=== PATIENT | female | born 1960 | race Caucasian/White ===

== ENCOUNTER → 2016-04-08 | Outpatient (CLI) | payer BC ==
--- NOTE | 2016-04-09 11:51 | MM ---
Reason for exam: screening (asymptomatic). Last mammogram was performed 2 years and 4 months ago. History: Taking hormonal contraceptives beginning at age 23. Physical Findings: A clinical breast exam by your physician is recommended on an annual basis and results should be correlated with mammographic findings. MG Screening Mammo w CAD Bilateral CC and MLO view(s) were taken. Prior study comparison: November 30, 2013, bilateral MG screening mammo w CAD. February 24, 2011, bilateral digital screening mammo w/CAD. There are scattered fibroglandular densities. No significant changes when compared with prior studies. ASSESSMENT: Benign, BI-RAD 2 RECOMMENDATION: Routine screening mammogram of both breasts in 1 year.
== END | disposition home or self-care (01) ==
LOC: RADMAMWWP 10:34
PROVIDERS: ATTEND Family Medicine
DX: Z12.31 Encounter for screening mammogram for malignant neoplasm of breast (principal)

== ENCOUNTER 2016-05-13 12:27 | Emergency (ER) | payer BC ==
[2016-05-13] MEDS ORDERED: SODIUM CHLORIDE 0.9% 500 ML IV STA (13:29)
[2016-05-13] MEDS ORDERED: SODIUM CHLORIDE 0.9% 1,000 ML IV STA (13:29)
[2016-05-13] MEDS ORDERED: PANTOPRAZOLE 40 MG/10 ML VIAL IVP STA (13:29)
[2016-05-13] MEDS ORDERED: ONDANSETRON 4 MG/2 ML VIAL IVP STA ×2 (13:29→17:16)
[2016-05-13] MEDS ORDERED: RX INFO: IV CONTRAST WAS GIVEN 1 EACH MISC MISCELLANE PRN (13:29)
--- NOTE | 2016-05-13 13:35 | ED ---
General Adult HPI - General Chief complaint: Abdominal Pain Stated complaint: Weakness, nausea Time Seen by Provider: 05/13/16 13:20 Source: patient, RN notes reviewed, old records reviewed Mode of arrival: wheelchair Limitations: no limitations - History of Present Illness Initial comments: This is a 55-year-old female ER for evaluation. Patient presented here for evaluation of weakness nausea and anorexia and abdominal pain ever since hysterectomy. Doctor or the patient's hysterectomy, patient has had follow-up which is been normal but her decreased appetite has persisted. Patient denies any other complaints of ear cough or congestion, she is nausea with vomiting whenever trainee. No diarrhea, no recent bowel movements. - Related Data Home Medications Medication Instructions Recorded Confirmed ALPRAZolam [Xanax] 0.5 mg PO TID PRN 12/07/13 05/13/16 Nitroglycerin Sl Tabs [Nitrostat] 0.4 mg SUBLINGUAL Q5M PRN 12/18/15 05/13/16 PARoxetine [Paxil] 20 mg PO HS 12/18/15 05/13/16 Metoprolol Tartrate [Lopressor] 25 mg PO BID 01/01/16 05/13/16 Atorvastatin Calcium [Lipitor] 20 mg PO HS 05/13/16 05/13/16 HYDROcodone/APAP 5-325MG [[place] 1 tab PO BID PRN 05/13/16 05/13/16 5-325] Ibuprofen [Motrin] 600 mg PO Q8HR PRN 05/13/16 05/13/16 Lactose-Reduced Food [Ensure Plus] 1 can PO TID PRN 05/13/16 05/13/16 Omeprazole 40 mg PO HS 05/13/16 05/13/16 Sennosides [Senna] 8.6 mg PO DAILY PRN 05/13/16 05/13/16 Sucralfate [Carafate] 1 gm PO QID PRN 05/13/16 05/13/16 Previous Rx's Medication Instructions Recorded traZODone HCL [Desyrel] 50 mg PO HS #0 12/22/15 Allergies Allergy/AdvReac Type Severity Reaction Status Date / Time Penicillins Allergy Unknown Verified 05/13/16 13:31 Review of Systems ROS Statement: Those systems with pertinent positive or pertinent negative responses have been documented in the HPI. ROS Other: All systems not noted in ROS Statement are negative. 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: Chest Pain / Angina, GERD/Reflux, Hypertension Additional 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 / Comment(s): MIGRAINES, IBS, BOIL UNDER RT BREAST History of Any Multi-Drug Resistant Organisms: None Reported Past Surgical History: Cholecystectomy, Hysterectomy Additional Past Surgical History / Comment(s): D&C , NOVOSURE ENDOMETRIAL ABLATION Past Anesthesia/Blood Transfusion Reactions: Postoperative Nausea & Vomiting ( PONV) Additional Past Anesthesia/Blood Transfusion Reaction / Comment(s): CLAUSTERPHOBIA Past Psychological History: Anxiety, Depression Additional Psychological History / Comment(s): TAKES XANAX AND PAXIL-STATED FEELS WSELL MAINTAINED ON HER MEDS,NO THOUGHTS OF HARMING SELF, NO HOPELESSNESS. Smoking Status: Never smoker Past Alcohol Use History: None Reported Past Drug Use History: None Reported - Past Family History Father Family Medical History: Myocardial Infarction ([place]) Mother Family Medical History: CVA/TIA Additional Family Medical History / Comment(s): MOM IS 72 General Exam Limitations: no limitations General appearance: alert, in no apparent distress Head exam: Present: atraumatic, normocephalic, normal inspection Eye exam: Present: normal appearance, PERRL, EOMI. Absent: scleral icterus, conjunctival injection, periorbital swelling ENT exam: Present: normal exam, mucous membranes moist Neck exam: Present: normal inspection. Absent: tenderness, meningismus, lymphadenopathy Respiratory exam: Present: normal lung sounds bilaterally. Absent: respiratory distress, wheezes, rales, rhonchi, stridor Cardiovascular Exam: Present: regular rate, normal rhythm, normal heart sounds. Absent: systolic murmur, diastolic murmur, rubs, gallop, clicks GI/Abdominal exam: Present: soft, normal bowel sounds. Absent: distended, tenderness, guarding, rebound, rigid Extremities exam: Present: normal inspection, full ROM, normal capillary refill. Absent: tenderness, pedal edema, joint swelling, calf tenderness Back exam: Present: normal inspection Neurological exam: Present: alert, oriented X3, CN II-XII intact Psychiatric exam: Present: normal affect, normal mood Skin exam: Present: warm, dry, intact, normal color. 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 - Lab Data Result diagrams: 05/13/16 14:40 05/13/16 15:31 Lab Results 05/13/16 05/13/16 05/13/16 Range/Units 14:15 14:40 14:40 WBC 7.4 (3.8-10.6) k/uL RBC 4.92 (3.80-5.40) m/uL Hgb 14.2 (11.4-16.0) gm/dL Hct 44.0 (34.0-46.0) % MCV 89.4 (80.0-100.0) fL MCH 28.8 (25.0-35.0) pg MCHC 32.3 (31.0-37.0) g/dL RDW 13.6 (11.5-15.5) % Plt Count 346 (150-450) k/uL Neutrophils % 66 % Lymphocytes % 23 % Monocytes % 6 % Eosinophils % 2 % Basophils % 1 % Neutrophils # 4.9 (1.3-7.7) k/uL Lymphocytes # 1.7 (1.0-4.8) k/uL Monocytes # 0.4 (0-1.0) k/uL Eosinophils # 0.2 (0-0.7) k/uL Basophils # 0.1 (0-0.2) k/uL Sodium (137-145) mmol/L Potassium (3.5-5.1) mmol/L Chloride (98-107) mmol/L Carbon Dioxide (22-30) mmol/L Anion Gap mmol/L BUN (7-17) mg/dL Creatinine (0.52-1.04) mg/dL Est GFR (MDRD) Af Amer (>60 ml/min/1.73 sqM) Est GFR (MDRD) Non-Af (>60 ml/min/1.73 sqM) Glucose (74-99) mg/dL Plasma Lactic Acid Daniel 1.4 (0.7-2.0) mmol/L Calcium (8.4-10.2) mg/dL Total Bilirubin (0.2-1.3) mg/dL AST (14-36) U/L ALT (9-52) U/L Alkaline Phosphatase (38-126) U/L Total Creatine Kinase (30-135) U/L CK-MB (CK-2) (0.0-2.4) ng/mL CK-MB (CK-2) Rel Index Troponin I (0.000-0.034) ng/mL Total Protein (6.3-8.2) g/dL Albumin (3.5-5.0) g/dL Amylase (30-110) U/L Lipase (23-300) U/L Urine Color Yellow Urine Appearance Clear (Clear) Urine pH 5.0 (5.0-8.0) Ur Specific [place] 1.021 (1.001-1.035) Urine Protein Trace H (Negative) Urine Glucose (UA) Negative (Negative) Urine Ketones Negative (Negative) Urine Blood Negative (Negative) Urine Nitrate Positive H (Negative) Urine Bilirubin Negative (Negative) Urine Urobilinogen <2.0 (<2.0) mg/dL Ur Leukocyte Esterase Large H (Negative) Urine RBC 3 (0-5) /hpf Urine WBC 27 H (0-5) /hpf Ur Squamous Epith Cells 1 (0-4) /hpf Urine Bacteria Moderate H (None) /hpf Urine Mucus Rare H (None) /hpf 05/13/16 05/13/16 Range/Units 14:40 15:31 WBC (3.8-10.6) k/uL RBC (3.80-5.40) m/uL Hgb (11.4-16.0) gm/dL Hct (34.0-46.0) % MCV (80.0-100.0) fL MCH (25.0-35.0) pg MCHC (31.0-37.0) g/dL RDW (11.5-15.5) % Plt Count (150-450) k/uL Neutrophils % % Lymphocytes % % Monocytes % % Eosinophils % % Basophils % % Neutrophils # (1.3-7.7) k/uL Lymphocytes # (1.0-4.8) k/uL Monocytes # (0-1.0) k/uL Eosinophils # (0-0.7) k/uL Basophils # (0-0.2) k/uL Sodium 144 (137-145) mmol/L Potassium 4.5 (3.5-5.1) mmol/L Chloride 105 (98-107) mmol/L Carbon Dioxide 24 (22-30) mmol/L Anion Gap 15 mmol/L BUN 16 (7-17) mg/dL Creatinine 0.73 (0.52-1.04) mg/dL Est GFR (MDRD) Af Amer >60 (>60 ml/min/1.73 sqM) Est GFR (MDRD) Non-Af >60 (>60 ml/min/1.73 sqM) Glucose 91 (74-99) mg/dL Plasma Lactic Acid Daniel (0.7-2.0) mmol/L Calcium 9.6 (8.4-10.2) mg/dL Total Bilirubin 0.6 (0.2-1.3) mg/dL AST 41 H (14-36) U/L ALT 51 (9-52) U/L Alkaline Phosphatase 114 (38-126) U/L Total Creatine Kinase 44 (30-135) U/L CK-MB (CK-2) 0.5 (0.0-2.4) ng/mL CK-MB (CK-2) Rel Index 1.1 Troponin I <0.012 (0.000-0.034) ng/mL Total Protein 8.0 (6.3-8.2) g/dL Albumin 4.4 (3.5-5.0) g/dL Amylase 44 (30-110) U/L Lipase 133 (23-300) U/L Urine Color Urine Appearance (Clear) Urine pH (5.0-8.0) Ur Specific [place] (1.001-1.035) Urine Protein (Negative) Urine Glucose (UA) (Negative) Urine Ketones (Negative) Urine Blood (Negative) Urine Nitrate (Negative) Urine Bilirubin (Negative) Urine Urobilinogen (<2.0) mg/dL Ur Leukocyte Esterase (Negative) Urine RBC (0-5) /hpf Urine WBC (0-5) /hpf Ur Squamous Epith Cells (0-4) /hpf Urine Bacteria (None) /hpf Urine Mucus (None) /hpf - Radiology Data Radiology results: report reviewed (CT abd pelvis shows cystitis, post op inflammation), image reviewed Disposition Clinical Impression: Abdominal pain, Post-op pain, Nausea & vomiting, UTI (urinary tract infection) Disposition: HOME SELF-CARE Condition: Good Instructions: Abdominal Pain (ED), Urinary Tract Infection in Women (ED) Referrals: Palmer Jamison DO [Primary Care Provider] - 1-2 days
[2016-05-13 14:39] LABS: Appearance,Urine Clear (Clear); Bacteria,Urine Moderate /hpf; Bilirubin,Urine Negative (Negative); Glucose,Urine (UA) Negative (Negative); Ketones,Urine Negative (Negative); Leukocyte Esterase,Urine Large (Negative); Mucus,Urine Rare /hpf; Nitrite,Urine Positive (Negative); Particle Count 4621; Protein,Urine Trace (Negative); RBC,Urine 3 /hpf (0-5); Specific Gravity,Urine 1.021 (1.001-1.035); Squamous Epithelial Cell,Urine 1 /hpf (0-4); UA Billing (MACRO vs. MICRO) MICRO; Urobilinogen,Urine <2.0 mg/dL (<2.0); WBC,Urine 27 /hpf (0-5)
[2016-05-13 15:09] LABS: Basophils # (A) 0.1 k/uL (0-0.2); Basophils % (A) 1 %; CH 28.9; CHCM 32.4; Eosinophils # (A) 0.2 k/uL (0-0.7); Eosinophils % (A) 2 %; HDW 2.44; HGB 14.2 gm/dL (11.4-16.0); Luc # (Auto) 0.12; Luc % (Auto) 2; Lymphocytes # (A) 1.7 k/uL (1.0-4.8); Lymphocytes % (A) 23 %; MCH 28.8 pg (25.0-35.0); MCHC 32.3 g/dL (31.0-37.0); MCV 89.4 fL (80.0-100.0); Monocytes # (A) 0.4 k/uL (0-1.0); Monocytes % (A) 6 %; Neutrophils # (A) 4.9 k/uL (1.3-7.7); Neutrophils % (A) 66 %; RBC 4.92 m/uL (3.80-5.40); RDW 13.6 % (11.5-15.5); WBC 7.4 k/uL (3.8-10.6); WBC (Perox) 7.56
[2016-05-13] MEDS ORDERED: IOHEXOL 350 MG/ML 25 ML BOTTLE (ORAL USE) PO PRN (15:12)
[2016-05-13 15:22] LABS: Creatine Kinase 44 U/L (30-135)
[2016-05-13 15:34] LABS: Creatine Kinase MB 0.5 ng/mL (0.0-2.4); Troponin I <0.012 ng/mL (0.000-0.034)
[2016-05-13 16:00] LABS: ALT 51 U/L (9-52); AST 41 U/L (14-36); Alkaline Phosphatase 114 U/L (38-126); Amylase 44 U/L (30-110); Anion Gap 15 mmol/L; Blood Urea Nitrogen 16 mg/dL (7-17); Calcium 9.6 mg/dL (8.4-10.2); Carbon Dioxide 24 mmol/L (22-30); Chloride 105 mmol/L (98-107); Glucose 91 mg/dL (74-99); Non-African American GFR(MDRD) >60 (>60 ml/min/1.73 sqM); Potassium 4.5 mmol/L (3.5-5.1); Sodium 144 mmol/L (137-145); Total Bilirubin 0.6 mg/dL (0.2-1.3)
[2016-05-13 16:55] VITALS: RESP 18
--- NOTE | 2016-05-13 17:50 | CT ---
EXAMINATION TYPE: CT abdomen pelvis w con DATE OF EXAM: 05/13/2016 5:36 PM COMPARISON: 12/27/2013 HISTORY: Weakness and nausea [address] DLP: 2030.00 mGycm Automated exposure control for dose reduction was used. TECHNIQUE: Helical acquisition of images was performed from the lung bases through the pelvis. CONTRAST: Performed with Oral Contrast and with IV Contrast, patient injected with 100 mL of Omnipaque 300. FINDINGS: There is mild linear density at the lung bases consistent with subsegmental atelectasis. There is no pleural effusion. There is no pericardial effusion. Liver shows no focal defect. There are clips from cholecystectomy. Spleen and pancreas appear normal. There is no adrenal mass. Kidneys show some satisfactory contrast opacification. There is no hydronep hrosis. Ureters are not dilated. There is no retroperitoneal adenopathy. There is no ascites. I see n o intestinal wall thickening. There are no dilated loops. Bladder distends smoothly. There is no sign of a pelvic mass. There is minimal fat stranding involving the subcutaneous fat over the anterior lo wer abdomen. There is minimal stranding around the anticipated location of the appendix. There is no free fluid in the pelvis. I see no bony destructive process. Hysterectomy is noted. IMPRESSION: THERE IS MINIMAL STRANDING IN THE PELVIS ON THE RIGHT SIDE AT THE ANTICIPATED LOCATION OF THE APPENDI X. THIS IS ALSO NEAR THE SURGERY SITE OF THE HYSTERECTOMY. IS NOT CLEAR IF THERE IS AN APPENDICITIS. THERE IS SOME MILD FAT STRANDING OVER THE ANTERIOR LOWER ABDOMEN THAT COULD RELATE TO AN INCISION SIT E. A DEFINITE ABSCESS IS NOT SEEN. THERE COULD BE A SMALL SUBCUTANEOUS SEROMA OR HEMATOMA. The surger y is new compared to old exam.
[2016-05-13 18:07] VITALS: BP 124/71; PULSE 91; TEMP 98.5
[2016-05-13] MEDS ORDERED: MORPHINE SULFATE 4 MG/ML SYRINGE IVP STA (18:08)
[2016-05-13] MEDS ORDERED: KETOROLAC 30 MG/ML 1 ML VIAL IVP STA (18:08)
== END 2016-05-13 18:51 | disposition home or self-care (01) ==
LOC: EC 12:27
DX: N39.0 Urinary tract infection, site not specified (principal); R11.2 Nausea with vomiting, unspecified; G89.18 Other acute postprocedural pain; I10 Essential (primary) hypertension; G43.909 Migraine, unspecified, not intractable, without status migrainosus; K21.9 Gastro-esophageal reflux disease without esophagitis; F41.9 Anxiety disorder, unspecified; F32.9 Major depressive disorder, single episode, unspecified; Z88.0 Allergy status to penicillin; Z79.899 Other long term (current) drug therapy; Z90.710 Acquired absence of both cervix and uterus
CPT/HCPCS: 99284; 96365; 96375 ×4; 96376; 96361; 36415; 80053; 82150; 82550; 82553; 83605; 83690; 84484; 85025; 81001; 87491; 87591; 87086; 87077; 87186; 74177; J2270; J2405; J0696; J1885; Q9967; C9113

== ENCOUNTER 2016-05-14 10:54 | Inpatient (IN) | payer BC ==
[2016-05-14] MEDS ORDERED: SENNOSIDES 8.6 MG TAB PO PRN (11:14)
[2016-05-14] MEDS ORDERED: HYDROcodone/APAP 10-325MG 1 EACH TAB PO PRN (11:16)
[2016-05-14] MEDS ORDERED: IBUPROFEN 600 MG TAB PO PRN (11:16)
--- NOTE | 2016-05-14 12:59 | P.HPOB ---
History of Present Illness H&P Date: 05/14/16 Chief Complaint: Nausea, vomiting, weakness This is a 55 y.o. female, 4, para 3, who had a total abdominal hysterectomy with bilateral salpingooophorectomy for persistent pelvic pain on at [facility]. Pathology was benign. She developed postoperative urinary retention and was unable to go on her own after multiple straight cath attempts. She was discharged home after a week with a Nieves catheter in place and was seen in Dr. Resendiz's office for catheter removal a week later. She has been able to urinate on her own since then and is going good amounts. She does state the pressure that she was feeling over her bladder before surgery is now gone. She did also take a long time to pass flatus. She was eating and did have a small bowel movement prior to discharge. She now tells me that she was only eating liquids and everytime she tried solid foods, she would vomit, even while she was still admitted. I was not aware of this and thought she was tolerating a regular diet. Since going home, she has been drinking Ensure at least 3 times a day, but every time she tries solid food, she vomits. For the last 3 days, she has been unable to even hold liquids down, including water. She denies even feeling hungry. She has not had a bowel movement in about a week despite attemting a suppository. She states she hasn't passed flatus in about 3 days. She is getting more abdominal pain due to all of the vomiting. She was seen in the ER at [facility] yesterday afternoon at my request. She called my office stating she wasn't holding anything down and was getting very weak. The ER physician called me and told me her CT scan looked good and that she didn't have any bowel blockage. There was some fat stranding in the subcutaneous fat over anterior lower abdomen in right side near appendix site and hysterectomy site, but no clear appendicitis. She states she was actively vomiting up the contrast as they wheeled her out of the ER and discharged her. She was also having more abdominal pain and asked for pain medication. She told the nurse she didn't want anything very strong, but they gave her Morphine and she vomited all night and had bad muscle spasms all over along with chest pain. She doesn't ever want the Morphine again. She states she has lost 30 lbs in the last 3 weeks. She does give a history of stomach/bowel issues in the past and has been seen by Dr. August in the past. OB Hx: . History of 3 vaginal deliveries and 1 miscarrage. 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 Complete hysterectomy 3 weeks ago. Social Hx: She is . Has current partner. 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: Coronary Artery Disease (CAD), Chest Pain / Angina, GERD/ Reflux, Hypertension Additional 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 / Comment(s): MIGRAINES, IBS, BOIL UNDER RT BREAST History of Any Multi-Drug Resistant Organisms: None Reported Past Surgical History: Cholecystectomy, Hysterectomy (04/22/2016), Uterine Ablation Additional Past Surgical History / Comment(s): D&C , NOVOSURE ENDOMETRIAL ABLATION Past Anesthesia/Blood Transfusion Reactions: Postoperative Nausea & Vomiting ( PONV) Additional Past Anesthesia/Blood Transfusion Reaction / Comment(s): CLAUSTERPHOBIA Past Psychological History: Anxiety, Depression Additional Psychological History / Comment(s): TAKES XANAX AND PAXIL-STATED FEELS WSELL MAINTAINED ON HER MEDS,NO THOUGHTS OF HARMING SELF, NO HOPELESSNESS. Smoking Status: Never smoker Past Alcohol Use History: None Reported Past Drug Use History: None Reported - Past Family History Father Family Medical History: Myocardial Infarction ([place]) Mother Family Medical History: CVA/TIA Additional Family Medical History / Comment(s): MOM IS 72 Medications and Allergies Home Medications Medication Instructions Recorded Confirmed Type ALPRAZolam [Xanax] 0.5 mg PO TID PRN 12/07/13 05/13/16 History Nitroglycerin Sl Tabs [Nitrostat] 0.4 mg SUBLINGUAL Q5M PRN 12/18/15 05/13/16 History PARoxetine [Paxil] 20 mg PO HS 12/18/15 05/13/16 History Metoprolol Tartrate [Lopressor] 25 mg PO BID 01/01/16 05/13/16 History Atorvastatin Calcium [Lipitor] 20 mg PO HS 05/13/16 05/13/16 History HYDROcodone/APAP 5-325MG [[place] 1 tab PO BID PRN 05/13/16 05/13/16 History 5-325] Ibuprofen [Motrin] 600 mg PO Q8HR PRN 05/13/16 05/13/16 History Lactose-Reduced Food [Ensure Plus] 1 can PO TID PRN 05/13/16 05/13/16 History Omeprazole 40 mg PO HS 05/13/16 05/13/16 History Sennosides [Senna] 8.6 mg PO DAILY PRN 05/13/16 05/13/16 History Sucralfate [Carafate] 1 gm PO QID PRN 05/13/16 05/13/16 History Allergies Allergy/AdvReac Type Severity Reaction Status Date / Time Penicillins Allergy Unknown Verified 05/13/16 13:31 morphine AdvReac Chest Pain Verified 05/14/16 12:59 Exam Osteopathic Statement: *. No significant issues noted on an osteopathic structural exam other than those noted in the History and Physical/Consult. GEN: Well-developed female in mild distress and appears dehydrated HEENT: within normal limits Heart: regular rate and rhythm Lungs: clear to auscultation bilaterally Abdomen: soft, +bowel sounds x 4, mild diffuse tenderness, worst near epigastric area. Incision healing well with mild tenderness, no redness. Extremities: Neg. Autumn's. Assessment and Plan (1) Abdominal pain Status: Acute (2) Nausea & vomiting Status: Acute (3) Urinary tract infection Status: Acute Plan: Plan is to admit for observation. Will obtain GI consultation and give IV antibiotics for UTI. Will give antiemetics and fluids. Will monitor closely.
[2016-05-14] MEDS ORDERED: LEVOFLOXACIN 750MG-D5W PMX 750 MG in DEXTROSE/WATER 1 150ML.BAG IVPB SCH (13:00)
[2016-05-14] MEDS: METOCLOPRAMIDE 5 MG/ML 2 ML VIAL IVP PRN (14:12)
[2016-05-14 15:06] LABS: ALT 47 U/L (9-52); AST 41 U/L (14-36); Alkaline Phosphatase 108 U/L (38-126); Anion Gap 13 mmol/L; Blood Urea Nitrogen 12 mg/dL (7-17); Calcium 9.6 mg/dL (8.4-10.2); Carbon Dioxide 23 mmol/L (22-30); Chloride 106 mmol/L (98-107); Glucose 92 mg/dL (74-99); Non-African American GFR(MDRD) >60 (>60 ml/min/1.73 sqM); Potassium 4.5 mmol/L (3.5-5.1); Sodium 142 mmol/L (137-145); Total Bilirubin 0.6 mg/dL (0.2-1.3); Total Protein 7.3 g/dL (6.3-8.2)
[2016-05-14] MEDS: SODIUM CHLORIDE 0.9% 1,000 ML IV SCH (15:49)
[2016-05-14] MEDS: ONDANSETRON 4 MG/2 ML VIAL IVP PRN (18:55)
[2016-05-14] MEDS: KETOROLAC 30 MG/ML 1 ML VIAL IVP PRN (19:00)
[2016-05-14] MEDS: ATORVASTATIN 20 MG TAB PO SCH (21:04)
[2016-05-14] MEDS: PANTOPRAZOLE 40 MG TABLET PO SCH (21:04)
[2016-05-14] MEDS: ALPRAZolam 0.5 MG TAB PO PRN (21:04)
[2016-05-14] MEDS: traZODone HCL 50 MG TAB PO SCH (21:04)
[2016-05-15] MEDS: SODIUM CHLORIDE 0.9% 1,000 ML IV SCH ×3 (01:08→21:30)
[2016-05-15] MEDS: ONDANSETRON 4 MG/2 ML VIAL IVP PRN (06:02)
[2016-05-15] MEDS: KETOROLAC 30 MG/ML 1 ML VIAL IVP PRN ×2 (06:02→20:21)
[2016-05-15] MEDS: SUCRALFATE 1 GM TAB PO PRN (07:54)
--- NOTE | 2016-05-15 08:57 | P.PN ---
Subjective Principal diagnosis: Nausea and vomiting Patient was still nauseated yesterday and did receive Reglan. She took some [place] shortly after that and felt even more nauseated. They did switch her to Zofran after that. She has done a little bit better through the night but she has not taken any more [place]. She was placed on IV Toradol and this has helped with her pain. Just this morning she did start to pass some flatus. Her intake has been minimal. She stated she ate approximately a half above popsicle and then started to feel nauseated so she stopped eating. She still feels weak but it is better than yesterday. GI consult is pending at this time. Objective - Vital Signs Vital signs: Vital Signs Temp 98.1 F 05/15/16 06:00 Pulse 76 05/15/16 06:00 Resp 18 05/15/16 06:00 BP 103/73 05/15/16 06:00 Pulse Ox 97 05/15/16 06:00 Intake & Output 05/14/16 05/15/16 05/15/16 18:59 06:59 18:59 Intake Total 100 400 Output Total 200 300 Balance -100 100 Weight 100.7 kg Intake: Oral 100 400 Output: Urine 200 300 Other: Voiding Method Toilet Toilet # Voids 1 - Constitutional General appearance: Present: no acute distress - Gastrointestinal General gastrointestinal: Present: normal bowel sounds (Positive bowel sounds 4 , very active), soft, tenderness (Mild diffuse tenderness) - Labs CBC & Chem 7: 05/14/16 14:45 Labs: Abnormal Lab Results - Last 24 Hours (Table) 05/14/16 Range/Units 14:45 AST 41 H (14-36) U/L Assessment and Plan (1) Abdominal pain Status: Acute (2) Nausea & vomiting Status: Acute (3) Urinary tract infection Status: Acute Plan: Will await GI input. She is advised to continue to attempt to eat liquids as much as possible. She is encouraged to ambulate. Will continue with IV Levaquin while urine culture is pending. We may need to pretreat with Benadryl due to some itching she had shortly after infusion yesterday.
[2016-05-15 11:14] VITALS: BMI 34.7
--- NOTE | 2016-05-15 13:25 | P.CONS ---
History of Present Illness - Reason for Consult Consult date: 05/15/16 Nausea vomiting epigastric pain Requesting physician: Phuong Maddox - History of Present Illness 55-year-old female patient of Dr. Maddox with a history of IBS status post total abdominal hysterectomy/BSO about 3 weeks ago for pelvic pain. Surgical pathology benign. She presents with intractable nausea vomiting epigastric pain since surgery. She describes her postoperative course having difficulty urinating and had to go home with an indwelling catheter for about 3 weeks. Since removal of Nieves catheter she is voiding without difficulty. Appetite has diminished greatly reports weight loss but difficult to quantify. Denies hematemesis, hematochezia, or melena. No fever or chills. Abdominal pain is mostly in the mid to upper abdomen. EGD in the past but it's been a few years. Colonoscopy 3-4 years ago under her memory was normal. She is currently receiving antibiotics for gram-negative urinary tract infection. White count on 05/13/2016 was 7.4. Hemoglobin 14.2. She is trying to supplement her diet with protein shakes without much improvement. The smell of food makes her more nauseated. CT abdomen and pelvis with contrast reported minimal stranding in the pelvis on the right near the location appendix but also near the surgical site of hysterectomy unclear if there is evidence of appendicitis. Some mild fat stranding over the lower anterior abdomen could be related to incision site. No abscess seen. Possible small subcutaneous seroma possible small hematoma. Review of Systems Constitutional: Denies fever, chills, sweats, weight gain, or loss. HEENT: History of migraines, denies blurred vision or loss, earaches, drainage, tinnitus, oral mucosal lesions, dysphagia, or odynophagia. CARDIAC: CAD. Chest pain. Hypertension. Negative for chest pain, arrhythmias , or palpitation. RESPIRATORY: Negative for shortness of breath, hemoptysis, cough, or sputum production. GI: See HPI for pertinent findings. : Negative for hematuria, urgency, frequency, polyuria, or dysuria. GYNc: See HPI for pertinent findings.. MUSCULOSKELETAL: Negative for muscle aches, swelling, arthritis, and arthralgias. NEUROLOGIC: Negative for stroke or TIA. ENDOCRINE: Negative for thyroid problems. SKIN: Negative for rash or itching. PSYCHIATRIC: depression and anxiety All systems: negative (See HPI) 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: Coronary Artery Disease (CAD), Chest Pain / Angina, GERD/ Reflux, Hypertension Additional 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 / Comment(s): MIGRAINES, IBS, BOIL UNDER RT BREAST History of Any Multi-Drug Resistant Organisms: None Reported Past Surgical History: Cholecystectomy, Hysterectomy, Uterine Ablation Additional Past Surgical History / Comment(s): D&C , NOVOSURE ENDOMETRIAL ABLATION Past Anesthesia/Blood Transfusion Reactions: Postoperative Nausea & Vomiting ( PONV) Additional Past Anesthesia/Blood Transfusion Reaction / Comm: CLAUSTERPHOBIA Past Psychological History: Anxiety, Depression Additional Psychological History / Comment(s): TAKES XANAX AND PAXIL-STATED FEELS WSELL MAINTAINED ON HER MEDS,NO THOUGHTS OF HARMING SELF, NO HOPELESSNESS. Smoking Status: Never smoker Past Alcohol Use History: None Reported Past Drug Use History: None Reported - Past Family History Father Family Medical History: Myocardial Infarction ([place]) Mother Family Medical History: CVA/TIA Additional Family Medical History / Comment(s): MOM IS 72 Medications and Allergies Home Medications Medication Instructions Recorded Confirmed Type ALPRAZolam [Xanax] 0.5 mg PO TID PRN 12/07/13 05/14/16 History Nitroglycerin Sl Tabs [Nitrostat] 0.4 mg SUBLINGUAL Q5M PRN 12/18/15 05/14/16 History PARoxetine [Paxil] 20 mg PO HS 12/18/15 05/14/16 History Metoprolol Tartrate [Lopressor] 25 mg PO BID 01/01/16 05/14/16 History Atorvastatin Calcium [Lipitor] 20 mg PO HS 05/13/16 05/14/16 History HYDROcodone/APAP 5-325MG [[place] 1 tab PO BID PRN 05/13/16 05/14/16 History 5-325] Ibuprofen [Motrin] 600 mg PO Q8HR PRN 05/13/16 05/14/16 History Lactose-Reduced Food [Ensure Plus] 237 ml PO TID 05/13/16 05/14/16 History Omeprazole 40 mg PO HS 05/13/16 05/14/16 History Sennosides [Senna] 8.6 mg PO DAILY PRN 05/13/16 05/14/16 History Sucralfate [Carafate] 1 gm PO QID PRN 05/13/16 05/14/16 History Allergies Allergy/AdvReac Type Severity Reaction Status Date / Time levofloxacin [From Levaquin] Allergy Rash/Hives Verified 05/14/16 16:53 Penicillins Allergy Unknown Verified 05/14/16 14:35 morphine AdvReac Chest Pain Verified 05/14/16 14:35 Physical Exam Vitals: Vital Signs Temp Pulse Pulse Resp BP Pulse Ox 05/15/16 11:21 98.6 F 76 20 134/79 98 05/15/16 08:30 98.4 F 71 12 128/79 99 05/15/16 07:00 98.4 F 71 14 128/79 98 05/15/16 06:00 98.1 F 76 18 103/73 97 05/15/16 01:00 97.6 F 78 18 106/67 98 05/14/16 19:56 97.9 F 84 19 105/62 99 05/14/16 15:00 97.3 F L 83 18 101/66 99 Intake and Output 05/14/16 05/15/16 05/15/16 22:59 06:59 14:59 Intake Total 200 200 Output Total 200 300 250 Balance 0 -100 -250 Intake: Oral 200 200 Output: Urine 200 300 250 Other: Voiding Method Toilet # Voids 1 Weight 100.7 kg Patient Weight 05/16/16 06:59 Weight 100.7 kg General appearance: The patient is alert, oriented, in no acute distress. HET: Head is normocephalic and atraumatic. Pupils are equal and reactive. Oropharynx is clear without lesions. Neck: Supple without lymphadenopathy. Trachea midline. Heart: S1 S2. Regular rate and rhythm. Lungs: No crackles or wheezes are heard. Abdomen: Soft, lower transverse incision well approximate without erythema or drainage healing, midepigastric tenderness, nondistended with bowel sounds. No peritoneal signs. No palpable organomegaly or masses. Extremities: Normal skin color and turgor. No cyanosis, rash, ulceration, clubbing, or edema. Radial and pedal pulses are 2/4 bilaterally. Neurological: No focal deficits. Strength and sensation are grossly intact. Results CBC & Chem 7: 05/14/16 14:45 Labs: Abnormal Lab Results - Last 24 Hours (Table) 05/14/16 Range/Units 14:45 AST 41 H (14-36) U/L CT scan - abdomen: report reviewed (Reviewed by Dr. August) Assessment and Plan (1) Nausea & vomiting Narrative/Plan: 55-year-old female status post ISELA/BSO 3 weeks ago admitted with gram-negative UTI with persistent nausea vomiting and upper midepigastric abdominal pain. Status: Acute (2) Urinary tract infection Status: Acute (3) Abdominal pain Status: Acute Plan: 1. Continue Zofran, Reglan and Protonix. Hold Toradol after midnight for EGD evaluation tomorrow possible biopsies. 2. Light diet as tolerated nothing by mouth after midnight. The refinery operator visbreaking has discussed the risks, benefits and alternative therapies for the above-mentioned procedure and for both sedation/analgesia as well as necessary blood product administration, if indicated, as they pertain to this patient. The patient has indicated understanding and acceptance of the risks and procedures discussed. Thank you for this kind referral and the opportunity to participate in the care of your patient. This consultation was discussed with Dr. August. The impression and plan of care have been directed as dictated.
[2016-05-15] MEDS: diphenhydrAMINE 50 MG/ML 1 ML VIAL IVP PRN (14:30)
[2016-05-15] MEDS: LEVOFLOXACIN 750MG-D5W PMX 750 MG in DEXTROSE/WATER 1 150ML.BAG IVPB SCH (15:10)
[2016-05-15] MEDS ORDERED: LACTATED RINGERS 1,000 ML IV SCH (16:45)
[2016-05-15] MEDS: METOCLOPRAMIDE 5 MG/ML 2 ML VIAL IVP PRN (17:24)
[2016-05-15] MEDS: ATORVASTATIN 20 MG TAB PO SCH (20:26)
[2016-05-15] MEDS: traZODone HCL 50 MG TAB PO SCH (20:26)
[2016-05-15] MEDS: PANTOPRAZOLE 40 MG TABLET PO SCH (20:26)
[2016-05-15] MEDS: ALPRAZolam 0.5 MG TAB PO PRN (21:27)
[2016-05-16] MEDS: SODIUM CHLORIDE 0.9% 1,000 ML IV SCH ×2 (06:43→15:02)
--- NOTE | 2016-05-16 09:18 | P.PN ---
Subjective Principal diagnosis: Nausea and vomiting Status post total abdominal hysterectomy with bilateral salpingo-oophorectomy postoperative 3 weeks Patient states she has been drinking more fluids yesterday. She does stop herself when she feels like she starts to get nauseated. She has not vomited. Her abdominal pain is much better since she is not vomiting. She is urinating larger amounts now. She states this morning she no longer feels burning when she urinates. She is still passing flatus but no bowel movement yet. She states just this morning she started to feel hunger pain. She has not felt this in several weeks now. She has been seen by GI who is set to do an EGD on her this morning. Objective - Vital Signs Vital signs: Vital Signs Temp 97.3 F L 05/16/16 08:40 Pulse 74 05/16/16 08:40 Resp 16 05/16/16 08:40 BP 143/92 05/16/16 08:40 Pulse Ox 98 05/16/16 08:40 Intake & Output 05/15/16 05/16/16 05/16/16 18:59 06:59 18:59 Intake Total 820 300 Output Total 550 1550 Balance 270 -1250 Weight 100.7 kg Intake: Oral 820 300 Output: Urine 550 1550 Other: Voiding Method Toilet Toilet - Constitutional General appearance: Present: no acute distress - Gastrointestinal General gastrointestinal: Present: normal bowel sounds, tenderness (Minimal along incision) - Labs CBC & Chem 7: 05/14/16 14:45 Assessment and Plan (1) Abdominal pain Status: Acute (2) Nausea & vomiting Status: Acute (3) Urinary tract infection Status: Acute Plan: Will await EGD results. We'll continue to encourage liquids after procedure. Will await further recommendations from GI regarding advancing diet.
[2016-05-16] MEDS ORDERED: IV FLUID CONTINUATION 500 ML IV ONE ×2 (12:32→12:51)
[2016-05-16] MEDS ORDERED: PROPOFOL 10 MG/ML 20 ML VIAL IV ONE (12:40)
[2016-05-16] MEDS ORDERED: fentaNYL (PF) 50 MCG/ML 2 ML AMP ONE (12:40)
[2016-05-16] MEDS ORDERED: MIDAZOLAM 2 MG/2 ML VIAL ONE (12:40)
--- NOTE | 2016-05-16 12:48 | P.PCN ---
Date of Procedure: 05/16/16 Procedure(s) Performed: BRIEF HISTORY: Patient is a 55-year-old, pleasant, white female, admitted to the hospital with epigastric pain associated with nausea vomiting and inability the last few weeks duration. She is hence scheduled for an upper endoscopy to evaluate further. PROCEDURE PERFORMED: Esophagogastroduodenoscopy with biopsy. PREOPERATIVE DIAGNOSIS: Epigastric pain, nausea/vomiting of few weeks duration. IV sedation per anesthesia. PROCEDURE: After informed consent was obtained, the patient was brought into the endoscopy unit. IV conscious sedation was administered by Anesthesia under continuous monitoring. Initially the Olympus GIF-140 video endoscope was inserted into the mouth. Esophagus intubated without any difficulty. It was gradually advanced into the stomach and duodenum and carefully examined. The bulb and the second part of the duodenum appeared normal. The scope at this time was withdrawn to the stomach, adequately insufflated with air, and upon careful examination, mucosa of the antrum, body, cardia and the fundus appeared normal. The scope was then withdrawn into the esophagus. The GE junction was located at 39 cm from the incisors. 2 superficial erosions noted at the GE junction consistent with LA grade A reflux esophagitis. The rest of the esophagus appeared normal and the patient tolerated the procedure well. IMPRESSION: 1. Mild antral gastritis. 2. 2 superficial erosions at the GE junction consistent with LA grade A reflux esophagitis. RECOMMENDATIONS: The findings of this examination were discussed with the patient as well as a family. She'll be continued on Protonix 40 minute grams daily as well as antiemetics and Carafate. Her diet will be advanced as tolerated.
[2016-05-16] MEDS: KETOROLAC 30 MG/ML 1 ML VIAL IVP PRN ×2 (13:55→20:10)
[2016-05-16] MEDS: diphenhydrAMINE 50 MG/ML 1 ML VIAL IVP PRN (14:47)
[2016-05-16] MEDS: LEVOFLOXACIN 750MG-D5W PMX 750 MG in DEXTROSE/WATER 1 150ML.BAG IVPB SCH (15:02)
[2016-05-16] MEDS: ATORVASTATIN 20 MG TAB PO SCH (21:15)
[2016-05-16] MEDS: traZODone HCL 50 MG TAB PO SCH (21:15)
[2016-05-16] MEDS: PANTOPRAZOLE 40 MG TABLET PO SCH (21:15)
[2016-05-16] MEDS: ALPRAZolam 0.5 MG TAB PO PRN (21:15)
[2016-05-17] MEDS: SODIUM CHLORIDE 0.9% 1,000 ML IV SCH (02:13)
[2016-05-17] MEDS: KETOROLAC 30 MG/ML 1 ML VIAL IVP PRN (06:32)
[2016-05-17] MEDS: METOCLOPRAMIDE 5 MG/ML 2 ML VIAL IVP PRN (08:32)
--- NOTE | 2016-05-17 08:40 | P.PN ---
Subjective Principal diagnosis: Nausea and vomiting Status post total abdominal hysterectomy with bilateral salpingo-oophorectomy postoperative 3 weeks The patient underwent an EGD yesterday. Apparently she has some esophagitis and some small erosions. Dr. August did speak to her about adjusting her GI medication and advancing her diet. Yesterday she did tolerate some soft foods such as applesauce. She did back off however when she became nauseated. She would like to attempt to eat more today but wishes to take some antiemetic prior to trying to eat. She is still passing flatus but no bowel movement. She did notice a little bit of burning with urination this morning, but she is urinating good amounts. Urine culture did show E. coli. Objective - Vital Signs Vital signs: Vital Signs Temp 98.4 F 05/17/16 07:00 Pulse 79 05/17/16 07:00 Resp 19 05/17/16 07:00 BP 129/74 05/17/16 07:00 Pulse Ox 99 05/17/16 07:00 Intake & Output 05/16/16 05/17/16 05/17/16 18:59 06:59 18:59 Intake Total 500 200 Output Total 450 400 Balance 50 -200 Intake: IV 200 Oral 300 200 Output: Urine 450 400 Other: # Voids 2 1 - Constitutional General appearance: Present: cooperative, no acute distress - Gastrointestinal General gastrointestinal: Present: soft (Positive bowel sounds 4). Absent: distended, tenderness - Labs CBC & Chem 7: 05/14/16 14:45 Assessment and Plan (1) Abdominal pain Status: Acute (2) Nausea & vomiting Status: Acute (3) Urinary tract infection Status: Acute Plan: Will continue with current GI recommendations. Will slowly try to advance diet as tolerated today. Patient will receive antiemetics before trying to eat. She is encouraged to continue ambulating. Will continue with IV antibiotics for UTI.
--- NOTE | 2016-05-17 10:33 | PN ---
DATE OF SERVICE: 05/17/2013 Patient is a 55-year-old pleasant lady admitted to the hospital with epigastric pain associated with nausea, vomiting, and occasional dysphagia for the last 6 weeks' duration since her hysterectomy. Her symptoms have been progressively getting worse despite being on outpatient aggressive acid suppressive therapy with Prilosec 20 mg twice daily. She underwent an upper endoscopy to evaluate her symptoms yesterday and it showed mild gastritis and mild reflux esophagitis. Presently she is on Protonix 40 mg twice daily, Reglan as needed as well as Carafate 1 gram 4 times daily. She is feeling a little bit better today. She is able to handle soft diet so far reasonably well. On physical examination, she appears comfortable in no apparent distress. Vitals as are stable. Blood pressure is 138/72, pulse is 75, temperature 97.7 and afebrile. HEENT examination unremarkable. Conjunctivae pink. Sclerae anicteric. Oral cavity, no lesions. NECK: No JVD or lymph node enlargement. Chest was clear to auscultation. HEART: Regular rate and rhythm. ABDOMEN: Soft. It was nontender, nondistended. Liver and spleen are not palpable. Mild tenderness in the epigastric area. EXTREMITIES: No pedal edema. SKIN: No rashes. NEURO: Alert and oriented x3. No focal deficits. Labs none available today. IMPRESSION: Epigastric pain, nausea, vomiting for the last 3 weeks duration. She is status post abdominal hysterectomy with bilateral salpingo-oophorectomy 3 weeks ago. Upper endoscopy done yesterday did show some esophagitis and gastritis, but no peptic ulcer disease. RECOMMENDATIONS: 1. Continue with Protonix 40 mg q.12 as well as Reglan as needed. 2. Continue Carafate 1 gram 4 times daily. 3. If she is able to tolerate diet she can be discharged home today or tomorrow with outpatient follow up in 1 to 2 weeks. Thank you for this consultation.
[2016-05-17] MEDS: CIPROFLOXACIN HCL 500 MG TAB PO SCH ×2 (11:09→21:02)
[2016-05-17] MEDS: SUCRALFATE 1 GM TAB PO PRN ×2 (11:47→17:31)
[2016-05-17] MEDS: ALPRAZolam 0.5 MG TAB PO PRN ×2 (12:46→21:03)
[2016-05-17] MEDS ORDERED: LEVOFLOXACIN 750 MG TAB PO SCH (15:00)
[2016-05-17] MEDS ORDERED: Acetaminophen-Codeine 300-30mg TAB PO PRN ×2 (20:41)
[2016-05-17] MEDS: IBUPROFEN 600 MG TAB PO PRN (20:49)
[2016-05-17] MEDS ORDERED: PARoxetine 20 MG TAB PO SCH (21:00)
[2016-05-17] MEDS: PANTOPRAZOLE 40 MG TABLET PO SCH (21:02)
[2016-05-17] MEDS: ATORVASTATIN 20 MG TAB PO SCH (21:02)
[2016-05-17] MEDS: traZODone HCL 50 MG TAB PO SCH (21:03)
[2016-05-18] MEDS: IBUPROFEN 600 MG TAB PO PRN (06:43)
[2016-05-18 06:52] VITALS: BP 120/69; PULSE 75; RESP 20; TEMP 97.1
[2016-05-18] MEDS: SUCRALFATE 1 GM TAB PO PRN ×2 (07:32→11:42)
[2016-05-18] MEDS: CIPROFLOXACIN HCL 500 MG TAB PO SCH (07:46)
--- NOTE | 2016-05-18 08:23 | P.DS ---
Providers Date of admission: 05/14/16 12:40 Expected date of discharge: 05/18/16 Attending physician: Phuong Maddox Consults: 05/14/16 11:07 Consult Physician Routine Consulting Provider: Lulu Consult Reason/Comments: Nausea/vomiting post-op 3 weeks from hysterectomy Do you want consulting provider notified?: Yes Primary care physician: Stated None - Discharge Diagnosis(es) (1) Abdominal pain Current Visit: No Status: Acute (2) Nausea & vomiting Current Visit: No Status: Acute (3) Urinary tract infection Current Visit: Yes Status: Acute Hospital Course: This is a 55-year-old female status post total abdominal hysterectomy with bilateral salpingo-oophorectomy postoperative 3 weeks who presented with nausea and vomiting with anorexia for approximate 3-4 days prior to admission. She was found to have a urinary tract infection and was treated with IV Levaquin. Consultation with GI was obtained and she had a EGD performed on 05/16/[address] August. This did show some esophagitis and small erosions. She was given Carafate and Protonix. Since then she has been able to tolerate a regular diet. She is not vomiting since she has started eating. She is urinating good amounts and denies any hematuria urination. Her abdominal pain has subsided considerably since she has not been vomiting. She currently feels ready to go home. She is advised to continue taking and sure along with her solid foods. She is encouraged to eat small, frequent meals. She is advised to follow up with me in the office in approximately 1 week. She is also advised to follow- up with Dr. August in 1-2 weeks. She is advised to call the office if she has any further questions or concerns prior to her appointment time. She will be given a prescription for Cipro 500 mg twice a day for another 2 days. Procedures: EGD on 05/16/[address] August Patient Condition at Discharge: Stable Plan - Discharge Summary New Discharge Prescriptions: Ciprofloxacin HCl [Cipro] 500 mg PO BID #4 tab Discharge Medication List ALPRAZolam [Xanax] 0.5 mg PO TID PRN 12/07/13 [History] Nitroglycerin Sl Tabs [Nitrostat] 0.4 mg SUBLINGUAL Q5M PRN 12/18/15 [History] PARoxetine [Paxil] 20 mg PO HS 12/18/15 [History] traZODone HCL [Desyrel] 50 mg PO HS #0 12/22/15 [Rx] Metoprolol Tartrate [Lopressor] 25 mg PO BID 01/01/16 [History] Atorvastatin Calcium [Lipitor] 20 mg PO HS 05/13/16 [History] Ibuprofen [Motrin] 600 mg PO Q8HR PRN 05/13/16 [History] Lactose-Reduced Food [Ensure Plus] 237 ml PO TID 05/13/16 [History] Omeprazole 40 mg PO HS 05/13/16 [History] Sennosides [Senna] 8.6 mg PO DAILY PRN 05/13/16 [History] Sucralfate [Carafate] 1 gm PO QID PRN 05/13/16 [History] Acetaminophen-Codeine 300-30mg [Tylenol w/codeine #3] 1 each PO Q4HR PRN #0 tab 05/18/16 [Rx] Ciprofloxacin HCl [Cipro] 500 mg PO BID #4 tab 05/18/16 [Rx] Follow up Appointment(s)/Referral(s): Phuong Maddox DO [Doctor of Osteopathic Medicine] - 1 Week Activity/Diet/Wound Care/Special Instructions: Diet as tolerated. Activity as tolerated. No heavy lifting. Discharge Disposition: HOME SELF-CARE
--- NOTE | 2016-05-18 09:35 | PN ---
DATE OF SERVICE: 05/18/2016 Patient is a 55-year-old pleasant lady admitted to the hospital with abdominal pain, epigastric pain, nausea, vomiting, inability to eat for the last 3 weeks since her hysterectomy. She had an upper endoscopy done that showed esophagitis and gastritis. She was started on Protonix 40 mg twice daily and Carafate as well as Reglan and symptoms are gradually improving. She is able to tolerate solid foods reasonably well. She wants to go home today. On physical examination, appears comfortable in no apparent distress. Vitals signs are stable. Blood pressure is 129/74, pulse rate 79, temperature 98. HEENT: Unremarkable. Conjunctivae pink. Sclerae anicteric. Oral cavity, no lesions NECK: No JVD. CHEST: Clear to auscultation. HEART: Regular rate and rhythm. ABDOMEN: Soft. Bowel sounds are positive. No organomegaly. EXTREMITIES: No edema. SKIN: No rashes. NEURO: Alert and oriented x3. No focal deficits. IMPRESSION: Epigastric pain with nausea and vomiting of 3 weeks duration. Esophagogastroduodenoscopy showed gastritis and esophagitis. The patient is gradually improving. RECOMMENDATIONS: 1. Continue with Prilosec 40 mg twice daily, Carafate 1 gram 4 times daily and Reglan as needed. 2. Small frequent meals. 3. She will be discharged home with outpatient follow up in 2 weeks.
[2016-05-18] MEDS ORDERED: CALCIUM CARBONATE 500 MG CHEWABLE PO PRN (10:40)
== END 2016-05-18 12:06 | disposition home or self-care (01) | DRG 690 ==
LOC: OBSVTOIN 12:40 → 6PED 12:40
PROVIDERS: ADMIT Obstetrics & Gynecology; ATTEND Obstetrics & Gynecology
PROC: 0DB68ZX Excision of Stomach, Via Natural or Artificial Opening Endoscopic, Diagnostic (ICD-10-PCS; principal; 2016-05-16 12:40)
PROC: 0DB98ZX Excision of Duodenum, Via Natural or Artificial Opening Endoscopic, Diagnostic (ICD-10-PCS; principal; 2016-05-16 12:40)
PROC: 0DB58ZX Excision of Esophagus, Via Natural or Artificial Opening Endoscopic, Diagnostic (ICD-10-PCS; principal; 2016-05-16 12:40)
DX: N39.0 Urinary tract infection, site not specified (principal); I10 Essential (primary) hypertension; F32.9 Major depressive disorder, single episode, unspecified; B96.89 Other specified bacterial agents as the cause of diseases classified elsewhere; K21.0 Gastro-esophageal reflux disease with esophagitis; K29.60 Other gastritis without bleeding; F41.9 Anxiety disorder, unspecified; I25.10 Atherosclerotic heart disease of native coronary artery without angina pectoris; Z82.49 Family history of ischemic heart disease and other diseases of the circulatory system; Z90.710 Acquired absence of both cervix and uterus; Z90.722 Acquired absence of ovaries, bilateral; Z79.899 Other long term (current) drug therapy; Z88.1 Allergy status to other antibiotic agents; Z88.5 Allergy status to narcotic agent; Z88.0 Allergy status to penicillin
CPT/HCPCS: 43239; 80053; 88305; 88312; 88342

== ENCOUNTER → 2016-11-27 | Outpatient (CLI) | payer BC ==
[2016-11-27 12:34] VITALS: BP 143/81; PULSE 79; RESP 16; TEMP 98.4; BMI 40.8
[2016-11-27 13:06] LABS: EKG EKG PERFORMED
[2016-11-27 13:55] LABS: CH 28.9; CHCM 32.3; HDW 2.38; HGB 12.2 gm/dL (11.4-16.0); MCH 28.1 pg (25.0-35.0); MCHC 31.3 g/dL (31.0-37.0); MCV 89.8 fL (80.0-100.0); Mean Platelet Volume 7.7; RBC 4.34 m/uL (3.80-5.40); RDW 15.2 % (11.5-15.5); WBC 7.2 k/uL (3.8-10.6)
[2016-11-27 14:37] LABS: ALT 70 U/L (9-52); AST 43 U/L (14-36); Alkaline Phosphatase 137 U/L (38-126); Anion Gap 8 mmol/L; Blood Urea Nitrogen 14 mg/dL (7-17); Calcium 9.4 mg/dL (8.4-10.2); Carbon Dioxide 28 mmol/L (22-30); Chloride 103 mmol/L (98-107); Cholesterol 196 mg/dL (<200); Glucose 106 mg/dL (74-99); HDL Cholesterol 59 mg/dL (40-60); Non-African American GFR(MDRD) >60 (>60 ml/min/1.73 sqM); Potassium 4.7 mmol/L (3.5-5.1); Sodium 139 mmol/L (137-145); Total Bilirubin 0.2 mg/dL (0.2-1.3)
[2016-11-27 19:07] LABS: Iron Saturation 14.97 (12.00-45.00)
[2016-11-27 21:14] LABS: Vitamin B12 311 pg/mL (239-931)
[2016-11-28 11:57] LABS: Hemoglobin A1C 6.1 % (4.2-6.1)
--- NOTE | 2016-12-14 16:19 | P.PN ---
Progress Note - Text DATE OF SERVICE: 11/27/2016 REASON FOR CONSULTATION: Initial bariatric evaluation. HISTORY OF PRESENT ILLNESS: Wanda Ervin is a 56-year-old female who presents with morbid obesity. Her highest weight is at present 256 pounds. At her height of 5 foot 6.5 inches, her ideal body weight is 154 pounds. She is 102 pounds overweight. Her highest body mass index is 40.8. She has lifelong morbid obesity. She has undergone medical supervised weight loss for over 4+ years including being placed on Adipex. She had exercised religiously and got down to 150 pounds. Now she comes in with over 100+ pound weight re-gain. She presents with reflux disease. She recently had a hysterectomy 6 months ago with complications including sepsis. No reports of stomach or esophageal cancer. She denies any food ALLERGIES. No reports of ulcerative colitis or lupus. In the past, she had troubles with constipation which is now improved. She has also completed a upper endoscopy this year. PAST MEDICAL HISTORY: 1. Morbid obesity. 2. Body mass index of 40.8 3. Coronary artery disease. 4. Angina. 5. Gastroesophageal reflux disease. 6. Hypertension. 7. Migraines. 8. Irritable bowel syndrome. 9. Claustrophobia. 10. Anxiety. 11. Depression. PAST SURGICAL HISTORY: 1. Cholecystectomy. 2. Hysterectomy. 3. Colonoscopy. 4. Esophagogastroduodenoscopy. 5. Uterine ablation. 6. Postop nausea or vomiting. HOME MEDICATIONS: 1. Trazodone. 2. Senna. 3. Paxil. 4. Omeprazole. 5. Motrin. 6. Lipitor. 7. Xanax. ALLERGIES: 1. Penicillin. 2. Morphine. SOCIAL HISTORY: No active tobacco use. Alcohol use. FAMILY HISTORY: No family history of ulcerative colitis disease or Crohn's disease. She does have a family history of morbid obesity. She denies any lupus in her family. No reports of stomach or esophageal cancer. REVIEW OF ORGAN SYSTEMS: CONSTITUTIONAL: Her highest weight is at present 256 pounds. At her height of 5 foot 6.5 inches, her ideal body weight is 154 pounds. She is 102 pounds overweight. Her highest body mass index is 40.8. HEENT: Denies any active troubles with vision or hearing. Has troubles with swallowing. ENDOCRINE: No diabetes. No hypothyroidism. CARDIOVASCULAR: No reports of palpitations or heart attacks or chest pain. RESPIRATORY: Has daytime somnolence including snoring and sleep apnea. No asthma. GI: Past bright red blood per rectum or constipation. Does have gastroesophageal reflux disease as described above. MUSCULOSKELETAL: Has lower back pain and joint pain. Has osteoarthritis of the hips and knees. NEURO: Has headaches. No seizure disorders. His migraines. PSYCH: Has depression without suicidal ideation. Has anxiety. RHEUMATOLOGIC: No lupus. No rheumatoid arthritis. HEMATOLOGIC: Denies any abnormal bleeding or bruising. No personal history of DVTs. SKIN: No rash. No skin cancer. PHYSICAL EXAM: VITAL SIGNS: Height 5 foot 6.5 inches, weight 256 pounds. BMI 40.8. Vital Signs Temp 98.4 F 11/27/16 12:16 Pulse 79 11/27/16 12:16 Resp 16 11/27/16 12:16 BP 143/81 11/27/16 12:16 Pulse Ox GENERAL: Well-developed female in no acute distress. HEENT: No scleral icterus. Extraocular movements grossly intact. Hears conversational speech. No nasal drainage. NECK: Supple without lymphadenopathy. CHEST: Nonlabored respirations with equal bilateral excursions. CARDIOVASCULAR: Regular rate. Distal 2+ pulses. ABDOMEN: Obese, soft, nontender, nondistended. MUSCULOSKELETAL: No clubbing, cyanosis, or edema. Gross strength 5/5 distal lower extremities. NEURO: No focal or lateralizing signs. Cranial nerves 2 through 12 grossly within normal limits. PSYCH: Appropriate affect. Alert and oriented to person, place and time. SKIN: Good skin turgor. Well perfused. EGD STUDIES 05/2016: 1. Mild antral gastritis. 2. 2 superficial erosions at the GE junction consistent with LA grade A reflux esophagitis. ASSESSMENT: 1. Morbid obesity. 2. Body mass index of 40.8 3. Coronary artery disease. 4. Angina. 5. Gastroesophageal reflux disease. 6. Hypertension. 7. Migraines. 8. Irritable bowel syndrome. 9. Claustrophobia. 10. Anxiety. 11. Depression. PLAN: 1. Surgical options including a band, gastric bypass, sleeve gastrectomy were described in detail. Alternatives such as gastric balloon including duodenal switch were described. 2. The [place] [facility] data and outcomes calculator were described with surgical options. 3. Recommend a bariatric metabolic panel to evaluate for micro- including macronutrient deficiencies. 4. For history of sleep apnea, recommend evaluation and treatment. 5. Dietary surveillance and counseling was reviewed, I have asked her to increase her protein intake to at least 70 grams daily. 6. Will need cardiac risk assessment. 7. Recommend medical risk assessment. 8. Psych assessment per insurance guidelines. 9. Recommend food journal. Thank you for this consultation. ADDENDUM: Hemoglobin A1c elevated. AST, ALT and alkaline phosphatase is elevated. Triglycerides is elevated. Vitamin D is low. Laboratory Last Values WBC 7.2 k/uL (3.8-10.6) 11/27/16 13:00 RBC 4.34 m/uL (3.80-5.40) 11/27/16 13:00 Hgb 12.2 gm/dL (11.4-16.0) 11/27/16 13:00 Hct 39.0 % (34.0-46.0) 11/27/16 13:00 MCV 89.8 fL (80.0-100.0) 11/27/16 13:00 MCH 28.1 pg (25.0-35.0) 11/27/16 13:00 MCHC 31.3 g/dL (31.0-37.0) 11/27/16 13:00 RDW 15.2 % (11.5-15.5) 11/27/16 13:00 Plt Count 266 k/uL (150-450) 11/27/16 13:00 Sodium 139 mmol/L (137-145) 11/27/16 13:00 Potassium 4.7 mmol/L (3.5-5.1) 11/27/16 13:00 Chloride 103 mmol/L (98-107) 11/27/16 13:00 Carbon Dioxide 28 mmol/L (22-30) 11/27/16 13:00 Anion Gap 8 mmol/L 11/27/16 13:00 BUN 14 mg/dL (7-17) 11/27/16 13:00 Creatinine 0.70 mg/dL (0.52-1.04) 11/27/16 13:00 Est GFR (MDRD) Af Amer >60 (>60 ml/min/1.73 sqM) 11/27/16 13:00 Est GFR (MDRD) Non-Af >60 (>60 ml/min/1.73 sqM) 11/27/16 13:00 Glucose 106 mg/dL (74-99) H 11/27/16 13:[address] Glu mg/dL 128 mg/dL 11/27/16 13:00 Hemoglobin A1c 6.1 % (4.2-6.1) 11/27/16 13:00 Calcium 9.4 mg/dL (8.4-10.2) 11/27/16 13:00 Iron 53 ug/dL (50-170) 11/27/16 13:00 TIBC 354 ug/dL (228-460) 11/27/16 13:00 % Saturation Cancelled 11/27/16 13:00 Iron Saturation 14.97 (12.00-45.00) 11/27/16 13:00 Ferritin 19.6 ng/mL (10.0-291.0) 11/27/16 13:00 Total Bilirubin 0.2 mg/dL (0.2-1.3) 11/27/16 13:00 AST 43 U/L (14-36) H 11/27/16 13:00 ALT 70 U/L (9-52) H 11/27/16 13:00 Alkaline Phosphatase 137 U/L (38-126) H 11/27/16 13:00 Total Protein 7.0 g/dL (6.3-8.2) 11/27/16 13:00 Albumin 4.0 g/dL (3.5-5.0) 11/27/16 13:00 Triglycerides 180 mg/dL (<150) H 11/27/16 13:00 Cholesterol 196 mg/dL (<200) 11/27/16 13:00 LDL Cholesterol, Calc 101 mg/dL (0-99) H 11/27/16 13:00 HDL Cholesterol 59 mg/dL (40-60) 11/27/16 13:00 Vitamin B1 55 ug/L (38-122) 11/27/16 13:00 Vitamin B12 311 pg/mL (239-931) 11/27/16 13:00 Vitamin D 25-Hydroxy 29.1 ng/mL (30.0-100.0) L 11/27/16 13:00 Folate 10.6 ng/mL 09/14/17 13:00 TSH 1.120 mIU/L (0.465-4.680) 11/27/16 13:00 EKG EKG PERFORMED 11/27/16 13:00
== END | disposition home or self-care (01) ==
LOC: BARWHC3 10:40
PROVIDERS: ATTEND Surgery Plastic and Reconstructive Surgery
DX: Z01.818 Encounter for other preprocedural examination (principal); E66.01 Morbid (severe) obesity due to excess calories; I25.10 Atherosclerotic heart disease of native coronary artery without angina pectoris; K21.9 Gastro-esophageal reflux disease without esophagitis; I10 Essential (primary) hypertension; G43.909 Migraine, unspecified, not intractable, without status migrainosus; K58.9 Irritable bowel syndrome, unspecified; F40.240 Claustrophobia; F32.9 Major depressive disorder, single episode, unspecified; F41.9 Anxiety disorder, unspecified; E89.1 Postprocedural hypoinsulinemia; D50.8 Other iron deficiency anemias; E44.0 Moderate protein-calorie malnutrition; E55.9 Vitamin D deficiency, unspecified; I11.9 Hypertensive heart disease without heart failure; G47.30 Sleep apnea, unspecified; Z68.41 Body mass index [BMI] 40.0-44.9, adult
CPT/HCPCS: 36415; 80053; 80061; 82306; 82607; 82728; 82746; 83036; 83540; 83550; 84425; 84443; 85027; 93005; 99211

== ENCOUNTER → 2016-12-11 | Outpatient (CLI) | payer BC ==
--- NOTE | 2016-12-11 14:47 | CT ---
EXAMINATION TYPE: CT abdomen pelvis w con DATE OF EXAM: 12/11/2016 COMPARISON: 05/13/2016 HISTORY: anterior lower abdominal pain 6 months post op hysterectomy CT DLP: 2026 mGycm Automated exposure control for dose reduction was used. CONTRAST: CT scan of the abdomen pelvis is performed with IV Contrast, patient injected with 100 mL of Omnipaqu e 300. FINDINGS- LUNG BASES-subsegmental changes at both lung bases most typical of atelectasis or scar. The heart is enlarged. LIVER/SC-fcm-rlkbkbarkab of the liver suggests fatty rotation. Previous gallbladder surgery noted. PANCREAS- No gross abnormality is seen. SPLEEN- No gross abnormality is seen. ADRENALS- No gross abnormality is seen. KIDNEYS/BLADDER- no hydronephrosis nephrolithiasis or renal mass. BOWEL-there is a small hiatal hernia. Bowel gas pattern is nonspecific with no obstruction. There is a thickened small bowel loop within the mid ileum within the pelvis. This may represent a localized e nteritis. LYMPH NODES- No greater than 1cm abdominal or pelvic lymph nodes are appreciated. OSSEOUS STRUCTURES-degenerative disc disease L5-S1 noted. Multilevel facet arthropathy noted. Disc bu lging noted at L5-S1. OTHER- aorta is of normal caliber. There is atherosclerotic changes. No free fluid. No free air. Fin dings suggest previous hysterectomy. IMPRESSION- 1. There is thickening of a mid to distal segment of small bowel within the ileum noted in the pelvis . Correlate for an area of enteritis. Follow-up to resolution to exclude underlying mucosal lesion.
== END | disposition home or self-care (01) ==
LOC: RADCTMAIN 12:56
PROVIDERS: ATTEND Obstetrics & Gynecology
DX: K63.89 Other specified diseases of intestine (principal); R20.8 Other disturbances of skin sensation
CPT/HCPCS: 74177; Q9967

== ENCOUNTER → 2017-02-04 | Outpatient (CLI) | payer BC ==
[2017-02-04 14:52] VITALS: BP 181/91; PULSE 78; RESP 20; TEMP 99.5; BMI 41.5
--- NOTE | 2017-03-30 17:08 | P.PN ---
Subjective Progress Note Date: 02/04/17 DATE OF SERVICE: 02/04/2017 CHIEF COMPLAINT: Bariatric evaluation. HISTORY OF PRESENT ILLNESS: Wanda Ervin is a 56-year-old female who presents with morbid obesity. Her highest weight is now 260 pounds. She has gained 4 pounds in 2 months. At her height of 5 foot 6.5 inches, her ideal body weight is 154 pounds. She is 106 pounds overweight. Her highest body mass index is 41.5. She has undergone medical supervised weight loss for over 4+ years including being placed on Adipex for medical weight loss. As a result of her obesity, she has developed hypertension, obstructive sleep apnea, and she is prediabetic. She is pending sleep apnea treatment as well as cardiology risk assessment. She comes in today looking into the gastric bypass. PAST MEDICAL HISTORY: 1. Morbid obesity. 2. Body mass index of 41.5. 3. Coronary artery disease. 4. Angina. 5. Gastroesophageal reflux disease. 6. Hypertension. 7. Migraines. 8. Irritable bowel syndrome. 9. Claustrophobia. 10. Anxiety. 11. Depression. PAST SURGICAL HISTORY: 1. Cholecystectomy. 2. Hysterectomy. 3. Colonoscopy. 4. Esophagogastroduodenoscopy. 5. Uterine ablation. 6. Postop nausea or vomiting. HOME MEDICATIONS: 1. Trazodone. 2. Senna. 3. Paxil. 4. Omeprazole. 5. Motrin. 6. Lipitor. 7. Xanax. ALLERGIES: 1. Penicillin. 2. Morphine. SOCIAL HISTORY: No active tobacco use. Alcohol use. FAMILY HISTORY: No family history of ulcerative colitis disease or Crohn's disease. She does have a family history of morbid obesity. She denies any lupus in her family. No reports of stomach or esophageal cancer. REVIEW OF ORGAN SYSTEMS: CONSTITUTIONAL: Her highest weight is at present 260 pounds. At her height of 5 foot 6.5 inches, her ideal body weight is 154 pounds. She is 106 pounds overweight. Her highest body mass index is 41.5. HEENT: Denies any active troubles with vision or hearing. Has troubles with swallowing. ENDOCRINE: No diabetes. No hypothyroidism. CARDIOVASCULAR: No reports of palpitations or heart attacks or chest pain. RESPIRATORY: Has daytime somnolence including snoring and sleep apnea. No asthma. GI: Past bright red blood per rectum or constipation. Does have gastroesophageal reflux disease as described above. MUSCULOSKELETAL: Has lower back pain and joint pain. Has osteoarthritis of the hips and knees. NEURO: Has headaches. No seizure disorders. His migraines. PSYCH: Has depression without suicidal ideation. Has anxiety. RHEUMATOLOGIC: No lupus. No rheumatoid arthritis. HEMATOLOGIC: Denies any abnormal bleeding or bruising. No personal history of DVTs. SKIN: No rash. No skin cancer. PHYSICAL EXAM: VITAL SIGNS: Height 5 foot 6.5 inches, weight 260 pounds. BMI 41.5. Vital Signs Temp 99.5 F 02/04/17 14:48 Pulse 78 02/04/17 14:48 Resp 20 02/04/17 14:48 BP 181/91 02/04/17 14:48 Pulse Ox GENERAL: Well-developed female in no acute distress. HEENT: No scleral icterus. Extraocular movements grossly intact. Hears conversational speech. No nasal drainage. NECK: Supple without lymphadenopathy. CHEST: Nonlabored respirations with equal bilateral excursions. CARDIOVASCULAR: Regular rate. Distal 2+ pulses. ABDOMEN: Obese, soft, nontender, nondistended. MUSCULOSKELETAL: No clubbing, cyanosis, or edema. Gross strength 5/5 distal lower extremities. NEURO: No focal or lateralizing signs. Cranial nerves 2 through 12 grossly within normal limits. PSYCH: Appropriate affect. Alert and oriented to person, place and time. SKIN: Good skin turgor. Well perfused. LABS: Hemoglobin A1c elevated. AST, ALT and alkaline phosphatase is elevated. Triglycerides is elevated. Vitamin D is low. STUDIES: CT of the abdomen and pelvis reviewed demonstrating no evidence of abdominal wall hernia. ASSESSMENT: 1. Morbid obesity due to excess calories. 2. Body mass index of 41.5. 3. Coronary artery disease. 4. Angina. 5. Gastroesophageal reflux disease. 6. Hypertension. 7. Migraines. 8. Irritable bowel syndrome. 9. Claustrophobia. 10. Anxiety. 11. Depression. 12. Obstructive sleep apnea. 13. Metabolic syndrome. 14. Vitamin D deficiency. 15. Hypertriglyceridemia. 16. Elevated liver enzymes. PLAN: 1. In the interim, she is undergoing medical supervised weight loss. 2. Recommend follow-up with the dietitian for gastrectomy-type diets. 3. She is pending sleep apnea evaluation and treatment. 4. She's pending completion medical risk assessment. 5. Follow-up completion of bariatric profile. Objective - Vital Signs Vital signs: Vital Signs Temp 99.5 F 02/04/17 14:48 Pulse 78 02/04/17 14:48 Resp 20 02/04/17 14:48 BP 181/91 02/04/17 14:48 Pulse Ox Intake & Output 02/03/17 02/04/17 02/04/17 18:59 06:59 18:59 Weight 118.388 kg
== END | disposition home or self-care (01) ==
LOC: BARWHC3 13:51
PROVIDERS: ATTEND Surgery Plastic and Reconstructive Surgery
DX: Z48.815 Encounter for surgical aftercare following surgery on the digestive system (principal); E66.01 Morbid (severe) obesity due to excess calories; I25.10 Atherosclerotic heart disease of native coronary artery without angina pectoris; K21.9 Gastro-esophageal reflux disease without esophagitis; I10 Essential (primary) hypertension; G43.909 Migraine, unspecified, not intractable, without status migrainosus; K58.9 Irritable bowel syndrome, unspecified; F40.240 Claustrophobia; F41.9 Anxiety disorder, unspecified; F32.9 Major depressive disorder, single episode, unspecified; G47.33 Obstructive sleep apnea (adult) (pediatric); E88.81 Metabolic syndrome and other insulin resistance; E55.9 Vitamin D deficiency, unspecified; R94.5 Abnormal results of liver function studies; E78.1 Pure hyperglyceridemia; Z68.41 Body mass index [BMI] 40.0-44.9, adult; Z90.49 Acquired absence of other specified parts of digestive tract; Z90.710 Acquired absence of both cervix and uterus; Z79.899 Other long term (current) drug therapy; Z79.1 Long term (current) use of non-steroidal anti-inflammatories (NSAID); Z88.0 Allergy status to penicillin; Z88.5 Allergy status to narcotic agent; Z98.890 Other specified postprocedural states
CPT/HCPCS: 99201

== ENCOUNTER → 2017-02-26 | Outpatient (CLI) | payer BC ==
[2017-02-26 11:58] VITALS: BP 138/78; PULSE 76; TEMP 98; BMI 40.6
--- NOTE | 2017-04-14 06:09 | P.PN ---
Subjective Progress Note Date: 02/26/17 DATE OF SERVICE: 02/26/2017 CHIEF COMPLAINT: Bariatric evaluation. HISTORY OF PRESENT ILLNESS: Wanda Ervin is a 56-year-old female who presents with morbid obesity. Her highest weight was 260 pounds. Today she comes in weighing 255 pounds. She has lost 5 pounds. At her height of 5 foot 6.5 inches , her ideal body weight is 154 pounds. She is 101 pounds overweight. Her highest body mass index is 41.5. She reports still pending cardiac risk assessment. She is also pending dietary classes. She has been undergoing medical supervised weight loss for over 6 months. She has also completed multiple dietary including weight loss programs in over 5 years. As a result of her obesity, she has developed hypertension including obstructive sleep apnea and osteoarthritis. She is looking into the gastric bypass. She has completed her psych assessment. PAST MEDICAL HISTORY: 1. Morbid obesity. 2. Body mass index of 41.5. 3. Coronary artery disease. 4. Angina. 5. Gastroesophageal reflux disease. 6. Hypertension. 7. Migraines. 8. Irritable bowel syndrome. 9. Claustrophobia. 10. Anxiety. 11. Depression. PAST SURGICAL HISTORY: 1. Cholecystectomy. 2. Hysterectomy. 3. Colonoscopy. 4. Esophagogastroduodenoscopy. 5. Uterine ablation. 6. Postop nausea or vomiting. HOME MEDICATIONS: 1. Trazodone. 2. Senna. 3. Paxil. 4. Omeprazole. 5. Motrin. 6. Lipitor. 7. Xanax. ALLERGIES: 1. Penicillin. 2. Morphine. SOCIAL HISTORY: No active tobacco use. Alcohol use. FAMILY HISTORY: No family history of ulcerative colitis disease or Crohn's disease. She does have a family history of morbid obesity. She denies any lupus in her family. No reports of stomach or esophageal cancer. REVIEW OF ORGAN SYSTEMS: CONSTITUTIONAL: Her highest weight 260 pounds. At her height of 5 foot 6.5 inches, her ideal body weight is 154 pounds. She is 100 pounds overweight. Her highest body mass index is 41.5 down to 40.6 HEENT: Denies any active troubles with vision or hearing. Has troubles with swallowing. ENDOCRINE: No diabetes. No hypothyroidism. CARDIOVASCULAR: No reports of palpitations or heart attacks or chest pain. RESPIRATORY: Has daytime somnolence including snoring and sleep apnea. No asthma. GI: Past bright red blood per rectum or constipation. Does have gastroesophageal reflux disease as described above. MUSCULOSKELETAL: Has lower back pain and joint pain. Has osteoarthritis of the hips and knees. NEURO: Has headaches. No seizure disorders. His migraines. PSYCH: Has depression without suicidal ideation. Has anxiety. RHEUMATOLOGIC: No lupus. No rheumatoid arthritis. HEMATOLOGIC: Denies any abnormal bleeding or bruising. No personal history of DVTs. SKIN: No rash. No skin cancer. PHYSICAL EXAM: VITAL SIGNS: Height 5 foot 6.5 inches, weight 255 pounds. BMI 40.6. Vital Signs Temp 98.0 F 02/26/17 11:52 Pulse 76 02/26/17 11:52 Resp BP 138/78 02/26/17 11:52 Pulse Ox GENERAL: Well-developed female in no acute distress. HEENT: No scleral icterus. Extraocular movements grossly intact. Hears conversational speech. No nasal drainage. NECK: Supple without lymphadenopathy. CHEST: Nonlabored respirations with equal bilateral excursions. CARDIOVASCULAR: Regular rate. Distal 2+ pulses. ABDOMEN: Obese, soft, nontender, nondistended. MUSCULOSKELETAL: No clubbing, cyanosis, or edema. Gross strength 5/5 distal lower extremities. NEURO: No focal or lateralizing signs. Cranial nerves 2 through 12 grossly within normal limits. PSYCH: Appropriate affect. Alert and oriented to person, place and time. SKIN: Good skin turgor. Well perfused. ASSESSMENT: 1. Morbid obesity due to excess calories. 2. Body mass index of 41.5 down to 40.6 3. Coronary artery disease. 4. Angina. 5. Gastroesophageal reflux disease. 6. Hypertension. 7. Migraines. 8. Irritable bowel syndrome. 9. Claustrophobia. 10. Anxiety. 11. Depression. 12. Obstructive sleep apnea. 13. Metabolic syndrome. 14. Vitamin D deficiency. 15. Hypertriglyceridemia. 16. Elevated liver enzymes. 17. Dietary surveillance and counseling. 18. Peritoneal adhesions. PLAN: 1. I've recommended continued medical supervised weight loss as she has had fluctuations of weight. 2. Recommend cardiac risk assessment which is pending. 3. Psych assessment reviewed demonstrating motivation and understanding of bariatric lifestyle. 4. Also recommend dietary classes. 5. With a history of intermittent abdominal pain including recent history of abdominal surgery, I have also reviewed with her potential diagnostic laparoscopy with lysis of adhesions prior to her procedure of choice of gastric bypass. Objective - Vital Signs Vital signs: Vital Signs Temp 98.0 F 02/26/17 11:52 Pulse 76 02/26/17 11:52 Resp BP 138/78 02/26/17 11:52 Pulse Ox Intake & Output 02/25/17 02/26/17 02/26/17 18:59 06:59 18:59 Weight 115.802 kg
== END | disposition home or self-care (01) ==
LOC: BARWHC3 10:56
PROVIDERS: ATTEND Surgery Plastic and Reconstructive Surgery
DX: E66.01 Morbid (severe) obesity due to excess calories (principal); I25.10 Atherosclerotic heart disease of native coronary artery without angina pectoris; I10 Essential (primary) hypertension; K21.9 Gastro-esophageal reflux disease without esophagitis; G43.909 Migraine, unspecified, not intractable, without status migrainosus; K58.9 Irritable bowel syndrome, unspecified; F40.240 Claustrophobia; F41.9 Anxiety disorder, unspecified; F32.9 Major depressive disorder, single episode, unspecified; G47.33 Obstructive sleep apnea (adult) (pediatric); E55.9 Vitamin D deficiency, unspecified; E78.1 Pure hyperglyceridemia; F10.10 Alcohol abuse, uncomplicated; R79.89 Other specified abnormal findings of blood chemistry; Z71.3 Dietary counseling and surveillance; Z98.890 Other specified postprocedural states; Z68.41 Body mass index [BMI] 40.0-44.9, adult; Z88.0 Allergy status to penicillin; Z90.49 Acquired absence of other specified parts of digestive tract; Z79.1 Long term (current) use of non-steroidal anti-inflammatories (NSAID); Z79.899 Other long term (current) drug therapy; Z79.891 Long term (current) use of opiate analgesic; Z88.5 Allergy status to narcotic agent
CPT/HCPCS: 99211

== ENCOUNTER → 2017-03-23 | Outpatient (CLI) | payer BC ==
[2017-03-23 14:08] VITALS: BMI 39.7
== END | disposition home or self-care (01) ==
LOC: BARWHC3 08:20
PROVIDERS: ATTEND Surgery Plastic and Reconstructive Surgery
DX: E66.01 Morbid (severe) obesity due to excess calories (principal); Z68.39 Body mass index [BMI] 39.0-39.9, adult
CPT/HCPCS: 97804

== ENCOUNTER → 2017-03-25 | Outpatient (CLI) | payer BC ==
[2017-03-25 15:05] VITALS: BP 174/77; PULSE 77; RESP 15; TEMP 98.1; BMI 39.7
--- NOTE | 2017-05-16 13:45 | P.PN ---
Subjective Progress Note Date: 03/25/17 DATE OF SERVICE: 03/25/2017 CHIEF COMPLAINT: Bariatric evaluation. HISTORY OF PRESENT ILLNESS: Wanda Ervin is a 56-year-old female who presents with morbid obesity. Her highest weight was 260 pounds. Today she comes in weighing 250 pounds. She has lost 5 pounds since her last visit one month ago. Total lifetime weight loss is 10 pounds. At her height of 5 foot 6.5 inches, her ideal body weight is 154 pounds. She is 96 pounds overweight. Her highest body mass index is 41.5. Her body mass index today is today is 39.8. She has completed cardiac risk assessment. She has completed her psych assessment. She has been completed medical supervised weight loss. As a result of her obesity, she has developed hypertension including obstructive sleep apnea and osteoarthritis. She is looking into the gastric bypass. PAST MEDICAL HISTORY: 1. Morbid obesity. 2. Body mass index of 41.5. 3. Coronary artery disease. 4. Angina. 5. Gastroesophageal reflux disease. 6. Hypertension. 7. Migraines. 8. Irritable bowel syndrome. 9. Claustrophobia. 10. Anxiety. 11. Depression. PAST SURGICAL HISTORY: 1. Cholecystectomy. 2. Hysterectomy. 3. Colonoscopy. 4. Esophagogastroduodenoscopy. 5. Uterine ablation. 6. Postop nausea or vomiting. HOME MEDICATIONS: 1. Trazodone. 2. Senna. 3. Paxil. 4. Omeprazole. 5. Motrin. 6. Lipitor. 7. Xanax. ALLERGIES: 1. Penicillin. 2. Morphine. SOCIAL HISTORY: No active tobacco use. Alcohol use. FAMILY HISTORY: No family history of ulcerative colitis disease or Crohn's disease. She does have a family history of morbid obesity. She denies any lupus in her family. No reports of stomach or esophageal cancer. REVIEW OF ORGAN SYSTEMS: CONSTITUTIONAL: Her highest weight 260 pounds. At her height of 5 foot 6.5 inches, her ideal body weight is 154 pounds. She is 96 pounds overweight. Her highest body mass index is 41.5 down to 39.8. HEENT: Denies any active troubles with vision or hearing. Has troubles with swallowing. ENDOCRINE: No diabetes. No hypothyroidism. CARDIOVASCULAR: No reports of palpitations or heart attacks or chest pain. RESPIRATORY: Has daytime somnolence including snoring and sleep apnea. No asthma. GI: Past bright red blood per rectum or constipation. Does have gastroesophageal reflux disease as described above. MUSCULOSKELETAL: Has lower back pain and joint pain. Has osteoarthritis of the hips and knees. NEURO: Has headaches. No seizure disorders. His migraines. PSYCH: Has depression without suicidal ideation. Has anxiety. RHEUMATOLOGIC: No lupus. No rheumatoid arthritis. HEMATOLOGIC: Denies any abnormal bleeding or bruising. No personal history of DVTs. SKIN: No rash. No skin cancer. PHYSICAL EXAM: VITAL SIGNS: Height 5 foot 6.5 inches, weight 250 pounds. BMI 39.8. Vital Signs Temp 98.1 F 03/25/17 14:32 Pulse 77 03/25/17 14:32 Resp 15 03/25/17 14:32 BP 174/77 03/25/17 14:32 Pulse Ox GENERAL: Well-developed in no acute distress. HEENT: No scleral icterus. Extraocular movements grossly intact. Hears conversational speech. No nasal drainage. NECK: Supple without lymphadenopathy. CHEST: Nonlabored respirations with equal bilateral excursions. CARDIOVASCULAR: Regular rate and regular rhythm. Distal 2+ pulses. ABDOMEN: Obese, soft, nontender, nondistended. MUSCULOSKELETAL: No clubbing, cyanosis, or edema. Gross strength 5/5 distal lower extremities. NEURO: No focal or lateralizing signs. Cranial nerves 2 through 12 grossly within normal limits. PSYCH: Appropriate affect. Alert and oriented to person, place and time. SKIN: Good skin turgor. Well perfused. ASSESSMENT: 1. Morbid obesity due to excess calories. 2. Body mass index of 41.5 down to 39.8 3. Coronary artery disease. 4. Angina. 5. Gastroesophageal reflux disease. 6. Hypertension. 7. Migraines. 8. Irritable bowel syndrome. 9. Claustrophobia. 10. Anxiety. 11. Depression. 12. Obstructive sleep apnea. 13. Metabolic syndrome. 14. Vitamin D deficiency. 15. Hypertriglyceridemia. 16. Elevated liver enzymes. 17. Dietary surveillance and counseling. 18. Peritoneal adhesions. PLAN: 1. Bariatric options between a sleeve, band and a Joe-en-Y gastric bypass were reviewed in detail. She elected for a Joe-en-Y gastric bypass. Robotic assisted approach described. 2. The [place] [facility] Data was also reviewed with benefits and risks as described. 3. An 8 page second-generation bariatric consent form was reviewed in detail including potential of bleeding, infection, leaks, adequate weight loss, nutritional deficiencies which she demonstrated understanding of the risks. 4. She has completed 2 week high-protein low caloric 800 kcal diet to address hepatomegaly. 5. Preoperative labs including compress metabolic panel and CBC with type and screen completed. 6. DVT prophylaxis per [place] [facility]. 7. Antibiotic prophylaxis. 8. Inpatient hospitalization anticipated for more than 2 nights. 9. All questions and concerns were addressed with the patient. 10. Recommended diet classes completed.
== END | disposition home or self-care (01) ==
LOC: BARWHC3 13:09
PROVIDERS: ATTEND Surgery Plastic and Reconstructive Surgery
DX: E66.01 Morbid (severe) obesity due to excess calories (principal); I25.10 Atherosclerotic heart disease of native coronary artery without angina pectoris; K21.9 Gastro-esophageal reflux disease without esophagitis; I10 Essential (primary) hypertension; K58.9 Irritable bowel syndrome, unspecified; F40.240 Claustrophobia; F41.9 Anxiety disorder, unspecified; F32.9 Major depressive disorder, single episode, unspecified; G47.33 Obstructive sleep apnea (adult) (pediatric); E88.81 Metabolic syndrome and other insulin resistance; E55.9 Vitamin D deficiency, unspecified; E78.1 Pure hyperglyceridemia; Z71.3 Dietary counseling and surveillance; R74.8 Abnormal levels of other serum enzymes; K66.0 Peritoneal adhesions (postprocedural) (postinfection); Z68.39 Body mass index [BMI] 39.0-39.9, adult; Z01.812 Encounter for preprocedural laboratory examination; Z90.49 Acquired absence of other specified parts of digestive tract; Z90.710 Acquired absence of both cervix and uterus; Z79.899 Other long term (current) drug therapy; Z79.1 Long term (current) use of non-steroidal anti-inflammatories (NSAID); Z88.0 Allergy status to penicillin; Z88.5 Allergy status to narcotic agent
CPT/HCPCS: 99211

== ENCOUNTER → 2017-05-06 | Outpatient (CLI) | payer BC ==
[2017-05-06 15:45] VITALS: BP 140/85; PULSE 70; TEMP 98.7; BMI 40.0
--- NOTE | 2017-05-16 13:53 | P.PN ---
Subjective Progress Note Date: 05/06/17 DATE OF SERVICE: 05/06/2017 CHIEF COMPLAINT: Bariatric evaluation. HISTORY OF PRESENT ILLNESS: Wanda Ervin is a 56-year-old female who presents with morbid obesity. Her highest weight was 260 pounds. Today she comes in weighing 252 pounds. She has gained 2 pounds in 1 month. Total lifetime weight loss is 8 pounds. At her height of 5 foot 6.5 inches, her ideal body weight is 154 pounds. She is 98 pounds overweight. Her highest body mass index is 41.5. Her body mass index today is 40.1. She denies any abdominal pain. No reports of nausea and vomiting. She reports severe gastroesophageal reflux disease. As result of her obesity, she has developed hypertension including obstructive sleep apnea and coronary artery disease. PAST MEDICAL HISTORY: 1. Morbid obesity. 2. Body mass index of 41.5. 3. Coronary artery disease. 4. Angina. 5. Gastroesophageal reflux disease. 6. Hypertension. 7. Migraines. 8. Irritable bowel syndrome. 9. Claustrophobia. 10. Anxiety. 11. Depression. 12. Osteoarthritis of the hips. 13. Osteoarthritis of the knees. PAST SURGICAL HISTORY: 1. Cholecystectomy. 2. Hysterectomy. 3. Colonoscopy. 4. Esophagogastroduodenoscopy. 5. Uterine ablation. 6. Postop nausea or vomiting. HOME MEDICATIONS: 1. Trazodone. 2. Senna. 3. Paxil. 4. Omeprazole. 5. Motrin. 6. Lipitor. 7. Xanax. ALLERGIES: 1. Penicillin. 2. Morphine. SOCIAL HISTORY: No active tobacco use. Alcohol use. FAMILY HISTORY: No family history of ulcerative colitis disease or Crohn's disease. She does have a family history of morbid obesity. She denies any lupus in her family. No reports of stomach or esophageal cancer. REVIEW OF ORGAN SYSTEMS: CONSTITUTIONAL: Her highest weight 260 pounds. At her height of 5 foot 6.5 inches, her ideal body weight is 154 pounds. She is 98 pounds overweight. Her highest body mass index is 41.5 down to 40.1. HEENT: Denies any active troubles with vision or hearing. Has troubles with swallowing. ENDOCRINE: No diabetes. No hypothyroidism. CARDIOVASCULAR: No reports of palpitations or heart attacks or chest pain. RESPIRATORY: Has daytime somnolence including snoring and sleep apnea. No asthma. GI: Past bright red blood per rectum or constipation. Does have gastroesophageal reflux disease as described above. MUSCULOSKELETAL: Has lower back pain and joint pain. Has osteoarthritis of the hips and knees. NEURO: Has headaches. No seizure disorders. His migraines. PSYCH: Has depression without suicidal ideation. Has anxiety. RHEUMATOLOGIC: No lupus. No rheumatoid arthritis. HEMATOLOGIC: Denies any abnormal bleeding or bruising. No personal history of DVTs. SKIN: No rash. No skin cancer. PHYSICAL EXAM: VITAL SIGNS: Height 5 foot 6.5 inches, weight 252 pounds. BMI 40.1. Vital Signs Temp 98.7 F 05/06/17 15:43 Pulse 70 05/06/17 15:43 Resp BP 140/85 05/06/17 15:43 Pulse Ox GENERAL: Well-developed in no acute distress. HEENT: No scleral icterus. Extraocular movements grossly intact. Hears conversational speech. No nasal drainage. NECK: Supple without lymphadenopathy. CHEST: Nonlabored respirations with equal bilateral excursions. CARDIOVASCULAR: Regular rate and regular rhythm. Distal 2+ pulses. ABDOMEN: Obese, soft, nontender, nondistended. MUSCULOSKELETAL: No clubbing, cyanosis, or edema. Gross strength 5/5 distal lower extremities. NEURO: No focal or lateralizing signs. Cranial nerves 2 through 12 grossly within normal limits. PSYCH: Appropriate affect. Alert and oriented to person, place and time. SKIN: Good skin turgor. Well perfused. ASSESSMENT: 1. Morbid obesity due to excess calories. 2. Body mass index of 41.5 down to 40.1. 3. Coronary artery disease. 4. Angina. 5. Gastroesophageal reflux disease. 6. Hypertension. 7. Migraines. 8. Irritable bowel syndrome. 9. Claustrophobia. 10. Anxiety. 11. Depression. 12. Obstructive sleep apnea. 13. Metabolic syndrome. 14. Vitamin D deficiency. 15. Hypertriglyceridemia. 16. Elevated liver enzymes. 17. Dietary surveillance and counseling. 18. Peritoneal adhesions. PLAN: 1. She has elected for a robotic-assisted gastric bypass. Benefits and risks were described. 2. She has completed an 8 page bariatric consent form with all benefits and risks reviewed. 3. Recommend 2 week high protein low carbohydrate diet. 4. Inpatient hospitalization at least 2 nights. 5. DVT prophylaxis. 6. Antibiotic prophylaxis. Objective - Vital Signs Vital signs: Vital Signs Temp 98.7 F 05/06/17 15:43 Pulse 70 05/06/17 15:43 Resp BP 140/85 05/06/17 15:43 Pulse Ox Intake & Output 05/05/17 05/06/17 05/06/17 18:59 06:59 18:59 Weight 114.305 kg
== END | disposition home or self-care (01) ==
LOC: BARWHC3 14:28
PROVIDERS: ATTEND Surgery Plastic and Reconstructive Surgery
DX: E66.01 Morbid (severe) obesity due to excess calories (principal); K21.9 Gastro-esophageal reflux disease without esophagitis; I25.10 Atherosclerotic heart disease of native coronary artery without angina pectoris; I10 Essential (primary) hypertension; G43.909 Migraine, unspecified, not intractable, without status migrainosus; K58.9 Irritable bowel syndrome, unspecified; F40.240 Claustrophobia; F41.9 Anxiety disorder, unspecified; F32.9 Major depressive disorder, single episode, unspecified; G47.33 Obstructive sleep apnea (adult) (pediatric); E88.81 Metabolic syndrome and other insulin resistance; E55.9 Vitamin D deficiency, unspecified; E78.1 Pure hyperglyceridemia; M17.0 Bilateral primary osteoarthritis of knee; R74.8 Abnormal levels of other serum enzymes; M16.0 Bilateral primary osteoarthritis of hip; K66.0 Peritoneal adhesions (postprocedural) (postinfection); Z90.49 Acquired absence of other specified parts of digestive tract; Z98.890 Other specified postprocedural states; Z79.1 Long term (current) use of non-steroidal anti-inflammatories (NSAID); Z79.899 Other long term (current) drug therapy; Z71.3 Dietary counseling and surveillance; Z79.891 Long term (current) use of opiate analgesic; Z88.0 Allergy status to penicillin; Z68.41 Body mass index [BMI] 40.0-44.9, adult; Z88.5 Allergy status to narcotic agent
CPT/HCPCS: 99211

== ENCOUNTER → 2017-05-18 | Outpatient (CLI) | payer BC ==
[2017-05-18 08:27] LABS: ALT 64 U/L (9-52); AST 46 U/L (14-36); Albumin 4.2 g/dL (3.5-5.0); Alkaline Phosphatase 142 U/L (38-126); Anion Gap 15 mmol/L; Blood Urea Nitrogen 20 mg/dL (7-17); Calcium 9.6 mg/dL (8.4-10.2); Carbon Dioxide 24 mmol/L (22-30); Chloride 103 mmol/L (98-107); Glucose 105 mg/dL (74-99); Potassium 4.4 mmol/L (3.5-5.1); Sodium 142 mmol/L (137-145); Total Bilirubin 0.4 mg/dL (0.2-1.3); Total Protein 7.5 g/dL (6.3-8.2)
[2017-05-18 08:44] LABS: Basophils % (A) 0 %; Eosinophils # (A) 0.1 k/uL (0-0.7); Eosinophils % (A) 2 %; HCT 43.9 % (34.0-46.0); HGB 13.4 gm/dL (11.4-16.0); Lymphocytes # (A) 1.5 k/uL (1.0-4.8); Lymphocytes % (A) 24 %; MCH 27.7 pg (25.0-35.0); MCHC 30.6 g/dL (31.0-37.0); MCV 90.6 fL (80.0-100.0); Mean Platelet Volume 7.6; Monocytes # (A) 0.3 k/uL (0-1.0); Monocytes % (A) 5 %; Neutrophils # (A) 4.1 k/uL (1.3-7.7); Neutrophils % (A) 68 %; Platelet Count 242 k/uL (150-450); RBC 4.85 m/uL (3.80-5.40); RDW 14.2 % (11.5-15.5); WBC 6.1 k/uL (3.8-10.6)
== END | disposition home or self-care (01) ==
LOC: LABPAT 07:20
PROVIDERS: ATTEND Surgery Plastic and Reconstructive Surgery
DX: Z01.812 Encounter for preprocedural laboratory examination (principal)
CPT/HCPCS: 36415; 80053; 85025

== ENCOUNTER 2017-05-25 09:47 | Inpatient (IN) | payer BC ==
--- NOTE | 2017-05-25 05:04 | P.GSHP ---
History of Present Illness H&P Date: 05/25/17 DATE OF SERVICE: 05/25/2017 CHIEF COMPLAINT: Morbid obesity HISTORY OF PRESENT ILLNESS: Wanda Ervin is a 56-year-old female who presents with morbid obesity. Her highest weight was 260 pounds. At her height of 5 foot 6.5 inches, her ideal body weight is 154 pounds. Her highest body mass index is 41.5. She has completed cardiac risk assessment. She has completed her psych assessment. She has been completed medical supervised weight loss. As a result of her obesity, she has developed hypertension including obstructive sleep apnea and osteoarthritis. She is looking into the gastric bypass. PAST MEDICAL HISTORY: 1. Morbid obesity. 2. Body mass index of 41.5. 3. Coronary artery disease. 4. Angina. 5. Gastroesophageal reflux disease. 6. Hypertension. 7. Migraines. 8. Irritable bowel syndrome. 9. Claustrophobia. 10. Anxiety. 11. Depression. PAST SURGICAL HISTORY: 1. Cholecystectomy. 2. Hysterectomy. 3. Colonoscopy. 4. Esophagogastroduodenoscopy. 5. Uterine ablation. 6. Postop nausea or vomiting. HOME MEDICATIONS: 1. Trazodone. 2. Senna. 3. Paxil. 4. Omeprazole. 5. Motrin. 6. Lipitor. 7. Xanax. ALLERGIES: 1. Penicillin. 2. Morphine. SOCIAL HISTORY: No active tobacco use. Alcohol use. FAMILY HISTORY: No family history of ulcerative colitis disease or Crohn's disease. She does have a family history of morbid obesity. She denies any lupus in her family. No reports of stomach or esophageal cancer. REVIEW OF ORGAN SYSTEMS: CONSTITUTIONAL: Her highest weight 260 pounds. At her height of 5 foot 6.5 inches, her ideal body weight is 154 pounds. She is 96 pounds overweight. Her highest body mass index is 41.5 down to 39.8. HEENT: Denies any active troubles with vision or hearing. Has troubles with swallowing. ENDOCRINE: No diabetes. No hypothyroidism. CARDIOVASCULAR: No reports of palpitations or heart attacks or chest pain. RESPIRATORY: Has daytime somnolence including snoring and sleep apnea. No asthma. GI: Past bright red blood per rectum or constipation. Does have gastroesophageal reflux disease as described above. MUSCULOSKELETAL: Has lower back pain and joint pain. Has osteoarthritis of the hips and knees. NEURO: Has headaches. No seizure disorders. His migraines. PSYCH: Has depression without suicidal ideation. Has anxiety. RHEUMATOLOGIC: No lupus. No rheumatoid arthritis. HEMATOLOGIC: Denies any abnormal bleeding or bruising. No personal history of DVTs. SKIN: No rash. No skin cancer. PHYSICAL EXAM: VITAL SIGNS: Height 5 foot 6.5 inches, weight 260 pounds. BMI 41.5. GENERAL: Well-developed in no acute distress. HEENT: No scleral icterus. Extraocular movements grossly intact. Hears conversational speech. No nasal drainage. NECK: Supple without lymphadenopathy. CHEST: Nonlabored respirations with equal bilateral excursions. CARDIOVASCULAR: Regular rate and regular rhythm. Distal 2+ pulses. ABDOMEN: Obese, soft, nontender, nondistended. MUSCULOSKELETAL: No clubbing, cyanosis, or edema. Gross strength 5/5 distal lower extremities. NEURO: No focal or lateralizing signs. Cranial nerves 2 through 12 grossly within normal limits. PSYCH: Appropriate affect. Alert and oriented to person, place and time. SKIN: Good skin turgor. Well perfused. ASSESSMENT: 1. Morbid obesity due to excess calories. 2. Body mass index of 41.5 3. Coronary artery disease. 4. Angina. 5. Gastroesophageal reflux disease. 6. Hypertension. 7. Migraines. 8. Irritable bowel syndrome. 9. Claustrophobia. 10. Anxiety. 11. Depression. 12. Obstructive sleep apnea. 13. Metabolic syndrome. 14. Vitamin D deficiency. 15. Hypertriglyceridemia. 16. Elevated liver enzymes. 17. Dietary surveillance and counseling. 18. Peritoneal adhesions. PLAN: 1. Bariatric options between a sleeve, band and a Joe-en-Y gastric bypass were reviewed in detail. She elected for a Joe-en-Y gastric bypass. Robotic assisted approach described. 2. The [place] [facility] Data was also reviewed with benefits and risks as described. 3. An 8 page second-generation bariatric consent form was reviewed in detail including potential of bleeding, infection, leaks, adequate weight loss, nutritional deficiencies which she demonstrated understanding of the risks. 4. She has completed 2 week high-protein low caloric 800 kcal diet to address hepatomegaly. 5. DVT prophylaxis per [place] [facility]. 6. Antibiotic prophylaxis. 7. Inpatient hospitalization anticipated for more than 2 nights. 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: GERD/Reflux, Hypertension Additional 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 / Comment(s): MIGRAINES, IBS, History of Any Multi-Drug Resistant Organisms: None Reported Past Surgical History: Cholecystectomy, Heart Catheterization, Hysterectomy, Uterine Ablation Additional Past Surgical History / Comment(s): D&C , NOVOSURE ENDOMETRIAL ABLATION Past Anesthesia/Blood Transfusion Reactions: Postoperative Nausea & Vomiting ( PONV) Additional Past Anesthesia/Blood Transfusion Reaction / Comment(s): CLAUSTROPHOBIC Smoking Status: Never smoker - Past Family History Father Family Medical History: Myocardial Infarction ([place]) Mother Family Medical History: No Reported History Additional Family Medical History / Comment(s): MOM IS 72 Medications and Allergies Home Medications Medication Instructions Recorded Confirmed Type ALPRAZolam [Xanax] 0.5 mg PO TID PRN 12/07/13 05/19/17 History PARoxetine [Paxil] 20 mg PO HS 12/18/15 05/19/17 History Atorvastatin Calcium [Lipitor] 20 mg PO HS 05/13/16 05/19/17 History Ibuprofen [Motrin] 600 mg PO Q8HR PRN 05/13/16 05/19/17 History Omeprazole 40 mg PO HS 05/13/16 05/19/17 History Sennosides [Senna] 8.6 mg PO DAILY PRN 05/13/16 05/19/17 History Allergies Allergy/AdvReac Type Severity Reaction Status Date / Time Penicillins Allergy Rash/Hives Verified 05/19/17 09:36 morphine AdvReac Chest Pain Verified 05/19/17 09:54
[~2017-05-25 09:47] MED LIST: ACETAMINOPHEN IV (For NPO) 1,000 MG in EMPTY BAG 1 BAG IVPB ONE; CHLORHEXIDINE GLUCONATE 15 ML CUP MUCOUS MEM ONE; DEXAMETHASONE SOD PHOSPHATE 10 MG/ML 1 ML VIAL IV ONE; ENOXAPARIN 40 MG/0.4 ML SYRINGE SQ STA; HYDROmorphone 0.5 MG/0.5 ML SYRINGE IVP PRN; MIDAZOLAM 2 MG/2 ML VIAL IV PRN; ONDANSETRON 4 MG/2 ML VIAL IVP ONE; PANTOPRAZOLE 40 MG/10 ML VIAL IV STA; SCOPOLAMINE 1.5MG/72HR PATCH TRANSDERM STA; ceFAZolin IN SWFI 2 GM/20 ML SYRINGE IVP ONE
[2017-05-25] MEDS: LACTATED RINGERS 1,000 ML IV SCH ×2 (12:29→12:45)
[2017-05-25] MEDS ORDERED: BUPIVACAINE (PF) 0.25% 30 ML VIAL SQ ONE (14:21)
[2017-05-25] MEDS ORDERED: LACTATED RINGERS 1,000 ML IV ONE ×2 (15:21)
[2017-05-25] MEDS ORDERED: NALOXONE 0.4 MG/ML 1 ML VIAL IV PRN (17:13)
[2017-05-25] MEDS ORDERED: ONDANSETRON 4 MG/2 ML VIAL IVP PRN (17:13)
[2017-05-25] MEDS ORDERED: diphenhydrAMINE 50 MG/ML 1 ML VIAL IVP PRN (17:13)
--- NOTE | 2017-05-25 17:13 | P.OP ---
Date of Procedure: 05/25/17 Description of Procedure: SURGEON: JOYCE WELSH MD MODEL ENGINE MECHANIC: 1. DORENE OLIVERA 2. GODWIN HAIRSTON PREOPERATIVE DIAGNOSES: 1. Morbid obesity due to excess calories. 2. Body mass index of 41.5 3. Coronary artery disease. 4. Angina. 5. Gastroesophageal reflux disease. 6. Hypertension. 7. Migraines. 8. Irritable bowel syndrome. 9. Claustrophobia. 10. Anxiety. 11. Depression. 12. Obstructive sleep apnea. 13. Metabolic syndrome. 14. Vitamin D deficiency. 15. Hypertriglyceridemia. 16. Elevated liver enzymes. 17. Dietary surveillance and counseling. POSTOPERATIVE DIAGNOSES: 1. Morbid obesity due to excess calories. 2. Body mass index of 41.5 3. Coronary artery disease. 4. Angina. 5. Gastroesophageal reflux disease. 6. Hypertension. 7. Migraines. 8. Irritable bowel syndrome. 9. Claustrophobia. 10. Anxiety. 11. Depression. 12. Obstructive sleep apnea. 13. Metabolic syndrome. 14. Vitamin D deficiency. 15. Hypertriglyceridemia. 16. Elevated liver enzymes. 17. Dietary surveillance and counseling. 18. Diaphragmatic hiatal hernia. OPERATION: 1. Robotic assisted da Carolyn Xi laparoscopic Jose Antonio-en-Y gastric bypass, 100 cm antecolic antegastric Jose Antonio limb, with 25 mm EEA. 2. Intraoperative esophagogastrojejunoscopy. ANESTHESIA: GETA and local ESTIMATED BLOOD LOSS: 10 mL SPECIMENS REMOVED: None. COMPLICATIONS: NONE. INDICATIONS: Wanda Ervin is a 56-year-old female who presents with morbid obesity. Her highest weight was 260 pounds. At her height of 5 foot 6.5 inches , her ideal body weight is 154 pounds. Her highest body mass index is 41.5. She has completed cardiac risk assessment. She has completed her psych assessment. She has been completed medical supervised weight loss. As a result of her obesity, she has developed hypertension including obstructive sleep apnea and osteoarthritis. Today she comes in at 240 pounds. She has lost 20 pounds in 1 month from her last visit the bariatric center. At her height of 5 foot 6.5 inches, her ideal body weight is 154 pounds. She is 86 pounds overweight. She now presents to undergo robotic assisted gastric bypass. A second-generation bariatric consent form was described in detail including the possibility of protein malnutrition, leaks, gastrojejunal stricture, venous thrombosis, need for further surgery for which she demonstrated understanding. Benefits and risks of the procedure were described at length. Informed consent was obtained. DESCRIPTION: The patient was brought into the operating room theater. She was placed on a split leg table. She had received Lovenox subcutaneously for DVT prophylaxis. Additionally she Peridex oral solution as an oral decontaminant was placed per anesthesia. After general induction, the abdomen was prepped and draped in standard sterile fashion. Ioban draping was placed along the abdomen. A robotic da Carolyn Xi system was prepped and primed. The xiphoid to umbilicus was measured of 22 cm. Proposed port sites were marked with indelible marker along the anterior axillary line bilaterally, mid clavicular line bilaterally with each port marked 10 cm from each other. The executive marketing assistant port was marked along the right lateral lower abdominal wall. The robotic stapler port was marked for the right midclavicular line including along the left midclavicular line. A 5 mm 0 degrees laparoscopic trocar entry was performed along the left upper quadrant. The abdomen was insufflated to 15 mmHg pressure, which she tolerated well. Diagnostic laparoscopy demonstrated no injury to bowel, viscera, or mesentery. The liver surface was unremarkable. A small hiatal hernia was encountered. An 8 mm camera port was placed left lateral to the umbilicus at the epigastrium , 17 cm distal to the xiphoid. Next, 12-mm robot stapler port was placed along the right mid abdomen. An 12 mm port was exchanged along the left upper quadrant. An 8 mm port was placed on the left lateral abdominal wall under direct localization. Please note that the ports were placed 18 to 20 cm away from the target anatomy of the stomach. Care was taken to check that each robotic arm was safely away from collision with the bed or the patient. At the epigastrium, a medium sized Shasta liver retractor was placed under direct visualization with the Iron Data Coordinator placed under the right shoulder of the patient. The patient was repositioned in reverse Trendelenburg position at 14-degress after lowering the bed. The robot was docked over the patient. Using grasper for arm 3, a grasper for arm 1, including vessel sealer for arm 2 , the robotic system was docked and primed as described. Instruments were interchanged by the executive marketing assistant including endoscissors, the needle skip load driver, and stapler. I had sat at the console. Next, the transverse mesocolon was reflected into the upper abdomen preparing for the jejunojejunostomy portion of the case. The ligament of Treitz was identified and measured 60 cm antegrade and marked using 2-0 Vicryl. The jejunum was divided at the 60 cm point using 45-mm white loads above the suture measurement. The biliopancreatic limb was held in place. The Jose Antonio limb was measured 100 cm in an antegrade fashion to avoid tension along the proposed gastrojejunal anastomosis. At 100 cm along the anti-mesenteric border of the Jose Antonio limb, a jejunojejunostomy was proposed whereby enterotomies were created along the biliopancreatic limb including the Jose Antonio limb using a Bovie cautery. A stay suture of 2-0 Vicryl was placed to align and create the anastomosis. The enterotomies along the anti-mesenteric borders were created followed by unidirectional fire from the patient's right side using 2 - 45 mm white load Smart technology robotic stapler. The jejunojejunostomy was found to be hemostatic. The enterotomy was closed after horizontal mattress stitch of 2-0 silk used to elevate the enterotomy followed by closure with the robotic stapler white load. The jejunal limb was temporarily tacked along the left upper quadrant. Attention was now brought to the creation of the gastrojejunostomy. Along the lesser curvature of the stomach between the second and third veins, dissection was made along the retrogastric space to allow first firing of the robotic staple. Moderate posterior stomach were identified, hence increasing the complexity of her case. Blue loads of 7 - 45 mm staplers were used to divide the stomach to create the gastric pouch. The patient was then prepared for placement of a Orvil. The patient was Mallampati 3. A 25-mm Orvil was selected for placement by the nurse security system sales consultant. The Orvil tubing was placed anterior to the staple line of the gastric pouch and brought out through the left inferior lateral port. I re-scrubbed into the case. The robotic arms were temporarily undocked. The Orvil was then carefully and successfully navigated with the help of the nurse security system sales consultant into the gastric pouch. The sutures were identified and divided. The tubing was from the 25 mm anvil. As the Orvil had been placed, the blind jejunal limb was brought proximally into the upper abdomen. No torsion was found upon the Jose Antonio limb. No tension was identified as the limb was brought along the upper abdomen. The blind jejunal limb was previously opened using endo -scissors with cautery. The 25-mm EEA stapler was brought through the left anterior lateral port site from the left side. The EEA stapler was brought through the open jejunal limb and its needle was deployed at the antimesenteric border where the anvil were mated for approximately 1 minute upon firing. The stapler was removed after irrigating the shaft of the instrument with warm normal saline. Donuts were found to be intact and on both sides. The Diplopia Xi robot arms were then re-docked. I sat at the console. The open jejunal limb defect was closed using 45 mm white loads after releasing any tension from the blind jejunal limb. Care was taken to avoid any long blind limb to avoid candycane syndrome. Reinforcement sutures were placed along the gastrojejunal anastomosis at the 9:00 and 3 o'clock position using 3-0 Vicryl. The Farias and jejunojejunostomy mesenteric defects were obliterated by her intra-abdominal fat. I then went to the head of the bed to perform the esophagogastrojejunoscopy and a leak test. An Olympus gastroscope was passed along the posterior oropharynx which was unremarkable for any injury to the vocal cords. The scope was passed down to the proximal portion of the pouch, whereby no active bleeding was encountered. Excellent visualization of the gastrojejunostomy anastomosis, including the Jose Antonio limb was encountered with endoscopic image obtained. The anastomosis was found to be patent. The gastrointestinal tract was desufflated. No evidence of intraoperative leak was encountered as the gastric pouch and anastomosis were submerged under normal saline solution. The robot was then undocked. I then went back to the bedside of the patient, whereby with coordinated effort of the executive marketing assistant, irrigation was aspirated from the upper abdominal cavity. Tisseel was placed circumferentially over the anastomosis of the gastrojejunostomy. The fascial defect of the EEA stapler was closed using Jeremy Mao and 0 Vicryl. All instruments and pneumoperitoneum were evacuated from the abdominal cavity. The port correlating with the EEA stapler device was cleansed with normal saline solution and hydrogen peroxide. The rest of incisions were reapproximated using 4-0 Monocryl in an interrupted subcuticular fashion. Local anesthetic was infiltrated along the skin for postop analgesia. Dermabond was applied to the skin. OptiFoam dressing was placed along the EEA stapler site. At the end of the procedure, needle, sponge and instrument count had been verified correct by the surgical instrument mechanic. She had tolerated the procedure well and was extubated and taken to the postanesthesia unit in stable condition. Intraoperative findings were described to the patient's family who were very pleased with the level of care. Total console time 111 minutes, Operative Findings: 1. Biliopancreatic limb 60 cm 2. Bypass performed using 100 cm jose antonio limb secondary to avoid increased tension at 150 cm. 3. Brothers defect and jejunojejunostomy defect obliterated by moderate intra- abdominal fat. 4. Leak test negative with gastrojejunal anastomosis patent and hemostatic. 5. Robotic staplers total of 14 combined blue and white 45 mm used - 7 used to gastric pouch 6. Reinforcement sutures were placed along the gastrojejunal anastomosis at the 9:00 and 3 o'clock position using 3-0 Vicryl.
[2017-05-25] MEDS: MEPERIDINE 50 MG/ML SYRINGE IVP ONE ×2 (17:29→17:38)
[2017-05-25] MEDS ORDERED: ACETAMINOPHEN IV (For NPO) 1,000 MG in EMPTY BAG 1 BAG IVPB ONE (18:00)
[2017-05-25] MEDS: ALBUTEROL NEBULIZED 2.5 MG/3 ML INHALATION SCH (18:32)
[2017-05-25] MEDS: 0.9% NACL WITH KCL 20 MEQ/L 1,000 ML IV SCH (19:00)
[2017-05-25] MEDS: MAGNESIUM SULFATE-D5W PMX 1 GM in DEXTROSE/WATER 1 100ML.BAG IVPB SCH ×2 (20:48→22:16)
[2017-05-25] MEDS: HYOSCYAMINE ORAL DROPS 1.875 MG/15 ML BOTTLE PO SCH (20:48)
[2017-05-25] MEDS: SIMETHICONE 40 MG/0.6 ML DROPS 2,000 MG/30 ML BOTTLE PO SCH (20:49)
[2017-05-25] MEDS: ceFAZolin IN SWFI 2 GM/20 ML SYRINGE IVP SCH (22:25)
[2017-05-26] MEDS: 0.9% NACL WITH KCL 20 MEQ/L 1,000 ML IV SCH ×2 (01:30→10:42)
[2017-05-26] MEDS: MAGNESIUM SULFATE-D5W PMX 1 GM in DEXTROSE/WATER 1 100ML.BAG IVPB SCH (01:37)
[2017-05-26] MEDS: SIMETHICONE 40 MG/0.6 ML DROPS 2,000 MG/30 ML BOTTLE PO SCH ×4 (01:38→18:20)
[2017-05-26] MEDS: HYOSCYAMINE ORAL DROPS 1.875 MG/15 ML BOTTLE PO SCH ×4 (01:39→18:19)
[2017-05-26] MEDS: HYDROmorphone 4 MG/ML 1 ML SYRINGE IVP PRN ×4 (01:44→15:20)
[2017-05-26] MEDS: ceFAZolin IN SWFI 2 GM/20 ML SYRINGE IVP SCH (06:16)
[2017-05-26] MEDS: ENOXAPARIN 40 MG/0.4 ML SYRINGE SQ SCH (07:52)
[2017-05-26] MEDS: PANTOPRAZOLE 40 MG/10 ML VIAL IV SCH (07:52)
[2017-05-26 08:14] LABS: Anion Gap 9 mmol/L; Blood Urea Nitrogen 12 mg/dL (7-17); Calcium 8.4 mg/dL (8.4-10.2); Carbon Dioxide 24 mmol/L (22-30); Chloride 109 mmol/L (98-107); Magnesium 2.6 mg/dL (1.6-2.3); Phosphorus 3.7 mg/dL (2.5-4.5); Sodium 142 mmol/L (137-145)
[2017-05-26] MEDS: ALBUTEROL NEBULIZED 2.5 MG/3 ML INHALATION SCH ×4 (08:51→20:12)
--- NOTE | 2017-05-26 09:28 | P.PN ---
<Carmelita Linton - Last Filed: 05/26/17 09:20> Subjective Progress Note Date: 05/26/17 46-year-old female seen and examined at bedside. Patient presented on an elective basis to undergo gastric bypass for morbid obesity done on May 25. Patient reports having a sensation of nausea this morning no active emesis. States tolerating bariatric clear liquid diet States belching but not passing gas rectally indwelling Nieves catheter has been removed states urinating no difficulty heart rate this morning in the 90s on 2 L sats are 97% afebrile blood pressure 101/67 denies dizziness or lightheadedness Objective - Vital Signs Vital signs: Vital Signs Temp 98.1 F 05/26/17 07:36 Pulse 90 05/26/17 09:02 Resp 12 05/26/17 07:36 BP 101/67 05/26/17 07:36 Pulse Ox 97 05/26/17 08:54 Intake & Output 05/25/17 05/26/17 05/26/17 18:59 06:59 18:59 Intake Total 2800 1052 Output Total 360 840 Balance 2440 212 Weight 109 kg Intake: IV 2800 Intake, IV Titration 852 Amount 0.9% NaCl with KCl 20 Meq 252 /l 1,000 ml @ 150 mls/hr IV .Q6H40M [facility] Rx#: [id number] ACETAMINOPHEN IV (For NPO 200 ) 1,000 mg In Empty Bag 1 bag @ 400 mls/hr IVPB ONCE ONE Rx#:[id number] Magnesium Sulfate-D5w Pmx 400 1 gm In Dextrose/Water 1 100ml.bag @ 100 mls/hr IVPB Q1H [facility] Rx#: [id number] Oral 200 Output: Urine 350 840 Estimated Blood Loss 10 Other: Voiding Method Indwelling Catheter Indwelling Catheter - Exam Physical exam 56-year-old female resting in bed reports a nausea sensation no emesis just received pain medication Lungs anterior and posterior adequate air movement no cough noted no shortness of breath with conversation on 2 L sats are 97% Heart S1-S2 audible regular heart rate in the 80s to 90s denying chest pain Abdomen surgical dressing sites dry soft and not distended a few hypoactive bowel tones surgical tenderness appropriate Extremities Venodyne's on to the bilateral lower extremities no edema noted - Labs CBC & Chem 7: 05/26/17 07:31 Labs: Abnormal Lab Results - Last 24 Hours (Table) 05/26/17 Range/Units 07:31 Chloride 109 H (98-107) mmol/L Magnesium 2.6 H (1.6-2.3) mg/dL Assessment and Plan Assessment: Impression Morbid obesity BMI 41.5 due to excess calories Coronary artery disease Irritable bowel syndrome Anxiety depressive disorder Esophageal reflux disease History of migraine Hyperglycemia Vitamin D deficiency Obstructive sleep apnea History of migraines Robotic assisted da Carolyn Xi laparoscopic Joe-en-Y gastric bypass, done on May 25 Plan Continue postop bariatric care Pain control Monitor blood pressure and heart rate address as indicated Increase activity as tolerated DVT and GI prophylaxis Bariatric clear diet as ordered Home meds as appropriate The above impression and plan of care have been discussed and directed by signing physician. Carmelita Linton nurse practitioner acting as scribe for signing physician. <Maggie Alvarado N - Last Filed: 05/26/17 14:50> Objective - Vital Signs Vital signs: Vital Signs Temp 98.1 F 05/26/17 07:36 Pulse 96 05/26/17 13:02 Resp 12 05/26/17 07:36 BP 101/67 05/26/17 07:36 Pulse Ox 97 05/26/17 12:45 Intake & Output 05/25/17 05/26/17 05/26/17 18:59 06:59 18:59 Intake Total 2800 1052 Output Total 360 840 100 Balance 2440 212 -100 Weight 109 kg Intake: IV 2800 Intake, IV Titration 852 Amount 0.9% NaCl with KCl 20 Meq 252 /l 1,000 ml @ 150 mls/hr IV .Q6H40M [facility] Rx#: [id number] ACETAMINOPHEN IV (For NPO 200 ) 1,000 mg In Empty Bag 1 bag @ 400 mls/hr IVPB ONCE ONE Rx#:[id number] Magnesium Sulfate-D5w Pmx 400 1 gm In Dextrose/Water 1 100ml.bag @ 100 mls/hr IVPB Q1H [facility] Rx#: [id number] Oral 200 Output: Urine 350 840 100 Uretheral (Nieves) 100 Estimated Blood Loss 10 Other: Voiding Method Indwelling Catheter Indwelling Catheter - Labs CBC & Chem 7: 05/26/17 07:31 05/26/17 07:31 Labs: Abnormal Lab Results - Last 24 Hours (Table) 05/26/17 05/26/17 Range/Units 07:31 07:31 Neutrophils # 8.1 H (1.3-7.7) k/uL Chloride 109 H (98-107) mmol/L Magnesium 2.6 H (1.6-2.3) mg/dL
[2017-05-26] MEDS: 1: MVI, ADULT NO.4 WITH VIT K 10 ML, THIAMINE 100 MG, FOLIC ACID 1 MG, POTASSIUM CHLORID IV SCH ×12 (10:18→19:40)
[2017-05-26 10:44] LABS: Basophils % (A) 0 %; Eosinophils % (A) 0 %; HCT 38.8 % (34.0-46.0); HGB 12.7 gm/dL (11.4-16.0); Lymphocytes # (A) 1.2 k/uL (1.0-4.8); Lymphocytes % (A) 12 %; MCH 28.7 pg (25.0-35.0); MCHC 32.8 g/dL (31.0-37.0); MCV 87.5 fL (80.0-100.0); Mean Platelet Volume 9.2; Monocytes # (A) 0.5 k/uL (0-1.0); Monocytes % (A) 5 %; Neutrophils # (A) 8.1 k/uL (1.3-7.7); Neutrophils % (A) 82 %; Platelet Count 257 k/uL (150-450); RBC 4.43 m/uL (3.80-5.40); RDW 14.6 % (11.5-15.5); WBC 9.9 k/uL (3.8-10.6)
[2017-05-26] MEDS ORDERED: ACETAMINOPHEN ORAL SUSP (PEDS) 3,840 MG/120 ML BOTTLE PO PRN (20:46)
[2017-05-26] MEDS ORDERED: TAMSULOSIN 0.4 MG CAP.ER.24H PO STA (20:49)
--- NOTE | 2017-05-26 20:49 | P.PN ---
Progress Note - Text Progress Note Date: 05/26/17 Patient re-evaluated this evening. No reports of nausea. Appropriate incisional pain. Patient encouraged to ambulate. Complains of itching. Start of Tylenol elixir in lieu of morphine derivatives. Also had urinary retenton. Adjust medications including flomax and stop hycosamine/scopolamine patch.
[2017-05-27] MEDS: SIMETHICONE 40 MG/0.6 ML DROPS 2,000 MG/30 ML BOTTLE PO SCH ×5 (01:05→23:43)
[2017-05-27] MEDS: HYDROcodone/APAP 15 ML SOLUTION PO PRN ×4 (02:10→23:45)
[2017-05-27] MEDS: 1: MVI, ADULT NO.4 WITH VIT K 10 ML, THIAMINE 100 MG, FOLIC ACID 1 MG, POTASSIUM CHLORID IV SCH ×6 (03:59)
[2017-05-27] MEDS: TAMSULOSIN 0.4 MG CAP.ER.24H PO SCH (07:11)
[2017-05-27] MEDS: ENOXAPARIN 40 MG/0.4 ML SYRINGE SQ SCH (07:11)
[2017-05-27] MEDS: PANTOPRAZOLE 40 MG/10 ML VIAL IV SCH (07:11)
[2017-05-27] MEDS: ALBUTEROL NEBULIZED 2.5 MG/3 ML INHALATION SCH ×4 (09:11→22:00)
[2017-05-27 09:24] VITALS: BMI 37.6
[2017-05-27] MEDS: HYDROmorphone 4 MG/ML 1 ML SYRINGE IVP PRN (12:24)
--- NOTE | 2017-05-27 13:43 | P.PN ---
<Carmelita Linton - Last Filed: 05/27/17 13:29> Subjective Progress Note Date: 05/27/17 56-year-old female seen and examined. Patient had been up ambulating in the [place]. Patient continues to report having abdominal discomfort with a sensation of nausea. Patient gets teary-eyed at times stating that the pain medication doesn't completely take away the pain. Surgical dressing sites dry abdomen soft surgical tenderness as appropriate heart rates in the 80s to 90s and on room air sats are 94%. Patient afebrile. Patient is postop Robotic assisted da Carolyn Xi laparoscopic Joe-en-Y gastric bypass, done on May 25 Objective - Vital Signs Vital signs: Vital Signs Temp 98.3 F 05/27/17 06:55 Pulse 92 05/27/17 09:21 Resp 20 05/27/17 06:55 BP 122/78 05/27/17 06:55 Pulse Ox 94 L 05/27/17 06:55 Intake & Output 05/26/17 05/27/17 05/27/17 18:59 06:59 18:59 Intake Total 1021.2 Output Total 1700 1100 Balance -1700 -78.8 Weight 109 kg Intake: Intake, IV Titration 1021.2 Amount Mvi, Adult No.4 with Vit 1021.2 K 10 ml Thiamine 100 mg Folic Acid 1 mg Potassium Chloride 20 meq In Sodium Chloride 0.9% 1, 000 ml @ 100 mls/hr IV . BY DURATION [facility] Rx#: [id number] Output: Urine 1700 1100 Straight 550 Uretheral (Nieves) 500 Other: Voiding Method Toilet Toilet - Exam Physical exam 56-year-old female sitting on the edge of the bed. Had just returned from ambulating in the hallway. Lungs anterior and posterior adequate air movement no cough noted no shortness of breath on room air Heart S1-S2 audible regular heart rate in the 80s to 90s denying chest pain Abdomen surgical dressing sites dry soft not distended a few hypoactive bowel tones surgical tenderness appropriate tolerating bariatric clears Extremities Venodyne's on to the bilateral lower extremities no edema noted - Labs CBC & Chem 7: 05/26/17 07:31 05/26/17 07:31 Assessment and Plan Assessment: Impression Morbid obesity BMI 41.5 due to excess calories Coronary artery disease Irritable bowel syndrome Anxiety depressive disorder Esophageal reflux disease History of migraine Hyperglycemia Vitamin D deficiency Obstructive sleep apnea History of migraines Robotic assisted da Carolyn Xi laparoscopic Joe-en-Y gastric bypass, done on May 25 Plan Continue postop bariatric care Pain control Monitor blood pressure and heart rate address as indicated Increase activity as tolerated DVT and GI prophylaxis Bariatric clear diet as ordered Home meds as appropriate Probable discharge in the next 24 hours The above impression and plan of care have been discussed and directed by signing physician. Carmelita Linton nurse practitioner acting as scribe for signing physician. <Maggie Alvarado N - Last Filed: 05/28/17 08:05> Objective - Vital Signs Vital signs: Vital Signs Temp 97.7 F 05/28/17 01:55 Pulse 83 05/28/17 01:55 Resp 14 05/27/17 20:00 BP 124/59 05/28/17 01:55 Pulse Ox 94 L 05/28/17 01:55 Intake & Output 05/27/17 05/28/17 05/28/17 18:59 06:59 18:59 Intake Total 200 Output Total 400 Balance 200 -400 Weight 109 kg Intake: Intake, IV Titration 200 Amount 0.9% NaCl with KCl 20 Meq 200 /l 1,000 ml @ 100 mls/hr IV .BY DURATION [facility] Rx#: [id number] Output: Urine 400 Other: Voiding Method Toilet - Labs CBC & Chem 7: 05/26/17 07:31 05/27/17 19:18 Labs: Abnormal Lab Results - Last 24 Hours (Table) 05/27/17 Range/Units 19:18 Glucose 116 H (74-99) mg/dL
[2017-05-27 19:48] LABS: Anion Gap 8 mmol/L; Blood Urea Nitrogen 7 mg/dL (7-17); Calcium 8.6 mg/dL (8.4-10.2); Carbon Dioxide 26 mmol/L (22-30); Chloride 107 mmol/L (98-107); Glucose 116 mg/dL (74-99); Potassium 4.1 mmol/L (3.5-5.1); Sodium 141 mmol/L (137-145)
[2017-05-28 02:00] VITALS: TEMP 97.7
[2017-05-28] MEDS: SIMETHICONE 40 MG/0.6 ML DROPS 2,000 MG/30 ML BOTTLE PO SCH ×2 (04:44→11:21)
[2017-05-28] MEDS: HYDROcodone/APAP 15 ML SOLUTION PO PRN ×2 (04:45→11:18)
--- NOTE | 2017-05-28 08:06 | P.PN ---
Progress Note - Text Progress Note Date: 05/27/17 Patient seen and evaluated. She has previous history of obstructive uropathy following surgery. Patient had to be straight catheter at least twice today. Will reinsert Nieves. Flomax daily. We'll remove Nieves in the bariatric office in 5 days.
--- NOTE | 2017-05-28 08:09 | P.DS ---
Providers Date of admission: 05/25/17 11:21 Expected date of discharge: 05/28/17 Attending physician: Maggie Alvarado Primary care physician: Palmer Jamison - Discharge Diagnosis(es) (1) Obstructive uropathy Current Visit: Yes Status: Acute (2) BMI 37.0-37.9, adult Current Visit: Yes Status: Acute (3) Hypertension Current Visit: Yes Status: Acute (4) Morbid obesity Current Visit: Yes Status: Acute Hospital Course: The patient is a 56 year old female who underwent a robotic-assisted gastric bypass for history of morbid obesity due to hypertension, obstructive sleep apnea, osteoarthritis. Postprocedure her pain was being monitored. She has pre- existing obstructive uropathy especially following surgery. A Nieves catheter was placed. Prior to discharge, her pain improved. History of chronic constipation which medications were adjusted. Patient follow-up in the bariatric center in 24 hours. Procedures: Robotic assisted gastric bypass with intraoperative EGD Patient Condition at Discharge: Stable Plan - Discharge Summary Discharge Rx Participant: Yes New Discharge Prescriptions: New Tamsulosin [Flomax] 0.4 mg PO DAILY #7 cap Bisacodyl [Dulcolax] 5 mg PO DAILY PRN #10 tablet.dr PRN Reason: Constipation Ondansetron Odt [Zofran Odt] 4 mg PO Q8HR PRN #9 tab PRN Reason: Nausea Simethicone 40 mg/0.6 ml Drops [Mylicon Drops] 40 mg PO PCHS PRN #30 ml PRN Reason: Gas Acetaminophen Oral Susp (Peds) [Tylenol Oral Susp For Peds (Grape)] 500 mg PO Q6H #240 bottle Continue ALPRAZolam [Xanax] 0.5 mg PO TID PRN PRN Reason: Anxiety PARoxetine [Paxil] 20 mg PO HS Omeprazole 40 mg PO HS Sennosides [Senna] 8.6 mg PO DAILY PRN PRN Reason: Constipation Discontinued Ibuprofen [Motrin] 600 mg PO Q8HR PRN PRN Reason: Pain Atorvastatin Calcium [Lipitor] 20 mg PO HS Discharge Medication List ALPRAZolam [Xanax] 0.5 mg PO TID PRN 12/07/13 [History] PARoxetine [Paxil] 20 mg PO HS 12/18/15 [History] Omeprazole 40 mg PO HS 05/13/16 [History] Sennosides [Senna] 8.6 mg PO DAILY PRN 05/13/16 [History] Acetaminophen Oral Susp (Peds) [Tylenol Oral Susp For Peds (Grape)] 500 mg PO Q6H #240 bottle 05/28/17 [Rx] Bisacodyl [Dulcolax] 5 mg PO DAILY PRN #10 tablet. 05/28/17 [Rx] Ondansetron Odt [Zofran Odt] 4 mg PO Q8HR PRN #9 tab 05/28/17 [Rx] Simethicone 40 mg/0.6 ml Drops [Mylicon Drops] 40 mg PO PCHS PRN #30 ml [Rx] Tamsulosin [Flomax] 0.4 mg PO DAILY #7 cap 05/28/17 [Rx] Follow up Appointment(s)/Referral(s): Bariatric Center,. [NON-STAFF] - 05/29/17 11:00 am (Call to confirm time) Patient Instructions/Handouts: *Surgery [facility] - Nieves Catheter Instructions, Chronic Urinary Retention in Women (GEN), Urinary Leg Bag (GEN), Nutrition after Bariatric Surgery (GEN), Bowel Management After Bariatric Surgery (DC) Activity/Diet/Wound Care/Special Instructions: No lifting over 4 pounds in 4 weeks. May shower. No bath tub soaks. Dressing to be removed by surgeon. Open capsules or crushed medications Discharge Disposition: HOME SELF-CARE
[2017-05-28 08:20] VITALS: BP 141/78; PULSE 78; RESP 18
[2017-05-28] MEDS: PANTOPRAZOLE 40 MG/10 ML VIAL IV SCH (08:21)
[2017-05-28] MEDS: TAMSULOSIN 0.4 MG CAP.ER.24H PO SCH (08:21)
[2017-05-28] MEDS: ENOXAPARIN 40 MG/0.4 ML SYRINGE SQ SCH (08:21)
[2017-05-28] MEDS: ALBUTEROL NEBULIZED 2.5 MG/3 ML INHALATION SCH ×2 (08:44→12:10)
== END 2017-05-28 13:20 | disposition home or self-care (01) | DRG 621 ==
LOC: 2ORMAIN 11:21 → 3SUR 17:13
PROVIDERS: ADMIT Surgery Plastic and Reconstructive Surgery; ATTEND Surgery Plastic and Reconstructive Surgery
PROC: 0D164ZA Bypass Stomach to Jejunum, Percutaneous Endoscopic Approach (ICD-10-PCS; principal; 2017-05-25 13:20)
PROC: 0DJ08ZZ Inspection of Upper Intestinal Tract, Via Natural or Artificial Opening Endoscopic (ICD-10-PCS; principal; 2017-05-25 13:20)
DX: E66.01 Morbid (severe) obesity due to excess calories (principal); E88.81 Metabolic syndrome and other insulin resistance; E55.9 Vitamin D deficiency, unspecified; E78.1 Pure hyperglyceridemia; F32.9 Major depressive disorder, single episode, unspecified; F40.240 Claustrophobia; G43.909 Migraine, unspecified, not intractable, without status migrainosus; G47.33 Obstructive sleep apnea (adult) (pediatric); I10 Essential (primary) hypertension; I25.119 Atherosclerotic heart disease of native coronary artery with unspecified angina pectoris; K21.9 Gastro-esophageal reflux disease without esophagitis; K44.9 Diaphragmatic hernia without obstruction or gangrene; K58.9 Irritable bowel syndrome, unspecified; M19.90 Unspecified osteoarthritis, unspecified site; Z68.41 Body mass index [BMI] 40.0-44.9, adult; Z82.49 Family history of ischemic heart disease and other diseases of the circulatory system; Z90.710 Acquired absence of both cervix and uterus; Z79.1 Long term (current) use of non-steroidal anti-inflammatories (NSAID); Z79.899 Other long term (current) drug therapy
CPT/HCPCS: 80048; 80051; 82310; 82565; 83735; 84100; 84520; 85025; 86850; 86900; 86901; 94640; 94760; 94762

== ENCOUNTER → 2017-05-29 | Outpatient (CLI) | payer BC ==
[2017-05-29 11:32] VITALS: BMI 39.9
[2017-05-29 11:51] VITALS: BP 141/78; PULSE 81; TEMP 98.2
== END | disposition home or self-care (01) ==
LOC: BARWHC3 10:57
PROVIDERS: ATTEND Surgery Plastic and Reconstructive Surgery
DX: E66.01 Morbid (severe) obesity due to excess calories (principal); Z68.39 Body mass index [BMI] 39.0-39.9, adult; Z71.3 Dietary counseling and surveillance
CPT/HCPCS: 97803; 99211

== ENCOUNTER → 2017-06-01 | Outpatient (CLI) | payer BC ==
[2017-06-01 15:28] VITALS: BP 146/70; PULSE 86; RESP 16; TEMP 98.3; BMI 38.5
--- NOTE | 2017-07-10 13:23 | P.PN ---
Subjective Progress Note Date: 06/01/17 DATE OF SERVICE: 06/01/2017 CHIEF COMPLAINT: Follow up gastric bypass HISTORY OF PRESENT ILLNESS: Wanda Ervin is a 56-year-old female who is status post gastric bypass, 05/25/2017. She is 1 week out. She had a Nieves catheter for urinary retention. She still reports incisional pain of the left upper quadrant however improving. Her fluid intake continues to be low. Her overall postop pain has improved. Her highest weight was 260 pounds. Today she comes in weighing 241 pounds. She has lost 9 pounds in 3 days. Total lifetime weight loss is 19 pounds. At her height of 5 foot 6.5 inches, her ideal body weight is 154 pounds. Percent excess weight loss 17%. Her highest body mass index is 41.5 now down to 38.5. PHYSICAL EXAM: VITAL SIGNS: Height 5 foot 6.5 inches, weight 241 pounds. BMI 38.5 Vital Signs Temp 98.3 F 06/01/17 15:13 Pulse 86 06/01/17 15:13 Resp 16 06/01/17 15:13 BP 146/70 06/01/17 15:13 Pulse Ox GENERAL: Well-developed in no distress. HEENT: No scleral icterus. Extraocular movements grossly intact. Hears conversational speech. No nasal drainage. NECK: Supple without lymphadenopathy. CHEST: Nonlabored respirations with equal bilateral excursions. CARDIOVASCULAR: Regular rate and regular rhythm. Distal 2+ pulses. ABDOMEN: Obese, soft, decreased tenderness left upper quadrant. No peritonitis. No cellulitis or infection. MUSCULOSKELETAL: No clubbing, cyanosis, or edema. Gross strength 5/5 distal lower extremities. NEURO: No focal or lateralizing signs. Cranial nerves 2 through 12 grossly within normal limits. PSYCH: Appropriate affect. Alert and oriented to person, place and time. SKIN: Dry skin turgor. Well perfused. : Nieves catheter with dark yellow urine. ASSESSMENT: 1. Morbid obesity due to excess calories. 2. Body mass index of 41.5 down to 38.5 3. Hypertension. 4. Irritable bowel syndrome. 5. Obstructive sleep apnea. 6. Metabolic syndrome. 7. Urinary retention 8. Inadequate oral intake. 9. Status post gastric bypass. 10. Dehydration PLAN: 1. Nieves catheter discontinued. 2. Additional IV fluid hydration 3. Protein intake 75 g daily advised 4. Follow-up within 5 days Objective - Vital Signs Vital signs: Vital Signs Temp 98.3 F 06/01/17 15:13 Pulse 86 06/01/17 15:13 Resp 16 06/01/17 15:13 BP 146/70 06/01/17 15:13 Pulse Ox
== END | disposition home or self-care (01) ==
LOC: BARWHC3 11:01
PROVIDERS: ATTEND Surgery Plastic and Reconstructive Surgery
DX: Z48.815 Encounter for surgical aftercare following surgery on the digestive system (principal); G89.28 Other chronic postprocedural pain; E66.01 Morbid (severe) obesity due to excess calories; R33.9 Retention of urine, unspecified; I10 Essential (primary) hypertension; K58.9 Irritable bowel syndrome, unspecified; G47.33 Obstructive sleep apnea (adult) (pediatric); E88.81 Metabolic syndrome and other insulin resistance; R63.8 Other symptoms and signs concerning food and fluid intake; Z96.0 Presence of urogenital implants; Z68.38 Body mass index [BMI] 38.0-38.9, adult; Z98.84 Bariatric surgery status; E86.0 Dehydration
CPT/HCPCS: 99211

== ENCOUNTER → 2017-06-10 | Outpatient (CLI) | payer BC ==
[~2017-06-10] MED LIST changes: -ACETAMINOPHEN IV (For NPO) 1,000 MG in EMPTY BAG 1 BAG IVPB ONE; -CHLORHEXIDINE GLUCONATE 15 ML CUP MUCOUS MEM ONE; -DEXAMETHASONE SOD PHOSPHATE 10 MG/ML 1 ML VIAL IV ONE; -ENOXAPARIN 40 MG/0.4 ML SYRINGE SQ STA; -HYDROmorphone 0.5 MG/0.5 ML SYRINGE IVP PRN; -MIDAZOLAM 2 MG/2 ML VIAL IV PRN; -ONDANSETRON 4 MG/2 ML VIAL IVP ONE; -PANTOPRAZOLE 40 MG/10 ML VIAL IV STA; -SCOPOLAMINE 1.5MG/72HR PATCH TRANSDERM STA; +SODIUM CHLORIDE 0.9% 1,000 ML IV ONE; +SODIUM CHLORIDE 0.9% 500 ML in EMPTY BAG 1 BAG IV PRN; -ceFAZolin IN SWFI 2 GM/20 ML SYRINGE IVP ONE
[2017-06-10 11:06] VITALS: BP 125/67; PULSE 80; RESP 16; TEMP 98.2
[2017-06-10] MEDS: SODIUM CHLORIDE 0.9% 1,000 ML IV ONE ×2 (11:06→12:06)
== END | disposition home or self-care (01) ==
LOC: PROCWHC3 09:58
PROVIDERS: ATTEND Surgery Plastic and Reconstructive Surgery
DX: E86.0 Dehydration (principal)
CPT/HCPCS: 96360; 96361

== ENCOUNTER 2017-06-14 12:20 | Outpatient (CLI) | payer BC ==
--- NOTE | 2017-06-14 11:26 | P.PN ---
Progress Note - Text Progress Note Date: 06/14/17 She reports dehydration. She has been directed to receive 2 L fluid bolus.
[2017-06-14 12:45] VITALS: RESP 16
[2017-06-14 13:17] LABS: HCT 42.5 % (34.0-46.0); HGB 13.3 gm/dL (11.4-16.0); Hypochromasia Slight; MCH 27.5 pg (25.0-35.0); MCHC 31.4 g/dL (31.0-37.0); MCV 87.7 fL (80.0-100.0); Platelet Count 305 k/uL (150-450); RBC 4.84 m/uL (3.80-5.40); RDW 14.8 % (11.5-15.5); WBC 8.2 k/uL (3.8-10.6)
[2017-06-14 13:22] LABS: INR 1.2 (<1.2); Prothrombin Time 11.2 sec (9.0-12.0)
[2017-06-14 13:28] LABS: Anion Gap 21 mmol/L; Blood Urea Nitrogen 8 mg/dL (7-17); Calcium 9.6 mg/dL (8.4-10.2); Carbon Dioxide 15 mmol/L (22-30); Chloride 107 mmol/L (98-107); Glucose 75 mg/dL (74-99); Magnesium 1.6 mg/dL (1.6-2.3); Phosphorus 4.4 mg/dL (2.5-4.5); Potassium 3.9 mmol/L (3.5-5.1); Sodium 143 mmol/L (137-145)
[2017-06-14] MEDS: SODIUM CHLORIDE 0.9% 1,000 ML IV SCH ×2 (13:30→14:47)
[2017-06-14] MEDS ORDERED: HYDROcodone/APAP 5-325MG 1 EACH TAB PO STA (13:52)
--- NOTE | 2017-06-14 13:58 | P.PN ---
Subjective Progress Note Date: 06/14/17 Principal diagnosis: Dehydration Patient is a 56-year-old female status post gastric bypass less than 4 weeks ago. She called earlier secondary to increased nausea. She reports dark urine. Separately she has intermittent constipation. She also reported spontaneous bleeding from her left lower quadrant incision. No reports of fevers or chills. Objective - Vital Signs Vital signs: Vital Signs Temp 98.1 F 06/14/17 12:15 Pulse 88 06/14/17 12:15 Resp 16 06/14/17 12:15 BP 115/81 06/14/17 12:15 Pulse Ox 98 06/14/17 12:15 Intake & Output 06/13/17 06/14/17 06/14/17 18:59 06:59 18:59 Weight 104.4 kg - Exam GENERAL: Well developed and in no acute distress. Pleasant. HEENT: No sclera icterus. Extraocular movements grossly intact. Moist buccal mucosa. Head is atraumatic, normocephalic. Hears conversational speech. No nasal drainage. NECK: Supple without lymphadenopathy. No JV distention. CHEST: Non-labored respirations and equal bilateral excursions. CARDIOVASCULAR: Regular rate and rhythm. Palpable 2+ radial pulses. ABDOMEN: Soft. Nondistended. Old blood from left lower quadrant site consistent with hematoma. Wound was localized with 1 mL 1% Xylocaine using a 27 -gauge needle after clearance skin with chlor prep. Q-tip was used to probe the wound with immediate old dark blood consistent with old hematoma. No signs of infection. MUSCULOSKELETAL: No clubbing, cyanosis or edema. NEUROLOGIC: No focal or lateralizing signs. PSYCH: Appropriate affect. Alert and oriented to person, place and time. SKIN: Dry skin turgor. - Labs CBC & Chem 7: 06/14/17 13:01 Labs: Abnormal Lab Results - Last 24 Hours (Table) 06/14/17 06/14/17 Range/Units 13:01 13:01 INR 1.2 H (<1.2) Carbon Dioxide 15 L (22-30) mmol/L Assessment and Plan (1) Dehydration Current Visit: Yes Status: Acute Code(s): E86.0 - DEHYDRATION SNOMED Code( s): 49802522 (2) Left upper quadrant pain Current Visit: Yes Status: Acute Code(s): R10.12 - LEFT UPPER QUADRANT PAIN SNOMED Code(s): 626367488 (3) Hematoma Current Visit: Yes Status: Acute Code(s): T14.8XXA - OTHER INJURY OF UNSPECIFIED BODY REGION, INITIAL ENCOUNTER SNOMED Code(s): 490751173 (4) Hypomagnesemia Current Visit: Yes Status: Acute Code(s): E83.42 - HYPOMAGNESEMIA SNOMED Code(s): 923176634 Plan: 1. Optifoam dressing placed after cleansing wound and draining old hematoma 2. 2 L bolus normal saline for dehydration 3. Chronic nausea consistent with symptomatic hypomagnesia. Recommend replacement. 4. Wound care instructions reviewed including changing dressing daily and for drainage
[2017-06-14] MEDS: MAGNESIUM SULFATE-D5W PMX 1 GM in DEXTROSE/WATER 1 100ML.BAG IVPB SCH ×3 (14:11→16:34)
[2017-06-14 16:32] LABS: Iron Saturation 10.92 (12.00-45.00)
[2017-06-14 17:17] VITALS: TEMP 98
[2017-06-14 17:32] VITALS: BP 110/74; PULSE 76
--- NOTE | 2017-06-14 21:12 | P.PN ---
Progress Note - Text Progress Note Date: 06/14/17 Per discussion with nursing, patient chose not to disclose that she was not having bowel movements and that she has continued to use her pain pills. Additionally, patient reports not taking her omeprazole as stated to continue on her medical reconciliation. Patient poses high risk for adverse events as she is not forthcoming and non- compliant with care. Will follow closely. Patient reiterated to take her omeprazole to minimize risk for premature GJ stricture.
[2017-06-19 17:32] LABS: Vitamin K 0.13 nmol/L (0.22-4.88)
== END 2017-06-14 18:46 | disposition home or self-care (01) ==
LOC: PEDOP 12:20
PROVIDERS: ATTEND Surgery Plastic and Reconstructive Surgery
DX: E86.0 Dehydration (principal)
CPT/HCPCS: 96360; 96361; 96366; 84255; 84597; 82652; 84425; 80048; 82607; 82728; 82525; 83540; 83550; 83735; 84100; 84590; 84630; 85027; 85610; J3475

== ENCOUNTER → 2017-06-17 | Outpatient (CLI) | payer BC ==
[2017-06-17 13:36] VITALS: BP 136/84; PULSE 92; TEMP 97.7; BMI 36.3
== END | disposition home or self-care (01) ==
LOC: BARWHC3 13:00
PROVIDERS: ATTEND Surgery Plastic and Reconstructive Surgery
DX: E66.01 Morbid (severe) obesity due to excess calories (principal); Z68.36 Body mass index [BMI] 36.0-36.9, adult; Z71.3 Dietary counseling and surveillance
CPT/HCPCS: 97803; 99211

== ENCOUNTER → 2017-07-15 | Outpatient (CLI) | payer BC ==
--- NOTE | 2017-07-15 14:12 | P.PN ---
Subjective Progress Note Date: 07/15/17 DATE OF SERVICE: 07/15/2017 CHIEF COMPLAINT: Follow up gastric bypass HISTORY OF PRESENT ILLNESS: Wanda Ervin is a 56-year-old female who is status post gastric bypass, 05/25/2017. She is 2 months out. She has history of irritable bowel syndrome with constipation. She finally is having bowel movements. No reports of abdominal pain. She had dysphagia with an egg but only 1 episode. Her highest weight was 261 pounds. Her last weight 1 month ago was 228. Today she comes in weighing 216 pounds. She has lost 12 pounds in 3 weeks. Total lifetime weight loss is 45 pounds. At her height of 5 foot 6.5 inches, her ideal body weight is 154 pounds. Percent excess weight loss 42%. Her highest body mass index is 41.6 now down to 34.3. PHYSICAL EXAM: VITAL SIGNS: Height 5 foot 6.5 inches, weight 216 pounds. BMI 34.3. Vital Signs Temp 98.1 F 07/15/17 14:15 Pulse 98 07/15/17 14:15 Resp BP 121/80 07/15/17 14:15 Pulse Ox GENERAL: Well-developed in no distress. HEENT: No scleral icterus. Extraocular movements grossly intact. Hears conversational speech. No nasal drainage. NECK: Supple without lymphadenopathy. CHEST: Nonlabored respirations with equal bilateral excursions. CARDIOVASCULAR: Regular rate and regular rhythm. Distal 2+ pulses. ABDOMEN: Soft, nontender, nondistended. No infection. Left over scab at left upper quadrant. MUSCULOSKELETAL: No clubbing, cyanosis, or edema. Gross strength 5/5 distal lower extremities. NEURO: No focal or lateralizing signs. Cranial nerves 2 through 12 grossly within normal limits. PSYCH: Appropriate affect. Alert and oriented to person, place and time. SKIN: Dry skin turgor. Well perfused. LABS: Reviewed in detail. Iron low. Vitamin A low. Hemoglobin A 1c was high. Cholesterol was high. Vitamin D was low. ASSESSMENT: 1. Morbid obesity due to excess calories. 2. Body mass index of 41.6 down to 34.3 3. Hypertension. 4. Irritable bowel syndrome. 5. Obstructive sleep apnea. 6. Metabolic syndrome. 7. Constipation 8. Status post gastric bypass. PLAN: 1. Plan for constipation that is working. 2. Vitamin A supplement recommended for skin and eyes. 3. Repeat labs for August 2017. 4. Drink more fluids advised. 5. Soluble fiber is recommended.
[2017-07-15 14:18] VITALS: BP 121/80; PULSE 98; TEMP 98.1; BMI 34.3
== END | disposition home or self-care (01) ==
LOC: BARWHC3 13:12
PROVIDERS: ATTEND Surgery Plastic and Reconstructive Surgery
DX: Z09 Encounter for follow-up examination after completed treatment for conditions other than malignant neoplasm (principal); E88.81 Metabolic syndrome and other insulin resistance; E66.01 Morbid (severe) obesity due to excess calories; I10 Essential (primary) hypertension; K58.9 Irritable bowel syndrome, unspecified; G47.33 Obstructive sleep apnea (adult) (pediatric); K59.00 Constipation, unspecified; Z68.34 Body mass index [BMI] 34.0-34.9, adult; Z98.84 Bariatric surgery status
CPT/HCPCS: 97803; 99211

== ENCOUNTER → 2017-09-02 | Outpatient (CLI) | payer BC ==
[2017-09-02 15:51] VITALS: BMI 31.3
[2017-09-02 15:57] VITALS: BP 115/76; PULSE 98; RESP 16; TEMP 98.3
--- NOTE | 2017-09-02 16:31 | P.PN ---
Subjective Progress Note Date: 09/02/17 HPI: Bowel movements are weekly. No abdominal pain. No GERD. No dysphagia. She reports Colace is helping her with bowel movements, PLAN: 1. Colace TID 2. Drinking adquate fluid. 3. She is doing well with her protein. 4. Blood work today. Objective - Vital Signs Vital signs: Vital Signs Temp 98.3 F 09/02/17 15:55 Pulse 98 09/02/17 15:55 Resp 16 09/02/17 15:55 BP 115/76 09/02/17 15:55 Pulse Ox Intake & Output 09/01/17 09/02/17 09/02/17 18:59 06:59 18:59 Weight 89.358 kg
[2017-09-02 17:26] LABS: HCT 42.5 % (34.0-46.0); MCH 29.4 pg (25.0-35.0); MCHC 32.9 g/dL (31.0-37.0); MCV 89.4 fL (80.0-100.0); Mean Platelet Volume 8.9; Platelet Count 205 k/uL (150-450); RBC 4.76 m/uL (3.80-5.40); RDW 15.4 % (11.5-15.5); WBC 5.9 k/uL (3.8-10.6)
[2017-09-02 17:36] LABS: INR 1.1 (<1.2); Partial Thromboplastin Time 22.4 sec (22.0-30.0); Prothrombin Time 10.5 sec (9.0-12.0)
[2017-09-02 17:39] LABS: ALT 67 U/L (9-52); AST 58 U/L (14-36); Albumin 4.1 g/dL (3.5-5.0); Alkaline Phosphatase 88 U/L (38-126); Anion Gap 15 mmol/L; Blood Urea Nitrogen 12 mg/dL (7-17); Calcium 9.5 mg/dL (8.4-10.2); Carbon Dioxide 25 mmol/L (22-30); Chloride 101 mmol/L (98-107); Cholesterol 221 mg/dL (<200); Glucose 80 mg/dL (74-99); HDL Cholesterol 46 mg/dL (40-60); LDL Cholesterol,Calculated 144 mg/dL (0-99); Magnesium 1.6 mg/dL (1.6-2.3); Phosphorus 4.3 mg/dL (2.5-4.5); Potassium 3.5 mmol/L (3.5-5.1); Sodium 141 mmol/L (137-145); Total Bilirubin 0.4 mg/dL (0.2-1.3); Total Protein 6.5 g/dL (6.3-8.2); Triglycerides 157 mg/dL (<150)
[2017-09-03 01:04] LABS: Iron Saturation 24.78 (12.00-45.00)
[2017-09-03 01:11] LABS: Parathyroid Hormone Intact 32.7 pg/mL (14.0-72.0)
[2017-09-03 01:15] LABS: Vitamin D 25 Hydroxy 39.3 ng/mL (30.0-100.0)
[2017-09-03 01:44] LABS: Folate, Serum 13.2 ng/mL
[2017-09-03 04:49] LABS: Hemoglobin A1C 5.2 % (4.0-6.0)
[2017-09-03 13:08] LABS: Vitamin A 25 ug/dL (38-106)
[2017-09-03 14:52] LABS: Zinc, Serum 82 ug/dL (60-130)
[2017-09-04 05:24] LABS: Vitamin B1 45 ug/L (38-122)
== END | disposition home or self-care (01) ==
LOC: BARWHC3 15:33
PROVIDERS: ATTEND Surgery Plastic and Reconstructive Surgery
DX: E66.01 Morbid (severe) obesity due to excess calories (principal); E21.1 Secondary hyperparathyroidism, not elsewhere classified; D50.9 Iron deficiency anemia, unspecified; E44.0 Moderate protein-calorie malnutrition; E55.9 Vitamin D deficiency, unspecified; K74.1 Hepatic sclerosis; N19 Unspecified kidney failure; K50.90 Crohn's disease, unspecified, without complications
CPT/HCPCS: 80053; 80061; 82306; 82525; 82607; 82728; 82746; 83036; 83540; 83550; 83735; 83970; 84100; 84134; 84255; 84425; 84443; 84590; 84630; 85027; 85610; 85730; 97803; 99211

== ENCOUNTER 2017-09-09 15:06 | Inpatient (IN) | payer BC ==
[2017-09-09] MEDS ORDERED: SODIUM CHLORIDE 0.9% 1,000 ML IV STA (15:39)
[2017-09-09] MEDS ORDERED: ONDANSETRON 4 MG/2 ML VIAL IVP STA ×2 (15:39→18:04)
[2017-09-09] MEDS ORDERED: IOPAMIDOL-300 CONTRAST 30 ML VIAL (ORAL USE) PO PRN (16:05)
[2017-09-09 16:09] LABS: Basophils % (A) 1 %; Eosinophils # (A) 0.1 k/uL (0-0.7); Eosinophils % (A) 2 %; HCT 42.7 % (34.0-46.0); HGB 14.2 gm/dL (11.4-16.0); Lymphocytes % (A) 34 %; MCH 30.1 pg (25.0-35.0); MCHC 33.2 g/dL (31.0-37.0); MCV 90.6 fL (80.0-100.0); Mean Platelet Volume 8.2; Monocytes # (A) 0.3 k/uL (0-1.0); Monocytes % (A) 4 %; Neutrophils # (A) 3.4 k/uL (1.3-7.7); Neutrophils % (A) 57 %; Platelet Count 203 k/uL (150-450); RBC 4.72 m/uL (3.80-5.40); RDW 15.6 % (11.5-15.5); WBC 5.9 k/uL (3.8-10.6)
[2017-09-09 16:16] LABS: ALT 57 U/L (9-52); AST 54 U/L (14-36); Albumin 4.1 g/dL (3.5-5.0); Alkaline Phosphatase 83 U/L (38-126); Amylase <30 U/L (30-110); Anion Gap 17 mmol/L; Blood Urea Nitrogen 11 mg/dL (7-17); Calcium 9.3 mg/dL (8.4-10.2); Carbon Dioxide 21 mmol/L (22-30); Chloride 103 mmol/L (98-107); Glucose 78 mg/dL (74-99); Lipase 70 U/L (23-300); Potassium 3.4 mmol/L (3.5-5.1); Sodium 141 mmol/L (137-145); Total Bilirubin 0.6 mg/dL (0.2-1.3); Total Protein 6.6 g/dL (6.3-8.2)
--- NOTE | 2017-09-09 16:34 | ED ---
Abdominal Pain HPI - General Source: patient, RN notes reviewed Mode of arrival: ambulatory Limitations: no limitations <Taj Mitchell - Last Filed: 09/09/17 18:31> <North Hui - Last Filed: 09/09/17 18:35> - General Chief Complaint: Abdominal Pain Stated Complaint: ABDOMINAL PAIN Time Seen by Provider: 09/09/17 15:39 - History of Present Illness Initial Comments: This a 57-year-old female presents emergency Department chief complaint of abdominal pain. Patient's been having increasing pain over the last 3 days along with nausea and unable to eat. Patient states that she had gastric bypass on June [address] Alvarado patient states that she's had subjective fever at home. Patient states she's been having worsening. Across her abdomen and she does have slight back pain. Patient called her surgeon advised to come emergency department. Patient has not vomited but feels like she needs to. Denies any chest pain or shortness of breath. Patient states that her incisions have healed well. Patient states that she is on restricted diet still. Patient denies any dysuria no hematuria. (Taj Mitchell) - Related Data Home Medications Medication Instructions Recorded Confirmed ALPRAZolam [Xanax] 0.5 mg PO TID PRN 12/07/13 09/09/17 PARoxetine [Paxil] 20 mg PO HS 12/18/15 09/09/17 Allergies Allergy/AdvReac Type Severity Reaction Status Date / Time Penicillins Allergy Severe Rash/Hives Verified 09/09/17 15:52 morphine AdvReac Severe Chest Pain Verified 09/09/17 15:52 Review of Systems ROS Other: All systems not noted in ROS Statement are negative. <Taj Mitchell - Last Filed: 09/09/17 18:31> ROS Other: All systems not noted in ROS Statement are negative. <North Hui - Last Filed: 09/09/17 18:35> ROS Statement: Those systems with pertinent positive or pertinent negative responses have been documented in the HPI. 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: Coronary Artery Disease (CAD), Chest Pain / Angina, GERD/ Reflux, Hypertension Additional 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 / Comment(s): MIGRAINES, IBS, BOIL UNDER RT BREAST History of Any Multi-Drug Resistant Organisms: None Reported Past Surgical History: Bariatric Surgery, Cholecystectomy, Hysterectomy, Uterine Ablation Additional Past Surgical History / Comment(s): D&C , NOVOSURE ENDOMETRIAL ABLATION gastric bypass 05-25-17 (Dr. Alvarado) Past Anesthesia/Blood Transfusion Reactions: Postoperative Nausea & Vomiting ( PONV) Additional Past Anesthesia/Blood Transfusion Reaction / Comment(s): CLAUSTERPHOBIA Past Psychological History: Anxiety, Depression Smoking Status: Never smoker Past Alcohol Use History: None Reported Past Drug Use History: None Reported - Past Family History Father Family Medical History: Myocardial Infarction ([place]) Mother Family Medical History: No Reported History Additional Family Medical History / Comment(s): MOM IS 72 <Taj Mitchell - Last Filed: 09/09/17 18:31> General Exam Limitations: no limitations General appearance: alert, in no apparent distress Head exam: Present: atraumatic, normocephalic, normal inspection Neck exam: Present: normal inspection, full ROM. Absent: tenderness, meningismus, lymphadenopathy Respiratory exam: Present: normal lung sounds bilaterally. Absent: respiratory distress, wheezes, rales, rhonchi, stridor Cardiovascular Exam: Present: regular rate, normal rhythm, normal heart sounds. Absent: systolic murmur, diastolic murmur, rubs, gallop, clicks GI/Abdominal exam: Present: soft, tenderness (Moderate tenderness across the mid abdomen right and left-sided), normal bowel sounds. Absent: distended, guarding, rebound, rigid Back exam: Absent: CVA tenderness (R), CVA tenderness (L) Skin exam: Present: warm, dry, intact, normal color. Absent: rash <Taj Mitchell - Last Filed: 09/09/17 18:31> Course <Taj Mitchell - Last Filed: 09/09/17 18:31> <North Hui - Last Filed: 09/09/17 18:35> Vital Signs 09/09/17 15:11 Temperature 98.5 F Pulse Rate 77 Respiratory 18 Rate Blood Pressure 126/82 O2 Sat by Pulse 97 Oximetry - Reevaluation(s) Reevaluation #1: 09/09/17 18:34 PA supervision: I did proceed a [id number] evaluation patient did discuss findings with her and her . Patient does have some abdominal discomfort to palpation of the surgical port sites appear to be intact and healing well. CAT scan report that show evidence of ascending colitis. I did discuss the case with Dr. Amaya. Patient will be admitted for IV fluids and IV antibiotics. I do agree with this assessment and plan. (North Hui) Medical Decision Making - Lab Data Result diagrams: 09/09/17 15:55 09/09/17 15:55 <Taj Mitchell - Last Filed: 09/09/17 18:31> - Lab Data Result diagrams: 09/09/17 15:55 09/09/17 15:55 <North Hui - Last Filed: 09/09/17 18:35> - Lab Data Lab Results 09/09/17 09/09/17 09/09/17 Range/Units 15:55 15:55 16:20 WBC 5.9 (3.8-10.6) k/uL RBC 4.72 (3.80-5.40) m/uL Hgb 14.2 (11.4-16.0) gm/dL Hct 42.7 (34.0-46.0) % MCV 90.6 (80.0-100.0) fL MCH 30.1 (25.0-35.0) pg MCHC 33.2 (31.0-37.0) g/dL RDW 15.6 H (11.5-15.5) % Plt Count 203 (150-450) k/uL Neutrophils % 57 % Lymphocytes % 34 % Monocytes % 4 % Eosinophils % 2 % Basophils % 1 % Neutrophils # 3.4 (1.3-7.7) k/uL Lymphocytes # 2.0 (1.0-4.8) k/uL Monocytes # 0.3 (0-1.0) k/uL Eosinophils # 0.1 (0-0.7) k/uL Basophils # 0.0 (0-0.2) k/uL Sodium 141 (137-145) mmol/L Potassium 3.4 L (3.5-5.1) mmol/L Chloride 103 (98-107) mmol/L Carbon Dioxide 21 L (22-30) mmol/L Anion Gap 17 mmol/L BUN 11 (7-17) mg/dL Creatinine 0.49 L (0.52-1.04) mg/dL Est GFR (CKD-EPI)AfAm >90 (>60 ml/min/1.73 sqM) Est GFR (CKD-EPI)NonAf >90 (>60 ml/min/1.73 sqM) Glucose 78 (74-99) mg/dL Plasma Lactic Acid Daniel 0.8 (0.7-2.0) mmol/L Calcium 9.3 (8.4-10.2) mg/dL Total Bilirubin 0.6 (0.2-1.3) mg/dL AST 54 H (14-36) U/L ALT 57 H (9-52) U/L Alkaline Phosphatase 83 (38-126) U/L Total Protein 6.6 (6.3-8.2) g/dL Albumin 4.1 (3.5-5.0) g/dL Amylase <30 L (30-110) U/L Lipase 70 (23-300) U/L Urine Color Urine Appearance (Clear) Urine pH (5.0-8.0) Ur Specific [place] (1.001-1.035) Urine Protein (Negative) Urine Glucose (UA) (Negative) Urine Ketones (Negative) Urine Blood (Negative) Urine Nitrite (Negative) Urine Bilirubin (Negative) Urine Urobilinogen (<2.0) mg/dL Ur Leukocyte Esterase (Negative) Urine RBC (0-5) /hpf Urine WBC (0-5) /hpf Ur Squamous Epith Cells (0-4) /hpf Urine Mucus (None) /hpf 09/09/17 Range/Units 17:25 WBC (3.8-10.6) k/uL RBC (3.80-5.40) m/uL Hgb (11.4-16.0) gm/dL Hct (34.0-46.0) % MCV (80.0-100.0) fL MCH (25.0-35.0) pg MCHC (31.0-37.0) g/dL RDW (11.5-15.5) % Plt Count (150-450) k/uL Neutrophils % % Lymphocytes % % Monocytes % % Eosinophils % % Basophils % % Neutrophils # (1.3-7.7) k/uL Lymphocytes # (1.0-4.8) k/uL Monocytes # (0-1.0) k/uL Eosinophils # (0-0.7) k/uL Basophils # (0-0.2) k/uL Sodium (137-145) mmol/L Potassium (3.5-5.1) mmol/L Chloride (98-107) mmol/L Carbon Dioxide (22-30) mmol/L Anion Gap mmol/L BUN (7-17) mg/dL Creatinine (0.52-1.04) mg/dL Est GFR (CKD-EPI)AfAm (>60 ml/min/1.73 sqM) Est GFR (CKD-EPI)NonAf (>60 ml/min/1.73 sqM) Glucose (74-99) mg/dL Plasma Lactic Acid Daniel (0.7-2.0) mmol/L Calcium (8.4-10.2) mg/dL Total Bilirubin (0.2-1.3) mg/dL AST (14-36) U/L ALT (9-52) U/L Alkaline Phosphatase (38-126) U/L Total Protein (6.3-8.2) g/dL Albumin (3.5-5.0) g/dL Amylase (30-110) U/L Lipase (23-300) U/L Urine Color Light Yellow Urine Appearance Cloudy H (Clear) Urine pH 6.0 (5.0-8.0) Ur Specific [place] 1.041 H (1.001-1.035) Urine Protein Trace H (Negative) Urine Glucose (UA) Negative (Negative) Urine Ketones 2+ H (Negative) Urine Blood Negative (Negative) Urine Nitrite Negative (Negative) Urine Bilirubin Negative (Negative) Urine Urobilinogen <2.0 (<2.0) mg/dL Ur Leukocyte Esterase Small H (Negative) Urine RBC 5 (0-5) /hpf Urine WBC 7 H (0-5) /hpf Ur Squamous Epith Cells 10 H (0-4) /hpf Urine Mucus Many H (None) /hpf Disposition <Taj Mitchell - Last Filed: 09/09/17 18:31> <North Hui - Last Filed: 09/09/17 18:35> Clinical Impression: Dehydration, Colitis, Nausea Disposition: ADMITTED IP TO THIS [facility] Condition: Stable Referrals: Palmer Jamison DO [Primary Care Provider] - 1-2 days
--- NOTE | 2017-09-09 17:01 | CT ---
EXAMINATION TYPE: CT abdomen pelvis w con DATE OF EXAM: 09/09/2017 COMPARISON: 12/11/2016 HISTORY: Upper Abdominal pain with nausea. Post OP gastric surgery in May 2017 CT DLP: 1345.5 mGycm CONTRAST: CT scan of the abdomen and pelvis is performed with Oral Contrast and with IV Contrast, patient injec yamilet with 100 mL of Isovue 300. FINDINGS: LUNG BASES-: No visible nodule. No infiltrate. LIVER/GB: Cholecystectomy clips are in place. No space occupying hepatic lesion. Biliary tree is o f normal caliber. Mild fatty liver. PANCREAS: No inflammation. No distinct mass. SPLEEN: No splenic enlargement. No lesion seen. ADRENALS: No nodule. No thickening. KIDNEYS/BLADDER: No hydronephrosis. No nephrolithiasis. No distinct renal mass. Urinary bladder g rossly unremarkable. BOWEL: Postoperative gastric changes noted. Normal appendix. Wall thickening descending colon may ref lect a degree of colitis. Correlate clinically. GENITAL ORGANS: Hysterectomy changes noted. LYMPH NODES: No greater than 1cm abdominal or pelvic lymph nodes are appreciated. AORTA: No significant abnormality. OSSEOUS STRUCTURES: No significant abnormality is seen. OTHER: No significant additional abnormality is seen. IMPRESSION: 1. Correlate for mild ascending colitis.
[2017-09-09 17:52] LABS: Appearance,Urine Cloudy (Clear); Bilirubin,Urine Negative (Negative); Blood,Urine Negative (Negative); Color,Urine Light Yellow; Glucose,Urine (UA) Negative (Negative); Ketones,Urine 2+ (Negative); Leukocyte Esterase,Urine Small (Negative); Mucus,Urine Many /hpf; Nitrite,Urine Negative (Negative); Protein,Urine Trace (Negative); RBC,Urine 5 /hpf (0-5); Specific Gravity,Urine 1.041 (1.001-1.035); Squamous Epithelial Cell,Urine 10 /hpf (0-4); Urobilinogen,Urine <2.0 mg/dL (<2.0); WBC,Urine 7 /hpf (0-5)
[2017-09-09] MEDS ORDERED: SODIUM CHLORIDE 0.9% 1,000 ML IV ONE (18:30)
[2017-09-09] MEDS ORDERED: metroNIDAZOLE-NS PMX 500 MG in SALINE 1 100ML.BAG IVPB STA (18:31)
[2017-09-09] MEDS ORDERED: ACETAMINOPHEN TAB 325 MG TAB PO PRN (18:32)
[2017-09-09] MEDS ORDERED: NALOXONE 0.4 MG/ML 1 ML VIAL IV PRN (18:32)
[2017-09-09] MEDS ORDERED: ONDANSETRON 4 MG/2 ML VIAL IVP PRN (18:32)
[2017-09-09] MEDS ORDERED: HYDROcodone/APAP 5-325MG 1 EACH TAB PO PRN (18:33)
[2017-09-09] MEDS: SODIUM CHLORIDE 0.9% 1,000 ML IV SCH (19:11)
[2017-09-09] MEDS ORDERED: Magnesium Replacement Protocol 1 EACH MISC MISCELLANE PRN ×2 (20:55→21:50)
[2017-09-09] MEDS ORDERED: Potassium Replacement Protocol 1 EACH MISC MISCELLANE PRN (20:56)
[2017-09-09] MEDS ORDERED: METOCLOPRAMIDE 5 MG/ML 2 ML VIAL IVP PRN (20:58)
[2017-09-09] MEDS: ACETAMINOPHEN IV (For NPO) 1,000 MG in EMPTY BAG 1 BAG IVPB PRN (21:35)
[2017-09-09] MEDS: POTASSIUM CHLORIDE 10 MEQ in WATER FOR INJECTION 1 100ML.BAG IVPB SCH (22:08)
[2017-09-10] MEDS: MAGNESIUM SULFATE-D5W PMX 1 GM in DEXTROSE/WATER 1 100ML.BAG IVPB SCH ×2 (00:01→04:04)
[2017-09-10] MEDS: POTASSIUM CHLORIDE 10 MEQ in WATER FOR INJECTION 1 100ML.BAG IVPB SCH ×3 (01:23→08:55)
[2017-09-10] MEDS: ACETAMINOPHEN IV (For NPO) 1,000 MG in EMPTY BAG 1 BAG IVPB PRN ×2 (03:38→12:45)
[2017-09-10] MEDS: metroNIDAZOLE-NS PMX 500 MG in SALINE 1 100ML.BAG IVPB SCH ×2 (06:42→12:49)
[2017-09-10] MEDS: SODIUM CHLORIDE 0.9% 1,000 ML IV SCH ×2 (06:43→09:01)
--- NOTE | 2017-09-10 08:56 | P.GSHP ---
<Carmelita Linton M - Last Filed: 09/10/17 08:40> History of Present Illness H&P Date: 09/10/17 57-year-old female presented on the day of admission to the emergency room to be evaluated for a chief complaint of developing right lower quadrant abdominal pain radiating across with a nausea sensation with no emesis patient stated that she felt feverish at home but did not take her temperature. She stated that she did notify her surgeon and was advised to come to the emergency room. Patient denied chest pain shortness of breath. Patient stated that she had a bowel movement yesterday but no bowel movement today. Feels less nauseated. Continues to have mild left lower quadrant abdominal pain per patient report. Abdomen is soft nondistended. Patient does have a history of robotic gastric bypass surgery for morbid obesity done in May 2017 patient states that she has lost 75 pounds since the surgery In the emergency room the patient did have a ct scan done of the abdomen and pelvis report reviewed indicate correlate for mild ascending colitis. Normal appendix urinary bladder unremarkable - Review of Systems Comment: Essentially unremarkable except as mentioned in the present illness 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: Coronary Artery Disease (CAD), Chest Pain / Angina, GERD/ Reflux, Hyperlipidemia, Hypertension, Sleep Apnea/CPAP/BIPAP Additional 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 / Comment(s): MIGRAINES, IBS, BOIL UNDER RT BREAST, vit d deficiency History of Any Multi-Drug Resistant Organisms: None Reported Past Surgical History: Bariatric Surgery, Cholecystectomy, Heart Catheterization , Hysterectomy, Uterine Ablation Additional Past Surgical History / Comment(s): D&C , NOVOSURE ENDOMETRIAL ABLATION, jose [id number] 05-25-17 (Dr. Alvarado) Past Anesthesia/Blood Transfusion Reactions: Postoperative Nausea & Vomiting ( PONV) Additional Past Anesthesia/Blood Transfusion Reaction / Comment(s): CLAUSTERPHOBIA Past Psychological History: Anxiety, Depression Additional Psychological History / Comment(s): FEELS WELL MAINTAINED ON HER MEDS Smoking Status: Never smoker Past Alcohol Use History: Rare Past Drug Use History: None Reported - Past Family History Father Family Medical History: Myocardial Infarction ([place]) Mother Family Medical History: Cancer Additional Family Medical History / Comment(s): MOM IS 72 Medications and Allergies Home Medications Medication Instructions Recorded Confirmed Type ALPRAZolam [Xanax] 0.5 mg PO TID PRN 12/07/13 09/09/17 History PARoxetine [Paxil] 20 mg PO HS 12/18/15 09/09/17 History Magnesium Oxide [Magox 400] 400 mg PO DAILY #60 tablet 09/11/17 Rx metroNIDAZOLE [Flagyl] 500 mg PO TID #15 tab 09/11/17 Rx Allergies Allergy/AdvReac Type Severity Reaction Status Date / Time Penicillins Allergy Severe Rash/Hives Verified 09/09/17 15:52 morphine AdvReac Severe Chest Pain Verified 09/09/17 15:52 Surgical - Exam Vital Signs Temp Pulse Resp BP Pulse Ox 98.5 F 77 18 126/82 97 09/09/17 15:11 09/09/17 15:11 09/09/17 15:11 09/09/17 15:11 09/09/17 15:11 GENERAL APPEARANCE: 57-year-old female patient is alert, oriented, in no acute distress. Sitting up in bed taking a clear liquid diet VITAL SIGNS: Reviewed HEENT: Head is normocephalic and atraumatic. Pupils are equal and reactive. The nares are patent. Oropharynx is clear without lesions. NECK: Supple without lymphadenopathy. Traches midline. HEART: S1, S2. Regular rate and rhythm. No murmur denying chest pain LUNGS: No crackles or wheezes are heard. On room air sats are 98% no shortness of breath ABDOMEN: Soft, nondist tenderness right lower quadrant a few hypo-active bowel sounds. No peritoneal signs. No palpable organomegaly or masses. reports no nausea no vomiting states had a bowel movement yesterday no stool this morning urinating no difficulty EXTREMITIES: Normal skin color and turgor. No cyanosis, rash, ulceration, clubbing or edema. Radial pedal pulses are 2/4 bilaterally. NEUROLOGICAL: No focal deficits. Strength and sensation are grossly intact. Results - Labs 09/09/17 15:55 09/09/17 15:55 Abnormal Lab Results - Last 24 Hours (Table) 09/09/17 09/09/17 09/09/17 Range/Units 15:55 15:55 17:25 RDW 15.6 H (11.5-15.5) % Potassium 3.4 L (3.5-5.1) mmol/L Carbon Dioxide 21 L (22-30) mmol/L Creatinine 0.49 L (0.52-1.04) mg/dL AST 54 H (14-36) U/L ALT 57 H (9-52) U/L Amylase <30 L (30-110) U/L Urine Appearance Cloudy H (Clear) Ur Specific [place] 1.041 H (1.001-1.035) Urine Protein Trace H (Negative) Urine Ketones 2+ H (Negative) Ur Leukocyte Esterase Small H (Negative) Urine WBC 7 H (0-5) /hpf Ur Squamous Epith Cells 10 H (0-4) /hpf Urine Mucus Many H (None) /hpf Diabetes panel 09/09/17 Range/Units 15:55 Sodium 141 (137-145) mmol/L Potassium 3.4 L (3.5-5.1) mmol/L Chloride 103 (98-107) mmol/L Carbon Dioxide 21 L (22-30) mmol/L BUN 11 (7-17) mg/dL Creatinine 0.49 L (0.52-1.04) mg/dL Glucose 78 (74-99) mg/dL Calcium 9.3 (8.4-10.2) mg/dL AST 54 H (14-36) U/L ALT 57 H (9-52) U/L Alkaline Phosphatase 83 (38-126) U/L Total Protein 6.6 (6.3-8.2) g/dL Albumin 4.1 (3.5-5.0) g/dL Calcium panel 09/09/17 Range/Units 15:55 Calcium 9.3 (8.4-10.2) mg/dL Albumin 4.1 (3.5-5.0) g/dL Pituitary panel 09/09/17 Range/Units 15:55 Sodium 141 (137-145) mmol/L Potassium 3.4 L (3.5-5.1) mmol/L Chloride 103 (98-107) mmol/L Carbon Dioxide 21 L (22-30) mmol/L BUN 11 (7-17) mg/dL Creatinine 0.49 L (0.52-1.04) mg/dL Glucose 78 (74-99) mg/dL Calcium 9.3 (8.4-10.2) mg/dL Adrenal panel 09/09/17 Range/Units 15:55 Sodium 141 (137-145) mmol/L Potassium 3.4 L (3.5-5.1) mmol/L Chloride 103 (98-107) mmol/L Carbon Dioxide 21 L (22-30) mmol/L BUN 11 (7-17) mg/dL Creatinine 0.49 L (0.52-1.04) mg/dL Glucose 78 (74-99) mg/dL Calcium 9.3 (8.4-10.2) mg/dL Total Bilirubin 0.6 (0.2-1.3) mg/dL AST 54 H (14-36) U/L ALT 57 H (9-52) U/L Alkaline Phosphatase 83 (38-126) U/L Total Protein 6.6 (6.3-8.2) g/dL Albumin 4.1 (3.5-5.0) g/dL Assessment and Plan Assessment: Impression Present on admission right lower quadrant abdominal pain suspect due to mild ascending colitis as indicated on a computed tomography scan abdomen and pelvis Present on admission hypokalemia hypo-magnesium corrected resolved History of gastric bypass for morbid obesity May 2017 lost 75 pounds since procedure Obesity BMI 30 Plan Follow-up on pending labs Keep electrolytes therapeutic range IV fluid for hydration No evidence of an acute surgical abdomen Further recommendations pending the The above impression and plan of care have been discussed and directed by signing physician. Carmelita Linton nurse practitioner acting as scribe for signing physician. <Maggie Alvarado - Last Filed: 09/12/17 09:42> Surgical - Exam Vital Signs Temp Pulse Resp BP Pulse Ox 98.5 F 77 18 126/82 97 09/09/17 15:11 09/09/17 15:11 09/09/17 15:11 09/09/17 15:11 09/09/17 15:11 Results - Labs 09/09/17 15:55 09/11/17 07:44 Assessment and Plan (1) Magnesium deficiency Status: Acute Code(s): E61.2 - MAGNESIUM DEFICIENCY SNOMED Code(s): 235903881 (2) Colitis Status: Acute Code(s): K52.9 - NONINFECTIVE GASTROENTERITIS AND COLITIS, UNSPECIFIED SNOMED Code(s): 42149312 (3) Dehydration Status: Acute Code(s): E86.0 - DEHYDRATION SNOMED Code(s): 14232384 Plan: Recommend start of Flagyl for colitis including IV fluid hydration.
[2017-09-10 09:18] LABS: ALT 49 U/L (9-52); AST 43 U/L (14-36); Alkaline Phosphatase 67 U/L (38-126); Anion Gap 13 mmol/L; Blood Urea Nitrogen 4 mg/dL (7-17); Calcium 8.4 mg/dL (8.4-10.2); Carbon Dioxide 21 mmol/L (22-30); Chloride 108 mmol/L (98-107); Glucose 87 mg/dL (74-99); Potassium 3.8 mmol/L (3.5-5.1); Sodium 142 mmol/L (137-145); Total Bilirubin 0.3 mg/dL (0.2-1.3); Total Protein 5.4 g/dL (6.3-8.2)
[2017-09-10] MEDS ORDERED: POTASSIUM CHLORIDE ER 20 MEQ TAB.ER PO STA (12:58)
[2017-09-10 14:20] VITALS: RESP 16
[2017-09-10] MEDS: metroNIDAZOLE 500 MG TAB PO SCH (21:41)
[2017-09-11] MEDS: SODIUM CHLORIDE 0.9% 1,000 ML IV SCH ×2 (02:16→12:09)
[2017-09-11 06:00] VITALS: BP 119/71; PULSE 64; TEMP 97.1
[2017-09-11 08:21] LABS: ALT 47 U/L (9-52); AST 38 U/L (14-36); Albumin 3.5 g/dL (3.5-5.0); Alkaline Phosphatase 72 U/L (38-126); Anion Gap 15 mmol/L; Blood Urea Nitrogen <2 mg/dL (7-17); Calcium 8.6 mg/dL (8.4-10.2); Carbon Dioxide 19 mmol/L (22-30); Chloride 107 mmol/L (98-107); Glucose 70 mg/dL (74-99); Magnesium 1.6 mg/dL (1.6-2.3); Potassium 3.8 mmol/L (3.5-5.1); Sodium 141 mmol/L (137-145); Total Bilirubin 0.4 mg/dL (0.2-1.3); Total Protein 5.8 g/dL (6.3-8.2)
[2017-09-11] MEDS: metroNIDAZOLE 500 MG TAB PO SCH (08:22)
[2017-09-11] MEDS ORDERED: MAGNESIUM OXIDE 400 MG TAB PO SCH (10:00)
[2017-09-11] MEDS: MAGNESIUM SULFATE-D5W PMX 1 GM in DEXTROSE/WATER 1 100ML.BAG IVPB SCH ×2 (10:27→12:36)
--- NOTE | 2017-09-11 11:12 | P.DS ---
Providers Date of admission: 09/09/17 18:31 Expected date of discharge: 09/11/17 Attending physician: Maggie Alvarado [facility] 57-year-old female presented on the day of admission to the emergency room with a chief complaint of developing right lower quadrant abdominal pain radiating across with the nausea vomiting sensation. Patient states she felt like she was had a fever but did not take attempt. Patient was seen in the emergency room CAT scan of the abdomen pelvis showed possible mild ascending colitis normal appendix. On admission the potassium was 3.1 which replacement was given. On the day of discharge potassium was 3.8. The magnesium was low at 1.4 magnesium was replaced and on the morning of the discharge the magnesium was 1.6. There were no further episodes and patient was tolerating the diet. Patient stated the abdominal pain had resolved. Patient was felt to be clinically stable and appropriate proceed with a discharge to home Impression Present on admission right lower quadrant abdominal pain suspect due to mild ascending colitis as indicated on a computed tomography scan abdomen and pelvis Present on admission hypokalemia hypo-magnesium corrected resolved History of gastric bypass for morbid obesity May 2017 lost 75 pounds since procedure Obesity BMI 30 The above impression and plan of care have been discussed and directed by signing physician. Carmelita Linton nurse practitioner acting as scribe for signing physician. Patient Condition at Discharge: Stable Plan - Discharge Summary Discharge Rx Participant: Yes New Discharge Prescriptions: New metroNIDAZOLE [Flagyl] 500 mg PO TID #15 tab Magnesium Oxide [Magox 400] 400 mg PO DAILY #60 tablet Continue ALPRAZolam [Xanax] 0.5 mg PO TID PRN PRN Reason: Anxiety PARoxetine [Paxil] 20 mg PO HS Discharge Medication List ALPRAZolam [Xanax] 0.5 mg PO TID PRN 12/07/13 [History] PARoxetine [Paxil] 20 mg PO HS 12/18/15 [History] Magnesium Oxide [Magox 400] 400 mg PO DAILY #60 tablet 09/11/17 [Rx] metroNIDAZOLE [Flagyl] 500 mg PO TID #15 tab 09/11/17 [Rx] Follow up Appointment(s)/Referral(s): Palmer Jamison DO [Primary Care Provider] - 1-2 days Maggie Alvarado MD [STAFF PHYSICIAN] - 09/22/17 Patient Instructions/Handouts: Ischemic Colitis (DC) Discharge Disposition: HOME SELF-CARE
--- NOTE | 2017-09-11 13:23 | P.DS ---
Providers Date of admission: 09/09/17 18:31 Expected date of discharge: 09/11/17 Attending physician: Maggie Alvarado Primary care physician: Palmer Jamison - Discharge Diagnosis(es) (1) Magnesium deficiency Current Visit: Yes Status: Acute (2) Colitis Current Visit: Yes Status: Acute (3) Dehydration Current Visit: Yes Status: Acute Hospital Course: The patient is a 57-year-old female who was admitted with colitis. Laboratory results are consistent with low magnesium including nausea and vomiting. She was placed on Flagyl. Her colitis had improved. Prior to discharge she was tolerating diet. Pain was well-controlled. Pertinent Studies: CT of the abdomen pelvis demonstrating colitis involving the ascending colon Patient Condition at Discharge: Stable Plan - Discharge Summary Discharge Rx Participant: Yes New Discharge Prescriptions: New metroNIDAZOLE [Flagyl] 500 mg PO TID #15 tab Magnesium Oxide [Magox 400] 400 mg PO DAILY #60 tablet Continue ALPRAZolam [Xanax] 0.5 mg PO TID PRN PRN Reason: Anxiety PARoxetine [Paxil] 20 mg PO HS Discharge Medication List ALPRAZolam [Xanax] 0.5 mg PO TID PRN 12/07/13 [History] PARoxetine [Paxil] 20 mg PO HS 12/18/15 [History] Magnesium Oxide [Magox 400] 400 mg PO DAILY #60 tablet 09/11/17 [Rx] metroNIDAZOLE [Flagyl] 500 mg PO TID #15 tab 09/11/17 [Rx] Follow up Appointment(s)/Referral(s): Palmer Jamison DO [Primary Care Provider] - 1-2 days Maggie Alvarado MD [STAFF PHYSICIAN] - 09/22/17 Patient Instructions/Handouts: Ischemic Colitis (DC) Discharge Disposition: HOME SELF-CARE
== END 2017-09-11 12:47 | disposition home or self-care (01) | DRG 387 ==
LOC: EC 15:06 → 3SUR 18:31 → 5MS5E 09-10 17:42
PROVIDERS: ADMIT Surgery Plastic and Reconstructive Surgery; ATTEND Surgery Plastic and Reconstructive Surgery
DX: K50.10 Crohn's disease of large intestine without complications (principal); E61.2 Magnesium deficiency; E66.9 Obesity, unspecified; Z68.30 Body mass index [BMI] 30.0-30.9, adult; Z98.84 Bariatric surgery status; E78.5 Hyperlipidemia, unspecified; E86.0 Dehydration; F32.9 Major depressive disorder, single episode, unspecified; F41.9 Anxiety disorder, unspecified; G47.30 Sleep apnea, unspecified; I10 Essential (primary) hypertension; I25.10 Atherosclerotic heart disease of native coronary artery without angina pectoris; K21.9 Gastro-esophageal reflux disease without esophagitis; Z82.49 Family history of ischemic heart disease and other diseases of the circulatory system; Z90.710 Acquired absence of both cervix and uterus; Z79.899 Other long term (current) drug therapy; Z88.5 Allergy status to narcotic agent; Z88.0 Allergy status to penicillin; G43.909 Migraine, unspecified, not intractable, without status migrainosus; Z90.49 Acquired absence of other specified parts of digestive tract; F40.240 Claustrophobia
CPT/HCPCS: 36415; 74177; 80053; 81001; 82150; 83605; 83690; 83735; 84132; 85025; 96361; 96365; 96375; 96376; 99285

== ENCOUNTER 2017-09-23 12:39 | Emergency (ER) | payer BC ==
[2017-09-23 12:57] VITALS: RESP 18
[2017-09-23] MEDS ORDERED: SODIUM CHLORIDE 0.9% 1,000 ML IV STA (13:02)
[2017-09-23] MEDS ORDERED: IOPAMIDOL-300 CONTRAST 30 ML VIAL (ORAL USE) PO PRN (13:02)
[2017-09-23] MEDS ORDERED: PANTOPRAZOLE 40 MG/10 ML VIAL IVP STA (13:05)
[2017-09-23] MEDS ORDERED: ONDANSETRON 4 MG/2 ML VIAL IVP STA (13:21)
--- NOTE | 2017-09-23 13:25 | ED ---
Nausea/Vomiting/Diarrhea HPI <Esteban Watson - Last Filed: 09/23/17 16:28> - General Source: patient, RN notes reviewed Mode of arrival: ambulatory Limitations: no limitations <Taj Mitchell - Last Filed: 09/23/17 16:33> - General Chief complaint: Nausea/Vomiting/Diarrhea Stated complaint: Vomiting Time Seen by Provider: 09/23/17 13:01 - History of Present Illness Initial comments: This is a 57-year-old female presents emergency Department chief complaint abdominal pain, nausea vomiting. Patient states she woke up this morning with some abdominal discomfort has been vomiting states that she cannot stop. She states initially was food but states now that there is black to brownish material. Patient states that she was admitted approximately 2 weeks ago for colitis. Patient states she finished her antibiotics for this. She states that she had bariatric surgery in May by Dr. Alvarado. Patient denies any fever, chills, chest pain, shortness breath, dysuria, hematuria. Patient states her last bowel movement was on Thursday. Patient states that she has no current headache or dizziness no sick contacts. (Taj Mitchell) - Related Data Home Medications Medication Instructions Recorded Confirmed ALPRAZolam [Xanax] 0.5 mg PO TID PRN 12/07/13 09/23/17 PARoxetine [Paxil] 20 mg PO HS 12/18/15 09/23/17 Previous Rx's Medication Instructions Recorded Magnesium Oxide [Magox 400] 400 mg PO DAILY #60 tablet 09/11/17 Omeprazole [PriLOSEC] 20 mg PO AC-BRKFST #14 cap 09/23/17 Ondansetron Odt [Zofran Odt] 4 mg PO Q8HR PRN #10 tab 09/23/17 Sucralfate [Carafate] 1 gm PO BID #10 tablet 09/23/17 Allergies Allergy/AdvReac Type Severity Reaction Status Date / Time Penicillins Allergy Severe Rash/Hives Verified 09/23/17 13:00 morphine AdvReac Severe Chest Pain Verified 09/23/17 13:00 Review of Systems ROS Other: All systems not noted in ROS Statement are negative. <Esteban Watson - Last Filed: 09/23/17 16:28> ROS Other: All systems not noted in ROS Statement are negative. <Dedoe,Taj M - Last Filed: 09/23/17 16:33> ROS Statement: Those systems with pertinent positive or pertinent negative responses have been documented in the HPI. 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: Coronary Artery Disease (CAD), Chest Pain / Angina, GERD/ Reflux, Hyperlipidemia, Hypertension, Sleep Apnea/CPAP/BIPAP Additional 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 / Comment(s): MIGRAINES, IBS, BOIL UNDER RT BREAST, vit d deficiency History of Any Multi-Drug Resistant Organisms: None Reported Past Surgical History: Bariatric Surgery, Cholecystectomy, Heart Catheterization , Hysterectomy, Uterine Ablation Additional Past Surgical History / Comment(s): D&C , NOVOSURE ENDOMETRIAL ABLATION, jose antonio-en-y 05-25-17 (Dr. Alvarado) Past Anesthesia/Blood Transfusion Reactions: Postoperative Nausea & Vomiting ( PONV) Additional Past Anesthesia/Blood Transfusion Reaction / Comment(s): CLAUSTERPHOBIA Past Psychological History: Anxiety, Depression Smoking Status: Never smoker Past Alcohol Use History: Rare Past Drug Use History: None Reported - Past Family History Father Family Medical History: Myocardial Infarction ([place]) Mother Family Medical History: Cancer Additional Family Medical History / Comment(s): MOM IS 72 <Taj Mitchell M - Last Filed: 09/23/17 16:33> General Exam Limitations: no limitations General appearance: alert, in no apparent distress Head exam: Present: atraumatic, normocephalic, normal inspection Neck exam: Present: normal inspection, full ROM. Absent: tenderness, meningismus, lymphadenopathy Respiratory exam: Present: normal lung sounds bilaterally. Absent: respiratory distress, wheezes, rales, rhonchi, stridor Cardiovascular Exam: Present: regular rate, normal rhythm, normal heart sounds. Absent: systolic murmur, diastolic murmur, rubs, gallop, clicks GI/Abdominal exam: Present: soft, tenderness (Diffuse moderate), normal bowel sounds. Absent: distended, guarding, rebound, rigid Back exam: Absent: CVA tenderness (R), CVA tenderness (L) Skin exam: Present: warm, dry, intact, normal color. Absent: rash <Taj Mitchell M - Last Filed: 09/23/17 16:33> Vital Signs 09/23/17 12:55 Temperature 98.1 F Pulse Rate 83 Respiratory 18 Rate Blood Pressure 150/91 O2 Sat by Pulse 98 Oximetry Medical Decision Making - Lab Data Result diagrams: 09/23/17 13:55 09/23/17 13:55 <Esteban Watson - Last Filed: 09/23/17 16:28> - Lab Data Result diagrams: 09/23/17 13:55 09/23/17 13:55 <Taj Mitchell - Last Filed: 09/23/17 16:33> - Medical Decision Making Patient reevaluated by myself, Dr. Watson. Patient resting comfortably in bed. Case was discussed in detail with Dr. Amaya who is familiar with this patient. She states patient can be discharged. She does recommend adding omeprazole and Carafate. Liquid diet. She will scope the patient on Thursday. No NSAIDs. (Esteban Watson) - Lab Data Lab Results 09/23/17 09/23/17 09/23/17 Range/Units 13:55 13:55 13:55 WBC 5.1 (3.8-10.6) k/uL RBC 4.62 (3.80-5.40) m/uL Hgb 14.3 (11.4-16.0) gm/dL Hct 42.6 (34.0-46.0) % MCV 92.1 (80.0-100.0) fL MCH 31.0 (25.0-35.0) pg MCHC 33.6 (31.0-37.0) g/dL RDW 15.4 (11.5-15.5) % Plt Count 199 (150-450) k/uL Neutrophils % 62 % Lymphocytes % 27 % Monocytes % 6 % Eosinophils % 2 % Basophils % 1 % Neutrophils # 3.2 (1.3-7.7) k/uL Lymphocytes # 1.4 (1.0-4.8) k/uL Monocytes # 0.3 (0-1.0) k/uL Eosinophils # 0.1 (0-0.7) k/uL Basophils # 0.0 (0-0.2) k/uL PT 10.4 (9.0-12.0) sec INR 1.1 (<1.2) APTT 22.5 (22.0-30.0) sec Sodium 144 (137-145) mmol/L Potassium 4.4 (3.5-5.1) mmol/L Chloride 105 (98-107) mmol/L Carbon Dioxide 24 (22-30) mmol/L Anion Gap 15 mmol/L BUN 10 (7-17) mg/dL Creatinine 0.50 L (0.52-1.04) mg/dL Est GFR (CKD-EPI)AfAm >90 (>60 ml/min/1.73 sqM) Est GFR (CKD-EPI)NonAf >90 (>60 ml/min/1.73 sqM) Glucose 81 (74-99) mg/dL Calcium 9.6 (8.4-10.2) mg/dL Total Bilirubin 0.7 (0.2-1.3) mg/dL AST 60 H (14-36) U/L ALT 47 (9-52) U/L Alkaline Phosphatase 82 (38-126) U/L Total Protein 7.3 (6.3-8.2) g/dL Albumin 4.3 (3.5-5.0) g/dL Amylase 34 (30-110) U/L Lipase 71 (23-300) U/L Urine Color Urine Appearance (Clear) Urine pH (5.0-8.0) Ur Specific [place] (1.001-1.035) Urine Protein (Negative) Urine Glucose (UA) (Negative) Urine Ketones (Negative) Urine Blood (Negative) Urine Nitrite (Negative) Urine Bilirubin (Negative) Urine Urobilinogen (<2.0) mg/dL Ur Leukocyte Esterase (Negative) Gastric Occult Blood (Negative) 09/23/17 09/23/17 Range/Units 15:24 15:31 WBC (3.8-10.6) k/uL RBC (3.80-5.40) m/uL Hgb (11.4-16.0) gm/dL Hct (34.0-46.0) % MCV (80.0-100.0) fL MCH (25.0-35.0) pg MCHC (31.0-37.0) g/dL RDW (11.5-15.5) % Plt Count (150-450) k/uL Neutrophils % % Lymphocytes % % Monocytes % % Eosinophils % % Basophils % % Neutrophils # (1.3-7.7) k/uL Lymphocytes # (1.0-4.8) k/uL Monocytes # (0-1.0) k/uL Eosinophils # (0-0.7) k/uL Basophils # (0-0.2) k/uL PT (9.0-12.0) sec INR (<1.2) APTT (22.0-30.0) sec Sodium (137-145) mmol/L Potassium (3.5-5.1) mmol/L Chloride (98-107) mmol/L Carbon Dioxide (22-30) mmol/L Anion Gap mmol/L BUN (7-17) mg/dL Creatinine (0.52-1.04) mg/dL Est GFR (CKD-EPI)AfAm (>60 ml/min/1.73 sqM) Est GFR (CKD-EPI)NonAf (>60 ml/min/1.73 sqM) Glucose (74-99) mg/dL Calcium (8.4-10.2) mg/dL Total Bilirubin (0.2-1.3) mg/dL AST (14-36) U/L ALT (9-52) U/L Alkaline Phosphatase (38-126) U/L Total Protein (6.3-8.2) g/dL Albumin (3.5-5.0) g/dL Amylase (30-110) U/L Lipase (23-300) U/L Urine Color Light Yellow Urine Appearance Clear (Clear) Urine pH 7.0 (5.0-8.0) Ur Specific [place] >1.050 H (1.001-1.035) Urine Protein Negative (Negative) Urine Glucose (UA) Negative (Negative) Urine Ketones 2+ H (Negative) Urine Blood Negative (Negative) Urine Nitrite Negative (Negative) Urine Bilirubin Negative (Negative) Urine Urobilinogen <2.0 (<2.0) mg/dL Ur Leukocyte Esterase Negative (Negative) Gastric Occult Blood Positive (Negative) Disposition <Esteban Watson - Last Filed: 09/23/17 16:28> Is patient prescribed a controlled substance at d/c from ED?: No Time of Disposition: 16:33 <Taj Mitchell - Last Filed: 09/23/17 16:33> Clinical Impression: Hematemesis, Nausea & vomiting, Gastritis, Abdominal pain Disposition: HOME SELF-CARE Condition: Stable Instructions: Abdominal Pain (ED) Additional Instructions: Please follow clear liquid diet. Please return to the Emergency Department if symptoms worsen or any other concerns. Prescriptions: Omeprazole [PriLOSEC] 20 mg PO AC-BRKFST #14 cap Ondansetron Odt [Zofran Odt] 4 mg PO Q8HR PRN #10 tab PRN Reason: Nausea Sucralfate [Carafate] 1 gm PO BID #10 tablet Referrals: Palmer Jamison DO [Primary Care Provider] - 1-2 days Maggie Alvarado MD [STAFF PHYSICIAN] - 1-2 days
[2017-09-23 14:19] LABS: Basophils % (A) 1 %; Eosinophils # (A) 0.1 k/uL (0-0.7); Eosinophils % (A) 2 %; HCT 42.6 % (34.0-46.0); HGB 14.3 gm/dL (11.4-16.0); Lymphocytes # (A) 1.4 k/uL (1.0-4.8); Lymphocytes % (A) 27 %; MCHC 33.6 g/dL (31.0-37.0); MCV 92.1 fL (80.0-100.0); Mean Platelet Volume 8.3; Monocytes # (A) 0.3 k/uL (0-1.0); Monocytes % (A) 6 %; Neutrophils # (A) 3.2 k/uL (1.3-7.7); Neutrophils % (A) 62 %; Platelet Count 199 k/uL (150-450); RBC 4.62 m/uL (3.80-5.40); RDW 15.4 % (11.5-15.5); WBC 5.1 k/uL (3.8-10.6)
[2017-09-23 14:47] LABS: INR 1.1 (<1.2); Partial Thromboplastin Time 22.5 sec (22.0-30.0); Prothrombin Time 10.4 sec (9.0-12.0)
--- NOTE | 2017-09-23 14:57 | CT ---
EXAMINATION TYPE: CT abdomen pelvis w con DATE OF EXAM: 09/23/2017 HISTORY: Vomiting with dark emesis CT DLP: 1329.7mGycm Automated Exposure Control for Dose Reduction was Utilized. CONTRAST: CT scan of the abdomen and pelvis is performed without oral but with IV Contrast, patient injected wi th 100 mL of Isovue 300. COMPARISON: CT abdomen and pelvis September 09, 2017 FINDINGS: LUNG BASES: There is dependent atelectasis in both bases on current study. There is additional linear scarring and/or atelectasis centrally in both lung bases on current exam. LIVER/GB: Cholecystectomy clips are redemonstrated. PANCREAS: No significant abnormality is seen. SPLEEN: No significant abnormality is seen. ADRENALS: No significant abnormality is seen. KIDNEYS: No significant abnormality is seen. BOWEL: Surgical changes from gastric bypass procedure epigastric region are redemonstrated. Evaluatio n of bowel is suboptimal due to lack of enteric contrast. There is additional surgical anastomosis in anterior upper small bowel loop coronal image 19 redemonstrated. No suspicious small or large bowel dilatation is present on current study. UTERUS/ADNEXA: Uterus is surgically absent or markedly atrophic. LYMPH NODES: No greater than 1cm abdominal or pelvic lymph nodes are appreciated. OSSEOUS STRUCTURES: Multilevel spurring in the thoracolumbar spine is redemonstrated. There is multil evel facet arthropathy in the lower lumbar spine redemonstrated. OTHER: Left anterior mid abdominal scar near axial image 56 is redemonstrated likely from laparoscopi c port with smaller scar on the right axial image 58 redemonstrated. IMPRESSION: Surgical changes from gastric bypass procedure are redemonstrated. No bowel obstruction. No significant acute finding identified to account for patient's symptoms.
[2017-09-23 15:07] LABS: ALT 47 U/L (9-52); AST 60 U/L (14-36); Albumin 4.3 g/dL (3.5-5.0); Alkaline Phosphatase 82 U/L (38-126); Amylase 34 U/L (30-110); Anion Gap 15 mmol/L; Blood Urea Nitrogen 10 mg/dL (7-17); Calcium 9.6 mg/dL (8.4-10.2); Carbon Dioxide 24 mmol/L (22-30); Chloride 105 mmol/L (98-107); Glucose 81 mg/dL (74-99); Lipase 71 U/L (23-300); Potassium 4.4 mmol/L (3.5-5.1); Sodium 144 mmol/L (137-145); Total Bilirubin 0.7 mg/dL (0.2-1.3); Total Protein 7.3 g/dL (6.3-8.2)
[2017-09-23 15:40] LABS: Appearance,Urine Clear (Clear); Bilirubin,Urine Negative (Negative); Blood,Urine Negative (Negative); Color,Urine Light Yellow; Glucose,Urine (UA) Negative (Negative); Ketones,Urine 2+ (Negative); Leukocyte Esterase,Urine Negative (Negative); Nitrite,Urine Negative (Negative); Protein,Urine Negative (Negative); Urobilinogen,Urine <2.0 mg/dL (<2.0)
[2017-09-23 16:10] LABS: Specific Gravity,Urine >1.050 (1.001-1.035)
[2017-09-23] MEDS ORDERED: METOCLOPRAMIDE 5 MG/ML 2 ML VIAL IVP STA (16:31)
[2017-09-23 17:03] VITALS: BP 133/60; PULSE 66; TEMP 99.4
== END 2017-09-23 17:03 | disposition home or self-care (01) ==
LOC: EC 12:39
DX: K29.70 Gastritis, unspecified, without bleeding (principal); I25.119 Atherosclerotic heart disease of native coronary artery with unspecified angina pectoris; G47.30 Sleep apnea, unspecified; Z99.89 Dependence on other enabling machines and devices; F32.9 Major depressive disorder, single episode, unspecified; F41.9 Anxiety disorder, unspecified; Z79.899 Other long term (current) drug therapy; Z88.0 Allergy status to penicillin; Z88.5 Allergy status to narcotic agent; Z95.818 Presence of other cardiac implants and grafts; Z98.84 Bariatric surgery status; Z90.49 Acquired absence of other specified parts of digestive tract
CPT/HCPCS: 36415; 80053; 82150; 83690; 85025; 85610; 85730; 82271; 81003; 74177; 99284; 96374; 96375 ×2; 96361; J2765; J2405; C9113; Q9967

== ENCOUNTER 2017-09-24 13:34 | Day surgery (SDC) | payer BC ==
[~2017-09-24 13:34] MED LIST changes: +LIDOCAINE 1% 20 ML VIAL (10MG/ML) FOR IV START INTRADERMA ONE; -SODIUM CHLORIDE 0.9% 1,000 ML IV ONE; -SODIUM CHLORIDE 0.9% 500 ML in EMPTY BAG 1 BAG IV PRN
[2017-09-24 13:51] VITALS: TEMP 98.4
[2017-09-24] MEDS ORDERED: LACTATED RINGERS 1,000 ML IV ONE (14:47)
[2017-09-24] MEDS ORDERED: PROPOFOL 10 MG/ML 20 ML VIAL IV ONE (14:48)
--- NOTE | 2017-09-24 15:10 | P.GSHP ---
History of Present Illness H&P Date: 09/24/17 CHIEF COMPLAINT: Hematemesis HISTORY OF PRESENT ILLNESS: The patient is a 57-year-old male who presents reports gastroesophageal reflux disease and hematemesis. Upper endoscopy was offered for further evaluation and management. PAST MEDICAL HISTORY: Please see list. PAST SURGICAL HISTORY: Please see list. MEDICATIONS: Please see list. ALLERGIES: Please see list. SOCIAL HISTORY: No illicit drug use FAMILY HISTORY: No reports of Crohn disease or ulcerative colitis. REVIEW OF ORGAN SYSTEMS: CONSTITUTIONAL: No reports of fevers or chills. GI: Denies any blood in stools or constipation. PHYSICAL EXAM: VITAL SIGNS: Stable GENERAL: Well-developed and pleasant in no acute distress. HEENT: No scleral icterus. Extraocular movements grossly intact. Moist buccal mucosa. NECK: Supple without lymphadenopathy. CHEST: Unlabored respirations. Equal bilateral excursions. CARDIOVASCULAR: Regular rate and rhythm. Distal 2+ pulses. ABDOMEN: Soft, nondistended. MUSCULOSKELETAL: No clubbing, cyanosis, or edema. ASSESSMENT: 1. Gastroesophageal reflux disease 2. Hematemesis PLAN: 1. Recommend proceeding with an upper endoscopy 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: Coronary Artery Disease (CAD), Chest Pain / Angina, GERD/ Reflux, Hyperlipidemia, Hypertension, Sleep Apnea/CPAP/BIPAP Additional 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 / Comment(s): MIGRAINES, IBS, BOIL UNDER RT BREAST, vit d deficiency History of Any Multi-Drug Resistant Organisms: None Reported Past Surgical History: Bariatric Surgery, Cholecystectomy, Heart Catheterization , Hysterectomy, Uterine Ablation Additional Past Surgical History / Comment(s): D&C , NOVOSURE ENDOMETRIAL ABLATION, jose antonio-en-y 05-25-17 (Dr. Alvarado) Past Anesthesia/Blood Transfusion Reactions: Postoperative Nausea & Vomiting ( PONV) Additional Past Anesthesia/Blood Transfusion Reaction / Comment(s): CLAUSTERPHOBIA Past Psychological History: Anxiety, Depression Additional Psychological History / Comment(s): FEELS WELL MAINTAINED ON HER MEDS Smoking Status: Never smoker Past Alcohol Use History: Rare Past Drug Use History: None Reported - Past Family History Father Family Medical History: Myocardial Infarction ([place]) Mother Family Medical History: Cancer Additional Family Medical History / Comment(s): MOM IS 72 Medications and Allergies Home Medications Medication Instructions Recorded Confirmed Type ALPRAZolam [Xanax] 0.5 mg PO TID PRN 12/07/13 09/24/17 History PARoxetine [Paxil] 20 mg PO HS 12/18/15 09/24/17 History Magnesium Oxide [Magox 400] 400 mg PO DAILY #60 tablet 09/11/17 09/24/17 Rx Omeprazole [PriLOSEC] 20 mg PO AC-BRKFST #14 cap 09/23/17 09/24/17 Rx Ondansetron Odt [Zofran Odt] 4 mg PO Q8HR PRN #10 tab 09/23/17 09/24/17 Rx Sucralfate [Carafate] 1 gm PO BID #10 tablet 09/23/17 09/24/17 Rx Allergies Allergy/AdvReac Type Severity Reaction Status Date / Time Penicillins Allergy Severe Rash/Hives Verified 09/24/17 13:47 morphine AdvReac Severe Chest Pain Verified 09/24/17 13:47
--- NOTE | 2017-09-24 15:13 | P.PCN ---
Date of Procedure: 09/24/17 Description of Procedure: PREOPERATIVE DIAGNOSIS: Hematemesis Dysphagia POSTOPERATIVE DIAGNOSIS: Hematemesis Dysphagia Gastrojejunal stricture with chronic ulcer without perforation OPERATION: Esophagogastrojejunoscopy with balloon dilatation from 12 to 16 mm. SURGEON: Maggie Alvarado MD ANESTHESIA: MAC. INDICATIONS: The patient is a 57-year-old female who presents with a history of dysphagia and hematemesis. Benefits and risks of the procedure were described. Informed consent was obtained. DESCRIPTION: The patient was brought into the endoscopy suite and laid in the left lateral decubitus position. After a timeout was confirmed, the procedure was initiated. An Olympus gastroscope was passed along the posterior oropharynx down to the distal esophagus where the squamocolumnar junction was unremarkable. The gastric pouch was entered. A gastrojejunal stricture of 12 mm was found as the adult gastroscope was 9.5 mm in size. A GoodBelly balloon dilator was placed through the scope. Final insufflation up to 16 mm was performed. The scope was advanced up to 60 cm from the incisors into the Joe limb. The mucosa of the gastrojejunal anastomosis was intact. However deep chronic gastrojejunal marginal ulcer without bleeding was encountered. No full-thickness injury was encountered. The GI tract was desufflated. The patient tolerated the procedure well. FINDINGS: Stricture of approximately 12 mm encountered. Chronic gastrojejunal ulceration encountered. Successful balloon dilatation to 16 mm. RECOMMENDATIONS: Start combined therapy of Carafate and omeprazole of at least 4 weeks. Repeat upper endoscopy in one month Plan - Discharge Summary New Discharge Prescriptions: No Action ALPRAZolam [Xanax] 0.5 mg PO TID PRN PRN Reason: Anxiety PARoxetine [Paxil] 20 mg PO HS Magnesium Oxide [Magox 400] 400 mg PO DAILY #60 tablet Omeprazole [PriLOSEC] 20 mg PO AC-BRKFST #14 cap Ondansetron Odt [Zofran Odt] 4 mg PO Q8HR PRN #10 tab PRN Reason: Nausea Sucralfate [Carafate] 1 gm PO BID #10 tablet Discharge Medication List ALPRAZolam [Xanax] 0.5 mg PO TID PRN 12/07/13 [History] PARoxetine [Paxil] 20 mg PO HS 12/18/15 [History] Magnesium Oxide [Magox 400] 400 mg PO DAILY #60 tablet 09/11/17 [Rx] Omeprazole [PriLOSEC] 20 mg PO AC-BRKFST #14 cap 09/23/17 [Rx] Ondansetron Odt [Zofran Odt] 4 mg PO Q8HR PRN #10 tab 09/23/17 [Rx] Sucralfate [Carafate] 1 gm PO BID #10 tablet 09/23/17 [Rx]
[2017-09-24 15:17] VITALS: RESP 18
[2017-09-24 15:59] VITALS: BP 117/78; PULSE 63
== END 2017-09-24 16:01 | disposition home or self-care (01) ==
LOC: ORWHC2ENDO 13:34
PROVIDERS: ATTEND Surgery Plastic and Reconstructive Surgery
DX: K31.89 Other diseases of stomach and duodenum (principal); K21.9 Gastro-esophageal reflux disease without esophagitis; I25.119 Atherosclerotic heart disease of native coronary artery with unspecified angina pectoris; I10 Essential (primary) hypertension; E78.5 Hyperlipidemia, unspecified; G47.30 Sleep apnea, unspecified; Z99.89 Dependence on other enabling machines and devices; Z98.84 Bariatric surgery status; F41.9 Anxiety disorder, unspecified; F32.9 Major depressive disorder, single episode, unspecified; Z79.899 Other long term (current) drug therapy; Z88.5 Allergy status to narcotic agent; Z88.0 Allergy status to penicillin
CPT/HCPCS: 43245; J2704; C1726; 43249

== ENCOUNTER → 2017-09-24 | Outpatient (CLI) | payer BC ==
[2017-09-24 09:21] VITALS: BP 114/76; PULSE 72; TEMP 98.2; BMI 30.1
--- NOTE | 2017-09-24 10:18 | P.PN ---
Subjective Progress Note Date: 09/24/17 HPI: She comes in having abdominal pain since Thursday 5 days ago. She then had repeated abdominal pain yesterday after eating a poached egg. She vomited blood yesterday and presented to the ER. ABDOMEN: Epigastric pain without peritonitis. PLAN: 1. Recommend upper endoscopy. 2. Need antacid therapy in the meantime. Objective - Vital Signs Vital signs: Vital Signs Temp 98.2 F 09/24/17 09:16 Pulse 72 09/24/17 09:16 Resp BP 114/76 09/24/17 09:16 Pulse Ox Intake & Output 09/23/17 09/24/17 09/24/17 18:59 06:59 18:59 Weight 85.956 kg
== END | disposition home or self-care (01) ==
LOC: BARWHC3 08:47
PROVIDERS: ATTEND Surgery Plastic and Reconstructive Surgery
DX: R10.13 Epigastric pain (principal); K92.0 Hematemesis
CPT/HCPCS: 99211

== ENCOUNTER → 2017-10-14 | Outpatient (CLI) | payer BC ==
[2017-10-14 15:29] VITALS: BP 98/57; PULSE 69; RESP 20; TEMP 98; BMI 29.0
--- NOTE | 2017-10-14 15:53 | P.PN ---
Subjective Progress Note Date: 10/14/17 HPI: She has constiption. She reports hemorrhoids as a result. ABDOMEN: No peritonitis PLAN: 1. She has ulcer of the stomach, repeat upper scope 2. Constipation recommend fiber supplement 3. Labs Objective - Vital Signs Vital signs: Vital Signs Temp 98 F 10/14/17 15:19 Pulse 69 10/14/17 15:19 Resp 20 10/14/17 15:19 BP 98/57 10/14/17 15:19 Pulse Ox Intake & Output 10/13/17 10/14/17 10/14/17 18:59 06:59 18:59 Weight 82.781 kg
== END | disposition home or self-care (01) ==
LOC: BARWHC3 14:26
PROVIDERS: ATTEND Surgery Plastic and Reconstructive Surgery
DX: K25.9 Gastric ulcer, unspecified as acute or chronic, without hemorrhage or perforation (principal)
CPT/HCPCS: 99211

== ENCOUNTER 2017-10-21 08:50 | Day surgery (SDC) | payer BC ==
[2017-10-19 16:34] VITALS: BMI 28.7
--- NOTE | 2017-10-21 07:57 | P.GSHP ---
History of Present Illness H&P Date: 10/21/17 CHIEF COMPLAINT: GERD and colon screen HISTORY OF PRESENT ILLNESS: The patient is a 57-year-old female who presents with gastroesophageal reflux disease and need for colon screen. Upper and lower endoscopy were offered for further evaluation and management. PAST MEDICAL HISTORY: Please see list. PAST SURGICAL HISTORY: Please see list. MEDICATIONS: Please see list. ALLERGIES: Please see list. SOCIAL HISTORY: No illicit drug use FAMILY HISTORY: No reports of Crohn disease or ulcerative colitis. REVIEW OF ORGAN SYSTEMS: CONSTITUTIONAL: No reports of fevers or chills. GI: Denies any blood in stools or constipation. PHYSICAL EXAM: VITAL SIGNS: Stable GENERAL: Well-developed pleasant in no acute distress. HEENT: No scleral icterus. Extraocular movements grossly intact. Moist buccal mucosa. NECK: Supple without lymphadenopathy. CHEST: Unlabored respirations. Equal bilateral excursions. CARDIOVASCULAR: Regular rate and rhythm. Distal 2+ pulses. ABDOMEN: Soft, nondistended. MUSCULOSKELETAL: No clubbing, cyanosis, or edema. ASSESSMENT: 1. Gastroesophageal reflux disease 2. Colon screen. PLAN: 1. Recommend proceeding with an upper and lower endoscopy 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: Chest Pain / Angina, GERD/Reflux, Sleep Apnea/CPAP/BIPAP Additional 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 / Comment(s): HX OF ULCER, HX MIGRAINES, IBS, PAST HX HTN AND HYPERLIPIDEMIA, NONE CURRENTLY History of Any Multi-Drug Resistant Organisms: None Reported Past Surgical History: Bariatric Surgery, Cholecystectomy, Heart Catheterization , Hysterectomy, Uterine Ablation Additional Past Surgical History / Comment(s): D&C, jose antonio-en-y 05-25-17 Past Anesthesia/Blood Transfusion Reactions: Postoperative Nausea & Vomiting ( PONV) Additional Past Anesthesia/Blood Transfusion Reaction / Comment(s): CLAUSTERPHOBIA Smoking Status: Never smoker - Past Family History Father Family Medical History: Myocardial Infarction ([place]) Mother Family Medical History: Cancer Additional Family Medical History / Comment(s): MOM IS 72 Medications and Allergies Home Medications Medication Instructions Recorded Confirmed Type ALPRAZolam [Xanax] 0.5 mg PO TID PRN 12/07/13 10/19/17 History PARoxetine [Paxil] 20 mg PO HS 12/18/15 10/19/17 History Magnesium Oxide [Magox 400] 400 mg PO DAILY #60 tablet 09/11/17 10/19/17 Rx Ondansetron Odt [Zofran Odt] 4 mg PO Q8HR PRN #10 tab 09/23/17 10/19/17 Rx Sucralfate [Carafate] 1 gm PO BID #10 tablet 09/23/17 10/19/17 Rx Omeprazole 40 mg PO DAILY #90 capsule. 09/24/17 10/19/17 Rx Allergies Allergy/AdvReac Type Severity Reaction Status Date / Time Penicillins Allergy Severe Rash/Hives Verified 10/19/17 16:30 morphine AdvReac Severe Chest Pain Verified 10/19/17 16:30
[~2017-10-21 08:50] MED LIST changes: +LACTATED RINGERS 1,000 ML IV SCH; -LIDOCAINE 1% 20 ML VIAL (10MG/ML) FOR IV START INTRADERMA ONE; +LIDOCAINE 1% 20 ML VIAL (10MG/ML) FOR IV START INTRADERMA PRN; +MIDAZOLAM 2 MG/2 ML VIAL IV PRN
[2017-10-21 10:41] VITALS: TEMP 97.9
[2017-10-21] MEDS ORDERED: PROPOFOL 10 MG/ML 20 ML VIAL IV ONE (10:56)
[2017-10-21] MEDS ORDERED: LIDOCAINE 1% INJ 10MG/ML (20 ML MDV) ONE (10:56)
--- NOTE | 2017-10-21 11:31 | P.PCN ---
Date of Procedure: 10/21/17 Description of Procedure: PREOPERATIVE DIAGNOSIS: Change in bowel habits History of colitis POSTOPERATIVE DIAGNOSIS: Change in bowel habits History of colitis External hemorrhoids, grade 4 OPERATION: Colonoscopy to the ileocecal valve and appendiceal orifice. Colonoscopy random cold forceps biopsies for colitis SURGEON: Maggie Alvarado MD. ANESTHESIA: MAC. INDICATIONS: The patient is a 57-year-old female who presents for colonoscopy screening. She presents in change in bowel habits including recent colitis. Lower endoscopy was offered for evaluation and diagnostic assessment. Benefits and risks were described and informed consent was obtained. DESCRIPTION OF PROCEDURE: The patient had undergone Gatorade, MiraLAX and Dulcolax prep. She had been brought into the operating room and laid in the left lateral decubitus position. After adequate intravenous sedation, the rectum was examined with 2% lidocaine jelly. Large external hemorrhoids were encountered. The rectal tone was within normal limits. No lesions were palpated in the rectal vault. An Olympus colonoscope was advanced until the ileocecal valve and appendiceal orifice were clearly viewed. The prep was fair. The scope was removed with visualization of each mucosal fold. No diverticulosis was encountered. No colonic polyps were found. Random cold forceps biopsies were obtained for history of recent colitis. Retroflexion of the scope demonstrated grade 3 internal hemorrhoids without active bleeding or inflammation. The colon was desufflated. The patient had tolerated the procedure well. Withdrawal time was over 6 minutes. FINDINGS: Internal hemorrhoids, grade 3 External prolapsed hemorrhoids, grade 4 No arteriovenous malformations. No adenomatous polyps. No sigmoid diverticulosis Random biopsies obtained for colitis RECOMMENDATIONS: Lower endoscopy in 5 [id number] Plan - Discharge Summary New Discharge Prescriptions: No Action ALPRAZolam [Xanax] 0.5 mg PO TID PRN PRN Reason: Anxiety PARoxetine [Paxil] 20 mg PO HS Magnesium Oxide [Magox 400] 400 mg PO DAILY #60 tablet Ondansetron Odt [Zofran Odt] 4 mg PO Q8HR PRN #10 tab PRN Reason: Nausea Sucralfate [Carafate] 1 gm PO BID #10 tablet Omeprazole 40 mg PO DAILY #90 capsule.dr Discharge Medication List ALPRAZolam [Xanax] 0.5 mg PO TID PRN 12/07/13 [History] PARoxetine [Paxil] 20 mg PO HS 12/18/15 [History] Magnesium Oxide [Magox 400] 400 mg PO DAILY #60 tablet 09/11/17 [Rx] Ondansetron Odt [Zofran Odt] 4 mg PO Q8HR PRN #10 tab 09/23/17 [Rx] Sucralfate [Carafate] 1 gm PO BID #10 tablet 09/23/17 [Rx] Omeprazole 40 mg PO DAILY #90 capsule. 09/24/17 [Rx]
--- NOTE | 2017-10-21 11:33 | P.PCN ---
Date of Procedure: 10/21/17 Description of Procedure: PREOPERATIVE DIAGNOSIS: History of gastrojejunal ulcer with obstruction POSTOPERATIVE DIAGNOSIS: History of gastrojejunal ulcer with obstruction OPERATION: Esophagogastrojejunoscopy with balloon dilatation from 13 to 20 mm. SURGEON: Maggie Alvarado MD ANESTHESIA: MAC. INDICATIONS: The patient is a 57-year-old female who presents with a history of dysphagia including previous gastric ulcer. Benefits and risks of the procedure were described. Informed consent was obtained. DESCRIPTION: The patient was brought into the endoscopy suite and laid in the left lateral decubitus position. After a timeout was confirmed, the procedure was initiated. An Olympus gastroscope was passed along the posterior oropharynx down to the distal esophagus where the squamocolumnar junction was unremarkable. The gastric pouch was entered. 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 A [employer] balloon dilator was placed through the scope. Final insufflation up to 20 mm was performed with a total of 2 minutes. The scope was advanced up to 60 cm from the incisors into the Joe limb. The mucosa of the gastrojejunal anastomosis was intact. Resolved gastrojejunal marginal ulcer was encountered. No full-thickness injury was encountered. The GI tract was desufflated. The patient tolerated the procedure well. FINDINGS: Squamocolumnar junction unremarkable at 37 cm. Stricture of approximately 13 mm encountered. No chronic gastrojejunal ulceration encountered. Successful balloon dilatation to 20 mm. RECOMMENDATIONS: Upper endoscopy as needed.
[2017-10-21 12:00] VITALS: BP 109/74; PULSE 74; RESP 16
== END 2017-10-21 12:17 | disposition home or self-care (01) ==
LOC: ORWHC2ENDO 08:50
PROVIDERS: ATTEND Surgery Plastic and Reconstructive Surgery
DX: K31.89 Other diseases of stomach and duodenum (principal); K64.4 Residual hemorrhoidal skin tags; K64.2 Third degree hemorrhoids; K21.9 Gastro-esophageal reflux disease without esophagitis; Z87.11 Personal history of peptic ulcer disease; Z87.19 Personal history of other diseases of the digestive system; Z98.84 Bariatric surgery status; G47.30 Sleep apnea, unspecified; F32.9 Major depressive disorder, single episode, unspecified; Z90.49 Acquired absence of other specified parts of digestive tract; Z90.710 Acquired absence of both cervix and uterus; Z99.89 Dependence on other enabling machines and devices; Z79.899 Other long term (current) drug therapy; Z88.5 Allergy status to narcotic agent; Z88.0 Allergy status to penicillin
CPT/HCPCS: 88305; 45380; 43245; J2001; J2704

== ENCOUNTER → 2017-11-25 | Outpatient (CLI) | payer BC ==
--- NOTE | 2017-11-25 16:21 | P.PN ---
Subjective Progress Note Date: 11/25/17 DATE OF SERVICE: 11/25/2017 CHIEF COMPLAINT: Follow up gastric bypass HISTORY OF PRESENT ILLNESS: Wanda Ervin is a 57-year-old female who is status post gastric bypass, 05/25/2017. She is doing much better. She is 6 months out. She has no more constipation issues. She has increased her fiber. Her personal goal is to get to 150 pounds. She has almost 100 pounds. No reports of abdominal pain or dysphagia. Her highest weight was 261 pounds. Today she comes in weighing 171 pounds from 182 pounds, 1 month ago. She has lost 11 pounds in 1 month. Total lifetime weight loss is 90 pounds. At her height of 5 foot 6.5 inches, her ideal body weight is 154 pounds. Percent excess weight loss 84 %. Her highest body mass index is down from 41.6 to 27.2. PHYSICAL EXAM: VITAL SIGNS: Height 5 foot 6.5 inches, weight 171 pounds. BMI 27.2 Vital Signs Temp 98 F 11/25/17 16:36 Pulse 79 11/25/17 16:36 Resp 15 11/25/17 16:36 BP 116/77 11/25/17 16:36 Pulse Ox GENERAL: Well-developed in no distress. HEENT: No scleral icterus. Extraocular movements grossly intact. Hears conversational speech. No nasal drainage. NECK: Supple without lymphadenopathy. CHEST: Nonlabored respirations with equal bilateral excursions. CARDIOVASCULAR: Regular rate and regular rhythm. Distal 2+ pulses. ABDOMEN: Soft, non-distended. Non-tender. No peritonitis. No hernia MUSCULOSKELETAL: No clubbing, cyanosis, or edema. Gross strength 5/5 distal lower extremities. NEURO: No focal or lateralizing signs. Cranial nerves 2 through 12 grossly within normal limits. PSYCH: Appropriate affect. Alert and oriented to person, place and time. SKIN: Good skin turgor. Well perfused. ASSESSMENT: 1. Morbid obesity due to excess calories. 2. Body mass index of 41.6 down to 27.2 3. Constipation 4. Status post gastric bypass. 5. Epigastric abdominal pain 6. Gastrojejunal ulcer PLAN: 1. Lab work in Feb 2018, 9 month visit. 2. Otherwise no issues at this time
[2017-11-25 16:44] VITALS: BP 116/77; PULSE 79; RESP 15; TEMP 98; BMI 27.1
== END | disposition home or self-care (01) ==
LOC: BARWHC3 14:49
PROVIDERS: ATTEND Surgery Plastic and Reconstructive Surgery
DX: Z09 Encounter for follow-up examination after completed treatment for conditions other than malignant neoplasm (principal); E66.01 Morbid (severe) obesity due to excess calories; K59.00 Constipation, unspecified; R10.13 Epigastric pain; K28.9 Gastrojejunal ulcer, unspecified as acute or chronic, without hemorrhage or perforation; E21.1 Secondary hyperparathyroidism, not elsewhere classified; E89.1 Postprocedural hypoinsulinemia; D50.9 Iron deficiency anemia, unspecified; E44.0 Moderate protein-calorie malnutrition; E55.9 Vitamin D deficiency, unspecified; K74.1 Hepatic sclerosis; N19 Unspecified kidney failure; K50.90 Crohn's disease, unspecified, without complications; Z68.27 Body mass index [BMI] 27.0-27.9, adult; Z98.84 Bariatric surgery status
CPT/HCPCS: 97803; 99211

== ENCOUNTER → 2018-02-22 | Outpatient (CLI) | payer BC ==
[2018-02-22 13:43] LABS: HCT 43.6 % (34.0-46.0); HGB 13.9 gm/dL (11.4-16.0); MCH 29.7 pg (25.0-35.0); MCHC 31.9 g/dL (31.0-37.0); MCV 92.9 fL (80.0-100.0); Mean Platelet Volume 7.6; Platelet Count 290 k/uL (150-450); RBC 4.69 m/uL (3.80-5.40); RDW 13.2 % (11.5-15.5); WBC 8.8 k/uL (3.8-10.6)
[2018-02-22 13:57] LABS: Partial Thromboplastin Time 23.6 sec (22.0-30.0); Prothrombin Time 10.4 sec (9.0-12.0)
[2018-02-22 18:42] LABS: Parathyroid Hormone Intact 39.9 pg/mL (14.0-72.0)
[2018-02-22 18:45] LABS: Albumin 4.1 g/dL (3.80-4.90); Albumin/Globulin Ratio 2.05 (1.20-2.10); Anion Gap 6.6 mmol/L (4.00-12.00); Calcium 9.3 mg/dL (8.7-10.3); Carbon Dioxide 28.4 mmol/L (21.6-31.8); Iron Saturation 25.94 (12.00-45.00); LDL Cholesterol,Calculated 98.4 mg/dL (0.0-131.0); Phosphorus 4.8 mg/dL (2.4-5.1); Potassium 4.4 mmol/L (3.5-5.5); Total Bilirubin 0.2 mg/dL (0.3-1.2); Total Protein 6.1 g/dL (6.2-8.2); VLDL Calculation 20.6 mg/dL (5.00-40.00)
[2018-02-22 21:25] LABS: Folate, Serum 21.4 ng/mL
[2018-02-22 21:42] LABS: Hemoglobin A1C 5.7 % (4.0-6.0)
[2018-02-23 15:16] LABS: Zinc, Serum 40 ug/dL (60-130)
[2018-02-24 06:42] LABS: Vitamin B1 88 ug/L (38-122)
[2018-02-24 07:22] LABS: Vitamin A 35 ug/dL (38-106)
[2018-02-27 10:25] LABS: Selenium 121 mcg/L (63-160)
== END | disposition home or self-care (01) ==
LOC: LABWHC1 12:30
PROVIDERS: ATTEND Surgery Plastic and Reconstructive Surgery
DX: E66.01 Morbid (severe) obesity due to excess calories (principal); E21.1 Secondary hyperparathyroidism, not elsewhere classified; E89.1 Postprocedural hypoinsulinemia; D50.9 Iron deficiency anemia, unspecified; K90.9 Intestinal malabsorption, unspecified; E55.9 Vitamin D deficiency, unspecified; K76.9 Liver disease, unspecified; N19 Unspecified kidney failure; K50.90 Crohn's disease, unspecified, without complications
CPT/HCPCS: 36415; 80053; 80061; 82306; 82525; 82607; 82728; 82746; 83036; 83540; 83550; 83735; 83970; 84100; 84134; 84255; 84425; 84443; 84590; 84630; 85027; 85610; 85730

== ENCOUNTER → 2018-02-24 | Outpatient (CLI) | payer BC ==
[2018-02-24 15:40] VITALS: BMI 25.2
[2018-02-24 16:02] VITALS: BP 102/60; PULSE 72; TEMP 98.6
--- NOTE | 2018-02-24 16:03 | P.PN ---
Subjective Progress Note Date: 02/24/18 DATE OF SERVICE: 02/24/2018 CHIEF COMPLAINT: Follow up gastric bypass HISTORY OF PRESENT ILLNESS: Wanda Ervin is a 57-year-old female who is status post gastric bypass, 05/25/2017. She is 9 months out. Her severe constipation is resolved. She has a bowel movement daily. She is normal weight. No reports of belly pain. Her gastroesophageal reflux disease is resolved. Her previous weight was 261 pounds. Today she comes in weighing 159 pounds from 171 pounds, 3 months ago. She has lost 12 pounds in 3 months. Total lifetime weight loss is 102 pounds. At her height of 5 foot 6.5 inches, her ideal body weight is 154 pounds. Percent excess weight loss 96 %. Her highest body mass index is down from 41.6 to 25.3. PAST MEDICAL HISTORY: 1. Morbid obesity. 2. Body mass index of 41.6 3. Coronary artery disease. 4. Angina. 5. Gastroesophageal reflux disease. 6. Hypertension. 7. Migraines. 8. Irritable bowel syndrome. 9. Claustrophobia. 10. Anxiety. 11. Depression. 12. Osteoarthritis of the hips. 13. Osteoarthritis of the knees. PAST SURGICAL HISTORY: 1. Cholecystectomy. 2. Hysterectomy. 3. Colonoscopy. 4. Esophagogastroduodenoscopy. 5. Uterine ablation. 6. Postop nausea or vomiting. 7. Gastric bypass HOME MEDICATIONS: 1. Trazodone. 2. Senna. 3. Paxil. 4. Omeprazole. 5. Xanax. ALLERGIES: 1. Penicillin. 2. Morphine. SOCIAL HISTORY: No active tobacco use. Alcohol use. FAMILY HISTORY: No family history of ulcerative colitis disease or Crohn's disease. She does have a family history of morbid obesity. She denies any lupus in her family. No reports of stomach or esophageal cancer. REVIEW OF ORGAN SYSTEMS: CONSTITUTIONAL: Her highest weight 261 pounds. At her height of 5 foot 6.5 inches, her ideal body weight is 154 pounds. Her highest body mass index is 41.6 HEENT: Denies any active troubles with vision or hearing. Has troubles with swallowing now resolved. ENDOCRINE: No diabetes. No hypothyroidism. CARDIOVASCULAR: No reports of palpitations or heart attacks or chest pain. RESPIRATORY: Has daytime somnolence including snoring and sleep apnea now resolved. No asthma. GI: Past bright red blood per rectum or constipation. Does have gastroesophageal reflux disease now resolved. MUSCULOSKELETAL: Has lower back pain and joint pain improved. Has osteoarthritis of the hips and knees. NEURO: Has headaches. No seizure disorders. His migraines. PSYCH: Has depression without suicidal ideation. Has anxiety. Mood has improved. RHEUMATOLOGIC: No lupus. No rheumatoid arthritis. HEMATOLOGIC: Denies any abnormal bleeding or bruising. No personal history of DVTs. SKIN: No rash. No skin cancer. PHYSICAL EXAM: VITAL SIGNS: Height 5 foot 6.5 inches, weight 159 pounds. BMI 25.3 Vital Signs Temp 98.6 F 02/24/18 16:00 Pulse 72 02/24/18 16:00 Resp BP 102/60 02/24/18 16:00 Pulse Ox GENERAL: Well-developed in no distress. HEENT: No scleral icterus. Extraocular movements grossly intact. Hears conversational speech. No nasal drainage. NECK: Supple without lymphadenopathy. CHEST: Nonlabored respirations with equal bilateral excursions. CARDIOVASCULAR: Regular rate and regular rhythm. Distal 2+ pulses. ABDOMEN: Soft, non-distended. Non-tender. Panniculitis present. Has pannus of over 5 pounds. MUSCULOSKELETAL: No clubbing, cyanosis, or edema. NEURO: No focal or lateralizing signs. Cranial nerves 2 through 12 grossly within normal limits. PSYCH: Appropriate affect. Alert and oriented to person, place and time. SKIN: Good skin turgor. Well perfused. LABS: Reviewed with Zinc is low and vitamin A is low. Protein is also low. ASSESSMENT: 1. Morbid obesity due to excess calories. 2. Body mass index of 41.6 down to 27.2 3. Constipation 4. Status post gastric bypass. 5. Panniculitis PLAN: 1. Recommend Nystatin powder for panniculitis. 2. She has lost 110 pounds in 1 year. Weight maintanence prior to possible panniculectomy described. 3. Recommend Senna and Colace for constipation. 4. Correction of low zinc with 50 mg daily 5. Correction of vitamin A deficiency at least 8000 units daily. Objective - Vital Signs Vital signs: Intake & Output 02/23/18 02/24/18 02/24/18 18:59 06:59 18:59 Weight 72.121 kg
== END | disposition home or self-care (01) ==
LOC: BARWHC3 14:37
PROVIDERS: ATTEND Surgery Plastic and Reconstructive Surgery
DX: Z48.815 Encounter for surgical aftercare following surgery on the digestive system (principal); E66.01 Morbid (severe) obesity due to excess calories; K59.00 Constipation, unspecified; M79.3 Panniculitis, unspecified; Z98.84 Bariatric surgery status; Z68.27 Body mass index [BMI] 27.0-27.9, adult; Z88.0 Allergy status to penicillin; Z88.5 Allergy status to narcotic agent; Z79.899 Other long term (current) drug therapy; Z90.49 Acquired absence of other specified parts of digestive tract; Z90.710 Acquired absence of both cervix and uterus
CPT/HCPCS: 97803; 99211

== ENCOUNTER 2018-05-28 07:14 | Emergency (ER) | payer BC ==
--- NOTE | 2018-05-28 07:41 | ED ---
General Adult HPI - General Chief complaint: Fever Stated complaint: Poss Flu Time Seen by Provider: 05/28/18 07:15 Source: patient, RN notes reviewed Mode of arrival: wheelchair Limitations: no limitations - History of Present Illness Initial comments: This is a 57-year-old female who presents emergency Department with a cough since Thursday. Patient states she's had a temperature on and off and it got as high as 101. Patient states she also complains of a sore throat. Patient denies any sputum production. Patient states she feels achy everywhere. Patient states she thinks she has the flu. Patient denies any ear pain. Patient denies any shortness of breath difficulty breathing or any chest pain. Patient denies any abdominal pain patient's nausea vomiting diarrhea. Patient denies any swelling to the legs. Patient denies any rashes or lesions. - Related Data Home Medications Medication Instructions Recorded Confirmed PARoxetine [Paxil] 20 mg PO HS 12/18/15 05/28/18 Docusate [Colace] 100 mg PO DAILY 05/28/18 05/28/18 Previous Rx's Medication Instructions Recorded Magnesium Oxide [Magox 400] 400 mg PO DAILY #60 tablet 09/11/17 Azithromycin [Zithromax Tri-Homero] 500 mg PO DAILY #3 tab 05/28/18 Allergies Allergy/AdvReac Type Severity Reaction Status Date / Time Penicillins Allergy Severe Rash/Hives Verified 05/28/18 07:32 morphine AdvReac Severe Chest Pain Verified 05/28/18 07:32 Review of Systems ROS Statement: Those systems with pertinent positive or pertinent negative responses have been documented in the HPI. ROS Other: All systems not noted in ROS Statement are negative. 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: Chest Pain / Angina, GERD/Reflux, Sleep Apnea/CPAP/BIPAP Additional 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 / Comment(s): HX OF ULCER, HX MIGRAINES, IBS, PAST HX HTN AND HYPERLIPIDEMIA, NONE CURRENTLY History of Any Multi-Drug Resistant Organisms: None Reported Past Surgical History: Bariatric Surgery, Cholecystectomy, Heart Ca theterization, Hysterectomy, Uterine Ablation Additional Past Surgical History / Comment(s): D&C, jose antonio-en-y 05-25-17 Past Anesthesia/Blood Transfusion Reactions: Postoperative Nausea & Vomiting (PONV) Additional Past Anesthesia/Blood Transfusion Reaction / Comment(s): CLAUSTERPHOBIA Past Psychological History: Anxiety, Depression Smoking Status: Never smoker Past Alcohol Use History: None Reported Past Drug Use History: None Reported - Past Family History Father Family Medical History: Myocardial Infarction ([place]) Mother Family Medical History: Cancer Additional Family Medical History / Comment(s): MOM IS 72 General Exam - General Exam Comments Initial Comments: GENERAL: Patient is well-developed and well-nourished. Patient is nontoxic and well- hydrated and is in mild distress. ENT: no thyroid enlargement and no masses were felt. Neck is soft and supple. No significant lymphadenopathy is noted. Oropharynx is clear. Moist mucous membranes. Neck has full range of motion without eliciting any pain. EYES: The sclera were anicteric and conjunctiva were pink and moist. Extraocular movements were intact and pupils were equal round and reactive to light. Eyelids were unremarkable. PULMONARY: Patient has crackles right base CARDIOVASCULAR: There is a regular rate and rhythm without any murmurs gallops or rubs. ABDOMEN: Soft and nontender with normal bowel sounds. No palpable organomegaly was noted. There is no palpable pulsatile mass. SKIN: Skin is clear with no lesions or rashes and otherwise unremarkable. NEUROLOGIC: Patient is alert and oriented x3. Cranial nerves II through XII are grossly intact. Motor and sensory are also intact. Normal speech, volume and content. Symmetrical smile. MUSCULOSKELETAL: Normal extremities with adequate strength and full range of motion. No lower extremity swelling or edema. No calf tenderness. LYMPHATICS: No significant lymphadenopathy is noted PSYCHIATRIC: Normal psychiatric evaluation. Limitations: no limitations Course Vital Signs 05/28/18 05/28/18 07:18 07:38 Temperature 98.8 F 100.4 F H Pulse Rate 70 Respiratory 18 Rate Blood Pressure 105/73 O2 Sat by Pulse 96 Oximetry Medical Decision Making - Medical Decision Making I will back into the room to discuss results with the patient and then she told me that she was having chest pain all morning when she was vomiting. Patient states she has been vomiting since Thursday neither of which she discussed with me when I asked her earlier. I spoke with the nurse and nurse also stated that the patient never told her about any chest pain or vomiting. Patient states when she is not vomiting she has no chest pain. Currently she has no chest pain or discomfort. EKG shows normal sinus rhythm at 70 bpm IN interval 152 QRS is 84 Q-T intervals 440 QTC is 460 per patient's EKG shows no ST segment elevation or depression. Patient felt considerably better at this point time and wanted to go home. Patient was not having any chest pain or difficulty breathing at this time. - Lab Data Result diagrams: 05/28/18 09:07 05/28/18 09:07 Lab Results 05/28/18 05/28/18 05/28/18 Range/Units 07:50 07:50 09:07 WBC 5.0 (3.8-10.6) k/uL RBC 4.64 (3.80-5.40) m/uL Hgb 13.6 (11.4-16.0) gm/dL Hct 43.0 (34.0-46.0) % MCV 92.7 (80.0-100.0) fL MCH 29.2 (25.0-35.0) pg MCHC 31.6 (31.0-37.0) g/dL RDW 13.5 (11.5-15.5) % Plt Count 171 (150-450) k/uL Neutrophils % 71 % Lymphocytes % 16 % Monocytes % 8 % Eosinophils % 1 % Basophils % 1 % Neutrophils # 3.5 (1.3-7.7) k/uL Lymphocytes # 0.8 L (1.0-4.8) k/uL Monocytes # 0.4 (0-1.0) k/uL Eosinophils # 0.1 (0-0.7) k/uL Basophils # 0.0 (0-0.2) k/uL Sodium (137-145) mmol/L Potassium (3.5-5.1) mmol/L Chloride (98-107) mmol/L Carbon Dioxide (22-30) mmol/L Anion Gap mmol/L BUN (7-17) mg/dL Creatinine (0.52-1.04) mg/dL Est GFR (CKD-EPI)AfAm (>60 ml/min/1.73 sqM) Est GFR (CKD-EPI)NonAf (>60 ml/min/1.73 sqM) Glucose (74-99) mg/dL Calcium (8.4-10.2) mg/dL Magnesium (1.6-2.3) mg/dL Total Bilirubin (0.2-1.3) mg/dL AST (14-36) U/L ALT (9-52) U/L Alkaline Phosphatase (38-126) U/L Troponin I (0.000-0.034) ng/mL Total Protein (6.3-8.2) g/dL Albumin (3.5-5.0) g/dL Influenza Type A RNA Detected H (Not Detectd) Influenza Type B (PCR) Not Detected (Not Detectd) Group A Strep Rapid Negative (Negative) 05/28/18 05/28/18 Range/Units 09:07 09:07 WBC (3.8-10.6) k/uL RBC (3.80-5.40) m/uL Hgb (11.4-16.0) gm/dL Hct (34.0-46.0) % MCV (80.0-100.0) fL MCH (25.0-35.0) pg MCHC (31.0-37.0) g/dL RDW (11.5-15.5) % Plt Count (150-450) k/uL Neutrophils % % Lymphocytes % % Monocytes % % Eosinophils % % Basophils % % Neutrophils # (1.3-7.7) k/uL Lymphocytes # (1.0-4.8) k/uL Monocytes # (0-1.0) k/uL Eosinophils # (0-0.7) k/uL Basophils # (0-0.2) k/uL Sodium 137 (137-145) mmol/L Potassium 4.5 (3.5-5.1) mmol/L Chloride 106 (98-107) mmol/L Carbon Dioxide 23 (22-30) mmol/L Anion Gap 8 mmol/L BUN 20 H (7-17) mg/dL Creatinine 0.56 (0.52-1.04) mg/dL Est GFR (CKD-EPI)AfAm >90 (>60 ml/min/1.73 sqM) Est GFR (CKD-EPI)NonAf >90 (>60 ml/min/1.73 sqM) Glucose 85 (74-99) mg/dL Calcium 9.0 (8.4-10.2) mg/dL Magnesium 1.8 (1.6-2.3) mg/dL Total Bilirubin 0.6 (0.2-1.3) mg/dL AST 45 H (14-36) U/L ALT 62 H (9-52) U/L Alkaline Phosphatase 78 (38-126) U/L Troponin I <0.012 (0.000-0.034) ng/mL Total Protein 6.9 (6.3-8.2) g/dL Albumin 3.7 (3.5-5.0) g/dL Influenza Type A RNA (Not Detectd) Influenza Type B (PCR) (Not Detectd) Group A Strep Rapid (Negative) Disposition Clinical Impression: Influenza, Pneumonia Disposition: HOME SELF-CARE Condition: Good Instructions (If sedation given, give patient instructions): Influenza (ED), Pneumonia (ED) Prescriptions: Azithromycin [Zithromax Tri-Homero] 500 mg PO DAILY #3 tab Is patient prescribed a controlled substance at d/c from ED?: No Referrals: Palmer Jamison DO [Primary Care Provider] - 1-2 days Time of Disposition: 11:04
[2018-05-28] MEDS: IBUPROFEN 600 MG TAB PO STA (07:50)
[2018-05-28] MEDS: ACETAMINOPHEN TAB 500 MG TAB PO STA (07:50)
--- NOTE | 2018-05-28 08:10 | XR ---
EXAMINATION TYPE: XR chest 2V DATE OF EXAM: 05/28/2018 COMPARISON: Prior chest x-ray 12/18/[address] 09/23/2017 HISTORY: Difficulty breathing TECHNIQUE: Frontal and lateral views of the chest are obtained. FINDINGS: Minimal patchy basilar density persists. No pneumothorax. Heart size is stable. Pulmonary vascularity and naz are unchanged. IMPRESSION: Basilar atelectasis versus pneumonia or scarring.
[2018-05-28] MEDS: cefTRIAXone 1,000 MG VIAL (IM USE) IM STA (08:44)
[2018-05-28] MEDS: AZITHROMYCIN 500 MG TAB PO STA (09:17)
[2018-05-28] MEDS: ONDANSETRON 4 MG/2 ML VIAL IVP STA (09:17)
[2018-05-28] MEDS: SODIUM CHLORIDE 0.9% 1,000 ML IV STA (09:17)
[2018-05-28] MEDS: SODIUM CHLORIDE 0.9% 500 ML 500 ML IV STA (09:17)
[2018-05-28 10:07] LABS: Basophils % (A) 1 %; Eosinophils # (A) 0.1 k/uL (0-0.7); Eosinophils % (A) 1 %; HGB 13.6 gm/dL (11.4-16.0); Lymphocytes # (A) 0.8 k/uL (1.0-4.8); Lymphocytes % (A) 16 %; MCH 29.2 pg (25.0-35.0); MCHC 31.6 g/dL (31.0-37.0); MCV 92.7 fL (80.0-100.0); Mean Platelet Volume 8.1; Monocytes # (A) 0.4 k/uL (0-1.0); Monocytes % (A) 8 %; Neutrophils # (A) 3.5 k/uL (1.3-7.7); Neutrophils % (A) 71 %; Platelet Count 171 k/uL (150-450); RBC 4.64 m/uL (3.80-5.40); RDW 13.5 % (11.5-15.5)
[2018-05-28 10:20] LABS: ALT 62 U/L (9-52); AST 45 U/L (14-36); Albumin 3.7 g/dL (3.5-5.0); Alkaline Phosphatase 78 U/L (38-126); Anion Gap 8 mmol/L; Blood Urea Nitrogen 20 mg/dL (7-17); Carbon Dioxide 23 mmol/L (22-30); Chloride 106 mmol/L (98-107); Glucose 85 mg/dL (74-99); Magnesium 1.8 mg/dL (1.6-2.3); Potassium 4.5 mmol/L (3.5-5.1); Sodium 137 mmol/L (137-145); Total Bilirubin 0.6 mg/dL (0.2-1.3); Total Protein 6.9 g/dL (6.3-8.2)
[2018-05-28 11:23] VITALS: BP 102/71; PULSE 81; RESP 19; TEMP 98.5
== END 2018-05-28 11:23 | disposition home or self-care (01) ==
LOC: EC 07:14
DX: J11.00 Influenza due to unidentified influenza virus with unspecified type of pneumonia (principal); R11.10 Vomiting, unspecified; G47.30 Sleep apnea, unspecified; Z99.89 Dependence on other enabling machines and devices; F32.9 Major depressive disorder, single episode, unspecified; F41.9 Anxiety disorder, unspecified; Z79.899 Other long term (current) drug therapy; Z88.0 Allergy status to penicillin; Z88.5 Allergy status to narcotic agent; Z95.818 Presence of other cardiac implants and grafts
CPT/HCPCS: 36415; 93005; 80053; 83735; 84484; 85025; 87081; 87430; 87502; 71046; 99284; 96374; 96361; 96372; J2405; J0696

== ENCOUNTER → 2018-06-24 | Outpatient (CLI) | payer BC ==
--- NOTE | 2018-06-24 07:51 | P.PN ---
Subjective Progress Note Date: 06/24/18 HPI: She is doing well. Doing well with constipation. Lost over 100 pounds. She is doing very well. ABDOMEN: No hernias ASSESSMENT: 1. Panniculitis 2. Morbid obesity PLAN: 1. Blood work looks awesome 2. 1 year anniversary for labs done 3. Nystatin powder for panniculitis.
[2018-06-24 08:08] VITALS: BP 116/75; PULSE 84; TEMP 98.1; BMI 23.3
== END | disposition home or self-care (01) ==
LOC: BARWHC3 07:20
PROVIDERS: ATTEND Surgery Plastic and Reconstructive Surgery
DX: E66.01 Morbid (severe) obesity due to excess calories (principal); M79.3 Panniculitis, unspecified; K59.00 Constipation, unspecified; Z68.23 Body mass index [BMI] 23.0-23.9, adult
CPT/HCPCS: 99211

== ENCOUNTER 2018-09-10 06:33 | Day surgery (SDC) | payer BC ==
--- NOTE | 2018-09-10 06:29 | P.GSHP ---
History of Present Illness H&P Date: 09/10/18 CHIEF COMPLAINT: GERD HISTORY OF PRESENT ILLNESS: The patient is a 58-year-old female who presents reports gastroesophageal reflux disease. Upper endoscopy was offered for further evaluation and management. PAST MEDICAL HISTORY: Please see list. PAST SURGICAL HISTORY: Please see list. MEDICATIONS: Please see list. ALLERGIES: Please see list. SOCIAL HISTORY: No illicit drug use FAMILY HISTORY: No reports of Crohn disease or ulcerative colitis. REVIEW OF ORGAN SYSTEMS: CONSTITUTIONAL: No reports of fevers or chills. GI: Denies any blood in stools or constipation. PHYSICAL EXAM: VITAL SIGNS: Stable GENERAL: Well-developed and pleasant in no acute distress. HEENT: No scleral icterus. Extraocular movements grossly intact. Moist buccal mucosa. NECK: Supple without lymphadenopathy. CHEST: Unlabored respirations. Equal bilateral excursions. CARDIOVASCULAR: Regular rate and rhythm. Distal 2+ pulses. ABDOMEN: Soft, nondistended. MUSCULOSKELETAL: No clubbing, cyanosis, or edema. ASSESSMENT: 1. Gastroesophageal reflux disease PLAN: 1. Recommend proceeding with an upper endoscopy 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: Chest Pain / Angina, GERD/Reflux, Sleep Apnea/CPAP/BIPAP Additional 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 / Comment(s): HX OF ULCER, HX MIGRAINES, IBS, PAST HX HTN AND HYPERLIPIDEMIA, NONE CURRENTLY History of Any Multi-Drug Resistant Organisms: None Reported Past Surgical History: Bariatric Surgery, Cholecystectomy, Heart Catheterization, Hysterectomy, Uterine Ablation Additional Past Surgical History / Comment(s): D&C, jose antonio-en-y 05-25-17 Past Anesthesia/Blood Transfusion Reactions: Postoperative Nausea & Vomiting (PONV) Additional Past Anesthesia/Blood Transfusion Reaction / Comment(s): CLAUSTERPHOBIA Past Psychological History: Anxiety, Depression Additional Psychological History / Comment(s): . Smoking Status: Never smoker Past Alcohol Use History: None Reported Past Drug Use History: None Reported - Past Family History Father Family Medical History: Myocardial Infarction ([place]) Mother Family Medical History: Cancer Additional Family Medical History / Comment(s): MOM IS 72 Medications and Allergies Home Medications Medication Instructions Recorded Confirmed Type PARoxetine [Paxil] 20 mg PO HS 12/18/15 06/24/18 History Magnesium Oxide [Magox 400] 400 mg PO DAILY #60 tablet 09/11/17 06/24/18 Rx Azithromycin [Zithromax Tri-Homero] 500 mg PO DAILY #3 tab 05/28/18 06/24/18 Rx Docusate [Colace] 100 mg PO DAILY 05/28/18 06/24/18 History Allergies Allergy/AdvReac Type Severity Reaction Status Date / Time Penicillins Allergy Severe Rash/Hives Verified 06/24/18 07:49 morphine AdvReac Severe Chest Pain Verified 06/24/18 07:49
[~2018-09-10 06:33] MED LIST changes: -LIDOCAINE 1% 20 ML VIAL (10MG/ML) FOR IV START INTRADERMA PRN; -MIDAZOLAM 2 MG/2 ML VIAL IV PRN
[2018-09-10 07:11] VITALS: RESP 16; TEMP 97.7
[2018-09-10] MEDS ORDERED: LIDOCAINE 1% 20 ML VIAL (10MG/ML) FOR IV START INTRADERMA ONE (07:23)
[2018-09-10] MEDS ORDERED: LIDOCAINE 1% INJ 10MG/ML (20 ML MDV) ONE (07:49)
[2018-09-10] MEDS ORDERED: PROPOFOL 10 MG/ML 20 ML VIAL IV ONE (07:49)
--- NOTE | 2018-09-10 08:03 | P.PCN ---
Date of Procedure: 09/10/18 Description of Procedure: PREOPERATIVE DIAGNOSIS: History of gastrojejunal ulcer with obstruction Dysphagia POSTOPERATIVE DIAGNOSIS: Gastrojejunal stricture with obstruction Dysphagia OPERATION: Esophagogastrojejunoscopy with balloon dilatation from 15 to 20 mm. SURGEON: Maggie Alvarado MD ANESTHESIA: MAC. INDICATIONS: The patient is a 58-year-old female who presents with a history of dysphagia including previous gastric ulcer. Benefits and risks of the procedure were described. Informed consent was obtained. DESCRIPTION: The patient was brought into the endoscopy suite and laid in the left lateral decubitus position. After a timeout was confirmed, the procedure was initiated. An Olympus gastroscope was passed along the posterior oropharynx down to the distal esophagus where the squamocolumnar junction was unremarkable. The gastric pouch was entered. A gastrojejunal stricture of 15 mm was found as the adult gastroscope was 9.5 mm in size. A [employer] balloon dilator was placed through the scope. Final insufflation up to 20 mm was performed with a total of 2 minutes. The scope was advanced up to 60 cm from the incisors into the Joe limb. The mucosa of the gastrojejunal anastomosis was intact. No gastrojejunal marginal ulcer was encountered. No full-thickness injury was encountered. The GI tract was desufflated. The patient tolerated the procedure well. FINDINGS: Squamocolumnar junction unremarkable at 37 cm. Stricture of approximately 15 mm encountered. No chronic gastrojejunal ulceration encountered. Successful balloon dilatation to 20 mm. Plan - Discharge Summary New Discharge Prescriptions: New Omeprazole 40 mg PO DAILY #30 capsule. No Action PARoxetine [Paxil] 20 mg PO HS ALPRAZolam [Xanax] 0.25 mg PO HS PRN PRN Reason: Anxiety Discharge Medication List PARoxetine [Paxil] 20 mg PO HS 12/18/15 [History] ALPRAZolam [Xanax] 0.25 mg PO HS PRN 09/10/18 [History] Omeprazole 40 mg PO DAILY #30 capsule. 09/10/18 [Rx] Follow up Appointment(s)/Referral(s): Maggie Alvarado MD [STAFF PHYSICIAN] - As Needed Patient Instructions/Handouts: Esophageal Dilation (DC) Activity/Diet/Wound Care/Special Instructions: Regular diet Discharge Disposition: HOME SELF-CARE
[2018-09-10 08:51] VITALS: BP 121/76; PULSE 62
== END 2018-09-10 09:08 | disposition home or self-care (01) ==
LOC: ORWHC2ENDO 06:33
PROVIDERS: ATTEND Surgery Plastic and Reconstructive Surgery
DX: K95.89 Other complications of other bariatric procedure (principal); K31.89 Other diseases of stomach and duodenum; R13.10 Dysphagia, unspecified; Z87.11 Personal history of peptic ulcer disease; G47.30 Sleep apnea, unspecified; Z99.89 Dependence on other enabling machines and devices; E78.5 Hyperlipidemia, unspecified; Z90.49 Acquired absence of other specified parts of digestive tract; Z79.899 Other long term (current) drug therapy; Z88.5 Allergy status to narcotic agent; Z88.0 Allergy status to penicillin
CPT/HCPCS: 43245; J2001; J2704; C1726; 43249

== ENCOUNTER → 2018-10-07 | Outpatient (CLI) | payer BC ==
[2018-10-07 10:54] LABS: HCT 38.5 % (34.0-46.0); HGB 12.4 gm/dL (11.4-16.0); MCH 29.2 pg (25.0-35.0); MCHC 32.2 g/dL (31.0-37.0); MCV 90.6 fL (80.0-100.0); Mean Platelet Volume 7.3; Platelet Count 190 k/uL (150-450); RBC 4.25 m/uL (3.80-5.40); RDW 13.4 % (11.5-15.5); WBC 5.8 k/uL (3.8-10.6)
[2018-10-07 11:02] LABS: Partial Thromboplastin Time 23.9 sec (22.0-30.0); Prothrombin Time 10.4 sec (9.0-12.0)
[2018-10-07 16:07] LABS: African American GFR (CKD) 112.3 (60.0-200.0); Albumin/Globulin Ratio 1.82 (1.60-3.17); Anion Gap 6.8 mmol/L (4.00-12.00); BUN/Creat Ratio 32.86 Ratio (12.00-20.00); Calcium 9.3 mg/dL (8.7-10.3); Carbon Dioxide 29.2 mmol/L (21.6-31.8); Globulin 2.2 g/dL (1.6-3.3); LDL Cholesterol,Calculated 82.8 mg/dL (0.0-131.0); Phosphorus 4.2 mg/dL (2.4-5.1); Potassium 4.5 mmol/L (3.5-5.5); Total Bilirubin 0.2 mg/dL (0.3-1.2); Total Protein 6.2 g/dL (6.2-8.2); VLDL Calculation 15.2 mg/dL (5.00-40.00)
[2018-10-07 16:09] LABS: Iron Saturation 35.08 (12.00-45.00)
[2018-10-07 16:32] LABS: Folate, Serum 18.1 ng/mL
[2018-10-08 00:27] LABS: Hemoglobin A1C 5.5 % (4.0-6.0)
[2018-10-08 14:17] LABS: Vit B1(Thiamine) 78 ug/L (38-122)
[2018-10-08 14:56] LABS: Zinc, Serum 59 ug/dL (60-130)
[2018-10-09 09:52] LABS: Vitamin A 50 ug/dL (38-106)
== END | disposition home or self-care (01) ==
LOC: LABWHC1 10:10
PROVIDERS: ATTEND Surgery Plastic and Reconstructive Surgery
DX: E21.1 Secondary hyperparathyroidism, not elsewhere classified (principal); E55.9 Vitamin D deficiency, unspecified; E44.0 Moderate protein-calorie malnutrition; D50.9 Iron deficiency anemia, unspecified; K90.9 Intestinal malabsorption, unspecified; K74.1 Hepatic sclerosis; N19 Unspecified kidney failure; K50.90 Crohn's disease, unspecified, without complications; E66.01 Morbid (severe) obesity due to excess calories
CPT/HCPCS: 36415; 80053; 80061; 82306; 82525; 82607; 82728; 82746; 83036; 83540; 83550; 83735; 83970; 84100; 84134; 84255; 84425; 84443; 84590; 84630; 85027; 85610; 85730

== ENCOUNTER 2018-10-10 12:34 | Emergency (ER) | payer BC ==
[2018-10-10] MEDS ORDERED: SODIUM CHLORIDE 0.9% 1,000 ML IV STA (13:25)
--- NOTE | 2018-10-10 13:27 | ED ---
General Adult HPI - General Chief complaint: Dizziness Stated complaint: dizziness x 5 days Time Seen by Provider: 10/10/18 12:44 Source: patient Mode of arrival: wheelchair Limitations: no limitations - History of Present Illness Initial comments: Dictation was produced using [employer] dictation software. please excuse any grammatical, word or spelling errors. Chief Complaint: 58-year-old female with no significant past medical history presents with dizziness. History of Present Illness: 58-year-old female she states she's been dizzy for the last 24-48 hours. She states her symptoms began yesterday. Patient states she feels faint, lightheaded and has a sensation of the room spinning as well. Patient has any fever, chills or night sweats. Patient states she's never had expressed like this before. She feels a little weak on her feet. Denies any ataxia or difficulty using any extremity. No numbness or paresthesias. The ROS documented in this emergency department record has been reviewed and confirmed by me. Those systems with pertinent positive or negative responses have been documented in the HPI. All other systems are other negative and/or noncontributory. PHYSICAL EXAM: General Impression: Alert and oriented x3, not in acute distress, slightly uncooperative HEENT: Normocephalic atraumatic, extra-ocular movements intact, pupils equal and reactive to light bilaterally, mucous membranes moist. Cardiovascular: Heart regular rate and rhythm, S1&S2 audible, no murmurs, rubs or gallops Chest: Lungs clear to auscultation bilaterally, no rhonchi, no wheeze, no rales Abdomen: Bowel sounds present, abdomen soft, non-tender, non-distended, no organomegaly Musculoskeletal: Pulses present and equal in all extremities, no peripheral edema Motor: no focal deficits noted Neurological: CN II-XII grossly intact, no focal motor or sensory deficits noted Skin: Intact with no visualized rashes Psych: Normal affect and mood ED course: 58-year-old female presents with dizziness. On arrival are within acceptable limits. Patient provided with intravenous fluids and Zofran. Laboratory evaluation obt ained CBC, coag panel, metabolic panel is unremarkable. Urinalysis is positive for urinary tract infection patient reevaluated at bedside with improved dizziness. Patient's clinical presentation likely secondary to urinary tract infection. Patient's clinical presentation not concerning for vertigo given the vagueness of symptoms. She is ambulatory with minimal complications. Patient given ceftriaxone in emergency department. She is also provided with prescription to treat urinary tract infection. Advised to follow-up with primary care physician. Return parameters discussed. Patient with for discharge. - Related Data Home Medications Medication Instructions Recorded Confirmed ALPRAZolam [Xanax] 0.25 mg PO HS PRN 09/10/18 10/10/18 Magnesium Oxide [Mag-Ox] 400 mg PO DAILY 10/10/18 10/10/18 PARoxetine HCL [Paxil] 30 mg PO DAILY 10/10/18 10/10/18 Sennosides [Senna] 17.2 mg PO DAILY 10/10/18 10/10/18 Previous Rx's Medication Instructions Recorded Omeprazole 40 mg PO DAILY #30 capsule. 09/10/18 Nitrofurantoin Monohyd/M-Cryst 100 mg PO Q12HR 7 Days #14 cap 10/10/18 [Macrobid] Allergies Allergy/AdvReac Type Severity Reaction Status Date / Time Penicillins Allergy Severe Rash/Hives Verified 10/10/18 13:34 morphine AdvReac Severe Chest Pain Verified 10/10/18 13:34 Review of Systems ROS Statement: Those systems with pertinent positive or pertinent negative responses have been documented in the HPI. ROS Other: All systems not noted in ROS Statement are negative. 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: Chest Pain / Angina, GERD/Reflux, Sleep Apnea/CPAP/BIPAP Additional 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 / Comment(s): HX OF ULCER, HX MIGRAINES, IBS, PAST HX HTN AND HYPERLIPIDEMIA, NONE CURRENTLY History of Any Multi-Drug Resistant Organisms: None Reported Past Surgical History: Bariatric Surgery, Cholecystectomy, Heart Catheterization, Hysterectomy, Uterine Ablation Additional Past Surgical History / Comment(s): D&C, jose antonio-en-y 05-25-17 Past Anesthesia/Blood Transfusion Reactions: Postoperative Nausea & Vomiting (PONV) Additional Past Anesthesia/Blood Transfusion Reaction / Comment(s): CLAUSTERPHOBIA Past Psychological History: Anxiety, Depression Smoking Status: Never smoker Past Alcohol Use History: None Reported Past Drug Use History: None Reported - Past Family History Father Family Medical History: Myocardial Infarction ([place]) Mother Family Medical History: Cancer Additional Family Medical History / Comment(s): MOM IS 72 General Exam Limitations: no limitations Course Vital Signs 10/10/18 10/10/18 10/10/18 12:37 13:46 14:00 Temperature 97.9 F Pulse Rate 66 65 67 Respiratory 18 12 14 Rate Blood Pressure 103/73 116/77 O2 Sat by Pulse 67 L 100 99 Oximetry Medical Decision Making - Lab Data Result diagrams: 10/10/18 13:46 10/10/18 13:46 Lab Results 10/10/18 10/10/18 10/10/18 Range/Units 13:46 13:46 13:46 WBC 6.0 (3.8-10.6) k/uL RBC 4.41 (3.80-5.40) m/uL Hgb 12.7 (11.4-16.0) gm/dL Hct 39.6 (34.0-46.0) % MCV 89.8 (80.0-100.0) fL MCH 28.8 (25.0-35.0) pg MCHC 32.1 (31.0-37.0) g/dL RDW 13.9 (11.5-15.5) % Plt Count 191 (150-450) k/uL Neutrophils % 62 % Lymphocytes % 27 % Monocytes % 5 % Eosinophils % 4 % Basophils % 1 % Neutrophils # 3.7 (1.3-7.7) k/uL Lymphocytes # 1.6 (1.0-4.8) k/uL Monocytes # 0.3 (0-1.0) k/uL Eosinophils # 0.2 (0-0.7) k/uL Basophils # 0.1 (0-0.2) k/uL PT (9.0-12.0) sec INR (<1.2) Sodium 139 (137-145) mmol/L Potassium 4.4 (3.5-5.1) mmol/L Chloride 107 (98-107) mmol/L Carbon Dioxide 26 (22-30) mmol/L Anion Gap 6 mmol/L BUN 27 H (7-17) mg/dL Creatinine 0.74 (0.52-1.04) mg/dL Est GFR (CKD-EPI)AfAm >90 (>60 ml/min/1.73 sqM) Est GFR (CKD-EPI)NonAf >90 (>60 ml/min/1.73 sqM) Glucose 82 (74-99) mg/dL Plasma Lactic Acid Daniel 1.0 (0.7-2.0) mmol/L Calcium 9.3 (8.4-10.2) mg/dL Magnesium 2.1 (1.6-2.3) mg/dL Total Bilirubin 0.2 (0.2-1.3) mg/dL AST 33 (14-36) U/L ALT 51 (9-52) U/L Alkaline Phosphatase 86 (38-126) U/L Total Protein 7.1 (6.3-8.2) g/dL Albumin 4.2 (3.5-5.0) g/dL Urine Color Urine Appearance (Clear) Urine pH (5.0-8.0) Ur Specific [place] (1.001-1.035) Urine Protein (Negative) Urine Glucose (UA) (Negative) Urine Ketones (Negative) Urine Blood (Negative) Urine Nitrite (Negative) Urine Bilirubin (Negative) Urine Urobilinogen (<2.0) mg/dL Ur Leukocyte Esterase (Negative) Urine RBC (0-5) /hpf Urine WBC (0-5) /hpf Ur Squamous Epith Cells (0-4) /hpf Amorphous Sediment (None) /hpf Urine Mucus (None) /hpf 10/10/18 10/10/18 Range/Units 13:46 14:11 WBC (3.8-10.6) k/uL RBC (3.80-5.40) m/uL Hgb (11.4-16.0) gm/dL Hct (34.0-46.0) % MCV (80.0-100.0) fL MCH (25.0-35.0) pg MCHC (31.0-37.0) g/dL RDW (11.5-15.5) % Plt Count (150-450) k/uL Neutrophils % % Lymphocytes % % Monocytes % % Eosinophils % % Basophils % % Neutrophils # (1.3-7.7) k/uL Lymphocytes # (1.0-4.8) k/uL Monocytes # (0-1.0) k/uL Eosinophils # (0-0.7) k/uL Basophils # (0-0.2) k/uL PT 10.1 (9.0-12.0) sec INR 0.9 (<1.2) Sodium (137-145) mmol/L Potassium (3.5-5.1) mmol/L Chloride (98-107) mmol/L Carbon Dioxide (22-30) mmol/L Anion Gap mmol/L BUN (7-17) mg/dL Creatinine (0.52-1.04) mg/dL Est GFR (CKD-EPI)AfAm (>60 ml/min/1.73 sqM) Est GFR (CKD-EPI)NonAf (>60 ml/min/1.73 sqM) Glucose (74-99) mg/dL Plasma Lactic Acid Daniel (0.7-2.0) mmol/L Calcium (8.4-10.2) mg/dL Magnesium (1.6-2.3) mg/dL Total Bilirubin (0.2-1.3) mg/dL AST (14-36) U/L ALT (9-52) U/L Alkaline Phosphatase (38-126) U/L Total Protein (6.3-8.2) g/dL Albumin (3.5-5.0) g/dL Urine Color Yellow Urine Appearance Cloudy H (Clear) Urine pH 5.0 (5.0-8.0) Ur Specific [place] 1.026 (1.001-1.035) Urine Protein Trace H (Negative) Urine Glucose (UA) Negative (Negative) Urine Ketones Negative (Negative) Urine Blood Trace H (Negative) Urine Nitrite Negative (Negative) Urine Bilirubin Negative (Negative) Urine Urobilinogen <2.0 (<2.0) mg/dL Ur Leukocyte Esterase Large H (Negative) Urine RBC 12 H (0-5) /hpf Urine WBC 79 H (0-5) /hpf Ur Squamous Epith Cells 2 (0-4) /hpf Amorphous Sediment Occasional H (None) /hpf Urine Mucus Many H (None) /hpf Disposition Clinical Impression: Dizziness, UTI (urinary tract infection) Disposition: HOME SELF-CARE Condition: Good Instructions (If sedation given, give patient instructions): Dizziness (ED) Prescriptions: Nitrofurantoin Monohyd/M-Cryst [Macrobid] 100 mg PO Q12HR 7 Days #14 cap Is patient prescribed a controlled substance at d/c from ED?: No Referrals: Palmer Jamison DO [Primary Care Provider] - 1-2 days Time of Disposition: 15:28
[2018-10-10 14:00] LABS: Basophils # (A) 0.1 k/uL (0-0.2); Basophils % (A) 1 %; Eosinophils # (A) 0.2 k/uL (0-0.7); Eosinophils % (A) 4 %; HCT 39.6 % (34.0-46.0); HGB 12.7 gm/dL (11.4-16.0); Lymphocytes # (A) 1.6 k/uL (1.0-4.8); Lymphocytes % (A) 27 %; MCH 28.8 pg (25.0-35.0); MCHC 32.1 g/dL (31.0-37.0); MCV 89.8 fL (80.0-100.0); Mean Platelet Volume 7.3; Monocytes # (A) 0.3 k/uL (0-1.0); Monocytes % (A) 5 %; Neutrophils # (A) 3.7 k/uL (1.3-7.7); Neutrophils % (A) 62 %; Platelet Count 191 k/uL (150-450); RBC 4.41 m/uL (3.80-5.40); RDW 13.9 % (11.5-15.5)
[2018-10-10 14:08] LABS: ALT 51 U/L (9-52); AST 33 U/L (14-36); African American GFR (CKD) >90 (>60 ml/min/1.73 sqM); Albumin 4.2 g/dL (3.5-5.0); Alkaline Phosphatase 86 U/L (38-126); Anion Gap 6 mmol/L; Blood Urea Nitrogen 27 mg/dL (7-17); Calcium 9.3 mg/dL (8.4-10.2); Carbon Dioxide 26 mmol/L (22-30); Chloride 107 mmol/L (98-107); Glucose 82 mg/dL (74-99); Magnesium 2.1 mg/dL (1.6-2.3); Potassium 4.4 mmol/L (3.5-5.1); Sodium 139 mmol/L (137-145); Total Bilirubin 0.2 mg/dL (0.2-1.3); Total Protein 7.1 g/dL (6.3-8.2)
[2018-10-10 14:18] LABS: INR 0.9 (<1.2); Prothrombin Time 10.1 sec (9.0-12.0)
--- NOTE | 2018-10-10 14:26 | XR ---
EXAMINATION TYPE: XR chest 2V DATE OF EXAM: 10/10/2018 COMPARISON: Prior chest x-ray 05/28/2018 HISTORY: Dizziness, pain TECHNIQUE: Frontal and lateral views of the chest are obtained. FINDINGS: There are overlying cardiac leads. There is no focal air space opacity, pleural effusion, o r pneumothorax seen. The cardiac silhouette size is within normal limits. The osseous structures a re intact. IMPRESSION: No acute cardiopulmonary process. Improved aeration.
[2018-10-10] MEDS ORDERED: ONDANSETRON 4 MG/2 ML VIAL IVP STA (14:49)
[2018-10-10 15:13] LABS: Amorphous Sediment,Urine Occasional /hpf; Appearance,Urine Cloudy (Clear); Bilirubin,Urine Negative (Negative); Blood,Urine Trace (Negative); Color,Urine Yellow; Glucose,Urine (UA) Negative (Negative); Ketones,Urine Negative (Negative); Leukocyte Esterase,Urine Large (Negative); Mucus,Urine Many /hpf; Nitrite,Urine Negative (Negative); Protein,Urine Trace (Negative); RBC,Urine 12 /hpf (0-5); Specific Gravity,Urine 1.026 (1.001-1.035); Squamous Epithelial Cell,Urine 2 /hpf (0-4); Urobilinogen,Urine <2.0 mg/dL (<2.0)
[2018-10-10] MEDS ORDERED: cefTRIAXone IN SWFI 1,000 MG/10 ML SYRINGE IVP STA (15:25)
[2018-10-10 15:53] VITALS: BP 114/72; PULSE 70; RESP 12; TEMP 98
== END 2018-10-10 15:35 | disposition home or self-care (01) ==
LOC: EC 12:34
DX: R42 Dizziness and giddiness (principal); N39.0 Urinary tract infection, site not specified; F41.9 Anxiety disorder, unspecified; F32.9 Major depressive disorder, single episode, unspecified; G47.30 Sleep apnea, unspecified; Z99.89 Dependence on other enabling machines and devices; Z95.818 Presence of other cardiac implants and grafts; Z79.899 Other long term (current) drug therapy; Z88.0 Allergy status to penicillin; Z88.5 Allergy status to narcotic agent
CPT/HCPCS: 36415; 93005; 80053; 83605; 83735; 85025; 85610; 81001; 87086; 71046; 99284; 96374; 96375; 96361; J2405; J0696

== ENCOUNTER → 2018-10-20 | Outpatient (CLI) | payer BC ==
[2018-10-20 13:29] VITALS: BP 92/59; PULSE 71; RESP 16; TEMP 98.5; BMI 22.4
--- NOTE | 2018-10-20 13:59 | P.PN ---
Subjective Progress Note Date: 10/20/18 HPI: She reports having low blood pressure and had a urinary tract infection. No belly pain. She often avoids salt. ABDOMEN: Unremarkable. ASSESSMENT: 1. Morbid obesity PLAN: 1. Labs Objective - Vital Signs Vital signs: Vital Signs Temp 98.5 F 10/20/18 13:23 Pulse 71 10/20/18 13:23 Resp 16 10/20/18 13:23 BP 92/59 10/20/18 13:23 Pulse Ox Intake & Output 10/19/18 10/20/18 10/20/18 18:59 06:59 18:59 Weight 64.098 kg
== END ==
LOC: BARWHC3 12:54
PROVIDERS: ATTEND Surgery Plastic and Reconstructive Surgery
DX: E66.01 Morbid (severe) obesity due to excess calories (principal); Z68.22 Body mass index [BMI] 22.0-22.9, adult
CPT/HCPCS: 99211

== ENCOUNTER → 2020-02-24 | Outpatient (CLI) | payer BC ==
[2020-02-24 10:56] LABS: HCT 37.2 % (34.0-46.0); HGB 12.6 gm/dL (11.4-16.0); MCH 32.2 pg (25.0-35.0); MCHC 33.8 g/dL (31.0-37.0); MCV 95.4 fL (80.0-100.0); Mean Platelet Volume 7.4; Platelet Count 234 k/uL (150-450); WBC 6.2 k/uL (3.8-10.6)
[2020-02-24 11:23] LABS: Appearance,Urine Clear (Clear); Bilirubin,Urine Negative (Negative); Blood,Urine Negative (Negative); Color,Urine Yellow; Glucose,Urine (UA) Negative (Negative); Ketones,Urine Negative (Negative); Leukocyte Esterase,Urine Large (Negative); Mucus,Urine Occasional /hpf; Nitrite,Urine Negative (Negative); PH, Urine 5.5 (5.0-8.0); Protein,Urine Negative (Negative); RBC,Urine 2 /hpf (0-5); Specific Gravity,Urine 1.028 (1.001-1.035); Squamous Epithelial Cell,Urine 1 /hpf (0-4); Urobilinogen,Urine <2.0 mg/dL (<2.0); WBC,Urine 8 /hpf (0-5)
[2020-02-24 16:08] LABS: % Iron Saturation 29.18 (12.00-45.00); African American GFR (CKD) 111.5 (60.0-200.0); Albumin 4.3 g/dL (3.80-4.90); Albumin/Globulin Ratio 1.95 (1.60-3.17); Anion Gap 4.4 mmol/L (4.00-12.00); BUN/Creat Ratio 28.57 Ratio (12.00-20.00); Calcium 9.3 mg/dL (8.7-10.3); Carbon Dioxide 28.6 mmol/L (21.6-31.8); Chol/HDL Ratio 2.57; Globulin 2.2 g/dL (1.6-3.3); LDL Cholesterol,Calculated 98.2 mg/dL (0.0-131.0); Non-African American GFR(CKD) 96.2 (60.0-200.0); Phosphorus 4.2 mg/dL (2.4-5.1); Potassium 4.7 mmol/L (3.5-5.5); Total Bilirubin 0.2 mg/dL (0.3-1.2); Total Protein 6.5 g/dL (6.2-8.2); VLDL Calculation 20.8 mg/dL (5.00-40.00)
[2020-02-24 16:16] LABS: Ferritin 131.5 ng/mL (10.0-291.0)
[2020-02-24 16:42] LABS: Folate, Serum 12.9 ng/mL
[2020-02-24 17:44] LABS: Hemoglobin A1C 5.4 % (4.0-6.0)
[2020-02-25 04:49] LABS: INR 0.96 (0.90-1.11); Partial Thromboplastin Time 26.3 sec (23.5-31.0); Prothrombin Time 10.4 sec (9.9-11.9)
[2020-02-26 16:05] LABS: Selenium 100 mcg/L (63-160)
[2020-02-27 16:49] LABS: Zinc, Serum 47 ug/dL (60-130)
[2020-02-28 07:24] LABS: Vitamin A 66 ug/dL (38-106)
[2020-02-28 07:41] LABS: Vit B1(Thiamine) 54 ug/L (38-122)
== END | disposition home or self-care (01) ==
LOC: LABWHC1 09:53
PROVIDERS: ATTEND Surgery Plastic and Reconstructive Surgery
DX: D50.9 Iron deficiency anemia, unspecified (principal); E55.9 Vitamin D deficiency, unspecified; K90.89 Other intestinal malabsorption; K74.1 Hepatic sclerosis; N19 Unspecified kidney failure; N39.0 Urinary tract infection, site not specified; K50.90 Crohn's disease, unspecified, without complications; E89.1 Postprocedural hypoinsulinemia; R82.90 Unspecified abnormal findings in urine
CPT/HCPCS: 36415; 80053; 80061; 81001; 82306; 82525; 82607; 82728; 82746; 83036; 83540; 83550; 83735; 83970; 84100; 84134; 84255; 84425; 84443; 84590; 84630; 85027; 85610; 85730; 87086

== ENCOUNTER → 2023-02-12 | Outpatient (CLI) | payer BC ==
--- NOTE | 2023-02-13 12:15 | MM ---
Reason for Exam: Screening (asymptomatic). Last mammogram was performed 6 year(s) and 10 month(s) ago. Patient History: Menarche at age 16. First Full-Term at age 22. Hysterectomy at age 57. Postmenopausal. Risk Values: Elis 5 year model risk: 1.2%. NCI Lifetime model risk: 6.0%. Prior Study Comparison: 02/24/2011 Bilateral Screening Mammogram, [facility]. 11/30/2013 Bilateral Screening Mammogram, [facility]. 04/08/2016 Bilateral Screening Mammogram, [facility]. Tissue Density: The breast tissue is heterogeneously dense. This may lower the sensitivity of mammography. Findings: Analyzed By CAD. New mass left breast lateral upper aspect measuring 19 x 14 mm 5.5 cm and the distal CC view and 7.2 cm and one MLO view. Benign-appearing right breast ossifications. Overall Assessment: Incomplete: need additional imaging evaluation, BI-RAD 0 Management: Diagnostic Breast Ultrasound of the left breast. [facility] will attempt to contact patient to return for supplemental views and ultrasound if indicated. Patient should continue monthly self-breast exams. A clinical breast exam by your physician is recommended on an annual basis. This exam should not preclude additional follow-up of suspicious palpable abnormalities. Note on Elis scores and lifetime risk: 1. A Elis score greater than 3% is considered moderate risk. If this is the case, consider specialist referral to assess eligibility for a risk reducing agent. 2. If overall lifetime risk for the development of breast cancer is 20% or higher, the patient may qualify for future screening with alternating mammogram and breast MRI. Electronically signed and approved by: North Riddle DO
== END | disposition home or self-care (01) ==
LOC: RADMAMWWP 11:05
PROVIDERS: ATTEND Family Medicine
DX: Z12.31 Encounter for screening mammogram for malignant neoplasm of breast (principal); Z78.0 Asymptomatic menopausal state
CPT/HCPCS: 77063; 77067

== ENCOUNTER → 2023-02-18 | Outpatient (CLI) | payer BC ==
--- NOTE | 2023-02-18 10:24 | MM ---
Reason for Exam: Additional evaluation requested from abnormal screening. Last screening mammogram was performed less than 1 month ago. Patient History: Menarche at age 16. First Full-Term at age 22. Hysterectomy at age 57. Postmenopausal. Risk Values: Elis 5 year model risk: 1.2%. NCI Lifetime model risk: 6.0%. Prior Study Comparison: 11/30/2013 Bilateral Screening Mammogram, [facility]. 04/08/2016 Bilateral Screening Mammogram, [facility]. 02/12/2023 Bilateral MG 3D screening mammo w/cad, [facility]. Tissue Density: Left: The breast tissue is heterogeneously dense. This may lower the sensitivity of mammography. Findings: Analyzed By CAD. There is persistence of a large irregular density upper outer mid left breast. This appears to correlate with the ultrasound findings. On ultrasound there is an additional hypoechoic area 2:00 position 1 cm from the nipple which is indeterminate. This area if persistent may require biopsy. There are multiple somewhat superficial calcifications upper outer quadrant which are new normal change. These are persistent on magnification views. Sampling of the calcifications may be warranted. Recommendations are for ultrasound-guided core biopsy with clip placement 12 to 1:00 position on ultrasound. Additional consideration for biopsy of the 1:00 2 cm nipple area by ultrasound guidance. Sampling of calcifications upper outer quadrant, not associated with the mass. MRI could be considered for further guidance in identifying suspicious areas. Overall Assessment: Suspicious, BI-RAD 4 Management: Surgical Consultation of the left breast. Ultrasound Core Biopsy of the left breast. A negative mammogram report should not preclude additional follow up of suspicious palpable abnormalities. Patient should continue monthly self breast exam. A clinical breast exam by your physician is recommended on an annual basis and results should be correlated with mammographic findings. Electronically signed and approved by: Palmer Beckwith D.O. Radiologis
--- NOTE | 2023-02-18 13:17 | USB ---
Reason for Exam: Additional evaluation requested from abnormal screening. Patient History: Menarche at age 16. First Full-Term at age 22. Hysterectomy at age 57. Postmenopausal. Currently using Hormonal Contraceptives, ending at age 47. Risk Values: Elis 5 year model risk: 1.2%. NCI Lifetime model risk: 6.0%. Technique: Method: Targeted. Prior Study Comparison: 12/11/2008 Right Diagnostic Ultrasound, [facility]. 11/30/2013 Bilateral Screening Mammogram, [facility] 04/08/2016 Bilateral Screening Mammogram, [facility]. 02/12/2023 Bilateral MG 3D screening mammo w/cad, [facility]. Findings: The upper outer quadrant of the left breast, the axilla of the left breast and the retroareolar of the left breast were scanned. There is a 1.7 x 1.3 x 1.7 cm irregular hypodensity at the 12:00 position 6 cm from the left nipple. This may correlate with the mammographic density. Core biopsy of this lesion is recommended. There is an additional subtle hypodensity at the 1:00 position 2 cm from the nipple of indeterminate etiology. This may require biopsy as well. On the mammogram there are multiple calcifications which do not appear to correlate directly with either ultrasound. Sampling should be considered. Due to the complex nature of the findings, surgical consultation is recommended. MRI may be useful for additional evaluation. Overall Assessment: Suspicious, BI-RAD 4 Management: Surgical Consultation of the left breast. A clinical breast exam by your physician is recommended on an annual basis and results should be correlated with mammographic findings. This exam should not preclude additional follow-up of suspicious palpable abnormalities. Results were given to the patient verbally at the time of exam. Electronically signed and approved by: Palmer Beckwith D.O. Radiologis
== END | disposition home or self-care (01) ==
LOC: RADUSWWP 08:18
PROVIDERS: ATTEND Family Medicine
DX: R92.332 Mammographic heterogeneous density, left breast (principal); Z78.0 Asymptomatic menopausal state
CPT/HCPCS: 77061; 77065

== ENCOUNTER → 2023-03-10 | Day surgery (SDC) | payer BC | LOC: RADUSWWP 07:23 | PROVIDERS: ATTEND Surgery | DX: C50.812 Malignant neoplasm of overlapping sites of left female breast (principal); Z17.0 Estrogen receptor positive status [ER+] | CPT/HCPCS: 88305; 77065; 19083; A4648; 88341; 88342 ==

== ENCOUNTER → 2023-03-10 | Day surgery (SDC) | payer BC ==
[2023-03-10 08:16] VITALS: BP 114/75; PULSE 75; RESP 16; TEMP 98.1
--- NOTE | 2023-03-10 09:55 | MM ---
Risk Values: Elis 5 year model risk: 1.2%. NCI Lifetime model risk: 6.0%. Procedure Description: The procedure of stereotactic guided core biopsy w Electronically signed and approved by: Cuate Hummel M.D. Radiologist
== END ==
LOC: RADMAMWWP 07:33
PROVIDERS: ATTEND Surgery
DX: Z53.8 Procedure and treatment not carried out for other reasons (principal); R92.8 Other abnormal and inconclusive findings on diagnostic imaging of breast

== ENCOUNTER → 2023-03-19 | Outpatient (CLI) | payer BC ==
--- NOTE | 2023-03-19 12:16 | P.GSHP ---
History of Present Illness H&P Date: 03/19/23 Chief Complaint: left breast invasive ducatal cancer Wanda is a 62 year old female in consultation for Dr. Jamison regarding a left breast invasive ductal carcinoma. She underwent a bilateral mammogram on [id number]. This led to a diagnostic ultrasound of the left breast. The ultrasound was performed on . This revealed a 1.7 x 1.3 cm irregular hypodensity at the 12 o'clock position of the left breast. Core biopsy was recommended. On the mammogram there are multiple calcifications which did not appear to correlate with any ultrasound findings. MRI was recommended. The patient underwent an ultrasound core biopsy on . The core biopsy findin gs revealed an invasive ductal carcinoma this is grade 2, it is ER/MN positive and HER-2 positive. Patient does not feel anything of concern in either breast. Her last mammogram prior to this was approximately 6 years ago. She has never had any surgery on her breast. She is not complaining of any nipple discharge or skin changes. She has not had any recent trauma or infection in the breast. Nicotine:none caffeine: 2 cups/day chocolate: Daily control pills: 10 years in the remote past Hormones: none Family History: maternal aunt: colon cancer maternal uncle: colon cancer Hormonal History: menarche: 14 , breast fed: no, age at first : 22 menopause: hysterectomy at 55, took her ovaries did not put on hormones it was done for bleeding Surgical history: Total abdominal hysterectomy gastric bypass gallbladder Medical history: none Social History: Nicotine: Negative Alcohol several days a week/ vodka drugs: none - Constitutional Constitutional: Denies chills, Denies fever - EENT Eyes: denies blurred vision, denies pain Ears: deny: decreased hearing, tinnitus Ears, nose, mouth and throat: Denies headache, Denies sore throat - Cardiovascular Cardiovascular: Denies chest pain, Denies shortness of breath - Respiratory Respiratory: Denies cough, Denies 7 - Gastrointestinal Gastrointestinal: Denies abdominal pain, Denies diarrhea, Denies nausea, Denies vomiting - Genitourinary (Female) Genitourinary: Denies dysuria, Denies hematuria - Menstruation Menstruation: Reports post hysterectomy - Musculoskeletal Musculoskeletal: Denies myalgias - Integumentary Integumentary: Denies pruritus, Denies rash - Neurological Neurological: Denies numbness, Denies weakness - Psychiatric Psychiatric: Denies anxiety, Denies depression - Endocrine Endocrine: Denies fatigue, Denies weight change - Hematologic/Lymphatic Comment: none - Allergic/Immunologic Allergic/Immunologic: Reports as per HPI 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: Chest Pain / Angina, GERD/Reflux, Sleep Apnea/CPAP/BIPAP Additional 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 / Comment(s): HX OF ULCER, HX MIGRAINES, IBS, PAST HX HTN AND HYPERLIPIDEMIA, NONE CURRENTLY. History of Any Multi-Drug Resistant Organisms: None Reported Past Surgical History: Bariatric Surgery, Cholecystectomy, Heart Cathete rization, Hysterectomy, Uterine Ablation Additional Past Surgical History / Comment(s): D&C, jose antonio-en-y 05-25-17. Past Anesthesia/Blood Transfusion Reactions: Postoperative Nausea & Vomiting (PONV) Additional Past Anesthesia/Blood Transfusion Reaction / Comment(s): CLAUSTERPHOBIA. Past Psychological History: Anxiety, Depression Additional Psychological History / Comment(s): . Smoking Status: Never smoker Past Alcohol Use History: None Reported Past Drug Use History: None Reported - Past Family History Father Family Medical History: Myocardial Infarction ([place]) Mother Family Medical History: Cancer Additional Family Medical History / Comment(s): MOM IS 72 Medications and Allergies Home Medications Medication Instructions Recorded Confirmed Type ALPRAZolam [Xanax] 0.25 mg PO HS PRN 09/10/18 03/19/23 History Magnesium Oxide [Mag-Ox] 400 mg PO DAILY 10/10/18 03/19/23 History PARoxetine HCL [Paxil] 30 mg PO DAILY 10/10/18 03/19/23 History Sennosides [Senna] 17.2 mg PO DAILY 10/10/18 03/19/23 History Allergies Allergy/AdvReac Type Severity Reaction Status Date / Time Penicillins Allergy Severe Rash/Hives Verified 03/19/23 11:46 morphine AdvReac Severe Chest Pain Verified 03/19/23 11:46 Surgical - Exam - General no distress - Eyes normal ocular movement - Neck trachea midline - Respiratory normal respiratory effort, clear to auscultation - Cardiovascular Rhythm: regular Heart Sounds: normal: S1, S2 - Abdomen Abdomen: soft, non tender, no guarding, no rigid, no rebound - Integumentary normal turgor - Neurologic no disoriented, no combative - Musculoskeletal normal gait - Psychiatric oriented to time, oriented to person, oriented to place, speech is normal, memory intact Breast Exam: BRA: 34B Inspection: Bilateral grade 2 ptosis Palpation: Right breast: Multiple positional exam dense breasts, no dominant masses or nodules of concern Right axilla: No adenopathy of concern Left breast: Dense breast increase fullness upper-outer quadrant area approximately 2 cm in size no other dominant masses or nodules of concern Left axilla: No adenopathy of concern Results Mammogram and ultrasound personally reviewed Assessment and Plan Assessment: Impression: Biopsy-proven left breast invasive ductal carcinoma, ER/MN positive, HER-2 positive, grade 21.7 cm in size stage IA Plan: Presentation of case at tumor board CC: Dr. Jamison
[2023-03-19 12:38] VITALS: BP 143/83; PULSE 70; RESP 17; TEMP 97.8
== END ==
LOC: WWCWWP 11:41
PROVIDERS: ATTEND Surgery
DX: C50.912 Malignant neoplasm of unspecified site of left female breast (principal); F32.A Depression, unspecified; F41.9 Anxiety disorder, unspecified; K21.9 Gastro-esophageal reflux disease without esophagitis; Z17.0 Estrogen receptor positive status [ER+]; Z88.0 Allergy status to penicillin; Z90.49 Acquired absence of other specified parts of digestive tract; Z90.710 Acquired absence of both cervix and uterus; Z88.5 Allergy status to narcotic agent; Z98.84 Bariatric surgery status

== ENCOUNTER → 2023-03-27 | Outpatient (CLI) | payer BC ==
--- NOTE | 2023-03-30 12:18 | BMR ---
EXAM DATE: 03/27/2023 EXAM DESCRIPTION: MRI-Breast Bilat (W/WO Contrast) INDICATION: Diagnostic. Recently diagnosed carcinoma presenting for staging COMPARISON: Comparison is made with relevant prior imaging in PACS. CONTRAST: 6.0 cc of Gadavist TECHNIQUE: Multiplanar MRI imaging of both breasts was performed with a dedicated breast coil, before and after intravenous administration of gadolinium contrast, using the standard breast mass protocol. Computer-aided detection was used to aid in interpretation. Study was performed at [facility] with Radiologic interpretation by [facility]. FINDINGS: General breast composition: There are scattered areas of fibroglandular tissue Background parenchymal enhancement: Minimal FINDINGS: Right Breast: Review of the dynamic contrast-enhanced series shows no rapidly enhancing masses, suspicious enhancement patterns or other abnormalities. The T2 weighted series shows no abnormality. Left Breast: Review of the dynamic contrast-enhanced series shows an irregular enhancing mass in the upper outer breast with biopsy clip in-situ measuring 2.0 x 2.0 by 2.2 cm. No MRI finding to correspond to calcifications seen on diagnostic mammogram dated 02/18/2023. No lymphadenopathy. Miscellaneous : 0.2 mm T2 hyperintense enhancing sternal focus. IMPRESSION: Right Breast: BI-RADS Category1- Negative No MRI evidence of malignancy. Recommendation: MRI screening in 1 year Left Breast: BI-RADS Category 6- Known biopsy proven malignancy 1. 2.2 cm mass in the upper outer breast at posterior depth the site of known malignancy. 2. No MRI finding to correspond to calcifications seen on diagnostic mammogram dated 02/18/2023. Stereotactic biopsy is recommended as per outside report dated 02/18/2023. 3. No MRI evidence of lymphadenopathy. OVERALL ASSESSMENT -- BI-RADS 6 0.2 cm enhancing sternal focus of uncertain significance. Recommend dedicated imaging short interval follow-up. [facility]
== END | disposition home or self-care (01) ==
LOC: RADMRIMAIN 06:06
PROVIDERS: ATTEND Surgery
DX: C50.912 Malignant neoplasm of unspecified site of left female breast (principal); Z85.3 Personal history of malignant neoplasm of breast
CPT/HCPCS: 77049; A9585

== ENCOUNTER → 2023-04-14 | Outpatient (CLI) | payer BC ==
--- NOTE | 2023-04-15 12:11 | CA ---
Transthoracic Echo Report Name: Wanda Ervin Age: 62 Gender: F : 1960 Exam Date: 04/14/2023 16:54 Exam Location: [place] [facility] Ht (in): 66 Wt (lb): 135 Ordering Physician: Ethan Carpenter MD Attending/Referring Phys: Demand Equipment Repairer Jessenia Kumar [facility] Procedure CPT: Indications: Z01.818 Pre-chemo Cardiac Hx: Technical Quality: Fair Contrast 1: Total Dose (mL): Contrast 2: Total Dose (mL): MEASUREMENTS (Male / Female) Normal Values 2D ECHO LV Diastolic Diameter PLAX 4.2 cm 4.2 - 5.9 / 3.9 - 5.3 cm LV Systolic Diameter PLAX 2.9 cm IVS Diastolic Thickness 0.8 cm 0.6 - 1.0 / 0.6 - 0.9 cm LVPW Diastolic Thickness 0.8 cm 0.6 - 1.0 / 0.6 - 0.9 cm LV Relative Wall Thickness 0.4 LV Diastolic Volume MOD BP 47.9 cm??? 67 - 155 / 56 - 104 cm??? LV Systolic Volume MOD BP 17.7 cm??? 22 - 58 / 19 - 49 cm??? LV Ejection Fraction MOD BP 63.0 % >= 55 % LV Cardiac Index MOD BP 1198.0 cm???/min???m??? LV Diastolic Volume MOD 4C 56.3 cm??? LV Systolic Volume MOD 4C 16.2 cm??? LV Ejection Fraction MOD 4C 71.2 % LV Cardiac Index MOD 4C 1590.4 cm???/min???m??? LV Diastolic Length 4C 7.1 cm LV Systolic Length 4C 5.6 cm LV Diastolic Volume MOD 2C 39.8 cm??? LV Systolic Volume MOD 2C 18.7 cm??? LV Ejection Fraction MOD 2C 53.0 % LV Cardiac Index MOD 2C 836.6 cm???/min???m??? LV Diastolic Length 2C 6.9 cm LV Systolic Length 2C 5.9 cm M-MODE Aortic Root Diameter MM 2.4 cm LA Systolic Diameter MM 3.1 cm LA Ao Ratio MM 1.3 AV Cusp Separation MM 1.7 cm DOPPLER AV Peak Velocity 129.3 cm/s AV Peak Gradient 6.7 mmHg AV Mean Velocity 90.1 cm/s AV Mean Gradient 3.7 mmHg AV Velocity Time Integral 29.1 cm LVOT Peak Velocity 98.6 cm/s LVOT Peak Gradient 3.9 mmHg LVOT Velocity Time Integral 21.3 cm Mitral E Point Velocity 61.0 cm/s Mitral A Point Velocity 75.6 cm/s Mitral E to A Ratio 0.8 MV Deceleration Time 235.7 ms LV E' Lateral Velocity 10.0 cm/s Mitral E to LV E' Lateral Ratio 6.1 LV E' Septal Velocity 10.0 cm/s Mitral E to LV E' Septal Ratio 6.1 TR Peak Velocity 212.7 cm/s TR Peak Gradient 18.1 mmHg Right Atrial Pressure 3.0 mmHg Pulmonary Artery Systolic Pressu 21.1 mmHg Right Ventricular Systolic Press 21.1 mmHg FINDINGS Left Ventricle Left ventricular cavity size normal. Left ventricular wall thickness normal. Normal left ventricular systolic function with no obvious regional wall motion abnormalities. Left ventricular ejection fraction is estimated at 60%. Right Ventricle Normal right ventricular size. Right Atrium Normal right atrial size. Left Atrium Normal left atrial size. Mitral Valve Mitral valve thickened. Trace mitral regurgitation. Aortic Valve Aortic valve not well visualized. No aortic regurgitation. Tricuspid Valve Structurally normal tricuspid valve. Mild tricuspid regurgitation. Pulmonic Valve Pulmonic valve not well visualized. Pericardium No pericardial effusion. Aorta Normal size aortic root and proximal ascending aorta. CONCLUSIONS Left ventricular ejection fraction is estimated at 60%. Normal left ventricular systolic function with no obvious regional wall motion abnormalities. No significant diastolic dysfunction Normal Global ventricular strain estimated at -20.6%. (Normal is less than - 20%) No significant valvular dysfunction No significant chamber size abnormality Previewed by: Dr Segundo Kumar (Electronically Signed) Final Date: 15 April 2023 12:10
== END | disposition home or self-care (01) ==
LOC: RADECHMAIN 16:47
PROVIDERS: ATTEND Internal Medicine Hematology & Oncology
DX: Z01.818 Encounter for other preprocedural examination (principal)
CPT/HCPCS: 93306

== ENCOUNTER 2023-08-02 11:01 | Inpatient (IN) | payer BC ==
--- NOTE | 2023-08-02 11:44 | ED ---
General Adult HPI - General Chief complaint: Nausea/Vomiting/Diarrhea Stated complaint: Vomiting Time Seen by Provider: 08/02/23 11:17 Source: patient, RN notes reviewed Mode of arrival: wheelchair Limitations: no limitations - History of Present Illness Initial comments: Patient is a 63-year-old female presenting to emergency department with vomiting. Symptoms have been present the past 4 to 5 days. Patient has stage II breast cancer and is on chemotherapy. Patient is also having some diarrhea. Patient has had mouth sores however that has improved. No fever. Patient has diffuse pain. Patient feels fatigued. - Related Data Home Medications Medication Instructions Recorded Confirmed ALPRAZolam [Xanax] 0.25 mg PO HS PRN 09/10/18 03/19/23 Magnesium Oxide [Mag-Ox] 400 mg PO DAILY 10/10/18 03/19/23 PARoxetine HCL [Paxil] 30 mg PO DAILY 10/10/18 03/19/23 Sennosides [Senna] 17.2 mg PO DAILY 10/10/18 03/19/23 Allergies Allergy/AdvReac Type Severity Reaction Status Date / Time Penicillins Allergy Severe Rash/Hives Verified 08/02/23 11:12 morphine AdvReac Severe Chest Pain Verified 08/02/23 11:12 Review of Systems ROS Statement: Those systems with pertinent positive or pertinent negative responses have been documented in the HPI. ROS Other: All systems not noted in ROS Statement are negative. Constitutional: Denies: fever Eyes: Denies: eye pain ENT: Reports: as per HPI Respiratory: Reports: other (Patient does feel little bit short of breath) Cardiovascular: Denies: chest pain Endocrine: Reports: fatigue Gastrointestinal: Reports: abdominal pain, nausea, vomiting, diarrhea Skin: Denies: rash 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: Chest Pain / Angina, GERD/Reflux, Sleep Apnea/CPAP/BIPAP Additional 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 / Comment(s): HX OF ULCER, HX MIGRAINES, IBS, PAST HX HTN AND HYPERLIPIDEMIA, NONE CURRENTLY. Breast Cancer History of Any Multi-Drug Resistant Organisms: None Reported Past Surgical History: Bariatric Surgery, Cholecystectomy, Heart Catheteriz ation, Hysterectomy, Uterine Ablation Additional Past Surgical History / Comment(s): D&C, jose antonio-en-y 05-25-17. Past Anesthesia/Blood Transfusion Reactions: Postoperative Nausea & Vomiting (PONV) Additional Past Anesthesia/Blood Transfusion Reaction / Comment(s): CLAUSTERPHOBIA. Past Psychological History: Anxiety, Depression Smoking Status: Never smoker Past Alcohol Use History: None Reported Past Drug Use History: None Reported - Past Family History Father Family Medical History: Myocardial Infarction ([place]) Mother Family Medical History: Cancer Additional Family Medical History / Comment(s): MOM IS 72 General Exam Limitations: no limitations General appearance: alert, in no apparent distress Head exam: Present: atraumatic Eye exam: Present: normal appearance ENT exam: Present: normal oropharynx Neck exam: Present: normal inspection Respiratory exam: Present: normal lung sounds bilaterally Cardiovascular Exam: Present: regular rate, normal rhythm GI/Abdominal exam: Present: soft, tenderness (Mild diffuse tenderness) Extremities exam: Present: normal inspection Neurological exam: Present: alert Psychiatric exam: Present: normal affect, normal mood Skin exam: Present: normal color Course Vital Signs 08/02/23 08/02/23 11:06 13:37 Temperature 97.4 F L Pulse Rate 91 85 Respiratory 18 18 Rate Blood Pressure 121/79 125/67 O2 Sat by Pulse 100 99 Oximetry EKG Findings - EKG Results: EKG: interpreted by ERMD (Occasional supraventricular premature complexes. Nonspecific T waves.), sinus rhythm, normal axis, normal QRS Medical Decision Making - Medical Decision Making Was pt. sent in by a medical professional or institution (DIPESH Cardona, CHIEF ACCOUNTING OFFICER, urgent care, hospital, or correction...) When possible be specific @ -No Did you speak to anyone other than the patient for history (EMS, parent, family, police, friend...)? What history was obtained from this source @ -No Did you review nursing and triage notes (agree or disagree)? Why? @ -I reviewed and agree with nursing and triage notes Were old charts reviewed (outside hosp., previous admission, EMS record, old EKG , old radiological studies, urgent care reports/EKG's, correction records)? Report findings @ -No old charts were reviewed Differential Diagnosis (chest pain, altered mental status, abdominal pain women, abdominal pain men, vaginal bleeding, weakness, fever, dyspnea, syncope, headache, dizziness, GI bleed, back pain, seizure, CVA, palpatations, mental health, musculoskeletal)? @ -Differential Abdominal Pain Women: Appendicitis, Cholecystitis, diverticulosis, ischemic bowel, pancreatitis, h epatitis, UTI, gastroenteritis, AAA, incarcerated hernia, bowel obstruction, constipation, inflammatory bowel, hepatitis, peptic ulcer disease, splenic infarction, perforated viscus, vulvitis, ovarian torsion, PID, kidney stone, placenta abruption, this is not meant to be an all-inclusive list EKG interpreted by me (3pts min.). @ -As above X-rays interpreted by me (1pt min.). @ -Chest and abdominal x-ray showed no acute process CT interpreted by me (1pt min.). @ -None done U/S interpreted by me (1pt. min.). @ -None done What testing was considered but not performed or refused? (CT, X-rays, U/S, labs)? Why? @ -None What meds were considered but not given or refused? Why? @ -None Did you discuss the management of the patient with other professionals (professionals i.e. , PA, CHIEF ACCOUNTING OFFICER, lab, RT, psych nurse, social worker clinical, vision specialist, teacher, professional security officer, immigration case worker)? Give summary @ -Case was discussed with Dr. Mota who will admit covering Dr. Sahu who admits for Dr. Jamison Was smoking cessation discussed for >3mins.? @ -No Was critical care preformed (if so, how long)? @ -No Were there social determinants of health that impacted care today? How? (Homelessness, low income, unemployed, alcoholism, drug addiction, transportation, low edu. Level, literacy, decrease access to med. care, longterm, rehab)? @ -No Was there de-escalation of care discussed even if they declined (Discuss DNR or withdrawal of care, Hospice)? DNR status @ -No What co-morbidities impacted this encounter? (DM, HTN, Smoking, COPD, CAD, Cancer, CVA, ARF, Chemo, Hep., AIDS, mental health diagnosis, sleep apnea, morbid obesity)? @ -Stage II breast cancer on chemotherapy Was patient admitted / discharged? Hospital course, mention meds given and route, prescriptions, significant lab abnormalities, going to OR and other pertinent info. @ -Patient reevaluated and still feeling lousy. Patient still has nausea. Patient feels dehydrated. Patient will be admitted with oncology consult. Patient and family updated. Admission orders written. Undiagnosed new problem with uncertain prognosis? @ -No Drug Therapy requiring intensive monitoring for toxicity (Heparin, Nitro, Insulin, Cardizem)? @ -No Were any procedures done? @ -No Diagnosis/symptom? @ -Dehydration Acute, or Chronic, or Acute on Chronic? @ -Acute Uncomplicated (without systemic symptoms) or Complicated (systemic symptoms)? @ -Default Side effects of treatment? @ -No Exacerbation, Progression, or Severe Exacerbation? @ -No Poses a threat to life or bodily function? How? (Chest pain, [place], [place], pneumonia, PE, COPD, DKA, ARF, appy, cholecystitis, CVA, Diverticulitis, Homicidal, Suicidal, threat to staff... and all critical care pts) @ -No - Lab Data Result diagrams: 08/02/23 11:49 08/02/23 11:49 Lab Results 08/02/23 08/02/23 08/02/23 Range/Units 11:49 11:49 11:49 WBC 22.7 H (3.8-10.6) k/uL RBC 3.50 L (3.80-5.40) m/uL Hgb 11.4 (11.4-16.0) gm/dL Hct 35.5 (34.0-46.0) % MCV 101.2 H (80.0-100.0) fL MCH 32.5 (25.0-35.0) pg MCHC 32.1 (31.0-37.0) g/dL RDW 13.8 (11.5-15.5) % Plt Count 290 (150-450) k/uL MPV 8.3 Neutrophils % 87 % Lymphocytes % 7 % Monocytes % 4 % Eosinophils % 0 % Basophils % 0 % Neutrophils # 19.8 H (1.3-7.7) k/uL Lymphocytes # 1.6 (1.0-4.8) k/uL Monocytes # 1.0 (0-1.0) k/uL Eosinophils # 0.1 (0-0.7) k/uL Basophils # 0.1 (0-0.2) k/uL Macrocytosis Slight PT 11.2 (10.0-12.5) sec INR 1.0 (<1.2) APTT 27.8 (22.0-30.0) sec Sodium 139 (137-145) mmol/L Potassium 3.3 L (3.5-5.1) mmol/L Chloride 109 H (98-107) mmol/L Carbon Dioxide 16 L (22-30) mmol/L Anion Gap 14 mmol/L BUN 15 (7-17) mg/dL Creatinine 0.77 (0.52-1.04) mg/dL Est GFR (CKD-EPI)AfAm >90 (>60 ml/min/1.73 sqM) Est GFR (CKD-EPI)NonAf 84 (>60 ml/min/1.73 sqM) Glucose 68 L (74-99) mg/dL Calcium 8.8 (8.4-10.2) mg/dL Total Bilirubin 0.3 (0.2-1.3) mg/dL AST 31 (14-36) U/L ALT 23 (4-34) U/L Alkaline Phosphatase 118 (38-126) U/L Total Protein 6.4 (6.3-8.2) g/dL Albumin 3.8 (3.5-5.0) g/dL Amylase 42 (30-110) U/L Lipase 88 (23-300) U/L Disposition Clinical Impression: Dehydration, Nausea & vomiting Disposition: ADMITTED IP TO THIS HOSP Is patient prescribed a controlled substance at d/c from ED?: No Referrals: Palmer Jamison DO [Primary Care Provider] - 1-2 days Time of Disposition: 13:52
[2023-08-02] MEDS: SODIUM CHLORIDE 0.9% 1,000 ML IV STA (11:53)
[2023-08-02] MEDS: ONDANSETRON 4 MG/2 ML VIAL IVP STA (11:55)
[2023-08-02] MEDS: FAMOTIDINE 20 MG/2 ML VIAL IV STA (11:56)
[2023-08-02] MEDS: HYDROmorphone 1 MG/ML 1 ML SYRINGE IVP STA (11:56)
[2023-08-02 12:18] LABS: Basophils # (A) 0.1 k/uL (0-0.2); Basophils % (A) 0 %; Eosinophils # (A) 0.1 k/uL (0-0.7); Eosinophils % (A) 0 %; HCT 35.5 % (34.0-46.0); HGB 11.4 gm/dL (11.4-16.0); Lymphocytes # (A) 1.6 k/uL (1.0-4.8); Lymphocytes % (A) 7 %; MCH 32.5 pg (25.0-35.0); MCHC 32.1 g/dL (31.0-37.0); MCV 101.2 fL (80.0-100.0); Macrocytosis Slight; Mean Platelet Volume 8.3; Monocytes % (A) 4 %; Neutrophils # (A) 19.8 k/uL (1.3-7.7); Neutrophils % (A) 87 %; Platelet Count 290 k/uL (150-450); RDW 13.8 % (11.5-15.5); WBC 22.7 k/uL (3.8-10.6)
--- NOTE | 2023-08-02 12:21 | XR ---
EXAMINATION TYPE: XR abdomen 2V DATE OF EXAM: 08/02/2023 12:15 PM CLINICAL INDICATION:Female, 63 years old with history of abdominal pain; [facility] COMPARISON: 12/30/2013. TECHNIQUE: Two views of the abdomen were obtained. FINDINGS: The bowel gas pattern is nonspecific without dilated loops of small or large bowel. There i s no evidence for organomegaly or pneumoperitoneum. The osseous structures are intact. No abnormal calcifications are present. Fecal material and gas are demonstrated throughout the colon and rectum. IMPRESSION: Nonspecific bowel gas pattern without radiographic evidence for acute process.
[2023-08-02 12:28] LABS: Partial Thromboplastin Time 27.8 sec (22.0-30.0); Prothrombin Time 11.2 sec (10.0-12.5)
[2023-08-02 12:46] LABS: ALT 23 U/L (4-34); AST 31 U/L (14-36); African American GFR (CKD) >90 (>60 ml/min/1.73 sqM); Albumin 3.8 g/dL (3.5-5.0); Alkaline Phosphatase 118 U/L (38-126); Amylase 42 U/L (30-110); Anion Gap 14 mmol/L; Blood Urea Nitrogen 15 mg/dL (7-17); Calcium 8.8 mg/dL (8.4-10.2); Carbon Dioxide 16 mmol/L (22-30); Chloride 109 mmol/L (98-107); Glucose 68 mg/dL (74-99); Lipase 88 U/L (23-300); Non-African American GFR(CKD) 84 (>60 ml/min/1.73 sqM); Potassium 3.3 mmol/L (3.5-5.1); Sodium 139 mmol/L (137-145); Total Bilirubin 0.3 mg/dL (0.2-1.3); Total Protein 6.4 g/dL (6.3-8.2)
--- NOTE | 2023-08-02 13:10 | XR ---
EXAMINATION TYPE: XR chest 1V portable DATE OF EXAM: 08/02/2023 12:58 PM CLINICAL INDICATION:Female, 63 years old with history of abp; COMPARISON: Chest radiographs from 10/10/2018 TECHNIQUE: XR chest 1V portable Frontal view of the chest. FINDINGS: Lungs/Pleura: There is no evidence of pleural effusion, focal consolidation, or pneumothorax. Pulmonary vascularity: Unremarkable. Heart/mediastinum: Cardiomediastinal silhouette is unremarkable. Musculoskeletal: No acute osseous pathology. Other findings: None Lines/Tubes: Right internal jugular central venous catheter with distal tip at the cavoatrial junction. IMPRESSION: No acute cardiopulmonary disease/process.
[2023-08-02] MEDS ORDERED: NALOXONE 0.4 MG/ML 1 ML VIAL IV PRN (13:52)
[2023-08-02] MEDS: SODIUM CHLORIDE 0.9% 1,000 ML IV SCH (14:07)
[2023-08-02] MEDS: POTASSIUM CHLORIDE 20 MEQ in WATER FOR INJECTION 1 100ML.BAG IVPB STA (15:03)
[2023-08-02] MEDS: ONDANSETRON 4 MG/2 ML VIAL IVP PRN (16:41)
[2023-08-02] MEDS: HYDROmorphone 1 MG/ML 1 ML SYRINGE IVP PRN (16:42)
--- NOTE | 2023-08-03 00:22 | P.HPIM ---
History of Present Illness H&P Date: 08/02/23 Chief Complaint: Nausea and vomiting Patient is a 63-year-old female with a past medical history of GERD, obstructive sleep apnea, breast cancer currently on chemotherapy, anxiety/depression and a prior history of jose antonio-en-y presents to ER with complaints of nausea vomiting and diarrhea. Patient had last chemotherapy on 07/23/2023 which is a fourth dose. Patient was seen by oncology as an outpatient due to mouth sores and was started on steroids as well. Patient is also complaining of chest tightness and shortness of breath. Not able to tolerate oral diet. Presented to ER for further evaluation. Patient also having diffuse pain and feels fatigued. Mouth sores have improved however. Denies any fever or chills. No cough or sputum production. Chest x-ray showed no acute cardiopulmonary process Abdominal x-ray showed nonspecific bowel gas pattern without radiographic evidence of acute process. EKG showed sinus rhythm with occasional supraventricular premature complexes. Laboratory data showed WBC 22.7 hemoglobin 11.4 and platelets 290 Sodium 139 potassium 3.3 chloride 109 bicarb is 16 BUN 15 and creatinine 0.77 and blood sugar 68 liver enzymes are not elevated. Lipase 88 and amylase 42. Patient was given Zofran and IV Dilaudid and Pepcid which seemed to improve her symptoms. Review of Systems Constitutional: Patient denies any fever or chills . Generalized weakness, generalized pain and fatigue. Abdomen: Patient does have nausea vomiting and diarrhea and generalized abdominal pain. Cardiovascular: Patient denies any chest pain or short of breath no palpitations. Respiratory: patient denied any cough is from production. No shortness of breath Neurologic: Patient denied any numbness or tingling headache. Musculoskeletal: Patient denies any complaints of joint swelling or deformity. Skin: Negative Psychiatric: Negative Endocrine: No heat or cold intolerance. No recent weight gain. Genitourinary: No dysuria or hematuria. All other 14 point ROS negative except the above 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: Chest Pain / Angina, GERD/Reflux, Sleep Apnea/CPAP/BIPAP Additional 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 / Comment(s): HX OF ULCER, HX MIGRAINES, IBS, PAST HX HTN AND HYPERLIPIDEMIA, NONE CURRENTLY. Breast Cancer History of Any Multi-Drug Resistant Organisms: None Reported Past Surgical History: Bariatric Surgery, Cholecystectomy, Heart Catheterization, Hysterectomy, Uterine Ablation Additional Past Surgical History / Comment(s): D&C, jose antonio-en-y 05-25-17. Past Anesthesia/Blood Transfusion Reactions: Postoperative Nausea & Vomiting (PONV) Additional Past Anesthesia/Blood Transfusion Reaction / Comment(s): LEN SPRINGER. Past Psychological History: Anxiety, Depression Smoking Status: Never smoker Past Alcohol Use History: None Reported Past Drug Use History: None Reported - Past Family History Father Family Medical History: Myocardial Infarction ([place]) Mother Family Medical History: Cancer Additional Family Medical History / Comment(s): MOM IS 72 Medications and Allergies Home Medications Medication Instructions Recorded Confirmed Type Magnesium Oxide [Mag-Ox] 400 mg PO DAILY 10/10/18 08/02/23 History PARoxetine HCL [Paxil] 30 mg PO DAILY 10/10/18 08/02/23 History Sennosides [Senna] 8.6 mg PO HS PRN 10/10/18 08/02/23 History ALPRAZolam [Xanax] 0.5 mg PO TID PRN 08/02/23 08/02/23 History Cyanocobalamin [Vitamin B-12 1,000 mcg IM Q14D 08/02/23 08/02/23 History Injection] Diphenox-Atrop 2.5-0.025 mg 2 tab PO Q6H PRN 08/02/23 08/02/23 History [Lomotil] Docusate [Colace] 100 mg PO BID PRN 08/02/23 08/02/23 History Hydrocortisone Cream 1 applic TOPICAL TID PRN 08/02/23 08/02/23 History [Hydrocortisone 2.5% Cream] Kools 5 ml PO QID PRN 08/02/23 08/02/23 History Solution(Benadryl/Lidocaine/Maalox/Nystatin/Dexamethasone) Lidocaine-Prilocaine Cream [Emla 1 applic TOPICAL DIRECTED PRN 08/02/23 08/02/23 History Cream 2.5%/2.5%] OLANZapine 5 mg PO DIRECTED 08/02/23 08/02/23 History Ondansetron Odt [Zofran Odt] 4 - 8 mg PO Q4H PRN 08/02/23 08/02/23 History Potassium Chloride [Klor-Con M20] 20 meq PO DAILY 08/02/23 08/02/23 History dexAMETHasone [Decadron] 8 mg PO DIRECTED 08/02/23 08/02/23 History Allergies Allergy/AdvReac Type Severity Reaction Status Date / Time Penicillins Allergy Severe Rash/Hives Verified 08/02/23 17:01 morphine AdvReac Severe Chest Pain Verified 08/02/23 17:01 Physical Exam Vitals: Vital Signs Temp Pulse Resp BP Pulse Ox 08/02/23 13:37 85 18 125/67 99 08/02/23 11:06 97.4 F L 91 18 121/79 100 Intake and Output 08/01/23 08/02/23 08/02/23 22:59 06:59 14:59 Other: Weight 54.431 kg PHYSICAL EXAMINATION: Patient is lying in the bed comfortably, no acute distress, awake alert and oriented.. HEENT: Normocephalic. Neck is supple. Pupils reactive. Nostrils clear. Oral cavity is moist. Neck reveals no JVD, carotid bruits, or thyromegaly. CHEST EXAMINATION: Trachea is central. Symmetrical expansion. Lung card clear to auscultation and percussion. CARDIAC: Normal S1, S2 with no gallops. No murmurs ABDOMEN: Soft. Bowel sounds normal. No organomegaly. No abdominal bruits. Extremities: reveal no edema. No clubbing or cyanosis Neurologically awake, alert, oriented x3 with well-coordinated movements. No focal deficits noted Skin: No rash or skin lesions. Psychiatric: Coperative. Nonsuicidal Musculoskeletal: No joint swelling or deformity. Normal range of motion. Results CBC & Chem 7: 08/03/23 06:47 08/02/23 11:49 Labs: Abnormal Lab Results - Last 24 Hours (Table) 08/02/23 08/02/23 Range/Units 11:49 11:49 WBC 22.7 H (3.8-10.6) k/uL RBC 3.50 L (3.80-5.40) m/uL MCV 101.2 H (80.0-100.0) fL Neutrophils # 19.8 H (1.3-7.7) k/uL Potassium 3.3 L (3.5-5.1) mmol/L Chloride 109 H (98-107) mmol/L Carbon Dioxide 16 L (22-30) mmol/L Glucose 68 L (74-99) mg/dL Thrombosis Risk Factor Assmnt - DVT/VTE Prophylaxis DVT/VTE Prophylaxis: Pharmacologic Prophylaxis ordered Assessment and Plan Assessment: Intractable nausea vomiting and diarrhea with recent chemo on 07/23/2023 Generalized pain Breast cancer stage II currently on chemotherapy for cycle GERD Obstructive sleep apnea IBS History of migraine headaches History of gastric ulcer History of bariatric surgery Anxiety/depression DVT prophylax with Lovenox subcu Plan: Patient will be continued on IV hydration and symptomatic management for nausea and vomiting with Zofran and PPI and continued pain management with Dilaudid. Replace electrolytes and follow-up closely. Oncology was consulted for ev aluation. Prognosis guarded. Continue to follow closely.. Time with Patient: Greater than 30
[2023-08-03] MEDS: MAGNESIUM OXIDE 400 MG TAB PO SCH (07:46)
[2023-08-03] MEDS: PARoxetine 10 MG TAB PO SCH (07:46)
[2023-08-03] MEDS: PANTOPRAZOLE 40 MG/10 ML VIAL IV SCH ×2 (07:46→19:43)
[2023-08-03] MEDS: ENOXAPARIN 30 MG/0.3 ML SYRINGE SQ SCH (07:46)
[2023-08-03 10:24] LABS: HCT 27.1 % (37.2-46.3); HGB 8.4 g/dL (12.0-15.0); MCH 32.7 pg (27.0-32.0); MCV 105.4 FL (80.0-97.0); Mean Platelet Volume 10.2 FL (9.5-12.2); NRBC Per 100 WBC 0 X 10*3/uL (0.00-0.01); Platelet Count 220 X 10*3/uL (140-440); RBC 2.57 X 10*6/uL (4.10-5.20); RDW 13.2 % (11.5-14.5); WBC 16.95 X 10*3/uL (4.50-10.00)
[2023-08-03 11:12] LABS: Basophils # (M) 0 X 10*3/uL (0.00-0.10); Eosinophils # (M) 0 X 10*3/uL (0.04-0.35); Lymphocytes # (M) 1.36 X 10*3/uL (0.90-5.00); Macrocytosis (M) 2+; Metamyelocytes % 2 % (0-0); Monocytes # (M) 0.51 X 10*3/uL (0.20-1.00); Neutrophils # (M) 14.58 X 10*3/uL (1.80-7.70); Neutrophils % (M) 86 %; Promyelocytes # (M) 0.17 k/uL (0); Promyelocytes % 1 %
[2023-08-03 11:17] LABS: ALT 13 U/L (8-44); AST 19 U/L (13-35); Albumin 2.9 g/dL (3.8-4.9); Albumin/Globulin Ratio 2.07 Ratio (1.60-3.17); Alkaline Phosphatase 81 U/L (41-126); Blood Urea Nitrogen 7.6 mg/dL (9.0-27.0); Calcium 6.8 mg/dL (8.7-10.3); Carbon Dioxide 12.7 mmol/L (21.6-31.8); Chloride 114 mmol/L (96-109); Globulin 1.4 g/dL (1.6-3.3); Glucose 35 mg/dL (70-110); Potassium 2.8 mmol/L (3.5-5.5); Sodium 143 mmol/L (135-145); Total Bilirubin <0.2 mg/dL (0.3-1.2); Total Protein 4.3 g/dL (6.2-8.2)
[2023-08-03 11:27] LABS: Glucose,Whole Blood 48 mg/dL (70-110)
[2023-08-03] MEDS ORDERED: PETROLATUM, WHITE OINT 50 GM TUBE TOPICAL PRN (11:39)
[2023-08-03 11:47] LABS: Glucose,Whole Blood 144 mg/dL (70-110)
[2023-08-03] MEDS: LORATADINE 10 MG TAB PO SCH (12:23)
[2023-08-03] MEDS: HYDROmorphone 0.5 MG/0.5 ML SYRINGE IVP PRN (12:26)
[2023-08-03] MEDS: MAG HYDROX/AL HYDROX/SIMETH 30 ML, diphenhydrAMINE ELIXIR 75 MG, LIDOCAINE VISCOUS 2% 3... PO SCH (12:41)
[2023-08-03] MEDS: SALT AND SODA MOUTHWASH 1,000 ML PO SCH (13:24)
[2023-08-03] MEDS: TRIAMCINOLONE ACET 0.1% OINTMENT 15 GM TUBE TOPICAL SCH (13:25)
[2023-08-03] MEDS ORDERED: Potassium Replacement Protocol 1 EACH MISC MISCELLANE PRN (15:43)
[2023-08-03] MEDS: diphenhydrAMINE 50 MG/ML 1 ML VIAL IVP STA (15:51)
[2023-08-03] MEDS: CHOLESTYRAMINE (WITH SUGAR) 4 GM PACKET PO SCH (16:14)
[2023-08-03 16:15] LABS: Basophils % (A) 0 %; Eosinophils % (A) 0 %; HCT 32.4 % (34.0-46.0); HGB 10.3 gm/dL (11.4-16.0); Lymphocytes # (A) 1.6 k/uL (1.0-4.8); Lymphocytes % (A) 9 %; MCHC 31.9 g/dL (31.0-37.0); MCV 103.5 fL (80.0-100.0); Macrocytosis Slight; Mean Platelet Volume 7.6; Monocytes # (A) 0.6 k/uL (0-1.0); Monocytes % (A) 3 %; Neutrophils # (A) 15.7 k/uL (1.3-7.7); Neutrophils % (A) 87 %; Platelet Count 235 k/uL (150-450); RBC 3.13 m/uL (3.80-5.40); RDW 13.4 % (11.5-15.5)
[2023-08-03] MEDS: POTASSIUM CHLORIDE ER 20 MEQ TAB.ER PO SCH (16:21)
--- NOTE | 2023-08-03 17:13 | P.CONS ---
History of Present Illness - Reason for Consult Consult date: 08/03/23 Breast cancer Requesting physician: Esteban Watson - Chief Complaint N,V - History of Present Illness Mrs. Ervin is a 63-year-old female patient of Dr. Carpenter diagnosed with stage I, triple positive left breast cancer late last year/earlier this year. She had an abnormal left breast screening mammogram in January 2023. Previous mammograms were 6 years prior to that. She had additional imaging that showed a 1.9 x 1.4 cm lesion in the upper outer quadrant of the left breast, also calcifications anteriorly and superiorly not associated with the mass. 03/10/2023 core biopsy of the mass was positive for grade 2, IDC, ER/NV positive/HER2 positive 3+. Bilateral breast MRI 03/27/2023 identified a 2.2 cm mass in the upper outer quadrant of the left breast, no suspicious nodes, 0.2 mm focus of enhancement in the sternum, felt nonspecific. Evaluated by Dr. Yates and had additional workup, additional left breast biopsy, which was negative. 04/14/2023 echo showed normal LVEF. 05/22/2023 she started neoadjuvant TCHP regimen. She has had complaints similar to her presenting complaints after each cycle. She has been receiving IV hydration as well as supportive medications in the clinic. Last treatment was on 07/22. She is currently admitted with intractable nausea, vomiting, subsequent dehydration. When seen patient reports severe sores in the mouth with mouth bleeding, her right eye is sore, purulent drainage with crusty, reported bleeding from the eye, nausea and diarrhea were "so bad", she has shortness of breath with any activity, can hardly walk, she had bleeding from her feet, no scabs are noted, no current bleeding. Her oral irritation is sever e, no visible lesions. She states that she has musculoskeletal pain from "toenails to head". She denies any fevers, chest pain, palpitations, dysuria, hematuria, hematochezia or melena, swelling in the legs. She does have moderate nail toxicities from the Taxotere. Cycle #5 is due 08/12 Her counts on admit show a normal platelet count, hemoglobin 10.3, WBC 18 with an ANC of 15.7-as would be anticipated with a growth factor given on 07/23. Coags are within normal limits, potassium significantly low, she is on a replacement protocol. Patient also had low blood glucose, her IV fluids were changed to D5 normal saline. Amylase and lipase were within normal limits, LFTs within normal limits. Abdominal x-ray showing a nonspecific bowel gas pattern, there is report of fecal material and gas throughout the colon and the rectum, without evidence for an acute process. Review of Systems 10 point ROS is neg except as stated in HPI 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: Cancer, Chest Pain / Angina, GERD/Reflux, Sleep Apnea/CPAP/BIPAP Additional 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 / Comment(s): HX OF ULCER, HX MIGRAINES, IBS, PAST HX HTN AND HYPERLIPIDEMIA, NONE CURRENTLY. Breast Cancer History of Any Multi-Drug Resistant Organisms: None Reported Past Surgical History: Bariatric Surgery, Cholecystectomy, Heart Catheterization, Hysterectomy, Uterine Ablation Additional Past Surgical History / Comment(s): D&C, jose antonio-en-y 05-25-17. Past Anesthesia/Blood Transfusion Reactions: Postoperative Nausea & Vomiting (PONV) Additional Past Anesthesia/Blood Transfusion Reaction / Comm: CLAUSTERPHOBIA. Past Psychological History: Anxiety, Depression Smoking Status: Never smoker Past Alcohol Use History: None Reported Past Drug Use History: None Reported - Past Family History Father Family Medical History: Myocardial Infarction ([place]) Mother Family Medical History: Cancer Additional Family Medical History / Comment(s): MOM IS 72 Medications and Allergies Home Medications Medication Instructions Recorded Confirmed Type Magnesium Oxide [Mag-Ox] 400 mg PO DAILY 10/10/18 08/02/23 History PARoxetine HCL [Paxil] 30 mg PO DAILY 10/10/18 08/02/23 History Sennosides [Senna] 8.6 mg PO HS PRN 10/10/18 08/02/23 History ALPRAZolam [Xanax] 0.5 mg PO TID PRN 08/02/23 08/02/23 History Cyanocobalamin [Vitamin B-12 1,000 mcg IM Q14D 08/02/23 08/02/23 History Injection] Diphenox-Atrop 2.5-0.025 mg 2 tab PO Q6H PRN 08/02/23 08/02/23 History [Lomotil] Docusate [Colace] 100 mg PO BID PRN 08/02/23 08/02/23 History Hydrocortisone Cream 1 applic TOPICAL TID PRN 08/02/23 08/02/23 History [Hydrocortisone 2.5% Cream] Kools 5 ml PO QID PRN 08/02/23 08/02/23 History Solution(Benadryl/Lidocaine/Maalox/Nystatin/Dexamethasone) Lidocaine-Prilocaine Cream [Emla 1 applic TOPICAL DIRECTED PRN 08/02/23 08/02/23 History Cream 2.5%/2.5%] OLANZapine 5 mg PO DIRECTED 08/02/23 08/02/23 History Ondansetron Odt [Zofran Odt] 4 - 8 mg PO Q4H PRN 08/02/23 08/02/23 History Potassium Chloride [Klor-Con M20] 20 meq PO DAILY 08/02/23 08/02/23 History dexAMETHasone [Decadron] 8 mg PO DIRECTED 08/02/23 08/02/23 History Allergies Allergy/AdvReac Type Severity Reaction Status Date / Time Penicillins Allergy Severe Rash/Hives Verified 08/02/23 17:01 morphine AdvReac Severe Chest Pain Verified 08/02/23 17:01 Physical Exam Vitals: Vital Signs Temp Pulse Pulse Resp BP BP Pulse Ox 08/03/23 07:00 98.3 F 83 16 114/70 97 08/03/23 02:00 97.4 F L 79 16 129/75 98 08/02/23 20:00 97.4 F L 79 16 124/69 98 08/02/23 16:15 97.5 F L 75 16 146/77 100 08/02/23 15:27 80 18 137/60 98 08/02/23 13:37 85 18 125/67 99 08/02/23 11:06 97.4 F L 91 18 121/79 100 Intake and Output 08/02/23 08/03/23 08/03/23 22:59 06:59 14:59 Other: # Voids 1 Weight 54.431 kg - Constitutional General appearance: average body habitus, cooperative, no acute distress - EENT Eyes: anicteric sclerae, EOMI ENT: hearing grossly normal, normal oropharynx - Neck Neck: no lymphadenopathy - Respiratory Respiratory: bilateral: CTA - Cardiovascular Rhythm: regular Heart sounds: normal: S1, S2 Abnormal Heart Sounds: no systolic murmur, no diastolic murmur, no rub, no S3 Gallop, no S4 Gallop, no click, no other leg Peripheral Edema: bilateral: None - Gastrointestinal General gastrointestinal: no absent bowel sounds, no decreased bowel sounds, no distended, no hepatomegaly, no hyperactive bowel sounds, normal bowel sounds, no organomegaly, no rigid, no scaphoid, soft, no splenomegaly, tenderness (pt would not let me palpate the abd), no umbilical hernia, no ventral hernia - Integumentary dry, cracked skin - Neurologic Neurologic: CNII-XII intact - Musculoskeletal Musculoskeletal: generalized weakness, strength equal bilaterally - Psychiatric Psychiatric: A&O x's 3, appropriate affect, intact judgment & insight rt eye redness, pain, crusty drainage Results CBC & Chem 7: 08/03/23 16:00 08/03/23 06:47 Labs: Abnormal Lab Results - Last 24 Hours (Table) 08/02/23 08/02/23 Range/Units 11:49 11:49 WBC 22.7 H (3.8-10.6) k/uL RBC 3.50 L (3.80-5.40) m/uL MCV 101.2 H (80.0-100.0) fL Neutrophils # 19.8 H (1.3-7.7) k/uL Potassium 3.3 L (3.5-5.1) mmol/L Chloride 109 H (98-107) mmol/L Carbon Dioxide 16 L (22-30) mmol/L Glucose 68 L (74-99) mg/dL Chest x-ray: report reviewed Abdominal x-ray: report reviewed Assessment and Plan (1) Nausea & vomiting Current Visit: Yes Status: Acute Priority: High Code(s): R11.2 - NAUSEA WITH VOMITING, UNSPECIFIED SNOMED Code(s): 07054639 (2) Abdominal pain Current Visit: Yes Status: Acute Priority: High Code(s): R10.9 - UNSPECIFIED ABDOMINAL PAIN SNOMED Code(s): 40604254 (3) Mucositis Current Visit: Yes Status: Acute Priority: High Code(s): K12.30 - ORAL MUCOSITIS (ULCERATIVE), UNSPECIFIED SNOMED Code(s): 06931468 (4) Dry skin Current Visit: Yes Status: Acute Priority: High Code(s): L85.3 - XEROSIS CUTIS SNOMED Code(s): 98767304 (5) Eye abnormalities Current Visit: Yes Status: Acute Priority: High Code(s): 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, UNSPECIFIED SNOMED Code(s): 24057459 (6) Diarrhea Current Visit: Yes Status: Acute Priority: High Code(s): R19.7 - DIARRHEA, UNSPECIFIED SNOMED Code(s): 70478944 (7) Breast cancer Current Visit: Yes Status: Acute Priority: High Code(s): C50.919 - MALIGNANT NEOPLASM OF UNSP SITE OF UNSPECIFIED FEMALE BREAST SNOMED Code(s): 391316989 (8) Disorder of electrolytes Current Visit: Yes Status: Acute Priority: High Code(s): E87.8 - OTH DISORDERS OF ELECTROLYTE AND FLUID BALANCE, NEC SNOMED Code(s): 026450724 Plan: Nausea and vomiting, mucositis, dry skin and diarrhea -Likely all secondary to chemotherapy. -Meds/supportive care for all the above symptoms has been ordered. Stool for c- diff ordered -Patient has been receiving hydration and supportive medications after her treatments. Will continue with further adjustments Abdominal pain -Pt c/o abd pain to us, pain on exam. Made NPO except ice chips. RN contacted us, reported no abd pain reported and a normal abd exam. Concern for NPO as pt has low glucose. Did change IVF to D5NS for now. -Abd xray was neg -LFTs, amylase and lipase WNL -Recheck abd in AM, possible further imaging Disorder of electrolytes -Patient was having challenges with management of electrolytes in the outpatient setting. -Pt was provided with multiple formulations of electrolyte supplements to aid in maintaining electrolyte levels. This obviously was not effective -Patient is now on replacement protocols. Agree with that plan. Breast cancer -Breast cancer, triple positive, on neoadjuvant treatment, clinical stage I. -Taxotere, carboplatin, Perjeta and Herceptin, 4/6 cycles completed. Last dose 07/22. She did receive G-CSF -Side effects above secondary to chemotherapy. -She had met with Dr. Carpenter last week. Plan was to continue treatment at the same doses with aggressive hydration after chemotherapy and supportive care medications. -Will see how patient feels after discharge. May consider dose reduction Eye c/o -Will defer to IM to decide if pt needs eye exam Doctor attests: I performed a history and physical examination of this patient, developed impression and plan of care. Discussed with dictator. I agree with dictators note, documented as a scribe.
[2023-08-03 18:42] LABS: Glucose,Whole Blood 86 mg/dL (70-110)
[2023-08-03] MEDS: ONDANSETRON 4 MG/2 ML VIAL IVP PRN (21:12)
[2023-08-04 11:39] LABS: Basophils % (A) 0 %; Eosinophils % (A) 0 %; HCT 31.7 % (34.0-46.0); HGB 9.9 gm/dL (11.4-16.0); Lymphocytes # (A) 1.7 k/uL (1.0-4.8); Lymphocytes % (A) 11 %; MCHC 31.3 g/dL (31.0-37.0); MCV 101.9 fL (80.0-100.0); Macrocytosis Slight; Mean Platelet Volume 7.8; Monocytes # (A) 0.6 k/uL (0-1.0); Monocytes % (A) 4 %; Neutrophils # (A) 12.5 k/uL (1.3-7.7); Neutrophils % (A) 84 %; Platelet Count 227 k/uL (150-450); RBC 3.11 m/uL (3.80-5.40); RDW 13.8 % (11.5-15.5); WBC 14.9 k/uL (3.8-10.6)
--- NOTE | 2023-08-04 11:51 | P.PN ---
Subjective Progress Note Date: 08/03/23 Patient is a 63-year-old female with a past medical history of GERD, obstructive sleep apnea, breast cancer currently on chemotherapy, anxiety/depression and a prior history of jose antonio-en-y presents to ER with complaints of nausea vomiting and diarrhea. Patient had last chemotherapy on 07/23/2023 which is a fourth dose. Patient was seen by oncology as an outpatient due to mouth sores and was started on steroids as well. Patient is also complaining of chest tightness and shortness of breath. Not able to tolerate oral diet. Presented to ER for further evaluation. Patient also having diffuse pain and feels fatigued. Mouth sores have improved however. Denies any fever or chills. No cough or sputum production. Chest x-ray showed no acute cardiopulmonary process Abdominal x-ray showed nonspecific bowel gas pattern without radiographic evidence of acute process. EKG showed sinus rhythm with occasional supraventricular premature complexes. Laboratory data showed WBC 22.7 hemoglobin 11.4 and platelets 290 Sodium 139 potassium 3.3 chloride 109 bicarb is 16 BUN 15 and creatinine 0.77 and blood sugar 68 liver enzymes are not elevated. Lipase 88 and amylase 42. Patient was given Zofran and IV Dilaudid and Pepcid which seemed to improve her symptoms. 08/03/2023 Patient is currently lying in the bed. Awake alert and oriented x 3. Nausea did improve. No complaints of chest pain or shortness of breath. Currently on room air. No headache or dizziness or lightheadedness. Patient is still having difficulty swallowing. Complains of mouth soreness. Denied hematemesis or melena. Patient did have bowel meant this morning. Patient is made n.p.o. due to mucositis. Otherwise patient was also hypoglycemic this morning requiring IV dextrose. Laboratory data showed WBC 16.95, hemoglobin 8.4 and platelets 220 Sodium 143 potassium 2.8 which has been replaced per protocol. Chloride 114 bicarb is 12.7 and BUN 7.6 and creatinine 0.5 and calcium 6.8, albumin 2.9. Current medications reviewed. Objective - Vital Signs Vital signs: Vital Signs Temp 98.3 F 08/03/23 07:00 Pulse 83 08/03/23 07:00 Resp 16 08/03/23 07:00 BP 114/70 08/03/23 07:00 Pulse Ox 97 08/03/23 07:00 FiO2 Intake & Output 08/02/23 08/03/23 08/03/23 18:59 06:59 18:59 Weight 54.431 kg Other: Voiding Method Toilet # Voids 1 - Exam PHYSICAL EXAMINATION: Patient is lying in the bed comfortably, no acute distress, awake alert and oriented.. HEENT: Normocephalic. Neck is supple. Pupils reactive. Nostrils clear. Oral cavity is moist. Neck reveals no JVD, carotid bruits, or thyromegaly. CHEST EXAMINATION: Trachea is central. Symmetrical expansion. Lung card clear to auscultation and percussion. CARDIAC: Normal S1, S2 with no gallops. No murmurs ABDOMEN: Soft. Bowel sounds normal. No organomegaly. No abdominal bruits. Extremities: reveal no edema. No clubbing or cyanosis Neurologically awake, alert, oriented x3 with well-coordinated movements. No f ocal deficits noted Skin: No rash or skin lesions. Psychiatric: Coperative. Nonsuicidal Musculoskeletal: No joint swelling or deformity. Normal range of motion. - Labs CBC & Chem 7: 08/04/23 11:16 08/03/23 06:47 Labs: Abnormal Lab Results - Last 24 Hours (Table) 08/02/23 08/02/23 08/03/23 Range/Units 11:49 11:49 06:47 WBC 22.7 H 16.95 H (3.8-10.6) k/uL RBC 3.50 L 2.57 L (3.80-5.40) m/uL Hgb 8.4 L (12.0-15.0) g/dL Hct 27.1 L (37.2-46.3) % MCV 101.2 H 105.4 H (80.0-100.0) fL MCH 32.7 H (27.0-32.0) pg MCHC 31.0 L (32.0-37.0) g/dL Neutrophils # 19.8 H (1.3-7.7) k/uL Potassium 3.3 L (3.5-5.1) mmol/L Chloride 109 H (98-107) mmol/L Carbon Dioxide 16 L (22-30) mmol/L Glucose 68 L (74-99) mg/dL Assessment and Plan Assessment: Intractable nausea vomiting and diarrhea with recent chemo on 07/23/2023 Oral mucositis with recent steroid course. Severe hypokalemia Generalized pain Breast cancer stage II currently on chemotherapy for cycle 4 GERD Obstructive sleep apnea IBS History of migraine headaches History of gastric ulcer History of bariatric surgery Anxiety/depression DVT prophylax with Lovenox subcu Plan: Patient will be continued on IV hydration and symptomatic management for nausea and vomiting with Zofran and PPI and continued pain management with Dilaudid. Replace electrolytes and follow-up closely. Oncology is on board.. Patient is currently nothing by mouth due to oral lesions. Monitor H&H. Prognosis guarded. Continue to follow closely.. Time with Patient: Greater than 30
[2023-08-04 11:55] LABS: ALT 17 U/L (4-34); AST 26 U/L (14-36); African American GFR (CKD) >90 (>60 ml/min/1.73 sqM); Albumin/Globulin Ratio 1.3; Alkaline Phosphatase 95 U/L (38-126); Anion Gap 8 mmol/L; Blood Urea Nitrogen 2 mg/dL (7-17); Calcium 7.9 mg/dL (8.4-10.2); Carbon Dioxide 20 mmol/L (22-30); Chloride 109 mmol/L (98-107); Globulin 2.3 g/dL; Glucose 66 mg/dL (74-99); Non-African American GFR(CKD) >90 (>60 ml/min/1.73 sqM); Potassium 3.5 mmol/L (3.5-5.1); Sodium 137 mmol/L (137-145); Total Bilirubin 0.2 mg/dL (0.2-1.3); Total Protein 5.3 g/dL (6.3-8.2)
[2023-08-04 12:46] LABS: Glucose,Whole Blood 68 mg/dL (70-110)
[2023-08-04] MEDS: DEXTROSE 50% SYRINGE 50 ML IVP ONE (12:48)
[2023-08-04 13:22] LABS: Glucose,Whole Blood 185 mg/dL (70-110)
[2023-08-04] MEDS: MAGNESIUM SULFATE-D5W PMX 1 GM in DEXTROSE/WATER 1 100ML.BAG IVPB SCH (14:21)
[2023-08-04 17:37] LABS: Glucose,Whole Blood 107 mg/dL (70-110)
[2023-08-04] MEDS: POTASSIUM CHLORIDE 20 MEQ in WATER FOR INJECTION 1 100ML.BAG IVPB STA (17:39)
[2023-08-04] MEDS: DEXTROSE 5%-0.9% NACL 1,000 ML IV SCH (17:45)
--- NOTE | 2023-08-04 21:31 | P.PN ---
Subjective Progress Note Date: 08/04/23 Principal diagnosis: V, abd pain, dehydration. Breast cancer, on neoadj treatment Objective - Vital Signs Vital signs: Vital Signs Temp 97.9 F 08/04/23 14:00 Pulse 77 08/04/23 14:00 Resp 16 08/04/23 14:00 BP 119/74 08/04/23 14:00 Pulse Ox 98 08/04/23 14:00 FiO2 Intake & Output 08/04/23 08/04/23 08/05/23 06:59 18:59 06:59 Output Total 900 Balance -900 Output: Urine 900 Other: Voiding Method Toilet Toilet # Voids 2 1 # Bowel Movements 1 2 - Labs CBC & Chem 7: 08/04/23 11:16 08/04/23 11:16 Labs: Abnormal Lab Results - Last 24 Hours (Table) 08/04/23 08/04/23 08/04/23 Range/Units 11:16 11:16 12:45 WBC 14.9 H (3.8-10.6) k/uL RBC 3.11 L (3.80-5.40) m/uL Hgb 9.9 L (11.4-16.0) gm/dL Hct 31.7 L (34.0-46.0) % MCV 101.9 H (80.0-100.0) fL Neutrophils # 12.5 H (1.3-7.7) k/uL Chloride 109 H (98-107) mmol/L Carbon Dioxide 20 L (22-30) mmol/L BUN 2 L (7-17) mg/dL Glucose 66 L (74-99) mg/dL POC Glucose (mg/dL) 68 L (70-110) mg/dL Calcium 7.9 L (8.4-10.2) mg/dL Magnesium 1.0 L (1.6-2.3) mg/dL Total Protein 5.3 L (6.3-8.2) g/dL Albumin 3.0 L (3.5-5.0) g/dL 08/04/23 Range/Units 13:16 WBC (3.8-10.6) k/uL RBC (3.80-5.40) m/uL Hgb (11.4-16.0) gm/dL Hct (34.0-46.0) % MCV (80.0-100.0) fL Neutrophils # (1.3-7.7) k/uL Chloride (98-107) mmol/L Carbon Dioxide (22-30) mmol/L BUN (7-17) mg/dL Glucose (74-99) mg/dL POC Glucose (mg/dL) 185 H (70-110) mg/dL Calcium (8.4-10.2) mg/dL Magnesium (1.6-2.3) mg/dL Total Protein (6.3-8.2) g/dL Albumin (3.5-5.0) g/dL Assessment and Plan (1) Nausea & vomiting Current Visit: Yes Status: Acute Priority: High Code(s): R11.2 - NAUSEA WITH VOMITING, UNSPECIFIED SNOMED Code(s): 95733256 (2) Abdominal pain Current Visit: Yes Status: Acute Priority: High Code(s): R10.9 - UNSPECIFIED ABDOMINAL PAIN SNOMED Code(s): 09688544 (3) Mucositis Current Visit: Yes Status: Acute Priority: High Code(s): K12.30 - ORAL MUCOSITIS (ULCERATIVE), UNSPECIFIED SNOMED Code(s): 02847095 (4) Dry skin Current Visit: Yes Status: Acute Priority: High Code(s): L85.3 - XEROSIS CUTIS SNOMED Code(s): 97874380 (5) Eye abnormalities Current Visit: Yes Status: Acute Priority: High Code(s): 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, UNSPECIFIED SNOMED Code(s): 54073768 (6) Diarrhea Current Visit: Yes Status: Acute Priority: High Code(s): R19.7 - DIARRHEA, UNSPECIFIED SNOMED Code(s): 14031509 (7) Breast cancer Current Visit: Yes Status: Acute Priority: High Code(s): C50.919 - MALIGNANT NEOPLASM OF UNSP SITE OF UNSPECIFIED FEMALE BREAST SNOMED Code(s): 777635483 (8) Disorder of electrolytes Current Visit: Yes Status: Acute Priority: High Code(s): E87.8 - OTH DISORDERS OF ELECTROLYTE AND FLUID BALANCE, NEC SNOMED Code(s): 777925878 Plan: Nausea and vomiting, mucositis, dry skin and diarrhea -Likely all secondary to chemotherapy. -Meds/supportive care for all the above symptoms has been ordered. Better today -Stool for c-diff ordered-negative -3 diarrhea stools this AM -Questran ordered. Imodium now ordered Abdominal pain -Persists today. Cont NPO except ice chips. -Abd xray was neg for acute process -LFTs, amylase and lipase WNL -May consider additional abd imaging in AM Disorder of electrolytes -Patient was having challenges with management of electrolytes in the outpatient setting. -Pt was provided with multiple formulations of electrolyte supplements to aid in maintaining electrolyte levels. This obviously was not effective -Patient is now on replacement protocols. Agree with that plan. Breast cancer -Breast cancer, triple positive, on neoadjuvant treatment, clinical stage I. -Taxotere, carboplatin, Perjeta and Herceptin, 4/6 cycles completed. Last dose 07/22. She did receive G-CSF -Side effects above secondary to chemotherapy. -She had met with Dr. Carpenter last week. Plan was to continue treatment at the same doses with aggressive hydration after chemotherapy and supportive care medications. -Will see how patient feels after discharge. May consider dose reduction Eye c/o -Will defer to IM to decide if pt needs eye exam
[2023-08-04 22:15] LABS: Glucose,Whole Blood 82 mg/dL (70-110)
[2023-08-05 06:07] LABS: Glucose,Whole Blood 101 mg/dL (70-110)
[2023-08-05 10:39] LABS: Basophils # (A) 0.02 X 10*3/uL (0.00-0.10); Basophils % (A) 0.2 %; Eosinophils # (A) 0 X 10*3/uL (0.04-0.35); Eosinophils % (A) 0 %; HCT 32.5 % (37.2-46.3); HGB 10.5 g/dL (12.0-15.0); Lymphocytes # (A) 1.07 X 10*3/uL (0.90-5.00); Lymphocytes % (A) 12.2 %; MCH 32.9 pg (27.0-32.0); MCHC 32.3 g/dL (32.0-37.0); MCV 101.9 FL (80.0-97.0); Mean Platelet Volume 10.5 FL (9.5-12.2); Monocytes % (A) 5.7 %; NRBC Per 100 WBC 0 X 10*3/uL (0.00-0.01); Neutrophils # (A) 7.06 X 10*3/uL (1.80-7.70); Neutrophils % (A) 80.2 %; Platelet Count 228 X 10*3/uL (140-440); RBC 3.19 X 10*6/uL (4.10-5.20); RDW 13.2 % (11.5-14.5)
[2023-08-05 11:04] LABS: BUN/Creat Ratio <5.83 Ratio (12.00-20.00); Blood Urea Nitrogen <3.5 mg/dL (9.0-27.0); Calcium 8.1 mg/dL (8.7-10.3); Carbon Dioxide 22.5 mmol/L (21.6-31.8); Chloride 107 mmol/L (96-109); Glucose 96 mg/dL (70-110); Potassium 3.5 mmol/L (3.5-5.5); Sodium 141 mmol/L (135-145)
--- NOTE | 2023-08-05 11:28 | P.PN ---
Subjective Progress Note Date: 08/05/23 Principal diagnosis: V, abd pain, dehydration. Breast cancer, on neoadj treatment In f/u today pt reports mild nausea, last emesis was yesterday, she has had 3 diarrhea stools so far this AM, abd tenderness persists, not progressive. She refused questran yesterday. C-diff was neg so, imodium was ordered, recommended that pt try. Oral irritation is very mild, much better, skin c/o are stable, topical Tx is helping. Reports weakness and dizziness when staff got her up to go to bathroom. Objective - Vital Signs Vital signs: Vital Signs Temp 97.9 F 08/05/23 07:56 Pulse 79 08/05/23 07:56 Resp 15 08/05/23 07:56 BP 133/79 08/05/23 07:56 Pulse Ox 96 08/05/23 07:56 FiO2 Intake & Output 08/04/23 08/05/23 08/05/23 18:59 06:59 18:59 Other: Voiding Method Toilet Toilet Toilet # Voids 1 # Bowel Movements 2 - Constitutional General appearance: Present: average body habitus, cooperative - EENT Eyes: Present: anicteric sclerae ENT: Present: hearing grossly normal, normal oropharynx - Respiratory Respiratory: bilateral: CTA - Cardiovascular Rhythm: regular Heart sounds: normal: S1, S2 Abnormal Heart Sounds: Absent: systolic murmur, diastolic murmur, rub, S3 Gallop, S4 Gallop, click, other - Peripheral edema leg Peripheral Edema: bilateral: None - Gastrointestinal General gastrointestinal: Present: normal bowel sounds, soft Localized gastrointestinal: tender: diffuse - Integumentary Integumentary Comment(s): red macular rash on the chest, scattered spots of rash otherwise, most consistent with drug rash, mild, no s/s infection Dry skin on hands and feet improved Moderate nail toxicities from chemo Integumentary: Present: rash - Labs CBC & Chem 7: 08/05/23 06:55 08/05/23 06:55 Labs: Abnormal Lab Results - Last 24 Hours (Table) 08/04/23 08/04/23 08/04/23 Range/Units 11:16 11:16 12:45 WBC 14.9 H (3.8-10.6) k/uL RBC 3.11 L (3.80-5.40) m/uL Hgb 9.9 L (11.4-16.0) gm/dL Hct 31.7 L (34.0-46.0) % MCV 101.9 H (80.0-100.0) fL MCH (27.0-32.0) pg Immature Gran # (0.00-0.04) X 10*3/uL Neutrophils # 12.5 H (1.3-7.7) k/uL Eosinophils # (0.04-0.35) X 10*3/uL Chloride 109 H (98-107) mmol/L Carbon Dioxide 20 L (22-30) mmol/L BUN 2 L (7-17) mg/dL BUN/Creatinine Ratio (12.00-20.00) Ratio Glucose 66 L (74-99) mg/dL POC Glucose (mg/dL) 68 L (70-110) mg/dL Calcium 7.9 L (8.4-10.2) mg/dL Magnesium 1.0 L (1.6-2.3) mg/dL Total Protein 5.3 L (6.3-8.2) g/dL Albumin 3.0 L (3.5-5.0) g/dL 08/04/23 08/05/23 08/05/23 Range/Units 13:16 06:55 06:55 WBC (3.8-10.6) k/uL RBC 3.19 L (3.80-5.40) m/uL Hgb 10.5 L (11.4-16.0) gm/dL Hct 32.5 L (34.0-46.0) % MCV 101.9 H (80.0-100.0) fL MCH 32.9 H (27.0-32.0) pg Immature Gran # 0.15 H (0.00-0.04) X 10*3/uL Neutrophils # (1.3-7.7) k/uL Eosinophils # 0 L (0.04-0.35) X 10*3/uL Chloride (98-107) mmol/L Carbon Dioxide (22-30) mmol/L BUN <3.5 L (7-17) mg/dL BUN/Creatinine Ratio <5.83 L (12.00-20.00) Ratio Glucose (74-99) mg/dL POC Glucose (mg/dL) 185 H (70-110) mg/dL Calcium 8.1 L (8.4-10.2) mg/dL Magnesium (1.6-2.3) mg/dL Total Protein (6.3-8.2) g/dL Albumin (3.5-5.0) g/dL Assessment and Plan (1) Nausea & vomiting Current Visit: Yes Status: Acute Priority: High Code(s): R11.2 - NAUSEA WITH VOMITING, UNSPECIFIED SNOMED Code(s): 33842356 (2) Abdominal pain Current Visit: Yes Status: Acute Priority: High Code(s): R10.9 - UNSPECIFIED ABDOMINAL PAIN SNOMED Code(s): 03630533 (3) Mucositis Current Visit: Yes Status: Acute Priority: High Code(s): K12.30 - ORAL MUCOSITIS (ULCERATIVE), UNSPECIFIED SNOMED Code(s): 60359872 (4) Dry skin Current Visit: Yes Status: Acute Priority: High Code(s): L85.3 - XEROSIS CUTIS SNOMED Code(s): 49581382 (5) Eye abnormalities Current Visit: Yes Status: Acute Priority: High Code(s): 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 Pt unable to tolerate fluid recommendations 2/2 bariatric surgery -Meds/supportive care for all the above symptoms ordered. Slow to improved, but cont to improve -Stool for c-diff ordered-negative -3 diarrhea stools this AM again, pt refused questran. Imodium added, pt encouraged to try -cont topical Tx for drug rash and dry skin -cont aggressive oral care Abdominal pain -Persists today. Pt wants to try clear liquids. Diet advanced. If she has worsening abd pain or V, resume NPO except ice chips. -Abd xray yesterday was neg for acute process. No acute changes in abd exam -LFTs, amylase and lipase WNL Disorder of electrolytes -Patient was having challenges with management of electrolytes in the outpatient setting. -Pt was provided with multiple formulations of electrolyte supplements to aid in maintaining electrolyte levels. This obviously was not effective -Patient is now on replacement protocols. Agree with that plan. Breast cancer -Breast cancer, triple positive, on neoadjuvant treatment, clinical stage I. -Taxotere, carboplatin, Perjeta and Herceptin, 4/6 cycles completed. Last dose 07/22. She did receive G-CSF -Side effects above secondary to chemotherapy. -She had met with Dr. Carpenter last week. Plan was to continue treatment at the same doses with aggressive hydration after chemotherapy and supportive care medications. -Will see how patient feels after discharge. May consider dose reduction Eye c/o -Will defer to IM to decide if pt needs eye exam
[2023-08-05 11:59] LABS: Glucose,Whole Blood 98 mg/dL (70-110)
[2023-08-05 16:53] LABS: Glucose,Whole Blood 108 mg/dL (70-110)
[2023-08-05 20:54] LABS: Glucose,Whole Blood 109 mg/dL (70-110)
[2023-08-05] MEDS: LOPERAMIDE 2 MG CAP PO PRN (21:53)
[2023-08-06 05:45] LABS: Glucose,Whole Blood 90 mg/dL (70-110)
[2023-08-06 09:21] LABS: Basophils % (A) 0 %; Eosinophils % (A) 0 %; HCT 32.3 % (34.0-46.0); HGB 10.6 gm/dL (11.4-16.0); Lymphocytes # (A) 0.8 k/uL (1.0-4.8); Lymphocytes % (A) 7 %; MCH 33.1 pg (25.0-35.0); MCHC 32.9 g/dL (31.0-37.0); MCV 100.8 fL (80.0-100.0); Macrocytosis Slight; Mean Platelet Volume 7.9; Monocytes # (A) 0.4 k/uL (0-1.0); Monocytes % (A) 3 %; Neutrophils # (A) 10.2 k/uL (1.3-7.7); Neutrophils % (A) 89 %; Platelet Count 193 k/uL (150-450); RDW 13.9 % (11.5-15.5); WBC 11.5 k/uL (3.8-10.6)
[2023-08-06 09:35] LABS: African American GFR (CKD) >90 (>60 ml/min/1.73 sqM); Anion Gap 0 mmol/L; Blood Urea Nitrogen <2 mg/dL (7-17); Carbon Dioxide 29 mmol/L (22-30); Chloride 109 mmol/L (98-107); Glucose 98 mg/dL (74-99); Non-African American GFR(CKD) >90 (>60 ml/min/1.73 sqM); Potassium 3.3 mmol/L (3.5-5.1); Sodium 138 mmol/L (137-145)
--- NOTE | 2023-08-06 09:47 | P.PN ---
Subjective Progress Note Date: 08/04/23 Patient is a 63-year-old female with a past medical history of GERD, obstructive sleep apnea, breast cancer currently on chemotherapy, anxiety/depression and a prior history of jose antonio-en-y presents to ER with complaints of nausea vomiting and diarrhea. Patient had last chemotherapy on 07/23/2023 which is a fourth dose. Patient was seen by oncology as an outpatient due to mouth sores and was started on steroids as well. Patient is also complaining of chest tightness and shortness of breath. Not able to tolerate oral diet. Presented to ER for further evaluation. Patient also having diffuse pain and feels fatigued. Mouth sores have improved however. Denies any fever or chills. No cough or sputum production. Chest x-ray showed no acute cardiopulmonary process Abdominal x-ray showed nonspecific bowel gas pattern without radiographic evidence of acute process. EKG showed sinus rhythm with occasional supraventricular premature complexes. Laboratory data showed WBC 22.7 hemoglobin 11.4 and platelets 290 Sodium 139 potassium 3.3 chloride 109 bicarb is 16 BUN 15 and creatinine 0.77 and blood sugar 68 liver enzymes are not elevated. Lipase 88 and amylase 42. Patient was given Zofran and IV Dilaudid and Pepcid which seemed to improve her symptoms. 08/03/2023 Patient is currently lying in the bed. Awake alert and oriented x 3. Nausea did improve. No complaints of chest pain or shortness of breath. Currently on room air. No headache or dizziness or lightheadedness. Patient is still having difficulty swallowing. Complains of mouth soreness. Denied hematemesis or melena. Patient did have bowel meant this morning. Patient is made n.p.o. due to mucositis. Otherwise patient was also hypoglycemic this morning requiring IV dextrose. Laboratory data showed WBC 16.95, hemoglobin 8.4 and platelets 220 Sodium 143 potassium 2.8 which has been replaced per protocol. Chloride 114 bicarb is 12.7 and BUN 7.6 and creatinine 0.5 and calcium 6.8, albumin 2.9. 08/04/2023 Patient is lying in the bed still complains of pain in the epigastric and follows abdomen. Unable to tolerate oral diet. No complaints of fever or chills. Currently on room air. Remains nothing by mouth. No cough or sputum production. Laboratory data showed WBC 14.9 trending down, hemoglobin 9.9 and platelets 227 sodium 137 potassium 3.5 chloride 109 bicarb 20 BUN 12 creatinine 0.56 and blood sugar 66. Magnesium 1.0 which is being replaced with IV magnesium sulfate. Serial troponins negative. Oncology is on board. Current medications reviewed. Objective - Vital Signs Vital signs: Vital Signs Temp 97.9 F 08/04/23 20:55 Pulse 72 08/04/23 20:55 Resp 16 08/04/23 20:55 BP 137/77 08/04/23 20:55 Pulse Ox 99 08/04/23 20:55 FiO2 Intake & Output 08/04/23 08/04/23 08/05/23 06:59 18:59 06:59 Output Total 900 Balance -900 Output: Urine 900 Other: Voiding Method Toilet Toilet # Voids 2 1 # Bowel Movements 1 2 - Exam PHYSICAL EXAMINATION: Patient is lying in the bed comfortably, no acute distress, awake alert and oriented.. HEENT: Normocephalic. Neck is supple. Pupils reactive. Nostrils clear. Oral cavity is moist. Neck reveals no JVD, carotid bruits, or thyromegaly. CHEST EXAMINATION: Trachea is central. Symmetrical expansion. Lung card clear to auscultation and percussion. CARDIAC: Normal S1, S2 with no gallops. No murmurs ABDOMEN: Soft. Bowel sounds normal. No organomegaly. No abdominal bruits. Extremities: reveal no edema. No clubbing or cyanosis Neurologically awake, alert, oriented x3 with well-coordinated movements. No focal deficits noted Skin: No rash or skin lesions. Psychiatric: Coperative. Nonsuicidal Musculoskeletal: No joint swelling or deformity. Normal range of motion. - Labs CBC & Chem 7: 08/06/23 08:45 08/06/23 08:45 Labs: Abnormal Lab Results - Last 24 Hours (Table) 08/04/23 08/04/23 08/04/23 Range/Units 11:16 11:16 12:45 WBC 14.9 H (3.8-10.6) k/uL RBC 3.11 L (3.80-5.40) m/uL Hgb 9.9 L (11.4-16.0) gm/dL Hct 31.7 L (34.0-46.0) % MCV 101.9 H (80.0-100.0) fL Neutrophils # 12.5 H (1.3-7.7) k/uL Chloride 109 H (98-107) mmol/L Carbon Dioxide 20 L (22-30) mmol/L BUN 2 L (7-17) mg/dL Glucose 66 L (74-99) mg/dL POC Glucose (mg/dL) 68 L (70-110) mg/dL Calcium 7.9 L (8.4-10.2) mg/dL Magnesium 1.0 L (1.6-2.3) mg/dL Total Protein 5.3 L (6.3-8.2) g/dL Albumin 3.0 L (3.5-5.0) g/dL 08/04/23 Range/Units 13:16 WBC (3.8-10.6) k/uL RBC (3.80-5.40) m/uL Hgb (11.4-16.0) gm/dL Hct (34.0-46.0) % MCV (80.0-100.0) fL Neutrophils # (1.3-7.7) k/uL Chloride (98-107) mmol/L Carbon Dioxide (22-30) mmol/L BUN (7-17) mg/dL Glucose (74-99) mg/dL POC Glucose (mg/dL) 185 H (70-110) mg/dL Calcium (8.4-10.2) mg/dL Magnesium (1.6-2.3) mg/dL Total Protein (6.3-8.2) g/dL Albumin (3.5-5.0) g/dL Assessment and Plan Assessment: Intractable nausea vomiting and diarrhea with recent chemo on 07/23/2023 Oral mucositis with recent steroid course. Hypoglycemia due to poor oral intake Hypomagnesemia Severe hypokalemia Generalized pain Breast cancer stage II currently on chemotherapy for cycle 4 GERD Obstructive sleep apnea IBS History of migraine headaches History of gastric ulcer History of bariatric surgery Anxiety/depression DVT prophylax with Lovenox subcu Plan: Patient will be continued on IV hydration with D5 normal saline and symptomatic management for nausea and vomiting with Zofran and PPI and continued pain management with Dilaudid. Replace electrolytes and follow-up closely. Oncology is on board.. Patient is currently nothing by mouth due to oral lesions. Monitor H&H. Prognosis guarded. Continue to follow closely.. Time with Patient: Greater than 30
--- NOTE | 2023-08-06 09:48 | P.PN ---
Subjective Progress Note Date: 08/05/23 Patient is a 63-year-old female with a past medical history of GERD, obstructive sleep apnea, breast cancer currently on chemotherapy, anxiety/depression and a prior history of jose antonio-en-y presents to ER with complaints of nausea vomiting and diarrhea. Patient had last chemotherapy on 07/23/2023 which is a fourth dose. Patient was seen by oncology as an outpatient due to mouth sores and was started on steroids as well. Patient is also complaining of chest tightness and shortness of breath. Not able to tolerate oral diet. Presented to ER for further evaluation. Patient also having diffuse pain and feels fatigued. Mouth sores have improved however. Denies any fever or chills. No cough or sputum production. Chest x-ray showed no acute cardiopulmonary process Abdominal x-ray showed nonspecific bowel gas pattern without radiographic evidence of acute process. EKG showed sinus rhythm with occasional supraventricular premature complexes. Laboratory data showed WBC 22.7 hemoglobin 11.4 and platelets 290 Sodium 139 potassium 3.3 chloride 109 bicarb is 16 BUN 15 and creatinine 0.77 and blood sugar 68 liver enzymes are not elevated. Lipase 88 and amylase 42. Patient was given Zofran and IV Dilaudid and Pepcid which seemed to improve her symptoms. 08/03/2023 Patient is currently lying in the bed. Awake alert and oriented x 3. Nausea did improve. No complaints of chest pain or shortness of breath. Currently on room air. No headache or dizziness or lightheadedness. Patient is still having difficulty swallowing. Complains of mouth soreness. Denied hematemesis or melena. Patient did have bowel meant this morning. Patient is made n.p.o. due to mucositis. Otherwise patient was also hypoglycemic this morning requiring IV dextrose. Laboratory data showed WBC 16.95, hemoglobin 8.4 and platelets 220 Sodium 143 potassium 2.8 which has been replaced per protocol. Chloride 114 bicarb is 12.7 and BUN 7.6 and creatinine 0.5 and calcium 6.8, albumin 2.9. 08/04/2023 Patient is lying in the bed still complains of pain in the epigastric and follows abdomen. Unable to tolerate oral diet. No complaints of fever or chills. Currently on room air. Remains nothing by mouth. No cough or sputum production. Laboratory data showed WBC 14.9 trending down, hemoglobin 9.9 and platelets 227 sodium 137 potassium 3.5 chloride 109 bicarb 20 BUN 12 creatinine 0.56 and blood sugar 66. Magnesium 1.0 which is being replaced with IV magnesium sulfate. Serial troponins negative. Oncology is on board. 08/05/2023 Patient is resting in the bed. Awake alert and oriented x 3. Abdominal pain is better. Patient would like to try liquids. Afebrile. No nausea or vomiting. No cough or sputum production. No chest pain or shortness of breath. Laboratory data showed WBC 8.8 normalized hemoglobin 10.5 and platelets 228 BUN less than 3.5 and creatinine 0.6 and potassium 3.5 magnesium went up to 1.6 and electrolytes replacing as per protocol. P liquid diet on liquid diet and advance as tolerated. Current medications reviewed. Objective - Vital Signs Vital signs: Vital Signs Temp 97.3 F L 08/05/23 20:19 Pulse 87 08/05/23 20:19 Resp 16 08/05/23 20:19 BP 126/80 08/05/23 20:19 Pulse Ox 98 08/05/23 20:19 FiO2 Intake & Output 08/05/23 08/05/23 08/06/23 06:59 18:59 06:59 Other: Voiding Method Toilet Toilet Toilet # Voids 2 - Labs CBC & Chem 7: 08/06/23 08:45 08/06/23 08:45 Labs: Abnormal Lab Results - Last 24 Hours (Table) 08/05/23 08/05/23 Range/Units 06:55 06:55 RBC 3.19 L (4.10-5.20) X 10*6/uL Hgb 10.5 L (12.0-15.0) g/dL Hct 32.5 L (37.2-46.3) % MCV 101.9 H (80.0-97.0) FL MCH 32.9 H (27.0-32.0) pg Immature Gran # 0.15 H (0.00-0.04) X 10*3/uL Eosinophils # 0 L (0.04-0.35) X 10*3/uL BUN <3.5 L (9.0-27.0) mg/dL BUN/Creatinine Ratio <5.83 L (12.00-20.00) Ratio Calcium 8.1 L (8.7-10.3) mg/dL Assessment and Plan Assessment: Intractable nausea vomiting and diarrhea with recent chemo on 07/23/2023 Oral mucositis with recent steroid course. Hypoglycemia due to poor oral intake Hypomagnesemia Severe hypokalemia Generalized pain Breast cancer stage II currently on chemotherapy for cycle 4 GERD Obstructive sleep apnea IBS History of migraine headaches History of gastric ulcer History of bariatric surgery Anxiety/depression DVT prophylax with Lovenox subcu Plan: Patient will be continued on IV hydration with D5 normal saline and symptomatic management for nausea and vomiting with Zofran and PPI and continued pain management with Dilaudid. Replace electrolytes and follow-up closely. Oncology is on board.. Patient was started on liquid diet and advance as tolerated. Continue to monitor CBG Monitor H&H. Prognosis guarded. Continue to follow closely.. Time with Patient: Greater than 30
[2023-08-06] MEDS ORDERED: POTASSIUM CHLORIDE ER 20 MEQ TAB.ER PO STA (10:02)
[2023-08-06] MEDS: PSYLLIUM HUSK 100% 6 GM PACKET PO SCH (10:36)
[2023-08-06] MEDS: CALCIUM CARBONATE 500 MG CHEWABLE PO SCH (10:36)
[2023-08-06] MEDS: POTASSIUM BICARBONATE/CIT AC 20 MEQ TABLET.EFF PO STA (10:51)
[2023-08-06 11:56] LABS: Glucose,Whole Blood 99 mg/dL (70-110)
--- NOTE | 2023-08-06 14:12 | P.PN ---
Subjective Progress Note Date: 08/06/23 Principal diagnosis: V, abd pain, dehydration. Breast cancer, on neoadj treatment In f/u today pt reports stomach is sore, burning type pain, starts superior to naval , travels superiorly to middle of the chest, "gagging", "felt like vomiting" but did not. This happened after consuming broth so, she quit eating. Abd pain in gerneral is not worse, tolerates exam much better today. She did not c/o diarrhea today. No further oral irritation, skin c/o are stable, topical Tx is helping. Objective - Vital Signs Vital signs: Vital Signs Temp 98.3 F 08/06/23 13:41 Pulse 88 08/06/23 13:41 Resp 16 08/06/23 13:41 BP 102/64 08/06/23 13:41 Pulse Ox 96 08/06/23 13:41 FiO2 Intake & Output 08/05/23 08/06/23 08/06/23 18:59 06:59 18:59 Intake Total 110 Balance 110 Intake: Oral 110 Other: Voiding Method Toilet Toilet # Voids 2 2 - Constitutional General appearance: Present: average body habitus, cooperative, no acute distress - EENT Eyes: Present: anicteric sclerae, EOMI ENT: Present: hearing grossly normal - Respiratory Respiratory: bilateral: CTA - Cardiovascular Rhythm: regular - Peripheral edema leg Peripheral Edema: bilateral: None - Gastrointestinal Gastrointestinal Comment(s): pt did not jump with palpation of abd, she did not guard or push hands away. No distension. General gastrointestinal: Present: normal bowel sounds, soft - Integumentary Integumentary: Present: normal - Neurologic Neurologic: Present: CNII-XII intact - Musculoskeletal Musculoskeletal: Present: generalized weakness, strength equal bilaterally - Psychiatric Psychiatric: Present: A&O x's 3, appropriate affect, intact judgment & insight - Labs CBC & Chem 7: 08/06/23 08:45 08/06/23 08:45 Labs: Abnormal Lab Results - Last 24 Hours (Table) 08/06/23 08/06/23 Range/Units 08:45 08:45 WBC 11.5 H (3.8-10.6) k/uL RBC 3.20 L (3.80-5.40) m/uL Hgb 10.6 L (11.4-16.0) gm/dL Hct 32.3 L (34.0-46.0) % MCV 100.8 H (80.0-100.0) fL Neutrophils # 10.2 H (1.3-7.7) k/uL Lymphocytes # 0.8 L (1.0-4.8) k/uL Potassium 3.3 L (3.5-5.1) mmol/L Chloride 109 H (98-107) mmol/L BUN <2 L (7-17) mg/dL Calcium 8.0 L (8.4-10.2) mg/dL Assessment and Plan (1) Nausea & vomiting Current Visit: Yes Status: Acute Priority: High Code(s): R11.2 - NAUSEA WITH VOMITING, UNSPECIFIED SNOMED Code(s): 93638774 (2) Abdominal pain Current Visit: Yes Status: Acute Priority: High Code(s): R10.9 - UNSPECIFIED ABDOMINAL PAIN SNOMED Code(s): 73280651 (3) Mucositis Current Visit: Yes Status: Acute Priority: High Code(s): K12.30 - ORAL MUC OSITIS (ULCERATIVE), UNSPECIFIED SNOMED Code(s): 23079632 (4) Dry skin Current Visit: Yes Status: Acute Priority: High Code(s): L85.3 - XEROSIS CUTIS SNOMED Code(s): 59071425 (5) Eye abnormalities Current Visit: Yes Status: Acute Priority: High Code(s): 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 Pt unable to tolerate fluid recommendations 2/2 bariatric surgery -Meds/supportive care for all the above symptoms ordered. Slow to improved, but cont to improve -c-diff negative, pt is using antidiarrheals -cont topical Tx for drug rash and dry skin -cont aggressive oral care Abdominal pain -Persists abd discomfort, much less intense response to exam today. She did make herself NPO after episode of what sounds like severe heartburn yesterday. PPI added, TUMS was ordered and available. Pt will try. She is willing to try clear liquids and advance diet as tolerated. -Abd xray yesterday was neg for acute process. -LFTs, amylase and lipase WNL Disorder of electrolytes -Patient was having challenges with management of electrolytes in the outpatient setting. Secondary to chemo and inability to consume adequate calories and fluid because of bariatric surgery -Pt was provided with multiple formulations of electrolyte supplements to aid in maintaining electrolyte levels. Pt does not always take as it can cause stomach upset for her. We have been giving electrolytes with hydration outpt. We will cont to do so. -Patient is now on replacement protocols. Agree with plan. Breast cancer -Breast cancer, triple positive, on neoadjuvant treatment, clinical stage I. -Taxotere, carboplatin, Perjeta and Herceptin, 4/6 cycles completed. Last dose 07/22. She did receive G-CSF -Side effects above secondary to chemotherapy. -She had met with Dr. Carpenter last week. Plan was to continue treatment at the same doses with aggressive hydration after chemotherapy and supportive care medications. Eye c/o -Will defer to IM to decide if pt needs eye exam Discussed case with Attending. Pt diet will advance as tolerated. Once pt is able to tolerate oral intake she can be discharged. F/U appt in DC plan
[2023-08-06 17:36] LABS: Glucose,Whole Blood 96 mg/dL (70-110)
[2023-08-06] MEDS: SUCRALFATE 1 GM TAB PO SCH (17:54)
--- NOTE | 2023-08-06 19:57 | P.PN ---
Progress Note - Text Progress Note Date: 08/06/23 Patient is a 63-year-old female with a past medical history of GERD, obstructive sleep apnea, breast cancer currently on chemotherapy, anxiety/depression and a prior history of jose antonio-en-y presents to ER with complaints of nausea vomiting and diarrhea. Patient had last chemotherapy on 07/23/2023 which is a fourth dose. Patient was seen by oncology as an outpatient due to mouth sores and was started on steroids as well. Patient is also complaining of chest tightness and shortness of breath. Not able to tolerate oral diet. Presented to ER for further evaluation. Patient also having diffuse pain and feels fatigued. Mouth sores have improved however. Denies any fever or chills. No cough or sputum production. Chest x-ray showed no acute cardiopulmonary process Abdominal x-ray showed nonspecific bowel gas pattern without radiographic evidence of acute process. EKG showed sinus rhythm with occasional supraventricular premature complexes. Laboratory data showed WBC 22.7 hemoglobin 11.4 and platelets 290 Sodium 139 potassium 3.3 chloride 109 bicarb is 16 BUN 15 and creatinine 0.77 and blood sugar 68 liver enzymes are not elevated. Lipase 88 and amylase 42. Patient was given Zofran and IV Dilaudid and Pepcid which seemed to improve her symptoms. 08/03/2023 Patient is currently lying in the bed. Awake alert and oriented x 3. Nausea did improve. No complaints of chest pain or shortness of breath. Currently on room air. No headache or dizziness or lightheadedness. Patient is still having difficulty swallowing. Complains of mouth soreness. Denied hematemesis or melena. Patient did have bowel meant this morning. Patient is made n.p.o. due to mucositis. Otherwise patient was also hypoglycemic this morning requiring IV dextrose. Laboratory data showed WBC 16.95, hemoglobin 8.4 and platelets 220 Sodium 143 potassium 2.8 which has been replaced per protocol. Chloride 114 bicarb is 12.7 and BUN 7.6 and creatinine 0.5 and calcium 6.8, albumin 2.9. 08/04/2023 Patient is lying in the bed still complains of pain in the epigastric and follows abdomen. Unable to tolerate oral diet. No complaints of fever or chills. Currently on room air. Remains nothing by mouth. No cough or sputum production. Laboratory data showed WBC 14.9 trending down, hemoglobin 9.9 and platelets 227 sodium 137 potassium 3.5 chloride 109 bicarb 20 BUN 12 creatinine 0.56 and blood sugar 66. Magnesium 1.0 which is being replaced with IV magnesium sulfate. Serial troponins negative. Oncology is on board. 08/05/2023 Patient is resting in the bed. Awake alert and oriented x 3. Abdominal pain is better. Patient would like to try liquids. Afebrile. No nausea or vomiting. No cough or sputum production. No chest pain or shortness of breath. Laboratory data showed WBC 8.8 normalized hemoglobin 10.5 and platelets 228 BUN less than 3.5 and creatinine 0.6 and potassium 3.5 magnesium went up to 1.6 and electrolytes replacing as per protocol. P liquid diet on liquid diet and advance as tolerated. August 06, 2023: Patient seen this morning. Has been on liquid diet. Gets burning all of the chest. Unable to keep anything down. Having 4-5 bowel movements a day. Has been prescribed Questran but not taking the same. Has had a lengthy talk with the patient. Will try Metamucil to bulk up the stool. Diet discussed at length. Will try Ensure. Have the patient sit up in a chair, at least 4 meals. Active Medications Acetaminophen (Acetaminophen Tab 325 Mg Tab) 650 mg PO Q6HR PRN PRN Reason: Mild Pain or Fever > 100.5 Alprazolam (Alprazolam 0.25 Mg Tab) 0.25 mg PO HS PRN PRN Reason: Anxiety Calcium Carbonate/Glycine (Calcium Carbonate 500 Mg Chewable) 1,000 mg PO QID [facility] Last Admin: 08/06/23 17:54 Dose: 1,000 mg Al Hydroxide/Mg Hydroxide 30 ml/ Diphenhydramine HCl 75 mg/Lidocaine HCl 30 ml/Dexamethasone Sodium Phosphate 5 mg 0 ml PO TID [facility] Last Admin: 08/06/23 16:50 Dose: 5 ml Enoxaparin Sodium (Enoxaparin 30 Mg/0.3 Ml Syringe) 30 mg SQ DAILY [facility] Last Admin: 08/06/23 09:20 Dose: 30 mg Hydromorphone HCl (Hydromorphone 1 Mg/Ml 1 Ml Syringe) 1 mg IVP Q3HR PRN PRN Reason: Severe Pain (Scale 7 to 10) Last Admin: 08/06/23 13:15 Dose: 1 mg Hydromorphone HCl (Hydromorphone 0.5 Mg/0.5 Ml Syringe) 0.5 mg IVP Q3HR PRN PRN Reason: Moderate Pain (Scale 4 to 6) Last Admin: 08/04/23 09:51 Dose: 0.5 mg Sodium Chloride (Saline 0.9%) 1,000 mls @ 75 mls/hr IV .[id number] [facility] Last Admin: 08/06/23 10:53 Dose: Not Given Dextrose/Sodium Chloride (Dextrose 5%-Ns Iv Soln) 1,000 mls @ 75 mls/hr IV .[id number] [facility] Last Admin: 08/06/23 16:51 Dose: 75 mls/hr Loperamide HCl (Loperamide 2 Mg Cap) 2 mg PO QID PRN PRN Reason: Diarrhea Last Admin: 08/05/23 21:53 Dose: 2 mg Loratadine (Loratadine 10 Mg Tab) 10 mg PO DAILY [facility] Last Admin: 08/06/23 09:20 Dose: 10 mg Magnesium Oxide (Magnesium Oxide 400 Mg Tab) 400 mg PO DAILY [facility] Last Admin: 08/06/23 09:21 Dose: Not Given Miscellaneous Information (Potassium Replacement Protocol 1 Each Misc) 1 each MISCELLANE DAILY PRN; Protocol PRN Reason: Per Protocol Naloxone HCl (Naloxone 0.4 Mg/Ml 1 Ml Vial) 0.2 mg IV Q2M PRN PRN Reason: Opioid Reversal Olanzapine (Olanzapine 5 Mg Tab) 5 mg PO [facility] Ondansetron HCl (Ondansetron 4 Mg/2 Ml Vial) 4 mg IVP Q6HR PRN PRN Reason: Nausea And Vomiting Last Admin: 08/06/23 13:14 Dose: 4 mg Pantoprazole Sodium (Pantoprazole 40 Mg/10 Ml Vial) 40 mg IV BID [facility] Last Admin: 08/06/23 09:21 Dose: 40 mg Paroxetine HCl (Paroxetine 10 Mg Tab) 30 mg PO DAILY [facility] Last Admin: 08/06/23 09:20 Dose: 30 mg Petrolatum (Petrolatum, White Oint 50 Gm Tube) 1 applic TOPICAL QID PRN; Protocol PRN Reason: Dry Skin Psyllium Hydrophilic Mucilloid (Psyllium Husk 100% 6 Gm Packet) 6 gm PO BID [facility] Last Admin: 05/23/24 10:36 Dose: 6 gm Sodium Bicarbonate (Salt And Soda Mouthwash 1,000 Ml) 5 ml PO 5XD [facility] Last Admin: 08/06/23 16:50 Dose: 5 ml Sucralfate (Sucralfate 1 Gm Tab) 1 gm PO ACHS [facility] Last Admin: 08/06/23 17:54 Dose: 1 gm Triamcinolone Acetonide (Triamcinolone Acet 0.1% Ointment 15 Gm Tube) 1 applic TOPICAL QID [facility]; Protocol Last Admin: 08/06/23 17:54 Dose: 1 applic On examination: VITAL SIGNS: [97.3, 81, 14, 125 x 77, 96% room air] GENERAL APPEARANCE: 90.4, reclining in bed, tired appearing. HEENT: Normal external appearance of nose and ear. Oral cavity normal EYES: Pupils equal. Conjunctiva normal. NECK: JVD not raised. Mass not palpable. RESPIRATORY: Respiratory effort normal. Lungs clear to auscultation. CARDIOVASCULAR: First and second sounds normal. No edema. ABDOMEN: Soft. Liver and spleen not palpable. No tenderness. No mass palpable. PSYCHIATRY: Alert and oriented x3. Mood and affect anxious INVESTIGATIONS, reviewed in the clinical context: August 06, 2023: White: 0.5 hemoglobin 10.6 platelets 193 sodium 138 potassium 3.3 creatinine 0.55 Assessment: Intractable nausea vomiting and diarrhea with recent chemo on 07/23/2023 Oral mucositis with recent steroid course. Hypoglycemia due to poor oral intake Hypomagnesemia Severe hypokalemia Generalized pain Breast cancer stage II currently on chemotherapy for cycle 4 GERD Obstructive sleep apnea IBS History of migraine headaches History of gastric ulcer History of bariatric surgery Anxiety/depression DVT prophylax with Lovenox subcu Plan: Discussed diet at length with the patient. Have sit up in a chair. Replace potassium. Tums added. Zyprexa added for nausea. Continue IV fluids. Patient's not been taking Questran. Will try Metamucil.
[2023-08-06 20:45] LABS: Glucose,Whole Blood 109 mg/dL (70-110)
[2023-08-06] MEDS: OLANZapine 5 MG TAB PO SCH (21:47)
[2023-08-06 22:38] LABS: Appearance,Urine Clear (Clear); Bacteria,Urine Rare /hpf; Bilirubin,Urine Negative (Negative); Blood,Urine Small (Negative); Color,Urine Light Yellow; Glucose,Urine (UA) Negative (Negative); Hyaline Casts,Urine 7 /lpf (0-2); Ketones,Urine Negative (Negative); Leukocyte Esterase,Urine Moderate (Negative); Mucus,Urine Many /hpf; Nitrite,Urine Negative (Negative); PH, Urine 5.5 (5.0-8.0); Protein,Urine Negative (Negative); RBC,Urine 4 /hpf (0-5); Specific Gravity,Urine 1.016 (1.001-1.035); Squamous Epithelial Cell,Urine <1 /hpf (0-4); Urobilinogen,Urine <2.0 mg/dL (<2.0); WBC,Urine 37 /hpf (0-5)
[2023-08-07 12:25] LABS: Glucose,Whole Blood 81 mg/dL (70-110)
[2023-08-07 13:02] VITALS: BMI 19.3
[2023-08-07 17:18] LABS: Glucose,Whole Blood 96 mg/dL (70-110)
--- NOTE | 2023-08-07 20:39 | P.PN ---
Subjective Progress Note Date: 08/07/23 Patient reporting feeling overall improved since admission but is still experiencing nausea vomiting. Anti-emetics are helping to better control symptoms. She states she was able to tolerate pudding and a couple bites of ice cream this morning but had nausea and vomiting about 30 minutes after eating. D iarrhea slowly improving, continues on Metamucil and Imodium. C. difficile negative. Counts stable. Objective - Vital Signs Vital signs: Vital Signs Temp 97.4 F L 08/07/23 07:37 Pulse 88 08/07/23 07:37 Resp 16 08/07/23 07:37 BP 97/64 08/07/23 07:37 Pulse Ox 96 08/07/23 02:06 FiO2 Intake & Output 08/06/23 08/07/23 08/07/23 18:59 06:59 18:59 Intake Total 935 Balance 935 Intake: Intake, IV Titration 825 Amount Dextrose 5%-0.9% NaCl 1, 825 000 ml @ 75 mls/hr IV . [id number] YAZMIN Rx#:[id number] Oral 110 Other: Voiding Method Toilet # Voids 2 - Constitutional General appearance: Present: average body habitus, no acute distress - EENT Eyes: Present: anicteric sclerae, EOMI ENT: Present: hearing grossly normal - Respiratory Details: breathing is even and unlabored - Cardiovascular Details: well perfused - Gastrointestinal Gastrointestinal Comment(s): diffuse, improving, no guarding General gastrointestinal: Present: soft, tenderness - Integumentary Integumentary: Absent: cyanotic, jaundiced - Neurologic Neurologic: Present: CNII-XII intact - Musculoskeletal Musculoskeletal: Present: strength equal bilaterally - Psychiatric Psychiatric: Present: A&O x's 3 - Labs CBC & Chem 7: 08/06/23 08:45 08/06/23 08:45 Labs: Abnormal Lab Results - Last 24 Hours (Table) 08/06/23 Range/Units 21:45 Urine Blood Small H (Negative) Ur Leukocyte Esterase Moderate H (Negative) Urine WBC 37 H (0-5) /hpf Urine Bacteria Rare H (None) /hpf Hyaline Casts 7 H (0-2) /lpf Urine Mucus Many H (None) /hpf Assessment and Plan (1) Abdominal pain Current Visit: Yes Status: Acute Priority: High Code(s): R10.9 - UNSPECIFIED ABDOMINAL PAIN SNOMED Code(s): 51419196 (2) Breast cancer Current Visit: Yes Status: Acute Priority: High Code(s): C50.919 - MALIGNANT NEOPLASM OF UNSP SITE OF UNSPECIFIED FEMALE BREAST SNOMED Code(s): 075952082 (3) Dehydration Current Visit: Yes Status: Acute Priority: High Code(s): E86.0 - DEHYDRATION SNOMED Code(s): 42339950 (4) Diarrhea Current Visit: Yes Status: Acute Priority: High Code(s): R19.7 - DIARRHEA, UNSPECIFIED SNOMED Code(s): 72417551 (5) Mucositis Current Visit: Yes Status: Acute Priority: High Code(s): K12.30 - ORAL MUCOSITIS (ULCERATIVE), UNSPECIFIED SNOMED Code(s): 90609162 (6) Nausea & vomiting Current Visit: Yes Status: Acute Priority: High Code(s): R11.2 - NAUSEA WITH VOMITING, UNSPECIFIED SNOMED Code(s): 14630046 Plan: Nausea and vomiting, diarrhea, mucositis -All secondary to chemotherapy. Pt unable to tolerate fluid recommendations 2/2 bariatric surgery -Meds/supportive care ordered. Slowly improving, but still experiencing bouts of n/v -c-diff negative, pt is using antidiarrheals -cont aggressive oral care Abdominal pain -Persists abd discomfort, much less intense response to exam today. She did make herself NPO after episode of what sounds like severe heartburn. PPI added, TUMS and carafate also was ordered. Currently on full liquis diet, was able to tolerate this morning, but ended having an episode approx 30 minutes after eating -Abd xray was neg for acute process. -LFTs, amylase and lipase WNL -If symptoms persist over the next 24-48 hours, will place pt on NPO diet for complete bowel rest, and will start TPN Disorder of electrolytes -Patient was having challenges with management of electrolytes in the outpatient setting. Secondary to chemo and inability to consume adequate calories and fluid because of bariatric surgery -Pt was provided with multiple formulations of electrolyte supplements to aid in maintaining electrolyte levels. Pt does not always take as it can cause stomach upset for her. We have been giving electrolytes with hydration outpt. We will cont to do so. -Patient is now on replacement protocols. Agree with plan. Breast cancer -Breast cancer, triple positive, on neoadjuvant treatment, clinical stage I. -Taxotere, carboplatin, Perjeta and Herceptin, 4/6 cycles completed. Last dose 07/22. She did receive G-CSF -Side effects above secondary to chemotherapy. -She had met with Dr. Carpenter last week. Plan was to continue treatment at the same doses with aggressive hydration after chemotherapy and supportive care medications. -F/U appt in DC plan Doctor attests: I performed a history and physical examination of this patient, developed impression and plan of care. Discussed with dictator. I agree with dictators note, documented as a scribe.
[2023-08-08 06:32] LABS: Glucose,Whole Blood 94 mg/dL (70-110)
--- NOTE | 2023-08-08 15:59 | P.PN ---
Progress Note - Text Progress Note Date: 08/08/23 Ms. Ervin is a very pleasant 63 yo female with history of ER/HI/HER2 positive breast cancer, currently on neoadjuvant chemo with TCHP, s/p C4 given on 07/23/23, here for abdominal pain, vomiting and diarrhea. Chemotherapy induced gastroenteritis and mucositis - Pt has been having difficulty wtih tolerating oral intake including liquid diet - Prior bariatric surgery - Continue antiemetics - Plan on TPN - Try soft diet, did well with tomato soup but tried various other things with vomiting - c-diff negative, pt is using antidiarrheals - cont aggressive oral care for mucositis, oral exam normal today - Pt describes more dysphagia as opposed to odynophagia now, as well as heartburn; no signs of oral thrush but I am concerned about hieu esophagitis, will start diflucan 100mg daily IV Abdominal pain, due to chemotherapy induced GI toxicity -Persists abd discomfort, much less intense response to exam today. She did make herself NPO after episode of what sounds like severe heartburn. PPI added, TUMS and carafate also was ordered. Currently on full liquis diet,tolerates diet at times, but vomits at other times -Change diet to soft diet to allow larger variety and possibly food such as mashed potatoes which may be easier to keep down -Consider GI consult if does not improve over next couple days -Abd xray was neg for acute process. -LFTs, amylase and lipase WNL Eye discharge -Artificial tears added -No conjunctival injection at this time Electrolyte replacement for electrolyte derangement, due to vomiting/diarrhea -repeat labs today Triple positive breast cancer -Due for C5 of TCHP on 08/13/23 -Hold chemotherapy until pt's symptoms are controlled -Xanax for anxiety Discussed with pt and family and they are agreeable. All questions answered. Discussed with nursing staff.
[2023-08-08] MEDS: FLUCONAZOLE IN NACL,ISO-OSM 100 MG in SALINE 1 50ML.BAG IVPB SCH (16:55)
[2023-08-08] MEDS: ALPRAZolam 0.5 MG TAB PO PRN (17:27)
[2023-08-08 17:44] LABS: Basophils % (A) 0 %; Eosinophils % (A) 0 %; HCT 30.6 % (34.0-46.0); HGB 9.5 gm/dL (11.4-16.0); Lymphocytes # (A) 1.2 k/uL (1.0-4.8); Lymphocytes % (A) 21 %; MCH 32.2 pg (25.0-35.0); MCHC 31.2 g/dL (31.0-37.0); MCV 103.3 fL (80.0-100.0); Macrocytosis Slight; Mean Platelet Volume 8.1; Monocytes # (A) 0.3 k/uL (0-1.0); Monocytes % (A) 5 %; Neutrophils # (A) 4.1 k/uL (1.3-7.7); Neutrophils % (A) 72 %; Platelet Count 146 k/uL (150-450); RBC 2.97 m/uL (3.80-5.40); RDW 13.5 % (11.5-15.5); WBC 5.6 k/uL (3.8-10.6)
[2023-08-08 17:54] LABS: ALT 31 U/L (4-34); AST 44 U/L (14-36); African American GFR (CKD) >90 (>60 ml/min/1.73 sqM); Albumin 2.6 g/dL (3.5-5.0); Albumin/Globulin Ratio 1.1; Alkaline Phosphatase 78 U/L (38-126); Anion Gap 2 mmol/L; Blood Urea Nitrogen <2 mg/dL (7-17); Carbon Dioxide 29 mmol/L (22-30); Chloride 108 mmol/L (98-107); Globulin 2.3 g/dL; Glucose 86 mg/dL (74-99); Non-African American GFR(CKD) >90 (>60 ml/min/1.73 sqM); Potassium 3.3 mmol/L (3.5-5.1); Sodium 139 mmol/L (137-145); Total Bilirubin 0.3 mg/dL (0.2-1.3); Total Protein 4.9 g/dL (6.3-8.2)
[2023-08-08] MEDS ORDERED: Potassium Replacement Protocol 1 EACH MISC MISCELLANE PRN (18:01)
[2023-08-08] MEDS ORDERED: Magnesium Replacement Protocol 1 EACH MISC MISCELLANE PRN (18:01)
[2023-08-08] MEDS: ARTIFICIAL TEARS-HYPROMELLOSE DROPS 15 ML BTL BOTH EYES PRN (18:05)
[2023-08-08] MEDS: MAGNESIUM SULFATE-D5W PMX 1 GM in DEXTROSE/WATER 1 100ML.BAG IVPB SCH (18:25)
[2023-08-08] MEDS: POTASSIUM CHLORIDE ER 20 MEQ TAB.ER PO SCH (19:40)
[2023-08-09 09:35] LABS: Basophils # (A) 0.03 X 10*3/uL (0.00-0.10); Basophils % (A) 0.6 %; Eosinophils # (A) 0 X 10*3/uL (0.04-0.35); Eosinophils % (A) 0 %; HCT 27.7 % (37.2-46.3); HGB 8.8 g/dL (12.0-15.0); Lymphocytes # (A) 1.25 X 10*3/uL (0.90-5.00); Lymphocytes % (A) 24.3 %; MCH 32.8 pg (27.0-32.0); MCHC 31.8 g/dL (32.0-37.0); MCV 103.4 FL (80.0-97.0); Monocytes # (A) 0.39 X 10*3/uL (0.20-1.00); Monocytes % (A) 7.6 %; NRBC Per 100 WBC 0 X 10*3/uL (0.00-0.01); Neutrophils # (A) 3.47 X 10*3/uL (1.80-7.70); Neutrophils % (A) 67.3 %; Platelet Count 141 X 10*3/uL (140-440); RBC 2.68 X 10*6/uL (4.10-5.20); RDW 13.4 % (11.5-14.5); WBC 5.15 X 10*3/uL (4.50-10.00)
[2023-08-09 10:42] LABS: BUN/Creat Ratio <5.00 Ratio (12.00-20.00); Blood Urea Nitrogen <3.5 mg/dL (9.0-27.0); Calcium 8.1 mg/dL (8.7-10.3); Carbon Dioxide 28.5 mmol/L (21.6-31.8); Chloride 108 mmol/L (96-109); Glucose 91 mg/dL (70-110); Magnesium 2.3 mg/dL (1.5-2.4); Potassium 3.5 mmol/L (3.5-5.5); Sodium 144 mmol/L (135-145)
[2023-08-09 13:58] LABS: Glucose,Whole Blood 120 mg/dL (70-110)
--- NOTE | 2023-08-09 16:01 | P.PN ---
Subjective Progress Note Date: 08/07/23 63-year-old female with a past medical history of GERD, obstructive sleep apnea, breast cancer currently on chemotherapy, anxiety/depression and a prior history of jose antonio-en-y presents to ER with complaints of nausea vomiting and diarrhea. Patient had last chemotherapy on 07/23/2023 which is a fourth dose. Patient was seen by oncology as an outpatient due to mouth sores and was started on steroids as well. Patient is also complaining of chest tightness and shortness of breath. Not able to tolerate oral diet. Presented to ER for further evaluation. Patient also having diffuse pain and feels fatigued. Mouth sores have improved however. Denies any fever or chills. No cough or sputum production. Chest x-ray showed no acute cardiopulmonary process Abdominal x-ray showed nonspecific bowel gas pattern without radiographic evidence of acute process. EKG showed sinus rhythm with occasional supraven tricular premature complexes. Laboratory data showed WBC 22.7 hemoglobin 11.4 and platelets 290 Sodium 139 potassium 3.3 chloride 109 bicarb is 16 BUN 15 and creatinine 0.77 and blood sugar 68 liver enzymes are not elevated. Lipase 88 and amylase 42. Patient was given Zofran and IV Dilaudid and Pepcid which seemed to improve her symptoms. Objective - Vital Signs Vital signs: Vital Signs Temp 97.5 F L 08/07/23 19:14 Pulse 81 08/07/23 19:14 Resp 15 08/07/23 19:14 BP 100/65 08/07/23 19:14 Pulse Ox 98 08/07/23 19:14 FiO2 Intake & Output 08/07/23 08/07/23 08/08/23 06:59 18:59 06:59 Intake Total 236 Balance 236 Weight 54.431 kg Intake: Oral 236 Other: Voiding Method Toilet Toilet # Voids 2 - Exam Patient is lying in the bed comfortably, no acute distress, awake alert and oriented.. HEENT: Normocephalic. Neck is supple. Pupils reactive. Nostrils clear. Oral cavity is moist. Neck reveals no JVD, carotid bruits, or thyromegaly. CHEST EXAMINATION: Trachea is central. Symmetrical expansion. Lung card clear to auscultation and percussion. CARDIAC: Normal S1, S2 with no gallops. No murmurs ABDOMEN: Soft. Bowel sounds normal. No organomegaly. No abdominal bruits. Extremities: reveal no edema. No clubbing or cyanosis Neurologically awake, alert, oriented x3 with well-coordinated movements. No focal deficits noted Skin: No rash or skin lesions. Psychiatric: Coperative. Nonsuicidal Musculoskeletal: No joint swelling or deformity. Normal range of motion. - Labs CBC & Chem 7: 08/09/23 06:11 08/09/23 06:11 Assessment and Plan Assessment: Intractable nausea vomiting and diarrhea with recent chemo on 07/23/2023 Oral mucositis with recent steroid course. Hypoglycemia due to poor oral intake Hypomagnesemia Severe hypokalemia Generalized pain Breast cancer stage II currently on chemotherapy for cycle 4 GERD Obstructive sleep apnea IBS History of migraine headaches History of gastric ulcer History of bariatric surgery Anxiety/depression DVT prophylax with Lovenox subcu Plan: Patient will be continued on IV hydration with D5 normal saline and symptomatic management for nausea and vomiting with Zofran and PPI and continued pain management with Dilaudid. Replace electrolytes and follow-up closely. Oncology is on board.. Patient was started on liquid diet and advance as tolerated. Continue to monitor CBG Monitor H&H. Prognosis guarded. Continue to follow closely..
--- NOTE | 2023-08-09 16:03 | P.PN ---
Subjective Progress Note Date: 08/08/23 63-year-old female with a past medical history of GERD, obstructive sleep apnea, breast cancer currently on chemotherapy, anxiety/depression and a prior history of jose antonio-en-y presents to ER with complaints of nausea vomiting and diarrhea. Patient had last chemotherapy on 07/23/2023 which is a fourth dose. Patient was seen by oncology as an outpatient due to mouth sores and was started on steroids as well. Patient is also complaining of chest tightness and shortness of breath. Not able to tolerate oral diet. Presented to ER for further evaluation. Patient also having diffuse pain and feels fatigued. Mouth sores have improved however. Denies any fever or chills. No cough or sputum production. Chest x-ray showed no acute cardiopulmonary process Abdominal x-ray showed nonspecific bowel gas pattern without radiographic evidence of acute process. EKG showed sinus rhythm with occasional supraven tricular premature complexes. Laboratory data showed WBC 22.7 hemoglobin 11.4 and platelets 290 Sodium 139 potassium 3.3 chloride 109 bicarb is 16 BUN 15 and creatinine 0.77 and blood sugar 68 liver enzymes are not elevated. Lipase 88 and amylase 42. Patient was given Zofran and IV Dilaudid and Pepcid which seemed to improve her symptoms. Patient is seen and evaluated in room at bedside; he members present in the room; continues to report nausea and vomiting but improved response with antiemetic therapy; agreeable to be placed on a clear liquid diet with plans to advance as tolerated --- Patient has been placed on a full liquid diet with plans to advance as tolerated; continues to have diarrhea; has not tried Metamucil Objective - Vital Signs Vital signs: Vital Signs Temp 97.8 F 08/08/23 07:08 Pulse 78 08/08/23 07:08 Resp 18 08/08/23 07:08 BP 99/64 08/08/23 07:08 Pulse Ox 97 08/08/23 07:08 FiO2 Intake & Output 08/07/23 08/08/23 08/08/23 18:59 06:59 18:59 Intake Total 236 Balance 236 Weight 54.431 kg Intake: Oral 236 Other: Voiding Method Toilet # Voids 2 # Bowel Movements 2 - Exam Patient is lying in the bed comfortably, no acute distress, awake alert and oriented.. HEENT: Normocephalic. Neck is supple. Pupils reactive. Nostrils clear. Oral cavity is moist. Neck reveals no JVD, carotid bruits, or thyromegaly. CHEST EXAMINATION: Trachea is central. Symmetrical expansion. Lung card clear to auscultation and percussion. CARDIAC: Normal S1, S2 with no gallops. No murmurs ABDOMEN: Soft. Bowel sounds normal. No organomegaly. No abdominal bruits. Extremities: reveal no edema. No clubbing or cyanosis Neurologically awake, alert, oriented x3 with well-coordinated movements. No focal deficits noted Skin: No rash or skin lesions. Psychiatric: Coperative. Nonsuicidal Musculoskeletal: No joint swelling or deformity. Normal range of motion. - Labs CBC & Chem 7: 08/09/23 06:11 08/09/23 06:11 Labs: Microbiology - Last 24 Hours (Table) 08/06/23 21:45 Urine Culture - Final Urine,Voided Assessment and Plan Assessment: Intractable nausea vomiting and diarrhea with recent chemo on 07/23/2023 Oral mucositis with recent steroid course. Hypoglycemia due to poor oral intake Hypomagnesemia Severe hypokalemia Generalized pain Breast cancer stage II currently on chemotherapy for cycle 4 GERD Obstructive sleep apnea IBS History of migraine headaches History of gastric ulcer History of bariatric surgery Anxiety/depression DVT prophylax with Lovenox subcu Plan: Patient will be continued on IV hydration with D5 normal saline and symptomatic management for nausea and vomiting with Zofran and PPI and continued pain management with Dilaudid. Replace electrolytes and follow-up closely. Oncology is on board.. Patient was started on liquid diet and advance as tolerated. Continue to monitor CBG Monitor H&H. Prognosis guarded. Continue to follow closely..
--- NOTE | 2023-08-09 16:05 | P.PN ---
Subjective Progress Note Date: 08/09/23 63-year-old female with a past medical history of GERD, obstructive sleep apnea, breast cancer currently on chemotherapy, anxiety/depression and a prior history of jose antonio-en-y presents to ER with complaints of nausea vomiting and diarrhea. Patient had last chemotherapy on 07/23/2023 which is a fourth dose. Patient was seen by oncology as an outpatient due to mouth sores and was started on steroids as well. Patient is also complaining of chest tightness and shortness of breath. Not able to tolerate oral diet. Presented to ER for further evaluation. Patient also having diffuse pain and feels fatigued. Mouth sores have improved however. Denies any fever or chills. No cough or sputum production. Chest x-ray showed no acute cardiopulmonary process Abdominal x-ray showed nonspecific bowel gas pattern without radiographic evidence of acute process. EKG showed sinus rhythm with occasional supraven tricular premature complexes. Laboratory data showed WBC 22.7 hemoglobin 11.4 and platelets 290 Sodium 139 potassium 3.3 chloride 109 bicarb is 16 BUN 15 and creatinine 0.77 and blood sugar 68 liver enzymes are not elevated. Lipase 88 and amylase 42. Patient was given Zofran and IV Dilaudid and Pepcid which seemed to improve her symptoms. Patient is seen and evaluated in room at bedside; he members present in the room; continues to report nausea and vomiting but improved response with antiemetic therapy; agreeable to be placed on a clear liquid diet with plans to advance as tolerated --- Patient has been placed on a full liquid diet with plans to advance as tolerated; continues to have diarrhea; has not tried Metamucil 08/09/2023 Patient is seen and evaluated in room at bedside; reports she has been able to tolerate full liquid diet and is willing to advance to a soft diet and see if she is able to tolerate that Vital signs are reviewed and stable with temperature of 99, pulse 60, respirations 17 and blood pressure of 91/60 Lab review shows WBC of 5.15, hemoglobin of 8.8, platelet count of 141, sodium 145, potassium 3.5, BUNs/creatinine of 3.5/0.7, --Patient has been evaluated by oncology service and is recommended TPN if not able to tolerate and advance diet -- Patient wants to hold off on TPN at this time Objective - Vital Signs Vital signs: Vital Signs Temp 97.7 F 08/09/23 07:15 Pulse 80 08/09/23 07:15 Resp 18 08/09/23 07:15 BP 105/71 08/09/23 07:15 Pulse Ox 98 08/09/23 07:15 FiO2 Intake & Output 08/08/23 08/09/23 08/09/23 18:59 06:59 18:59 Intake Total 975 50 Balance 975 50 Intake: Intake, IV Titration 975 Amount Dextrose 5%-0.9% NaCl 1, 825 000 ml @ 75 mls/hr IV . [id number] YAZMIN Rx#:[id number] Fluconazole in NaCl,Iso- 50 Osm 100 mg In Saline 1 50ml.bag @ 50 mls/hr IVPB DAILY YAZMIN Rx#:[id number] Magnesium Sulfate-D5w Pmx 100 1 gm In Dextrose/Water 1 100ml.bag @ 100 mls/hr IVPB Q1H YAZMIN Rx#: [id number] Oral 50 Other: Voiding Method Toilet # Voids 3 - Exam Patient is lying in the bed comfortably, no acute distress, awake alert and oriented.. HEENT: Normocephalic. Neck is supple. Pupils reactive. Nostrils clear. Oral cavity is moist. Neck reveals no JVD, carotid bruits, or thyromegaly. CHEST EXAMINATION: Trachea is central. Symmetrical expansion. Lung card clear to auscultation and percussion. CARDIAC: Normal S1, S2 with no gallops. No murmurs ABDOMEN: Soft. Bowel sounds normal. No organomegaly. No abdominal bruits. Extremities: reveal no edema. No clubbing or cyanosis Neurologically awake, alert, oriented x3 with well-coordinated movements. No focal deficits noted Skin: No rash or skin lesions. Psychiatric: Coperative. Nonsuicidal Musculoskeletal: No joint swelling or deformity. Normal range of motion. - Labs CBC & Chem 7: 08/09/23 06:11 08/09/23 06:11 Labs: Abnormal Lab Results - Last 24 Hours (Table) 08/08/23 08/08/23 08/09/23 Range/Units 17:32 17:32 06:11 RBC 2.97 L (3.80-5.40) m/uL Hgb 9.5 L (11.4-16.0) gm/dL Hct 30.6 L (34.0-46.0) % MCV 103.3 H (80.0-100.0) fL MCH (27.0-32.0) pg MCHC (32.0-37.0) g/dL Plt Count 146 L (150-450) k/uL Eosinophils # (0.04-0.35) X 10*3/uL Potassium 3.3 L (3.5-5.1) mmol/L Chloride 108 H (98-107) mmol/L BUN <2 L <3.5 L (7-17) mg/dL BUN/Creatinine Ratio <5.00 L (12.00-20.00) Ratio Calcium 8.0 L 8.1 L (8.4-10.2) mg/dL Magnesium 1.0 L (1.6-2.3) mg/dL AST 44 H (14-36) U/L Total Protein 4.9 L (6.3-8.2) g/dL Albumin 2.6 L (3.5-5.0) g/dL 08/09/23 Range/Units 06:11 RBC 2.68 L (3.80-5.40) m/uL Hgb 8.8 L (11.4-16.0) gm/dL Hct 27.7 L (34.0-46.0) % MCV 103.4 H (80.0-100.0) fL MCH 32.8 H (27.0-32.0) pg MCHC 31.8 L (32.0-37.0) g/dL Plt Count (150-450) k/uL Eosinophils # 0 L (0.04-0.35) X 10*3/uL Potassium (3.5-5.1) mmol/L Chloride (98-107) mmol/L BUN (7-17) mg/dL BUN/Creatinine Ratio (12.00-20.00) Ratio Calcium (8.4-10.2) mg/dL Magnesium (1.6-2.3) mg/dL AST (14-36) U/L Total Protein (6.3-8.2) g/dL Albumin (3.5-5.0) g/dL Microbiology - Last 24 Hours (Table) 08/06/23 21:45 Urine Culture - Final Urine,Voided Assessment and Plan Assessment: Intractable nausea vomiting and diarrhea with recent chemo on 07/23/2023 Oral mucositis with recent steroid course. Hypoglycemia due to poor oral intake Hypomagnesemia Severe hypokalemia Generalized pain Breast cancer stage II currently on chemotherapy for cycle 4 GERD Obstructive sleep apnea IBS History of migraine headaches History of gastric ulcer History of bariatric surgery Anxiety/depression DVT prophylax with Lovenox subcu Plan: Patient will be continued on IV hydration with D5 normal saline and symptomatic management for nausea and vomiting with Zofran and PPI and continued pain management with Dilaudid. Replace electrolytes and follow-up closely. Oncology is on board.. Patient was started on liquid diet and advance as tolerated. Continue to monitor CBG Monitor H&H. Prognosis guarded. Continue to follow closely..
[2023-08-09] MEDS: ALPRAZolam 0.25 MG TAB PO PRN (21:04)
[2023-08-10 11:30] LABS: Glucose,Whole Blood 92 mg/dL (70-110)
--- NOTE | 2023-08-10 19:16 | PN ---
PROGRESS NOTE DATE OF SERVICE: 08/10/2023 SUBJECTIVE: This is a 63-year-old woman, who was admitted with intractable nausea, vomiting, and diarrhea after post chemo, is improving significantly. No chest pain. No palpitation. The patient is able to tolerate some food at this time. OBJECTIVE: VITAL SIGNS: Pulse 74, blood pressure 103/62, and respirations 16. CHEST: Clear to auscultation. CARDIOVASCULAR: S1 and S2. ABDOMEN: Soft. NERVOUS SYSTEM: Nonfocal. LABORATORY DATA: Hemoglobin is 8.8. Rest of the labs are noted. ASSESSMENT: 1. Intractable nausea, vomiting, and diarrhea; possible gastroenteritis secondary to chemotherapy. 2. Oral mucositis. 3. Hypoglycemia. 4. Hypokalemia. 5. Breast cancer stage II. 6. Gastroesophageal reflux disease. 7. Multiple complex medical issues. RECOMMENDATIONS: Recommend to continue current medical management and symptomatic treatment. I recommend repeat labs in the morning. Advance diet. Possible discharge in the next 24 hours. MMODL / IJN: [id number] /
[2023-08-10 20:56] LABS: Glucose,Whole Blood 102 mg/dL (70-110)
[2023-08-11 05:48] LABS: Glucose,Whole Blood 90 mg/dL (70-110)
[2023-08-11 10:41] LABS: Basophils # (A) 0.02 X 10*3/uL (0.00-0.10); Basophils % (A) 0.4 %; Eosinophils # (A) 0 X 10*3/uL (0.04-0.35); Eosinophils % (A) 0 %; HCT 28.7 % (37.2-46.3); HGB 8.9 g/dL (12.0-15.0); Lymphocytes % (A) 18.6 %; MCH 32.7 pg (27.0-32.0); MCV 105.5 FL (80.0-97.0); Mean Platelet Volume 11.6 FL (9.5-12.2); Monocytes # (A) 0.26 X 10*3/uL (0.20-1.00); Monocytes % (A) 4.8 %; NRBC Per 100 WBC 0 X 10*3/uL (0.00-0.01); Platelet Count 151 X 10*3/uL (140-440); RBC 2.72 X 10*6/uL (4.10-5.20); RDW 13.5 % (11.5-14.5); WBC 5.39 X 10*3/uL (4.50-10.00)
[2023-08-11 12:08] LABS: BUN/Creat Ratio 10.43 Ratio (12.00-20.00); Blood Urea Nitrogen 7.3 mg/dL (9.0-27.0); Calcium 8.4 mg/dL (8.7-10.3); Carbon Dioxide 29.6 mmol/L (21.6-31.8); Chloride 107 mmol/L (96-109); Glucose 89 mg/dL (70-110); Sodium 144 mmol/L (135-145)
--- NOTE | 2023-08-11 14:18 | PN ---
PROGRESS NOTE DATE OF SERVICE: 08/11/2023 SUBJECTIVE: This is a 63-year-old woman who was admitted with significant GI symptoms after chemotherapy, still complaining of some dysphagia. Nausea is better. No chest pain, no palpitations, no fever. OBJECTIVE: VITAL SIGNS: Pulse is 67, blood pressure 130/55, and respirations 16. CHEST: Few scattered rhonchi and crackles. ABDOMEN: Soft. NERVOUS SYSTEM: Nonfocal. LABORATORY DATA: Hemoglobin is 8.9. ASSESSMENT: 1. Intractable nausea, vomiting, diarrhea, possibly acute gastroenteritis secondary to chemotherapy. 2. Dysphagia, possibly esophageal candidiasis. 3. Oral mucositis. 4. Hypoglycemia. 5. Hypokalemia. 6. Breast cancer, stage III. 7. Gastroesophageal reflux disease. 8. Multiple complex medical issues. RECOMMENDATIONS: Recommended to continue current management, continue symptomatic treatment. I would recommend speech pathology evaluation and possible modified barium swallow, Diflucan. Closely follow with Oncology. Repeat labs. Further recommendations to follow. MMODL / IJN: [id number] /
[2023-08-11] MEDS: ONDANSETRON 4 MG/2 ML VIAL IVP PRN (14:27)
[2023-08-11] MEDS: NYSTATIN 100,000 UNIT/ML SUSP 500,000 UNIT/5 ML CUP PO SCH (14:30)
[2023-08-11 17:01] LABS: Glucose,Whole Blood 76 mg/dL (70-110)
--- NOTE | 2023-08-11 18:31 | P.PN ---
Subjective Progress Note Date: 08/11/23 Patient reporting feeling overall improved since admission but is still experiencing nausea, odynophagia and dysphagia. Improved oral intake. Currently on soft diet. Over the last 24 hours has tolerated about 50% of meals. Reports she is typically able to eat 50% of meals, but will begin to experience nausea at which time she stops eating. Denies vomiting today. Anti-emetics are improving symptoms. Objective - Vital Signs Vital signs: Vital Signs Temp 97.4 F L 08/11/23 08:00 Pulse 67 08/11/23 08:00 Resp 16 08/11/23 08:00 BP 134/55 08/11/23 08:00 Pulse Ox 98 08/11/23 08:00 FiO2 Intake & Output 08/10/23 08/11/23 08/11/23 18:59 06:59 18:59 Intake Total 354 Balance 354 Intake: Oral 354 Other: Voiding Method Toilet # Voids 1 4 - Constitutional General appearance: Present: average body habitus, no acute distress - EENT Eyes: Present: anicteric sclerae, EOMI ENT: Present: hearing grossly normal - Respiratory Details: breathing is even and unlabored - Cardiovascular Details: skin warm and dry - Gastrointestinal Gastrointestinal Comment(s): tenderness in RUQ, RLQ and LLQ, with guarding General gastrointestinal: Present: soft, tenderness - Integumentary Integumentary: Absent: cyanotic - Neurologic Neurologic: Present: CNII-XII intact - Musculoskeletal Musculoskeletal: Present: strength equal bilaterally - Psychiatric Psychiatric: Present: A&O x's 3 - Labs CBC & Chem 7: 08/11/23 06:51 08/11/23 06:51 Labs: Abnormal Lab Results - Last 24 Hours (Table) 08/11/23 Range/Units 06:51 RBC 2.72 L (4.10-5.20) X 10*6/uL Hgb 8.9 L (12.0-15.0) g/dL Hct 28.7 L (37.2-46.3) % MCV 105.5 H (80.0-97.0) FL MCH 32.7 H (27.0-32.0) pg MCHC 31.0 L (32.0-37.0) g/dL Eosinophils # 0 L (0.04-0.35) X 10*3/uL Assessment and Plan (1) Abdominal pain Current Visit: Yes Status: Acute Priority: High Code(s): R10.9 - UNSPECIFIED ABDOMINAL PAIN SNOMED Code(s): 89236891 (2) Breast cancer Current Visit: Yes Status: Acute Priority: High Code(s): C50.919 - MALIGNA NT NEOPLASM OF UNSP SITE OF UNSPECIFIED FEMALE BREAST SNOMED Code(s): 254 166773 (3) Dehydration Current Visit: Yes Status: Acute Priority: High Code(s): E86.0 - DEHYDRATION SNOMED Code(s): 90653470 (4) Diarrhea Current Visit: Yes Status: Acute Priority: High Code(s): R19.7 - DIARRHEA, UNSPECIFIED SNOMED Code(s): 93109097 (5) Mucositis Current Visit: Yes Status: Acute Priority: High Code(s): K12.30 - ORAL MUCOSITIS (ULCERATIVE), UNSPECIFIED SNOMED Code(s): 82701880 (6) Nausea & vomiting Current Visit: Yes Status: Acute Priority: High Code(s): R11.2 - NAUSEA WITH VOMITING, UNSPECIFIED SNOMED Code(s): 48956614 Plan: Chemotherapy induced gastroenteritis and mucositis -All secondary to chemotherapy. Pt unable to tolerate fluid recommendations 2/2 bariatric surgery -Meds/supportive care ordered. Slowly improving, but nausea still persisting. Will change zofran frequency to q4hrs -Reports improvement in odynophagia/dyspahgia since starting diflucan. Cont aggressive oral care. Oral exam normal today Abdominal pain -Persisting abd discomfort, improving. Continues on PPI, TUMS and carafate. Currently on soft diet. Oral intake slowly improving -Will hold TPN for now, if patient continues to tolerate oral intake -Encouraged increasing oral intake as tolerated Electrolyte replacement for electrolyte derangement, due to vomiting/diarrhea -Repeat labs today Breast cancer -Breast cancer, triple positive, on neoadjuvant treatment, clinical stage I. -Taxotere, carboplatin, Perjeta and Herceptin, 4/6 cycles completed. Last dose 07/22. She did receive G-CSF -Side effects above secondary to chemotherapy. -Plan was to continue treatment at the same doses with aggressive hydration after chemotherapy and supportive care medications. -Next treatment scheduled on 08/02. Will tentatively hold chemo for 1 week. F/U appt in DC plan
[2023-08-12 06:11] LABS: Glucose,Whole Blood 83 mg/dL (70-110)
--- NOTE | 2023-08-12 10:48 | FL ---
COMPARISON: NONE DATE OF EXAM: 08/12/2023 HISTORY: Dysphagia A number of thin and thick substances were ingested under the care of the department of speech pathol ogy. There is no evidence of aspiration or penetration. There is no evidence of obstruction. Mild reflux noted in there is mild vallecular residuals. DAP are not provided. 1 minute 19 seconds of fluoroscopy. No images submitted. IMPRESSION: 1. No evidence of aspiration or penetration.
[2023-08-12 14:56] LABS: Glucose,Whole Blood 90 mg/dL (70-110)
--- NOTE | 2023-08-12 15:22 | P.PN ---
Subjective Progress Note Date: 08/12/23 Patient reporting feeling overall improvement in symptoms since admission but is still experiencing nausea, odynophagia and dysphagia. Oral intake slowly improving. Currently on soft diet. Reports she is typically able to eat about 40-50% of meals, but will begin to experience nausea at which time she stops eating. Did have 1 episode of vomiting yesterday after lunch. Denies vomiting today. No diarrhea x 24hours. Underwent speech eval, no aspiration noted Objective - Vital Signs Vital signs: Vital Signs Temp 98.3 F 08/12/23 07:43 Pulse 69 08/12/23 07:43 Resp 16 08/12/23 07:43 BP 130/70 08/12/23 07:43 Pulse Ox 97 08/12/23 07:43 FiO2 Intake & Output 08/11/23 08/12/23 08/12/23 18:59 06:59 18:59 Weight 54.431 kg Other: Voiding Method Toilet # Voids 1 2 - Constitutional General appearance: Present: average body habitus, no acute distress - EENT EENT Comment(s): no mucositis noted Eyes: Present: anicteric sclerae, EOMI ENT: Present: hearing grossly normal - Respiratory Details: breathing is even and unlabored - Cardiovascular Details: skin warm and dry - Gastrointestinal General gastrointestinal: Present: soft, tenderness Localized gastrointestinal: tender: diffuse - Integumentary Integumentary: Absent: cyanotic, jaundiced - Musculoskeletal Musculoskeletal: Present: strength equal bilaterally - Psychiatric Psychiatric: Present: A&O x's 3 - Labs CBC & Chem 7: 08/11/23 06:51 08/11/23 06:51 Assessment and Plan (1) Abdominal pain Current Visit: Yes Status: Acute Priority: High Code(s): R10.9 - UNSPECIFIED ABDOMINAL PAIN SNOMED Code(s): 99161557 (2) Breast cancer Current Visit: Yes Status: Acute Priority: High Code(s): C50.919 - MA LIGNANT NEOPLASM OF UNSP SITE OF UNSPECIFIED FEMALE BREAST SNOMED Code(s): 710886475 (3) Dehydration Current Visit: Yes Status: Acute Priority: High Code(s): E86.0 - DEHYDRATION SNOMED Code(s): 68157255 (4) Diarrhea Current Visit: Yes Status: Acute Priority: High Code(s): R19.7 - DIARRHEA, UNSPECIFIED SNOMED Code(s): 17501324 (5) Mucositis Current Visit: Yes Status: Acute Priority: High Code(s): K12.30 - ORAL MUCOSITIS (ULCERATIVE), UNSPECIFIED SNOMED Code(s): 52184056 (6) Nausea & vomiting Current Visit: Yes Status: Acute Priority: High Code(s): R11.2 - NAUSEA WITH VOMITING, UNSPECIFIED SNOMED Code(s): 52809445 Plan: Chemotherapy induced gastroenteritis and mucositis -All secondary to chemotherapy. Pt unable to tolerate fluid recommendations 2/2 bariatric surgery -Meds/supportive care ordered. Sx slowly improving, but nausea still persisting, typically worsened after eating. Will change zofran to scheduled TID 30 minutes prior to meals, and q6hrs prn -Reports improvement in odynophagia/dyspahgia since starting diflucan. Cont aggressive oral care. Oral exam normal today Abdominal pain -Persisting abd discomfort, but improving. Continues on PPI, TUMS and carafate. Currently on soft diet. Oral intake slowly improving -Will hold TPN for now -Encouraged increasing oral intake as tolerated Electrolyte replacement for electrolyte derangement, due to vomiting/diarrhea -Repeat labs today Breast cancer -Breast cancer, triple positive, on neoadjuvant treatment, clinical stage I. -Taxotere, carboplatin, Perjeta and Herceptin, 4/6 cycles completed. Last dose 07/22. She did receive G-CSF -Counts stable -Side effects above secondary to chemotherapy. -Plan was to continue treatment at the same doses with aggressive hydration after chemotherapy and supportive care medications. -Next treatment scheduled on 08/12. Will tentatively hold chemo for 1 week. F/U appt in DC plan Case discussed with IM. If patient continues to tolerate oral intake and n/v is controlled, will plan for d/c in the next 24-48hrs. Will ensure patient has adequate anti-nausea regimen in place for home use with clinic f/u to reassess symptoms and nutrition/oral intake
[2023-08-12 17:20] LABS: Glucose,Whole Blood 90 mg/dL (70-110)
[2023-08-12] MEDS: ONDANSETRON 4 MG/2 ML VIAL IVP SCH (17:24)
[2023-08-13] MEDS: ONDANSETRON 4 MG/2 ML VIAL IVP PRN (04:10)
--- NOTE | 2023-08-13 05:49 | P.PN ---
Subjective Progress Note Date: 08/12/23 Is a 63-year-old female who follows with oncology outpatient with past medical history of breast cancer currently undergoing chemotherapy. Patient was hospitalized shortly after chemotherapy. With significant intractable nausea and vomiting with diarrhea and some dysphagia. Patient seen and evaluated by speech therapy underwent modified barium swallow with no overt signs of aspiration and is continued on current diet. Oncology following and will follow-up outpatient regarding treatment plan moving forward. Encourage small frequent meals and increase activity as tolerated. Review of systems: Constitutional: No reports of fatigue, fever, or chills Cardiovascular: No reports of chest pain or palpitations Respiratory: No reports of shortness of breath or cough GI: No reports of nausea, no reports of vomiting, no diarrhea : No reports of dysuria or retention Neurovascular: reports of generalized weakness All medications have been reviewed PHYSICAL EXAMINATION: GENERAL: The patient is alert and oriented x4, Well developed, thin built, elderly appearing HEENT: Pupils are round and equally reacting to light. EOMI. no scleral icterus. No conjunctival pallor. Normocephalic, atraumatic. No pharyngeal erythema. No thyromegaly. CARDIOVASCULAR: S1 and S2 muffled PULMONARY: diminished breath sounds bilaterally with no wheezing or rhonchi noted. ABDOMEN: soft. Nontender on exam. non-distended, normoactive bowel sounds. No palpable organomegaly. MUSCULOSKELETAL: No joint swelling or deformity. EXTREMITIES: No cyanosis, clubbing, or pedal edema. NEUROLOGICAL: Gross neurological examination did not reveal any focal deficits. Diffuse weakness SKIN: No rashes. Pale Assessment: Intractable nausea, vomiting, diarrhea likely acute gastroenteritis secondary to chemotherapy Dysphagia, likely esophageal candidiasis Oral mucositis Hypoglycemia Hypokalemia, improved History of breast cancer, stage III, currently undergoing chemotherapy GERD Mild protein calorie malnutrition with a BMI of 19.4 GI prophylaxis DVT prophylaxis Full code Plan: Recommend to continue with current medications and management with oncology following Continue with antidiarrheal and antinausea medication as needed and encouraged oral intake Patient underwent modified barium swallow study with no overt signs of aspiration there was some delay but no aspirating noted continue current diet Recommend soft foods and advance as tolerated Encouraged increase activity as tolerated with possible discharge planning in the next 24 hours Due to multiple complex medical issues, prognosis is guarded The impression and plan of care has been dictated by Nakia Baker, Nurse Practitioner as directed. Dr. Celso MD I have performed a history and examination and MDM of this patient, discussed the same with the dictator, and agree with the dictator's assessment and plan as written ,documented as a scribe. Based on total visit time, I have performed more than 50% of the visit. Objective - Vital Signs Vital signs: Vital Signs Temp 98.3 F 08/12/23 07:43 Pulse 69 08/12/23 07:43 Resp 16 08/12/23 07:43 BP 130/70 08/12/23 07:43 Pulse Ox 97 08/12/23 07:43 FiO2 Intake & Output 08/11/23 08/12/23 08/12/23 18:59 06:59 18:59 Weight 54.431 kg Other: Voiding Method Toilet # Voids 1 2 - Labs CBC & Chem 7: 08/11/23 06:51 08/11/23 06:51
[2023-08-13 06:29] LABS: Glucose,Whole Blood 70 mg/dL (70-110)
[2023-08-13] MEDS ORDERED: IOPAMIDOL CONTRAST (ORAL USE) VIAL PO PRN ×2 (13:09→13:27)
[2023-08-13] MEDS: IOPAMIDOL CONTRAST (ORAL USE) VIAL PO PRN (14:17)
[2023-08-13 17:06] LABS: Glucose,Whole Blood 86 mg/dL (70-110)
--- NOTE | 2023-08-13 19:19 | CT ---
EXAMINATION TYPE: CT abdomen pelvis w con DATE OF EXAM: 08/13/2023 HISTORY: abdominal pain with nausea and vomiting CT DLP: 1171mGycm Automated Exposure Control for Dose Reduction was Utilized. CONTRAST: CT scan of the abdomen and pelvis is performed with IV Contrast, patient injected with 100 mL of Isovue 300. COMPARISON: CT 09/23/2017 FINDINGS: LUNG BASES: No acute findings. Mild cardiomegaly with panchamber enlargement noted. LIVER: No suspicious findings. BILIARY TREE: No intrahepatic or extrahepatic ductal dilation. PANCREAS: No ductal dilation or focal finding. SPLEEN: No splenomegaly or focal findings. ADRENALS: No nodules. KIDNEYS: No acute process. BOWEL: No bowel dilation or focal inflammation. There is a marked volume of pancolonic stool present . PELVIC VISCERA: No acute findings. LYMPH NODES: No greater than 1cm abdominal or pelvic lymph nodes are appreciated. VASCULATURE: No acute process. OSSEOUS STRUCTURES: No significant abnormality is seen. IMPRESSION: Marked volume of pancolonic stool present.
--- NOTE | 2023-08-14 04:55 | P.PN ---
Subjective Progress Note Date: 08/13/23 This is a 63-year-old female who follows with oncology outpatient with past medical history of breast cancer currently undergoing chemotherapy. Patient was hospitalized shortly after chemotherapy. With significant intractable nausea and vomiting with diarrhea and some dysphagia. Patient seen and evaluated by speech therapy underwent modified barium swallow with no overt signs of aspiration and is continued on current diet. Oncology following and will follow-up outpatient regarding treatment plan moving forward. Encourage small frequent meals and increase activity as tolerated. 08/13/2023 Patient is seen in follow-up this morning continues to report nausea with abdominal pain and not tolerating much intake. Per nursing staff patient has been eating and tolerating with no vomiting noted. Patient also reports tenderness and having loose stool this morning and will obtain a CT of the abdomen. Blood sugars have been on the lower side will add dextrose with normal saline and potassium supplement with gentle IV hydration. Encouraged to increase activity as tolerated. Discussed with oncology and plan is follow-up in the outpatient setting once recovered to discuss treatment plan moving forward. " Review of systems: Constitutional: No reports of fatigue, fever, or chills Cardiovascular: No reports of chest pain or palpitations Respiratory: No reports of shortness of breath or cough GI: reports of nausea, no reports of vomiting, reports loose stools and continued abdominal pain : No reports of dysuria or retention Neurovascular: reports of generalized weakness All medications have been reviewed PHYSICAL EXAMINATION: GENERAL: The patient is alert and oriented x4, Well developed, thin built, elderly appearing HEENT: Pupils are round and equally reacting to light. EOMI. no scleral icterus. No conjunctival pallor. Normocephalic, atraumatic. No pharyngeal erythema. No thyromegaly. CARDIOVASCULAR: S1 and S2 muffled PULMONARY: diminished breath sounds bilaterally with no wheezing or rhonchi noted. ABDOMEN: soft. tender on exam. non-distended, normoactive bowel sounds. No palpable organomegaly. MUSCULOSKELETAL: No joint swelling or deformity. EXTREMITIES: No cyanosis, clubbing, or pedal edema. NEUROLOGICAL: Gross neurological examination did not reveal any focal deficits. Diffuse weakness SKIN: No rashes. Pale Assessment: Intractable nausea, vomiting, diarrhea likely acute gastroenteritis secondary to chemotherapy Dysphagia, likely esophageal candidiasis Oral mucositis Hypoglycemia Hypokalemia, improved History of breast cancer, stage III, currently undergoing chemotherapy GERD Mild protein calorie malnutrition with a BMI of 19.4 GI prophylaxis DVT prophylaxis Full code Plan: Recommend to continue with current medications and management with oncology following Continue with antidiarrheal and antinausea medication as needed and encouraged oral intake. Patient evaluated by speech with no overt signs of aspiration recommending to continue with current diet. Patient having continued abdominal pain and reports of loose stool will obtain a CT abdomen for further evaluation Recommend soft foods and advance as tolerated Encouraged increase activity as tolerated with possible discharge planning in the next 24-48 hours Due to multiple complex medical issues, prognosis is guarded The impression and plan of care has been dictated by Nakia Baker, Nurse Practitioner as directed. Dr. Celso MD I have performed a history and examination and MDM of this patient, discussed the same with the dictator, and agree with the dictator's assessment and plan as written ,documented as a scribe. Based on total visit time, I have performed more than 50% of the visit. Objective - Vital Signs Vital signs: Vital Signs Temp 97.5 F L 08/13/23 08:00 Pulse 77 08/13/23 08:00 Resp 16 08/13/23 08:00 BP 141/79 08/13/23 08:00 Pulse Ox 99 08/13/23 08:00 FiO2 Intake & Output 08/12/23 08/13/23 08/13/23 18:59 06:59 18:59 Other: Voiding Method Toilet Toilet # Voids 2 - Labs CBC & Chem 7: 08/11/23 06:51 08/11/23 06:51
[2023-08-14] MEDS: D5-0.9% NACL WITH KCL 20 MEQ/L 1,000 ML IV SCH (05:13)
[2023-08-14 06:38] LABS: Glucose,Whole Blood 85 mg/dL (70-110)
[2023-08-14 08:58] LABS: Basophils # (A) 0.01 X 10*3/uL (0.00-0.10); Basophils % (A) 0.2 %; Eosinophils # (A) 0 X 10*3/uL (0.04-0.35); Eosinophils % (A) 0 %; HCT 26.8 % (37.2-46.3); HGB 8.2 g/dL (12.0-15.0); Lymphocytes # (A) 1.39 X 10*3/uL (0.90-5.00); MCH 32.7 pg (27.0-32.0); MCHC 30.6 g/dL (32.0-37.0); MCV 106.8 FL (80.0-97.0); Mean Platelet Volume 11.1 FL (9.5-12.2); Monocytes # (A) 0.38 X 10*3/uL (0.20-1.00); Monocytes % (A) 7.4 %; NRBC Per 100 WBC 0 X 10*3/uL (0.00-0.01); Neutrophils # (A) 3.34 X 10*3/uL (1.80-7.70); Platelet Count 143 X 10*3/uL (140-440); RBC 2.51 X 10*6/uL (4.10-5.20); RDW 13.5 % (11.5-14.5); WBC 5.14 X 10*3/uL (4.50-10.00)
[2023-08-14 09:28] LABS: BUN/Creat Ratio 9.11 Ratio (12.00-20.00); Blood Urea Nitrogen 8.2 mg/dL (9.0-27.0); Calcium 8.4 mg/dL (8.7-10.3); Chloride 107 mmol/L (96-109); Glucose 160 mg/dL (70-110); Potassium 4.2 mmol/L (3.5-5.5); Sodium 143 mmol/L (135-145)
--- NOTE | 2023-08-14 10:37 | P.PN ---
Subjective Progress Note Date: 08/13/23 Patient reporting she had n/v after eating breakfast this morning. Also reporting 3 episodes of diarrhea and associated abdominal pain. Oral intake slowly improving. Currently on soft diet. Underwent speech eval, no aspiration noted. CT AP has been ordered by admitting team Objective - Vital Signs Vital signs: Vital Signs Temp 97.5 F L 08/13/23 08:00 Pulse 77 08/13/23 08:00 Resp 16 08/13/23 08:00 BP 141/79 08/13/23 08:00 Pulse Ox 99 08/13/23 08:00 FiO2 Intake & Output 08/12/23 08/13/23 08/13/23 18:59 06:59 18:59 Other: Voiding Method Toilet Toilet # Voids 2 - Constitutional General appearance: Present: no acute distress - EENT Eyes: Present: anicteric sclerae, EOMI ENT: Present: hearing grossly normal - Respiratory Details: breathing is even and unlabored - Cardiovascular Details: skin warm and dry - Gastrointestinal General gastrointestinal: Present: soft, tenderness Localized gastrointestinal: tender: diffuse - Integumentary Integumentary: Absent: cyanotic - Neurologic Neurologic: Present: CNII-XII intact - Musculoskeletal Musculoskeletal: Present: strength equal bilaterally - Psychiatric Psychiatric: Present: A&O x's 3 - Labs CBC & Chem 7: 08/14/23 06:15 08/14/23 06:15 Assessment and Plan (1) Abdominal pain Current Visit: Yes Status: Acute Priority: High Code(s): R10.9 - UNSPECIFIED ABDOMINAL PAIN SNOMED Code(s): 06207151 (2) Breast cancer Current Visit: Yes Status: Acute Priority: High Code(s): C50.919 - MALIGNA NT NEOPLASM OF UNSP SITE OF UNSPECIFIED FEMALE BREAST SNOMED Code(s): 254 036396 (3) Dehydration Current Visit: Yes Status: Acute Priority: High Code(s): E86.0 - DEHYDRATION SNOMED Code(s): 60495802 (4) Diarrhea Current Visit: Yes Status: Acute Priority: High Code(s): R19.7 - DIARRHEA, UNSPECIFIED SNOMED Code(s): 00935049 (5) Mucositis Current Visit: Yes Status: Acute Priority: High Code(s): K12.30 - ORAL MUCOSITIS (ULCERATIVE), UNSPECIFIED SNOMED Code(s): 45992735 (6) Nausea & vomiting Current Visit: Yes Status: Acute Priority: High Code(s): R11.2 - NAUSEA WITH VOMITING, UNSPECIFIED SNOMED Code(s): 03925054 Plan: Chemotherapy induced gastroenteritis and mucositis -All secondary to chemotherapy. Pt unable to tolerate fluid recommendations 2/2 bariatric surgery -Meds/supportive care ordered. Sx slowly improving, but nausea still persisting, typically worsened after eating. Will change zofran to scheduled TID 30 minutes prior to meals, and q6hrs prn -Reports improvement in odynophagia/dyspahgia since starting diflucan. Cont aggressive oral care. Oral exam normal today Abdominal pain -Persisting abd discomfort, but has improved. Continues on PPI, TUMS and carafate. Currently on soft diet. Oral intake slowly improving -Will hold TPN for now -Encouraged increasing oral intake as tolerated Breast cancer -Breast cancer, triple positive, on neoadjuvant treatment, clinical stage I. -Taxotere, carboplatin, Perjeta and Herceptin, 4/6 cycles completed. Last dose 07/22. She did receive G-CSF -Counts stable -Side effects above secondary to chemotherapy. -Plan was to continue treatment at the same doses with aggressive hydration after chemotherapy and supportive care medications. -Next treatment scheduled on 08/12. Will tentatively hold chemo for 1 week. F/U appt in DC plan Due to reported symptoms today, CT AP has been ordered Case discussed with IM. If CT scan negative and patient symptoms are controlled, will plan for d/c in the next 24hrs. Will ensure patient has adequate anti-nause a regimen in place for home use with clinic f/u to reassess symptoms and nutrition/oral intake Doctor attests: I performed a history and physical examination of this patient, developed impression and plan of care. Discussed with dictator. I agree with dictators note, documented as a scribe.
--- NOTE | 2023-08-14 15:53 | P.PN ---
Subjective Progress Note Date: 08/14/23 This is a 63-year-old female who follows with oncology outpatient with past medical history of breast cancer currently undergoing chemotherapy. Patient was hospitalized shortly after chemotherapy. With significant intractable nausea and vomiting with diarrhea and some dysphagia. Patient seen and evaluated by speech therapy underwent modified barium swallow with no overt signs of aspiration and is continued on current diet. Oncology following and will follow-up outpatient regarding treatment plan moving forward. Encourage small frequent meals and increase activity as tolerated. 08/13/2023 Patient is seen in follow-up this morning continues to report nausea with abdominal pain and not tolerating much intake. Per nursing staff patient has been eating and tolerating with no vomiting noted. Patient also reports tenderness and having loose stool this morning and will obtain a CT of the abdomen. Blood sugars have been on the lower side will add dextrose with normal saline and potassium supplement with gentle IV hydration. Encouraged to increase activity as tolerated. Discussed with oncology and plan is follow-up in the outpatient setting once recovered to discuss treatment plan moving forward. 08/14/2023 Patient seen and evaluated in follow-up today continues to report some abdominal discomfort although reports feels improved and is tolerating a little more oral intake. Patient continues with antinausea medication. Patient underwent CT of the abdomen showing marked volume of stool pancolon and will start lactulose and encouraged to increase activity as tolerated with sitting up in chair more frequently. Patient was noted per nursing staff to have a formed bowel stool yesterday evening although patient had been reporting to oncology she was having upwards of 8 loose stools in the morning. Patient is afebrile with no reported chest pain or shortness of breath. Plans for discharge planning possibly in 24 hours. Review of systems: Constitutional: No reports of fatigue, fever, or chills Cardiovascular: No reports of chest pain or palpitations Respiratory: No reports of shortness of breath or cough GI: reports of nausea, no reports of vomiting, reports improvement in abdominal pain and tolerating a little more intake, had a bowel movement yesterday : No reports of dysuria or retention Neurovascular: reports of generalized weakness All medications have been reviewed PHYSICAL EXAMINATION: GENERAL: The patient is alert and oriented x4, Well developed, thin built, elderly appearing HEENT: Pupils are round and equally reacting to light. EOMI. no scleral icterus. No conjunctival pallor. Normocephalic, atraumatic. No pharyngeal erythema. No thyromegaly. CARDIOVASCULAR: S1 and S2 muffled PULMONARY: diminished breath sounds bilaterally with no wheezing or rhonchi noted. ABDOMEN: soft. Less tender on exam. non-distended, normoactive bowel sounds. No palpable organomegaly. MUSCULOSKELETAL: No joint swelling or deformity. EXTREMITIES: No cyanosis, clubbing, or pedal edema. NEUROLOGICAL: Gross neurological examination did not reveal any focal deficits. Diffuse weakness SKIN: No rashes. Pale Assessment: Intractable nausea, vomiting, diarrhea likely acute gastroenteritis secondary to chemotherapy Dysphagia, likely secondary to esophageal candidiasis Oral mucositis Hypoglycemia Hypokalemia, improved History of breast cancer, stage III, currently undergoing chemotherapy GERD Acute severe protein calorie malnutrition with a BMI of 19.4 GI prophylaxis DVT prophylaxis Full code Plan: Recommend to continue with current medications and management with oncology following Continue with antinausea medication as needed and encouraged oral intake. Patient evaluated by speech with no overt signs of aspiration recommending to continue with current diet. Patient having continued abdominal pain and reports of loose stool CT abdomen obtained showing marked volume of stool noted throughout the colon. Will initiate lactulose until having bowel movements Recommend soft foods and advance as tolerated Encouraged increase activity as tolerated and sitting up in the chair at least 3 times per day discussed possible discharge planning in the next 24 hours Patient will need outpatient follow-up with oncology to discuss treatment plan moving forward. Due to multiple complex medical issues, prognosis is guarded The impression and plan of care has been dictated by Nakia Baker, Nurse Practitioner as directed. Dr. Celso MD I have performed a history and examination and MDM of this patient, discussed the same with the dictator, and agree with the dictator's assessment and plan as written ,documented as a scribe. Based on total visit time, I have performed more than 50% of the visit. Objective - Vital Signs Vital signs: Vital Signs Temp 97.7 F 08/14/23 07:35 Pulse 71 08/14/23 07:35 Resp 16 08/14/23 07:35 BP 109/74 08/14/23 07:35 Pulse Ox 98 08/14/23 07:35 FiO2 Intake & Output 08/13/23 08/14/23 08/14/23 18:59 06:59 18:59 Intake Total 118 Output Total 400 Balance 118 -400 Intake: Oral 118 Output: Urine 400 Other: Voiding Method Toilet Toilet # Voids 3 - Labs CBC & Chem 7: 08/14/23 06:15 08/14/23 06:15
[2023-08-14] MEDS: LACTULOSE 20 GM/30 ML CUP PO SCH (16:29)
[2023-08-14 17:11] LABS: Glucose,Whole Blood 124 mg/dL (70-110)
[2023-08-14 21:01] LABS: Glucose,Whole Blood 120 mg/dL (70-110)
--- NOTE | 2023-08-14 23:26 | P.PN ---
Subjective Progress Note Date: 08/14/23 Patient tolerated breakfast and lunch without vomiting. Began to experience mild abd discomfort and nausea after lunch but had no vomiting. Last episode of diarrhea yesterday. C diff negative. CT AP revealed marked volume of pancolonic stool, otherwise no acute processes noted. Patient has been started on metamucil Objective - Vital Signs Vital signs: Vital Signs Temp 98.5 F 08/14/23 14:00 Pulse 79 08/14/23 14:00 Resp 16 08/14/23 14:00 BP 100/66 08/14/23 14:00 Pulse Ox 97 08/14/23 14:00 FiO2 Intake & Output 08/13/23 08/14/23 08/14/23 18:59 06:59 18:59 Intake Total 118 358 Output Total 400 Balance 118 -400 358 Weight 54.431 kg Intake: Oral 118 358 Output: Urine 400 Other: Voiding Method Toilet Toilet # Voids 3 - Constitutional General appearance: Present: no acute distress - EENT Eyes: Present: anicteric sclerae, EOMI ENT: Present: hearing grossly normal - Respiratory Details: breathing is even and unlabored - Cardiovascular Details: well perfused - Gastrointestinal General gastrointestinal: Present: soft, tenderness Localized gastrointestinal: tender: diffuse - Integumentary Integumentary: Absent: cyanotic, jaundiced - Neurologic Neurologic: Present: CNII-XII intact - Musculoskeletal Musculoskeletal: Present: strength equal bilaterally - Psychiatric Psychiatric: Present: A&O x's 3 - Labs CBC & Chem 7: 08/14/23 06:15 08/14/23 06:15 Labs: Abnormal Lab Results - Last 24 Hours (Table) 08/14/23 08/14/23 Range/Units 06:15 06:15 RBC 2.51 L (4.10-5.20) X 10*6/uL Hgb 8.2 L (12.0-15.0) g/dL Hct 26.8 L (37.2-46.3) % MCV 106.8 H (80.0-97.0) FL MCH 32.7 H (27.0-32.0) pg MCHC 30.6 L (32.0-37.0) g/dL Eosinophils # 0 L (0.04-0.35) X 10*3/uL BUN 8.2 L (9.0-27.0) mg/dL BUN/Creatinine Ratio 9.11 L (12.00-20.00) Ratio Glucose 160 H (70-110) mg/dL Calcium 8.4 L (8.7-10.3) mg/dL - Imaging and Cardiology CT scan - abdomen: report reviewed CT scan - pelvis: report reviewed Assessment and Plan (1) Abdominal pain Current Visit: Yes Status: Acute Priority: High Code(s): R10.9 - UNSPECIFIED ABDOMINAL PAIN SNOMED Code(s): 30952423 (2) Breast cancer Current Visit: Yes Status: Acute Priority: High Code(s): C50.919 - MALIGNANT NEOPLASM OF UNSP SITE OF UNSPECIFIED FEMALE BREAST SNOMED Code(s): 892264749 (3) Dehydration Current Visit: Yes Status: Acute Priority: High Code(s): E86.0 - DEHYDRATION SNOMED Code(s): 04799312 (4) Diarrhea Current Visit: Yes Status: Acute Priority: High Code(s): R19.7 - DIARRHEA, UNSPECIFIED SNOMED Code(s): 25101030 (5) Mucositis Current Visit: Yes Status: Acute Priority: High Code(s): K12.30 - ORAL MUCOSITIS (ULCERATIVE), UNSPECIFIED SNOMED Code(s): 53633401 (6) Nausea & vomiting Current Visit: Yes Status: Acute Priority: High Code(s): R11.2 - NAUSEA WITH VOMITING, UNSPECIFIED SNOMED Code(s): 37793694 Plan: Chemotherapy induced gastroenteritis and mucositis -All secondary to chemotherapy. Pt unable to tolerate fluid recommendations 2/2 bariatric surgery -Meds/supportive care ordered. Sx slowly improving, but nausea still persisting, typically worsened after eating. Will change zofran to scheduled TID 30 minutes prior to meals, and q6hrs prn -Reports improvement in odynophagia/dyspahgia since starting diflucan. Cont aggressive oral care. Abdominal pain -Persisting abd discomfort, but has improved. Continues on PPI, TUMS and carafate. Currently on soft diet. Oral intake slowly improving -Will hold TPN for now -Encouraged increasing oral intake as tolerated -Due to reported symptoms of abdominal pain and persisting n/v, CT AP was obtained, showing marked volume of pancolonic stool, otherwise no acute processes noted. Patient has been started on metamucil. -Due to persisting symptoms general surgery consult placed for endoscopic evaluation. Pt is stable with no acute abdominal pathology or infection noted noted on CT AP. Would benefit from outpt scopes. Will await general surgery eval, if they clear pt for outpt evaluation, pt is cleared from med onc standpoint once cleared by IM and other consulted medical specialities. Breast cancer -Breast cancer, triple positive, on neoadjuvant treatment, clinical stage I. -Taxotere, carboplatin, Perjeta and Herceptin, 4/6 cycles completed. Last dose 07/22. She did receive G-CSF -Counts stable -Side effects above secondary to chemotherapy. -Plan was to continue treatment at the same doses with aggressive hydration after chemotherapy and supportive care medications. -Next treatment was scheduled on 08/12. Will tentatively hold chemo for 1 week. F/U appt in DC plan Case discussed with IM team today, once cleared by general surgery, pt is cleared for discharge form med onc standpoint, Will ensure patient has adequate anti-nausea regimen in place for home use with clinic f/u to reassess symptoms and nutritional status
[2023-08-15 04:10] LABS: Glucose,Whole Blood 89 mg/dL (70-110)
[2023-08-15] MEDS: ACETAMINOPHEN TAB 325 MG TAB PO PRN (11:44)
--- NOTE | 2023-08-15 15:25 | P.GSCN ---
History of Present Illness Consult date: 08/15/23 Reason for Consult: Constipation, Abdominal pain N/V. History of present illness: Patient is a 63-year-old female with a past medical history of GERD, obstructive sleep apnea, breast cancer currently on chemotherapy, anxiety/depression and a p rior history of jose antonio-en-y who orignally presented to [facility] ER on 08/02/23 with complaints of nausea vomiting and diarrhea. Patient had last chemotherapy on 07/23/2023 and states that since then she has had progressive N/V and diarrhea. She states that her symptoms had gotten progressively worse prompting her presentation to the ED. Patient was subsequently admitted to the hospital and started on IV fluid hydration, antiemetic therapy. Since then patient is able to tolerate regular diet without nausea and emesis. She endorses diarrhea and flatus. No melena or hematochezia. No dysuria or hematuria. She states that she still has postprandial abdominal pain, but states that this is improved since admission. No fevers or chills. No shortness of breath or chest pain. No headache or blurry vision. Patient underwent cross-sectional imaging on 08/13/2023 showing evidence of pancolonic stool burden. General surgery is consulted for further evaluation and treatment. Review of Systems Negative except for as stated above 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: Cancer, Chest Pain / Angina, GERD/Reflux, Sleep Apnea/CPAP/BIPAP Additional 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 / Comment(s): HX OF ULCER, HX MIGRAINES, IBS, PAST HX HTN AND HYPERLIPIDEMIA, NONE CURRENTLY. Breast Cancer History of Any Multi-Drug Resistant Organisms: None Reported Past Surgical History: Bariatric Surgery, Cholecystectomy, Heart Catheterization , Hysterectomy, Uterine Ablation Additional Past Surgical History / Comment(s): D&C, jose antonio-en-y 3. Past Anesthesia/Blood Transfusion Reactions: Postoperative Nausea & Vomiting (PONV) Additional Past Anesthesia/Blood Transfusion Reaction / Comm: CLAUSTERPHOBIA. Past Psychological History: Anxiety, Depression Smoking Status: Never smoker Past Alcohol Use History: None Reported Past Drug Use History: None Reported - Past Family History Father Family Medical History: Myocardial Infarction (NM) Mother Family Medical History: Cancer Additional Family Medical History / Comment(s): MOM IS 72 Medications and Allergies Home Medications Medication Instructions Recorded Confirmed Type Magnesium Oxide [Mag-Ox] 400 mg PO DAILY 10/10/18 08/02/23 History PARoxetine HCL [Paxil] 30 mg PO DAILY 10/10/18 08/02/23 History Sennosides [Senna] 8.6 mg PO HS PRN 10/10/18 08/02/23 History ALPRAZolam [Xanax] 0.5 mg PO TID PRN 08/02/23 08/02/23 History Cyanocobalamin [Vitamin B-12 1,000 mcg IM Q14D 08/02/23 08/02/23 History Injection] Diphenox-Atrop 2.5-0.025 mg 2 tab PO Q6H PRN 08/02/23 08/02/23 History [Lomotil] Docusate [Colace] 100 mg PO BID PRN 08/02/23 08/02/23 History Hydrocortisone Cream 1 applic TOPICAL TID PRN 08/02/23 08/02/23 History [Hydrocortisone 2.5% Cream] Kools 5 ml PO QID PRN 08/02/23 08/02/23 History Solution(Benadryl/Lidocaine/Maalox/Nystatin/Dexamethasone) Lidocaine-Prilocaine Cream [Emla 1 applic TOPICAL DIRECTED PRN 08/02/23 08/02/23 History Cream 2.5%/2.5%] OLANZapine 5 mg PO DIRECTED 08/02/23 08/02/23 History Ondansetron Odt [Zofran Odt] 4 - 8 mg PO Q4H PRN 08/02/23 08/02/23 History Potassium Chloride [Klor-Con M20] 20 meq PO DAILY 08/02/23 08/02/23 History dexAMETHasone [Decadron] 8 mg PO DIRECTED 08/02/23 08/02/23 History Allergies Allergy/AdvReac Type Severity Reaction Status Date / Time Penicillins Allergy Severe Rash/Hives Verified 08/02/23 17:01 morphine AdvReac Severe Chest Pain Verified 08/02/23 17:01 Surgical - Exam Vital Signs Temp Pulse Resp BP Pulse Ox 97.4 F L 91 18 121/79 100 08/02/23 11:06 08/02/23 11:06 08/02/23 11:06 08/02/23 11:06 08/02/23 11:06 Gen: AxO, NAD Pulm: non-labored respirations Abd: soft, non-tender, non-distended. No Guarding/rebound/rigidity Extrem: no edema seen Results - Labs 08/14/23 06:15 08/14/23 06:15 Abnormal Lab Results - Last 24 Hours (Table) 08/14/23 08/14/23 Range/Units 17:09 21:00 POC Glucose (mg/dL) 124 H 120 H (70-110) mg/dL Assessment and Plan Assessment: Patient is a 63F with PMH of GERD, RYGB, breast cancer currently on chemotherapy who presents with abdominal pain, N/V and CT evidence of colonic stool burden Plan: -Diet as tolerated -PRN pain and nausea control -IVF hydration -Bowel regimen with BID miralax -Encourage ambulation -No acute surgical intervention; will discuss colonoscopy during this admission with staff surgeon Krishna Llanes MD General Surgery
[2023-08-15 17:29] LABS: Glucose,Whole Blood 116 mg/dL (70-110)
[2023-08-16 05:00] LABS: Glucose,Whole Blood 85 mg/dL (70-110)
--- NOTE | 2023-08-16 06:12 | P.PN ---
Subjective Progress Note Date: 08/15/23 This is a 63-year-old female who follows with oncology outpatient with past medical history of breast cancer currently undergoing chemotherapy. Patient was hospitalized shortly after chemotherapy. With significant intractable nausea and vomiting with diarrhea and some dysphagia. Patient seen and evaluated by speech therapy underwent modified barium swallow with no overt signs of aspiration and is continued on current diet. Oncology following and will follow-up outpatient regarding treatment plan moving forward. Encourage small frequent meals and increase activity as tolerated. 08/13/2023 Patient is seen in follow-up this morning continues to report nausea with abdominal pain and not tolerating much intake. Per nursing staff patient has been eating and tolerating with no vomiting noted. Patient also reports tenderness and having loose stool this morning and will obtain a CT of the abdomen. Blood sugars have been on the lower side will add dextrose with normal saline and potassium supplement with gentle IV hydration. Encouraged to increase activity as tolerated. Discussed with oncology and plan is follow-up in the outpatient setting once recovered to discuss treatment plan moving forward. 08/14/2023 Patient seen and evaluated in follow-up today continues to report some abdominal discomfort although reports feels improved and is tolerating a little more oral intake. Patient continues with antinausea medication. Patient underwent CT of the abdomen showing marked volume of stool pancolon and will start lactulose and encouraged to increase activity as tolerated with sitting up in chair more frequently. Patient was noted per nursing staff to have a formed bowel stool yesterday evening although patient had been reporting to oncology she was having upwards of 8 loose stools in the morning. Patient is afebrile with no reported chest pain or shortness of breath. Plans for discharge planning possibly in 24 hours. 08/15/2023 Patient is seen this morning continues to report some abdominal pain and reports her bowel movements have been loose and is continued on lactulose. CT showed stool burden and with continued symptoms we will have general surgery evaluate the patient. Increase the lactulose and continue bowel regimen and assess for possible need of colonoscopy. Will follow-up on repeat labs and replace electrolytes per protocol. Encouraged increase activity as tolerated and small frequent meals. Oncology following and will follow-up outpatient to discuss treatment plan moving forward as patient was scheduled for chemotherapy on 08/13/2023 Review of systems: Constitutional: reports of fatigue, no fever, or chills Cardiovascular: No reports of chest pain or palpitations Respiratory: No reports of shortness of breath or cough GI: reports of nausea, no reports of vomiting, reports continued abdominal pain and attempting to tolerate a little more intake, reports having loose stools : No reports of dysuria or retention Neurovascular: reports of generalized weakness All medications have been reviewed PHYSICAL EXAMINATION: GENERAL: The patient is alert and oriented x4, Well developed, thin built, elderly appearing HEENT: Pupils are round and equally reacting to light. EOMI. no scleral icterus. No conjunctival pallor. Normocephalic, atraumatic. No pharyngeal erythema. No thyromegaly. CARDIOVASCULAR: S1 and S2 muffled PULMONARY: diminished breath sounds bilaterally with no wheezing or rhonchi noted. ABDOMEN: soft. Less tender on exam. non-distended, normoactive bowel sounds. No palpable organomegaly. MUSCULOSKELETAL: No joint swelling or deformity. EXTREMITIES: No cyanosis, clubbing, or pedal edema. NEUROLOGICAL: Gross neurological examination did not reveal any focal deficits. Diffuse weakness SKIN: No rashes. Pale Assessment: Intractable nausea, vomiting, diarrhea likely acute gastroenteritis secondary to chemotherapy Dysphagia, likely secondary to esophageal candidiasis Oral mucositis Hypoglycemia Hypokalemia, improved History of breast cancer, stage III, currently undergoing chemotherapy GERD Acute severe protein calorie malnutrition with a BMI of 19.4 GI prophylaxis DVT prophylaxis Full code Plan: Recommend to continue with current medications and management with oncology following Continue with antinausea medication as needed and encouraged oral intake. Patient evaluated by speech with no overt signs of aspiration recommending to continue with current diet. Patient having continued abdominal pain and reports of loose stool CT abdomen obtained showing marked volume of stool noted thro ughout the colon. Will initiate lactulose and make more frequently. General surgery consulted for evaluation and appreciate input and recommendations with possible need for colonoscopy Recommend soft foods and advance as tolerated Encouraged increase activity as tolerated and sitting up in the chair at least 3 times per day discussed possible discharge planning in the next 24 hours although patient appears hesitant to return home as she feels her symptoms are not significantly improved Patient will need outpatient follow-up with oncology to discuss treatment plan moving forward. Due to multiple complex medical issues, prognosis is guarded The impression and plan of care has been dictated by Nakia Baker, Nurse Practitioner as directed. Dr. Celso MD I have performed a history and examination and MDM of this patient, discussed the same with the dictator, and agree with the dictator's assessment and plan as written ,documented as a scribe. Based on total visit time, I have performed more than 50% of the visit. Objective - Vital Signs Vital signs: Vital Signs Temp 98.3 F 08/15/23 07:38 Pulse 85 08/15/23 07:38 Resp 16 08/15/23 07:38 BP 113/69 08/15/23 07:38 Pulse Ox 96 08/15/23 07:38 FiO2 Intake & Output 08/14/23 08/15/23 08/15/23 18:59 06:59 18:59 Intake Total 358 240 0 Output Total 1000 Balance -642 240 0 Weight 54.431 kg Intake: Oral 358 240 0 Output: Urine 1000 Other: # Voids 2 - Labs CBC & Chem 7: 08/14/23 06:15 08/14/23 06:15 Labs: Abnormal Lab Results - Last 24 Hours (Table) 08/14/23 08/14/23 Range/Units 17:09 21:00 POC Glucose (mg/dL) 124 H 120 H (70-110) mg/dL
[2023-08-16 07:16] LABS: Basophils % (A) 1 %; Eosinophils % (A) 1 %; HCT 28.5 % (34.0-46.0); HGB 8.8 gm/dL (11.4-16.0); Hypochromasia Moderate; Lymphocytes # (A) 1.4 k/uL (1.0-4.8); Lymphocytes % (A) 34 %; MCH 32.9 pg (25.0-35.0); MCHC 30.9 g/dL (31.0-37.0); MCV 106.3 fL (80.0-100.0); Macrocytosis Moderate; Mean Platelet Volume 8.2; Monocytes # (A) 0.3 k/uL (0-1.0); Monocytes % (A) 8 %; Neutrophils # (A) 2.3 k/uL (1.3-7.7); Neutrophils % (A) 56 %; Platelet Count 152 k/uL (150-450); RBC 2.68 m/uL (3.80-5.40); RDW 13.6 % (11.5-15.5); WBC 4.1 k/uL (3.8-10.6)
[2023-08-16 07:53] LABS: African American GFR (CKD) >90 (>60 ml/min/1.73 sqM); Anion Gap 1 mmol/L; Blood Urea Nitrogen 7 mg/dL (7-17); Calcium 8.2 mg/dL (8.4-10.2); Carbon Dioxide 28 mmol/L (22-30); Chloride 109 mmol/L (98-107); Glucose 76 mg/dL (74-99); Magnesium 1.4 mg/dL (1.6-2.3); Non-African American GFR(CKD) 88 (>60 ml/min/1.73 sqM); Potassium 4.1 mmol/L (3.5-5.1); Sodium 138 mmol/L (137-145)
[2023-08-16] MEDS: LACTULOSE 20 GM/30 ML CUP PO SCH (10:07)
[2023-08-16] MEDS: MAGNESIUM SULFATE-D5W PMX 1 GM in DEXTROSE/WATER 1 100ML.BAG IVPB SCH (10:24)
--- NOTE | 2023-08-16 13:08 | P.PN ---
Subjective Progress Note Date: 08/16/23 patient's complaints of constipation and some mild epigastric pain. She is requesting colonoscopy. On exam vital signs appear stable. Abdomen soft. Patient will be prepped for colonoscopy and have EGD performed tomorrow. Objective - Vital Signs Vital signs: Vital Signs Temp 97.6 F 08/16/23 07:35 Pulse 74 08/16/23 07:35 Resp 15 08/16/23 07:35 BP 110/72 08/16/23 07:35 Pulse Ox 97 08/16/23 07:35 FiO2 Intake & Output 08/15/23 08/16/23 08/16/23 18:59 06:59 18:59 Intake Total 0 Balance 0 Intake: Oral 0 Other: Voiding Method Toilet # Voids 2 - Labs CBC & Chem 7: 08/16/23 07:02 08/16/23 07:02 Labs: Abnormal Lab Results - Last 24 Hours (Table) 08/15/23 08/16/23 08/16/23 Range/Units 17:27 07:02 07:02 RBC 2.68 L (3.80-5.40) m/uL Hgb 8.8 L (11.4-16.0) gm/dL Hct 28.5 L (34.0-46.0) % MCV 106.3 H (80.0-100.0) fL MCHC 30.9 L (31.0-37.0) g/dL Chloride 109 H (98-107) mmol/L POC Glucose (mg/dL) 116 H (70-110) mg/dL Calcium 8.2 L (8.4-10.2) mg/dL Magnesium 1.4 L (1.6-2.3) mg/dL Microbiology - Last 24 Hours (Table) 08/13/23 21:22 Stool Culture - Preliminary Stool
[2023-08-16] MEDS: PEG 3350 (236 GM/BTL) + LYTES 4,000 ML BOTTLE PO ONE (14:52)
[2023-08-16 14:58] VITALS: RESP 16
[2023-08-16 17:53] LABS: Glucose,Whole Blood 102 mg/dL (70-110)
[2023-08-16 20:41] LABS: Glucose,Whole Blood 84 mg/dL (70-110)
--- NOTE | 2023-08-17 04:38 | PN ---
PROGRESS NOTE DATE OF SERVICE: 08/16/2023 SUBJECTIVE: This is a 63-year-old woman who was admitted with intractable nausea, vomiting, diarrhea, and possibly gastritis secondary to chemotherapy, significant constipation. Surgery is planning a colonoscopy tomorrow. Abdominal pelvis CAT scan reviewed. PAST MEDICAL HISTORY: Reviewed. REVIEW OF SYSTEMS: A 14-point review is negative except as mentioned above. CURRENT MEDICATIONS: Reviewed. OBJECTIVE: VITAL SIGNS: Pulse is 80, blood pressure 120/80, and respirations 16. CHEST: Scattered rhonchi and crackles. ABDOMEN: Soft, mild diffuse discomfort. LEGS: No edema, no swelling. NERVOUS SYSTEM: Nonfocal. LABORATORY DATA: Reviewed, hemoglobin, 8.8, magnesium 1.4. ASSESSMENT: 1. Intractable nausea, vomiting, diarrhea, possibly acute gastritis secondary to chemotherapy. 2. Severe constipation, continued abdominal pain. 3. Dysphagia, likely secondary to esophageal candidiasis. 4. Oral mucositis. 5. Hypoglycemia. 6. Hypokalemia. 7. History of breast cancer, stage III, currently undergoing chemotherapy. 8. Multiple complex medical issues. RECOMMENDATIONS: Recommended to continue current medications, continue symptomatic treatment. I would recommend magnesium replacement protocol. Repeat magnesium, pain management, symptomatic treatment, possible endoscope, colonoscopy by surgery. Further recommendations to follow. EGD and colonoscopy. MMODL / IJN: [id number] /
[2023-08-17 06:53] LABS: Glucose,Whole Blood 85 mg/dL (70-110)
[2023-08-17 08:43] LABS: Basophils # (A) 0.02 X 10*3/uL (0.00-0.10); Basophils % (A) 0.4 %; Eosinophils # (A) 0.07 X 10*3/uL (0.04-0.35); Eosinophils % (A) 1.5 %; HCT 27.9 % (37.2-46.3); HGB 8.7 g/dL (12.0-15.0); Lymphocytes # (A) 1.46 X 10*3/uL (0.90-5.00); Lymphocytes % (A) 31.3 %; MCHC 31.2 g/dL (32.0-37.0); MCV 102.6 FL (80.0-97.0); Mean Platelet Volume 10.8 FL (9.5-12.2); Monocytes # (A) 0.42 X 10*3/uL (0.20-1.00); NRBC Per 100 WBC 0 X 10*3/uL (0.00-0.01); Neutrophils # (A) 2.68 X 10*3/uL (1.80-7.70); Neutrophils % (A) 57.4 %; Platelet Count 153 X 10*3/uL (140-440); RBC 2.72 X 10*6/uL (4.10-5.20); RDW 13.6 % (11.5-14.5); WBC 4.67 X 10*3/uL (4.50-10.00)
[2023-08-17 08:59] LABS: BUN/Creat Ratio 7.62 Ratio (12.00-20.00); Blood Urea Nitrogen 6.1 mg/dL (9.0-27.0); Calcium 8.6 mg/dL (8.7-10.3); Carbon Dioxide 27.3 mmol/L (21.6-31.8); Chloride 104 mmol/L (96-109); Glucose 81 mg/dL (70-110); Magnesium 1.8 mg/dL (1.5-2.4); Potassium 4.7 mmol/L (3.5-5.5); Sodium 141 mmol/L (135-145)
[2023-08-17 12:18] LABS: Glucose,Whole Blood 89 mg/dL (70-110)
[2023-08-17] MEDS ORDERED: LIDOCAINE 1% INJ 10MG/ML (20 ML MDV) ONE (15:15)
[2023-08-17] MEDS ORDERED: PROPOFOL 10 MG/ML 20 ML VIAL IV ONE (15:15)
--- NOTE | 2023-08-17 15:48 | P.OP ---
Date of Procedure: 08/17/23 Preoperative Diagnosis: abdominal pain vomiting constipation Postoperative Diagnosis: poor colon prep Gastritis Procedure(s) Performed: EGD Colonoscopy Anesthesia: MAC Surgeon: Cleveland Bobo Pathology: other (stomach) Condition: stable Disposition: PACU Description of Procedure: the patient's placed on the endoscopy table in the lateral position. She received IV sedation. The gastro-/oropharynx and then passed in the esophagus into the stomach. Patient previous gastric bypass. The gastrojejunostomy was visualized. The GE junction was at 47 is. The gastric pouch was biopsied. There is some minimal inflammation seen. The distal esophagus appeared normal. The proximal esophagus appeared normal. Scope withdrawn for patient. Next digital rectal exam was performed. This revealed external hemorrhoids. The flexible colonoscope was then placed patient anus and passed into the left colon. In the left colon was a large amount liquid stool. At this point the scope was withdrawn. The visualized left colon and sigmoid colon appeared normal. Scope was then brought withdrawn from the patient.
[2023-08-17 17:16] LABS: Glucose,Whole Blood 105 mg/dL (70-110)
[2023-08-17 20:30] LABS: Glucose,Whole Blood 149 mg/dL (70-110)
--- NOTE | 2023-08-17 22:27 | PN ---
PROGRESS NOTE DATE OF SERVICE: 08/17/2023 SUBJECTIVE: This is a 63-year-old woman was admitted with multiple GI symptomatologies, scheduled to have endoscopes today. Surgery is following the patient closely. No fever, no cough. OBJECTIVE: VITAL SIGNS: Pulse 70, blood pressure 111/70, respirations 16. CHEST: Clear to auscultation. CARDIOVASCULAR: S1, S2. ABDOMEN: Soft, mild discomfort otherwise. LABORATORY DATA: Hemoglobin is 8.7. ASSESSMENT: 1. Intractable nausea, vomiting, diarrhea, possible acute gastroenteritis secondary to chemotherapy. 2. Severe constipation and continued abdominal pain, for endoscopes. 3. Dysphagia, likely secondary to esophageal candidiasis. 4. Oral mucositis. 5. Hypoglycemia. 6. Hypokalemia. 7. History of breast cancer, stage III, currently undergoing chemotherapy. RECOMMENDATIONS: Recommended to continue current management, continue symptomatic treatment. Continue with endoscopes. Closely follow with surgery. We will recommend to repeat labs tomorrow, possible discharge in the next 24 hours. Further recommendations to follow. MMODL / IJN: [id number] /
[2023-08-18 06:51] LABS: Glucose,Whole Blood 87 mg/dL (70-110)
[2023-08-18 08:41] LABS: Basophils # (A) 0.02 X 10*3/uL (0.00-0.10); Basophils % (A) 0.4 %; Eosinophils # (A) 0.09 X 10*3/uL (0.04-0.35); Eosinophils % (A) 1.8 %; HCT 28.7 % (37.2-46.3); Lymphocytes # (A) 1.42 X 10*3/uL (0.90-5.00); MCH 32.3 pg (27.0-32.0); MCHC 31.4 g/dL (32.0-37.0); MCV 102.9 FL (80.0-97.0); Mean Platelet Volume 11.1 FL (9.5-12.2); Monocytes # (A) 0.36 X 10*3/uL (0.20-1.00); Monocytes % (A) 7.1 %; NRBC Per 100 WBC 0 X 10*3/uL (0.00-0.01); Neutrophils # (A) 3.17 X 10*3/uL (1.80-7.70); Neutrophils % (A) 62.3 %; Platelet Count 176 X 10*3/uL (140-440); RBC 2.79 X 10*6/uL (4.10-5.20); RDW 13.4 % (11.5-14.5); WBC 5.08 X 10*3/uL (4.50-10.00)
[2023-08-18 09:13] LABS: BUN/Creat Ratio 9.75 Ratio (12.00-20.00); Blood Urea Nitrogen 7.8 mg/dL (9.0-27.0); Carbon Dioxide 26.6 mmol/L (21.6-31.8); Chloride 106 mmol/L (96-109); Glucose 81 mg/dL (70-110); Potassium 4.6 mmol/L (3.5-5.5); Sodium 142 mmol/L (135-145)
[2023-08-18 09:14] LABS: Calcium 8.6 mg/dL (8.7-10.3)
[2023-08-18 11:59] LABS: Glucose,Whole Blood 84 mg/dL (70-110)
[2023-08-18 17:26] LABS: Glucose,Whole Blood 135 mg/dL (70-110)
[2023-08-18] MEDS: HYDROcodone/APAP 5-325MG 1 EACH TAB PO PRN (17:57)
[2023-08-18 20:16] LABS: Glucose,Whole Blood 100 mg/dL (70-110)
--- NOTE | 2023-08-18 21:29 | P.PN ---
Subjective Progress Note Date: 08/18/23 Principal diagnosis: V, abd pain, dehydration. Breast cancer, on neoadj treatment In f/u today pt reports vomiting as recent as last night, though no one witnessed it, she vomited in sink. She reports nausea when seen after consuming about 75% of her lunch. Emesis basin was filled with items from the room-paper, envelops notebook, so these things were removed so pt could use if needed. Pain in low back and neck are called chronic by pt. She reports that the oral pain meds are adequate at this time and that IV pain meds can be stopped. No reported oral irritation, skin irritation. EGD and colonscopy done, poor prep. She is on medications for possible bowel blockage. Nursing reports semisolid stool, pt reports watery stool. Objective - Vital Signs Vital signs: Vital Signs Temp 98.5 F 08/18/23 14:05 Pulse 80 08/18/23 14:05 Resp 16 08/18/23 14:05 BP 100/68 08/18/23 14:05 Pulse Ox 96 08/18/23 14:05 FiO2 Intake & Output 08/17/23 08/18/23 08/18/23 18:59 06:59 18:59 Intake Total 540 360 Balance 540 360 Intake: Oral 540 360 Other: Voiding Method Toilet Toilet Toilet # Voids 3 - Constitutional General appearance: Present: average body habitus, cooperative, no acute distr ess - EENT Eyes: Present: anicteric sclerae, EOMI ENT: Present: hearing grossly normal, normal oropharynx - Respiratory Details: resp even and unlabored - Cardiovascular Details: skin warm and dry to touch - Peripheral edema leg Peripheral Edema: bilateral: None - Integumentary Integumentary: Present: normal - Neurologic Neurologic: Present: CNII-XII intact - Musculoskeletal Musculoskeletal: Present: strength equal bilaterally - Psychiatric Psychiatric: Present: A&O x's 3, appropriate affect, intact judgment & insight - Labs CBC & Chem 7: 08/18/23 05:55 08/18/23 05:55 Labs: Abnormal Lab Results - Last 24 Hours (Table) 08/17/23 08/18/23 08/18/23 Range/Units 20:28 05:55 05:55 RBC 2.79 L (4.10-5.20) X 10*6/uL Hgb 9.0 L (12.0-15.0) g/dL Hct 28.7 L (37.2-46.3) % MCV 102.9 H (80.0-97.0) FL MCH 32.3 H (27.0-32.0) pg MCHC 31.4 L (32.0-37.0) g/dL BUN 7.8 L (9.0-27.0) mg/dL BUN/Creatinine Ratio 9.75 L (12.00-20.00) Ratio POC Glucose (mg/dL) 149 H (70-110) mg/dL Calcium 8.6 L (8.7-10.3) mg/dL Assessment and Plan (1) Nausea & vomiting Current Visit: Yes Status: Acute Priority: High Code(s): R11.2 - NAUSEA WITH VOMITING, UNSPECIFIED SNOMED Code(s): 10234845 (2) Abdominal pain Current Visit: Yes Status: Resolved Priority: High Code(s): R10.9 - UNSPECIFIED ABDOMINAL PAIN SNOMED Code(s): 45307391 (3) Mucositis Current Visit: Yes Status: Resolved Priority: High Code(s): K12.30 - ORAL MUCOSITIS (ULCERATIVE), UNSPECIFIED SNOMED Code(s): 53702972 (4) Dry skin Current Visit: Yes Status: Acute Priority: High Code(s): L85.3 - XEROSIS CUTIS SNOMED Code(s): 64973926 (5) Eye abnormalities Current Visit: Yes Status: Resolved Priority: High Code(s): 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, UNSPECIFIED SNOMED Code(s): 70564735 (6) Diarrhea Current Visit: Yes Status: Acute Priority: High Code(s): R19.7 - DIARRHEA, UNSPECIFIED SNOMED Code(s): 58929489 (7) Breast cancer Current Visit: Yes Status: Acute Priority: High Code(s): C50.919 - MALIGNANT NEOPLASM OF UNSP SITE OF UNSPECIFIED FEMALE BREAST SNOMED Code(s): 412355436 (8) Disorder of electrolytes Current Visit: Yes Status: Resolved Priority: High Code(s): E87.8 - OTH DISORDERS OF ELECTROLYTE AND FLUID BALANCE, NEC SNOMED Code(s): 954242670 Plan: Nausea and vomiting, mucositis, dry skin and diarrhea -All secondary to chemotherapy. Pt unable to tolerate fluid recommendations 2/2 bariatric surgery -Meds/supportive care for all the above symptoms ordered. -Slow to improve. Still reporting vomiting though no documentation of the same -Pt is now using metamucil and lactulose for concerns for partial bowel obstruction. -Have asked pt to save all emesis and BM for Nursing to assess so we can get a clearer picture of consistency and frequency of expelled body fluids -cont topical Tx for drug rash and dry skin -cont aggressive oral care Abdominal pain-no c/o of the same. Disorder of electrolytes -Patient was having challenges with management of electrolytes in the outpatient setting. Secondary to chemo and inability to consume adequate calories and fluid because of bariatric surgery -Pt was provided with multiple formulations of electrolyte supplements to aid in maintaining electrolyte levels. Pt does not always take as it can cause stomach upset for her. We have been giving electrolytes with hydration outpt. We will cont to do so. -Patient received replacement protocols. Labs in AM. Breast cancer -Breast cancer, triple positive, on neoadjuvant treatment, clinical stage I. -Taxotere, carboplatin, Perjeta and Herceptin, 4/6 cycles completed. Last dose 07/22. She did receive G-CSF -Side effects above secondary to chemotherapy. -She had met with Dr. Carpenter last week. Plan was to continue treatment at the same doses with aggressive hydration after chemotherapy and supportive care medications. -Concerned if pt is ready to do treatment in 2 days. Discussed this with pt as she will just be getting out of the hospital. May consider stating treatment next thursday so pt can receive hydration and electrolyte supplements outpt in the office. She will think about it. Will see how she is doing in AM Eye c/o-resolved
--- NOTE | 2023-08-18 22:49 | P.PN ---
Subjective Patient is a pleasant 63 years old female with past medical history of multiple medical problems admitted with signs symptoms of gastroenteritis thought secondary to chemotherapy Also she was diagnosed with esophageal candidiasis and currently she has been treated with Diflucan and oral nystatin, she underwent EGD and colonoscopy showing gastritis with external hemorrhoids and constipation. Patient awake alert, she is in mild distress secondary to nausea vomiting this morning and she still have some abdominal pain requiring Dilaudid. However she is able to tolerate diet. We are going to continue monitoring. We will add [place] for better pain control Continue with antifungal therapy Significant clinic was negative. CT of the abdomen and pelvis showing pancolonic stool burden She is on D5 half-normal saline Objective - Vital Signs Vital signs: Vital Signs Temp 98.1 F 08/18/23 06:48 Pulse 65 08/18/23 06:48 Resp 16 08/18/23 06:48 BP 110/75 08/18/23 06:48 Pulse Ox 95 08/18/23 06:48 FiO2 Intake & Output 08/17/23 08/18/23 08/18/23 18:59 06:59 18:59 Intake Total 540 360 Balance 540 360 Intake: Oral 540 360 Other: Voiding Method Toilet Toilet Toilet # Voids 3 - Exam GENERAL: The patient is alert and oriented x3, not in any acute distress. Well developed, well nourished. HEENT: Pupils are round and equally reacting to light. EOMI. No scleral icterus. No conjunctival pallor. Normocephalic, atraumatic. No pharyngeal erythema. No thyromegaly. CARDIOVASCULAR: S1 and S2 present. No murmurs, rubs, or gallops. PULMONARY: Chest is clear to auscultation, no wheezing , no crackles. -ABDOMEN: Soft, mild abdominal tenderness tender, nondistended, normoactive bowel sounds. No palpable organomegaly. MUSCULOSKELETAL: No joint swelling or deformity. EXTREMITIES: No cyanosis, clubbing, or pedal edema. NEUROLOGICAL: Gross neurological examination did not reveal any focal deficits. SKIN: No rashes. no petechiae. - Labs CBC & Chem 7: 08/18/23 05:55 08/18/23 05:55 Labs: Abnormal Lab Results - Last 24 Hours (Table) 08/17/23 08/18/23 08/18/23 Range/Units 20:28 05:55 05:55 RBC 2.79 L (4.10-5.20) X 10*6/uL Hgb 9.0 L (12.0-15.0) g/dL Hct 28.7 L (37.2-46.3) % MCV 102.9 H (80.0-97.0) FL MCH 32.3 H (27.0-32.0) pg MCHC 31.4 L (32.0-37.0) g/dL BUN 7.8 L (9.0-27.0) mg/dL BUN/Creatinine Ratio 9.75 L (12.00-20.00) Ratio POC Glucose (mg/dL) 149 H (70-110) mg/dL Calcium 8.6 L (8.7-10.3) mg/dL Assessment and Plan Assessment: Acute gastroenteritis secondary to chemotherapy Dysphagia secondary to esophageal candidiasis Constipation with moderate stool burden Status post EGD and colonoscopy showing gastritis and external hemorrhoids Hypomagnesemia Breast cancer Plan: Continue with gentle hydration Advanced diet as tolerated S/p EGD and colonoscopy which is reviewed Surgery team on the case as well as hematology/oncology [place] 5 mg Continue with Diflucan and oral nystatin DVT prophylaxis with Lovenox GI prophylaxis with Protonix and Carafate Prognosis guarded
[2023-08-19 07:44] LABS: Glucose,Whole Blood 81 mg/dL (70-110)
[2023-08-19 08:13] LABS: Basophils % (A) 0 %; Eosinophils # (A) 0.1 k/uL (0-0.7); Eosinophils % (A) 3 %; HCT 33.2 % (34.0-46.0); HGB 10.5 gm/dL (11.4-16.0); Hypochromasia Moderate; Lymphocytes # (A) 1.7 k/uL (1.0-4.8); Lymphocytes % (A) 38 %; MCH 33.2 pg (25.0-35.0); MCHC 31.6 g/dL (31.0-37.0); MCV 105.2 fL (80.0-100.0); Macrocytosis Moderate; Mean Platelet Volume 9.1; Monocytes # (A) 0.3 k/uL (0-1.0); Monocytes % (A) 6 %; Neutrophils # (A) 2.3 k/uL (1.3-7.7); Neutrophils % (A) 52 %; Platelet Count 162 k/uL (150-450); RBC 3.16 m/uL (3.80-5.40); RDW 13.6 % (11.5-15.5); WBC 4.5 k/uL (3.8-10.6)
[2023-08-19 08:32] LABS: ALT 29 U/L (4-34); AST 34 U/L (14-36); African American GFR (CKD) 89 (>60 ml/min/1.73 sqM); Albumin 3.1 g/dL (3.5-5.0); Albumin/Globulin Ratio 1.3; Alkaline Phosphatase 87 U/L (38-126); Anion Gap 1 mmol/L; Blood Urea Nitrogen 10 mg/dL (7-17); Calcium 8.6 mg/dL (8.4-10.2); Carbon Dioxide 30 mmol/L (22-30); Chloride 106 mmol/L (98-107); Globulin 2.4 g/dL; Glucose 78 mg/dL (74-99); Magnesium 1.7 mg/dL (1.6-2.3); Non-African American GFR(CKD) 78 (>60 ml/min/1.73 sqM); Potassium 4.1 mmol/L (3.5-5.1); Sodium 137 mmol/L (137-145); Total Bilirubin 0.4 mg/dL (0.2-1.3); Total Protein 5.5 g/dL (6.3-8.2)
[2023-08-19 11:46] LABS: Glucose,Whole Blood 78 mg/dL (70-110)
[2023-08-19 11:58] VITALS: BP 98/62; PULSE 75; TEMP 98.1
--- NOTE | 2023-08-19 12:38 | P.PN ---
Subjective Progress Note Date: 08/19/23 CHIEF COMPLAINT: Abdominal pain HISTORY OF PRESENT ILLNESS: Patient status post EGD which showed gastritis. Colonoscopy not fully completed. Patient had poor bowel prep. Patient denies any abdominal pain. She is tolerating diet. Denies any vomiting. Afebrile. PHYSICAL EXAM: VITAL SIGNS: Reviewed. GENERAL: Well-developed in no acute distress. ABDOMEN: Soft. Nondistended. Nontender. NEUROLOGIC: Alert and oriented. Cranial nerves II through XII grossly intact. ASSESSMENT: 1. Abdominal pain status post EGD revealing gastritis. Colonoscopy poor bowel prep 2. Vomiting 3. Constipation PLAN: -Patient can be discharged from surgical standpoint -Continue PPI for gastritis -Continue good bowel regimen for constipation Physician Citrus Peeler note has been reviewed by physician. Signing provider agrees with the documented findings, assessment, and plan of care. Objective - Vital Signs Vital signs: Vital Signs Temp 98.1 F 08/19/23 11:42 Pulse 75 08/19/23 11:42 Resp 16 08/19/23 11:42 BP 98/62 08/19/23 11:42 Pulse Ox 96 08/19/23 11:42 FiO2 Intake & Output 08/18/23 08/19/23 08/19/23 18:59 06:59 18:59 Weight 54.431 kg Other: Voiding Method Toilet Toilet # Voids 3 # Bowel Movements 1 1 - Labs CBC & Chem 7: 08/19/23 07:18 08/19/23 07:18 Labs: Abnormal Lab Results - Last 24 Hours (Table) 08/18/23 08/19/23 08/19/23 Range/Units 17:25 07:18 07:18 RBC 3.16 L (3.80-5.40) m/uL Hgb 10.5 L (11.4-16.0) gm/dL Hct 33.2 L (34.0-46.0) % MCV 105.2 H (80.0-100.0) fL POC Glucose (mg/dL) 135 H (70-110) mg/dL Total Protein 5.5 L (6.3-8.2) g/dL Albumin 3.1 L (3.5-5.0) g/dL
--- NOTE | 2023-08-19 15:42 | P.PN ---
Subjective Progress Note Date: 08/19/23 Principal diagnosis: V, abd pain, dehydration. Breast cancer, on neoadj treatment In f/u today pt and nursing report no vomiting, pt has ate 100% of her meals since last night and asked for snacks. She has not used antiemetics today, she had a semiformed BM last night. Used oral norco for pain with adequate relief. Objective - Vital Signs Vital signs: Vital Signs Temp 98.1 F 08/19/23 11:42 Pulse 75 08/19/23 11:42 Resp 16 08/19/23 11:42 BP 98/62 08/19/23 11:42 Pulse Ox 96 08/19/23 11:42 FiO2 Intake & Output 08/18/23 08/19/23 08/19/23 18:59 06:59 18:59 Weight 54.431 kg Other: Voiding Method Toilet Toilet # Voids 3 # Bowel Movements 1 1 - Constitutional General appearance: Present: average body habitus, cooperative, no acute distress - EENT Eyes: Present: anicteric sclerae, EOMI ENT: Present: hearing grossly normal, normal oropharynx - Respiratory Details: resp even and unlabored at rest - Cardiovascular Details: skin warm and dry to the touch - Gastrointestinal General gastrointestinal: Present: soft - Integumentary Integumentary: Present: pale - Neurologic Neurologic: Present: CNII-XII intact - Musculoskeletal Musculoskeletal: Present: strength equal bilaterally - Psychiatric Psychiatric: Present: A&O x's 3, appropriate affect, intact judgment & insight - Labs CBC & Chem 7: 08/19/23 07:18 08/19/23 07:18 Labs: Abnormal Lab Results - Last 24 Hours (Table) 08/18/23 08/19/23 08/19/23 Range/Units 17:25 07:18 07:18 RBC 3.16 L (3.80-5.40) m/uL Hgb 10.5 L (11.4-16.0) gm/dL Hct 33.2 L (34.0-46.0) % MCV 105.2 H (80.0-100.0) fL POC Glucose (mg/dL) 135 H (70-110) mg/dL Total Protein 5.5 L (6.3-8.2) g/dL Albumin 3.1 L (3.5-5.0) g/dL Assessment and Plan (1) Nausea & vomiting Status: Acute Priority: High Code(s): R11.2 - NAUSEA WITH VOMITING, UNSPECIFIED SNOMED Code(s): 81567591 (2) Abdominal pain Status: Resolved Priority: High Code(s): R10.9 - UNSPECIFIED ABDOMINAL PAIN SNOMED Code(s): 62409724 (3) Mucositis Status: Resolved Priority: High Code(s): K12.30 - ORAL MUCOSITIS (ULCERATIVE), UNSPECIFIED SNOMED Code(s): 05694678 (4) Dry skin Status: Acute Priority: High Code(s): L85.3 - XEROSIS CUTIS SNOMED Code(s) : 17879460 (5) Eye abnormalities Status: Resolved Priority: High Code(s): 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 Disorder of electrolytes -Patient was having challenges with management of electrolytes in the outpatient setting. Secondary to chemo and inability to consume adequate calories and flui d because of bariatric surgery -Pt was provided with multiple formulations of electrolyte supplements to aid in maintaining electrolyte levels. Pt does not always take as it can cause stomach upset for her. We have been giving electrolytes with hydration outpt. We will cont to do so. -Patient received replacement protocols. CBC and CMP reviewed, magnesium 1.7. This will continue to be monitored in the outpatient setting Breast cancer -Breast cancer, triple positive, on neoadjuvant treatment, clinical stage I. -Taxotere, carboplatin, Perjeta and Herceptin, 4/6 cycles completed. Last dose 07/22. She did receive G-CSF -Side effects above secondary to chemotherapy. -Plan is to continue treatment at same doses with aggressive hydration, supportive medications and electrolyte replacement as the patient is curative. Patient understands and agrees with this plan -After our discussion yesterday as to when patient should resume treatment, it has been decided that the patient will resume treatment on Thursday. She will be able to have 4 days in a row of hydration, lab checks and supportive medications. Plan is to keep the patient out of the hospital for the next 2 cycles. Patient and family agree with the plan. Patient reporting feeling much better. Case was discussed with attending physician. Patient is okay for discharge from an oncology standpoint once she is cleared by attending and other consulting physicians.
--- NOTE | 2023-08-19 21:50 | P.DS ---
Providers Date of admission: 08/02/23 13:53 Attending physician: Martin Mota Consults: 08/02/23 13:52 Consult Physician Routine Consulting Provider: Fuad García Consult Reason/Comments: Oncological care Do you want consulting provider notified?: Yes 08/14/23 16:51 Consult Physician Routine Consulting Provider: Cleveland Bobo Consult Reason/Comments: Int n,v, abdominal pain, endoscopic eval Do you want consulting provider notified?: Yes Primary care physician: [facility] Hospital Course: Diagnoses: Acute gastroenteritis secondary to chemotherapy Dysphagia secondary to esophageal candidiasis Constipation with moderate stool burden Status post EGD and colonoscopy showing gastritis and external hemorrhoids Hypomagnesemia Breast cancer Hospital course: Patient is a pleasant 63 years old female with past medical history of multiple medical problems admitted with signs symptoms of gastroenteritis thought secondary to chemotherapy Also she was diagnosed with esophageal candidiasis and currently she has been treated with Diflucan and oral nystatin, she underwent EGD and colonoscopy showing gastritis with external hemorrhoids and constipation. Patient awake alert, she is in no distress patient was monitored overnight and she denies nausea vomiting and also staff confirm no nausea vomiting. She tolerates diet well, no abdominal pain or tenderness. She has regular bowel movement She denies any significant pain. No chest pain or dyspnea No change in urine habits. No headache dizziness or weakness Patient agrees to go home today, family at bedside and they are agreeable as well I discussed the case with oncology team who cleared her for discharge. Patient also was cleared for discharge by all consultants including general surgery team Patient will be discharged on oral nystatin, short course of oral [place] with risk benefits are explained for the patient extensively and she verbalized understanding and acceptance Problems and management plan were discussed with the patient and he verbalized understanding and acceptance Patient was found stable and can be discharged home in guarded prognosis however he needs follow-up as an outpatient. Patient was instructed to follow up with PCP within one week and patient agrees Both me and Aurea from hematology/oncology team instructed the patient to follow-up with Dr. Salazar office this coming Thursday on 08/23 for possible c hemotherapy treatment evaluation and she verbalized understanding and acceptance with family at bedside Physical exam Gen: patient is a AAOx3, no distress CVS: S1-S2, RRR, no murmur Lungs: B/L CTA, no wheezing Abdomen: soft, no distention, no tenderness, positive bowel sounds Extremity: no leg edema or induration Time spent more than 35 minutes Plan - Discharge Summary New Discharge Prescriptions: New Petrolatum, White [Aquaphor] 1 applic TOPICAL QID PRN each PRN Reason: Dry Skin Sucralfate [Carafate] 1 gm PO ACHS 14 Days #56 tab Loratadine [Claritin] 10 mg PO DAILY tab Nystatin 100,000 Unit/ml Susp [Mycostatin Oral Susp] 500,000 unit PO QID 7 Days #140 ml Pantoprazole [Protonix] 40 mg PO DAILY 14 Days #14 tab HYDROcodone/APAP 5-325MG [[place] 5-325] 1 tab PO Q8HR PRN 3 Days #9 tab PRN Reason: Severe Pain (Scale 7 To 10) Loperamide [Imodium] 2 mg PO QID PRN cap PRN Reason: Diarrhea Continue Sennosides [Senna] 8.6 mg PO HS PRN PRN Reason: Constipation PARoxetine HCL [Paxil] 30 mg PO DAILY Magnesium Oxide [Mag-Ox] 400 mg PO DAILY Lidocaine-Prilocaine Cream [Emla Cream 2.5%/2.5%] 1 applic TOPICAL DIRECTED PRN PRN Reason: port access Diphenox-Atrop 2.5-0.025 mg [Lomotil] 2 tab PO Q6H PRN PRN Reason: Diarrhea dexAMETHasone [Decadron] 8 mg PO DIRECTED Cyanocobalamin [Vitamin B-12 Injection] 1,000 mcg IM Q14D Ondansetron Odt [Zofran ODT] 4 - 8 mg PO Q4H PRN PRN Reason: Nausea OLANZapine 5 mg PO DIRECTED Potassium Chloride [Klor-Con M20] 20 meq PO DAILY Hydrocortisone Cream [Hydrocortisone 2.5% Cream] 1 applic TOPICAL TID PRN PRN Reason: Rash Kools Solution(Benadryl/Lidocaine/Maalox/Nystatin/Dexamethasone) 5 ml PO QID PRN PRN Reason: mouth/throat pain Docusate [Colace] 100 mg PO BID PRN PRN Reason: Constipation Discontinued ALPRAZolam [Xanax] 0.5 mg PO TID PRN PRN Reason: Anxiety Discharge Medication List Magnesium Oxide [Mag-Ox] 400 mg PO DAILY 10/10/18 [History] PARoxetine HCL [Paxil] 30 mg PO DAILY 10/10/18 [History] Sennosides [Senna] 8.6 mg PO HS PRN 10/10/18 [History] Cyanocobalamin [Vitamin B-12 Injection] 1,000 mcg IM Q14D 08/02/23 [History] Diphenox-Atrop 2.5-0.025 mg [Lomotil] 2 tab PO Q6H PRN 08/02/23 [History] Docusate [Colace] 100 mg PO BID PRN 08/02/23 [History] Hydrocortisone Cream [Hydrocortisone 2.5% Cream] 1 applic TOPICAL TID PRN 08/02/23 [History] Kools Solution(Benadryl/Lidocaine/Maalox/Nystatin/Dexamethasone) 5 ml PO QID PRN 08/02/23 [History] Lidocaine-Prilocaine Cream [Emla Cream 2.5%/2.5%] 1 applic TOPICAL DIRECTED PRN 08/02/23 [History] OLANZapine 5 mg PO DIRECTED 08/02/23 [History] Ondansetron Odt [Zofran ODT] 4 - 8 mg PO Q4H PRN 08/02/23 [History] Potassium Chloride [Klor-Con M20] 20 meq PO DAILY 08/02/23 [History] dexAMETHasone [Decadron] 8 mg PO DIRECTED 08/02/23 [History] Loperamide [Imodium] 2 mg PO QID PRN cap 08/17/23 [Rx] Loratadine [Claritin] 10 mg PO DAILY tab 08/17/23 [Rx] Nystatin 100,000 Unit/ml Susp [Mycostatin Oral Susp] 500,000 unit PO QID 7 Days #140 ml 08/17/23 [Rx] Pantoprazole [Protonix] 40 mg PO DAILY 14 Days #14 tab 08/17/23 [Rx] Petrolatum, White [Aquaphor] 1 applic TOPICAL QID PRN each 08/17/23 [Rx] Sucralfate [Carafate] 1 gm PO ACHS 14 Days #56 tab 08/17/23 [Rx] HYDROcodone/APAP 5-325MG [[place] 5-325] 1 tab PO Q8HR PRN 3 Days #9 tab 08/19/23 [Rx] Follow up Appointment(s)/Referral(s): Palmer Jamison DO [Primary Care Provider] - 1-2 days (The office will call you with an appointment time and date.) Ethan Carpenter MD [STAFF PHYSICIAN] - 1 Week (This is appt for treatment please call and make follow up appointment their phone line is currently down.) Cleveland Bobo MD [STAFF PHYSICIAN] - As Needed Patient Instructions/Handouts: Sucralfate (By mouth), Hydrocodone/Acetaminophen (By mouth), Nystatin (By mouth), Pantoprazole (By mouth), Dehydration (DC), Oral Mucositis (DC), Chemo Induced Nausea and Vomiting (DC) Activity/Diet/Wound Care/Special Instructions: Need to schedule with Dr. Carpenter Discharge Disposition: HOME SELF-CARE
--- NOTE | 2023-08-20 12:21 | CDI ---
Documentation Clarification Form Date: 08/20/2023 From: Lilliam Thomas Admit Date: 08/02/2023 01:53:00 PM Patient Name: Wanda Ervin Visit Number: [id number] Discharge Date: 08/19/2023 02:22:00 PM ATTENTION: The Clinical Documentation Specialists (CDI) and [facility] Coding Staff appreciate your assistance in clarifying documentation. Please respond to the clarification below the line at the bottom and electronically sign. The CDI & [facility] Coding staff will review the response and follow-up if needed. Please note: Queries are made part of the Legal Health Record. If you have any questions, please contact the author of this message via ITS. Dr. Martin Mota Conflicting documentation has been found in the medical record. As attending physician, please provide clarification. Progress notes 08/11, 08/12, Mild Protein calorie malnutrition Progress notes 08/11, 08/12, 08/13, 08/14 Severe protein calorie malnutrition History/Risk Factors: Breast cancer, history of bariatric surgery, chemotherapty, BMI 19.4 Clinical Indicators: BMI 19.4 Albumin 2.9 Treatment: Dietary consult (severe malnutrition) High protein High calorie diet for home Please clarify which diagnosis is most appropriate: [ ] Mild Protein Calorie malnutrition [ x ] Severe Protein Calorie malnutrition [ ] Other (please specify) [ ] Unable to determine MTDD
== END 2023-08-19 14:22 | disposition home or self-care (01) | DRG 393 ==
LOC: EC 11:01 → 6NMEDSUR 13:52 → OBSVTOIN 13:53 → 6NMEDSUR 15:23 → 5NMEDONC 08-16 22:29
PROVIDERS: ADMIT Internal Medicine; ATTEND Internal Medicine
PROC: 0DJD8ZZ Inspection of Lower Intestinal Tract, Via Natural or Artificial Opening Endoscopic (ICD-10-PCS; principal; 2023-08-17 08:45)
PROC: 0DB78ZX Excision of Stomach, Pylorus, Via Natural or Artificial Opening Endoscopic, Diagnostic (ICD-10-PCS; principal; 2023-08-17 08:45)
DX: K52.1 Toxic gastroenteritis and colitis (principal); E43 Unspecified severe protein-calorie malnutrition; B37.81 Candidal esophagitis; Z68.1 Body mass index [BMI] 19.9 or less, adult; T45.1X5A Adverse effect of antineoplastic and immunosuppressive drugs, initial encounter; C50.919 Malignant neoplasm of unspecified site of unspecified female breast; Z17.0 Estrogen receptor positive status [ER+]; F40.240 Claustrophobia; R13.10 Dysphagia, unspecified; G43.909 Migraine, unspecified, not intractable, without status migrainosus; F32.A Depression, unspecified; E83.42 Hypomagnesemia; M79.18 Myalgia, other site; E86.0 Dehydration; E87.6 Hypokalemia; F41.9 Anxiety disorder, unspecified; G47.33 Obstructive sleep apnea (adult) (pediatric); I49.1 Atrial premature depolarization; K12.30 Oral mucositis (ulcerative), unspecified; K21.9 Gastro-esophageal reflux disease without esophagitis; K64.4 Residual hemorrhoidal skin tags; L85.3 Xerosis cutis; H57.9 Unspecified disorder of eye and adnexa; Z79.899 Other long term (current) drug therapy; Z87.11 Personal history of peptic ulcer disease; Z98.84 Bariatric surgery status
CPT/HCPCS: 36415; 43239; 45378; 71045; 74019; 74177; 74230; 80048; 80053; 81001; 82150; 83690; 83735; 85025; 85610; 85730; 87045; 87046; 87086; 87324; 88305; 93005; 96361; 96365; 96375; 99285

== ENCOUNTER 2023-08-30 02:17 | Inpatient (IN) | payer BC ==
--- NOTE | 2023-08-30 04:28 | ED ---
Nausea/Vomiting/Diarrhea HPI - General Chief complaint: Nausea/Vomiting/Diarrhea Stated complaint: SOB Time Seen by Provider: 08/30/23 03:27 Source: patient, family Mode of arrival: wheelchair Limitations: no limitations - History of Present Illness Initial comments: Patient is a 63-year-old woman who presents to have evaluation for nausea and vomiting, feeling weak and dehydrated, lower abdominal pains that have been getting worse over the past day. Patient states that she had similar episode after her previous chemotherapy and believes she is having recurrence. Her last treatment was 6 days ago. She has not noted fever or chills. She denies symptoms of infection. Patient states she has not been able to keep down fluids despite taking her prescribed Zofran at home. MD complaint: nausea, vomiting, abdominal pain Onset/Timin -: days(s) Description of Vomiting: food contents Associated Abdominal Pain: Yes Location: LLQ, RLQ Radiation: none Severity: moderate Quality: cramping Consistency: intermittent Improves with: none Worsens with: none Associated Symptoms: nausea/vomiting, weakness - Related Data Home Medications Medication Instructions Recorded Confirmed Magnesium Oxide [Mag-Ox] 400 mg PO DAILY 10/10/18 08/30/23 PARoxetine HCL [Paxil] 30 mg PO DAILY 10/10/18 08/30/23 Sennosides [Senna] 8.6 mg PO HS PRN 10/10/18 08/30/23 Cyanocobalamin [Vitamin B-12 1,000 mcg IM Q14D 08/02/23 08/30/23 Injection] Diphenox-Atrop 2.5-0.025 mg 2 tab PO Q6H PRN 08/02/23 08/30/23 [Lomotil] Docusate [Colace] 100 mg PO BID PRN 08/02/23 08/30/23 Hydrocortisone Cream 1 applic TOPICAL TID PRN 08/02/23 08/30/23 [Hydrocortisone 2.5% Cream] Kools 5 ml PO QID PRN 08/02/23 08/30/23 Solution(Benadryl/Lidocaine/Maalox/Nystatin/Dexamethasone) Lidocaine-Prilocaine Cream [Emla 1 applic TOPICAL DIRECTED PRN 08/02/23 08/30/23 Cream 2.5%/2.5%] OLANZapine 5 mg PO DIRECTED 08/02/23 08/30/23 Ondansetron Odt [Zofran ODT] 4 - 8 mg PO Q4H PRN 08/02/23 08/30/23 Potassium Chloride [Klor-Con M20] 20 meq PO DAILY 08/02/23 08/30/23 ALPRAZolam [Xanax] 0.5 mg PO TID PRN 08/30/23 08/30/23 Zolpidem [Ambien] 5 mg PO HS PRN 08/30/23 08/30/23 Previous Rx's Medication Instructions Recorded Loperamide [Imodium] 2 mg PO QID PRN cap 08/17/23 Loratadine [Claritin] 10 mg PO DAILY tab 08/17/23 Nystatin 100,000 Unit/ml Susp 500,000 unit PO QID 7 Days #140 ml 08/17/23 [Mycostatin Oral Susp] Pantoprazole [Protonix] 40 mg PO DAILY 14 Days #14 tab 08/17/23 Petrolatum, White [Aquaphor] 1 applic TOPICAL QID PRN each 08/17/23 Sucralfate [Carafate] 1 gm PO ACHS 14 Days #56 tab 08/17/23 HYDROcodone/APAP 5-325MG [[place] 1 tab PO Q8HR PRN 3 Days #9 tab 08/19/23 5-325] Calcium Carbonate [Tums] 500 mg PO QID PRN tab 09/14/23 HYDROcodone/APAP 10-325MG [[place] 1 each PO Q6HR PRN #6 tab 09/14/23 10-325] Hydrocortisone Suppository 25 mg RECTAL TID PRN #20 suppositor 09/14/23 [Anusol-Hc] Lactulose [Cephulac] 20 gm PO BID #360 ml 09/14/23 fentaNYL 12MCG/HR PATCH [Duragesic 1 patch TRANSDERM Q72H #0 patch 09/14/23 12MCG/HR] fentaNYL 25MCG/HR PATCH [Duragesic 1 patch TRANSDERM Q72H patch 09/14/23 25MCG/HR] Allergies Allergy/AdvReac Type Severity Reaction Status Date / Time Penicillins Allergy Severe Rash/Hives Verified 08/30/23 08:52 morphine AdvReac Severe Chest Pain Verified 08/30/23 08:52 Review of Systems ROS Statement: Those systems with pertinent positive or pertinent negative responses have been documented in the HPI. ROS Other: All systems not noted in ROS Statement are negative. Constitutional: Reports: weakness. Denies: fever, chills Respiratory: Denies: cough, dyspnea Cardiovascular: Denies: chest pain, palpitations, edema Gastrointestinal: Reports: abdominal pain, nausea, vomiting. Denies: diarrhea, melena, hematochezia Genitourinary: Denies: dysuria, hematuria Musculoskeletal: Denies: back pain Skin: Denies: rash Neurological: Denies: headache, weakness, numbness 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: Cancer, Chest Pain / Angina, GERD/Reflux, Sleep Apnea/CPAP/BIPAP Additional 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 / Comment(s): HX OF ULCER, HX MIGRAINES, IBS, PAST HX HTN AND HYPERLIPIDEMIA, NONE CURRENTLY. Breast Cancer History of Any Multi-Drug Resistant Organisms: None Reported Past Surgical History: Bariatric Surgery, Cholecystectomy, Heart Catheterization, Hysterectomy, Uterine Ablation Additional Past Surgical History / Comment(s): D&C, jose antonio-en-y 3. Past Anesthesia/Blood Transfusion Reactions: Postoperative Nausea & Vomiting (PONV) Additional Past Anesthesia/Blood Transfusion Reaction / Comment(s): CLAUSTERPHOBIA. Past Psychological History: Anxiety, Depression Smoking Status: Never smoker Past Alcohol Use History: None Reported Past Drug Use History: None Reported - Past Family History Father Family Medical History: Myocardial Infarction ([place]) Mother Family Medical History: Cancer Additional Family Medical History / Comment(s): MOM IS 72 General Exam Limitations: no limitations General appearance: alert, in no apparent distress Head exam: Present: atraumatic, normocephalic Eye exam: Present: normal appearance. Absent: scleral icterus, conjunctival injection ENT exam: Present: mucous membranes dry Neck exam: Present: normal inspection, full ROM Respiratory exam: Present: normal lung sounds bilaterally. Absent: respiratory distress, wheezes, rales, rhonchi, stridor, accessory muscle use Cardiovascular Exam: Present: regular rate, normal rhythm, normal heart sounds. Absent: systolic murmur, diastolic murmur, rubs, gallop GI/Abdominal exam: Present: soft. Absent: distended, tenderness, guarding, rebound, rigid, mass Extremities exam: Present: normal inspection, normal capillary refill. Absent: pedal edema, calf tenderness Back exam: Present: normal inspection. Absent: CVA tenderness (R), CVA tenderness (L) Neurological exam: Present: alert Skin exam: Present: warm, dry, intact, normal color. Absent: rash Course Vital Signs 08/30/23 08/30/23 08/30/23 02:20 04:55 08:30 Temperature 97.8 F Pulse Rate 85 78 Pulse Rate [ Pulse Oximetery ] Respiratory 26 H 20 Rate Blood Pressure 103/72 123/90 122/63 Blood Pressure [Right Arm] O2 Sat by Pulse 99 99 Oximetry 08/30/23 08/30/23 09:00 14:55 Temperature 97.8 F Pulse Rate 75 Pulse Rate [ 80 Pulse Oximetery ] Respiratory 16 16 Rate Blood Pressure 95/54 Blood Pressure 134/82 [Right Arm] O2 Sat by Pulse 95 98 Oximetry Medical Decision Making - Medical Decision Making The patient had chest x-ray that I interpreted as negative for acute infiltrate, pneumothorax, congestive heart failure Was pt. sent in by a medical professional or institution ([facility], [facility], urgent care, hospital, or alf...) When possible be specific @ -[No] Did you speak to anyone other than the patient for history (EMS, parent, family, police, friend...)? What history was obtained from this source @ -[No] Did you review nursing and triage notes (agree or disagree)? Why? @ -[I reviewed and agree with nursing and triage notes] Were old charts reviewed (outside hosp., previous admission, EMS record, old EKG, old radiological studies, urgent care reports/EKG's, alf records)? Report findings @ -[No old charts were reviewed] Differential Diagnosis (chest pain, altered mental status, abdominal pain women, abdominal pain men, vaginal bleeding, weakness, fever, dyspnea, syncope, headache, dizziness, GI bleed, back pain, seizure, CVA, palpatations, mental health, musculoskeletal)? @ -[Differential Abdominal Pain Women: Appendicitis, Cholecystitis, diverticulosis, ischemic bowel, pancreatitis, hepatitis, UTI, gastroenteritis, AAA, incarcerated hernia, bowel obstruction, constipation, inflammatory bowel, hepatitis, peptic ulcer disease, splenic infarction, perforated viscus, vulvitis, ovarian torsion, PID, kidney stone, placenta abruption, this is not meant to be an all-inclusive list EKG interpreted by me (3pts min.). @ -[As above] X-rays interpreted by me (1pt min.). @ -[I interpreted as above CT interpreted by me (1pt min.). @ -[None done] U/S interpreted by me (1pt. min.). @ -[None done] What testing was considered but not performed or refused? (CT, X-rays, U/S, labs)? Why? @ -[None] What meds were considered but not given or refused? Why? @ -[None] Did you discuss the management of the patient with other professionals (professionals i.e. DrAakash, PA, [facility], lab, RT, psych nurse, social media developer, title lawyer, teacher, community development officer, bilingual patient support caseworker)? Give summary @ -[Case discussed with admitting physician and treatment recommendations are incorporated Was smoking cessation discussed for >3mins.? @ -[No] Was critical care preformed (if so, how long)? @ -[No] Were there social determinants of health that impacted care today? How? (Homelessness, low income, unemployed, alcoholism, drug addiction, trans portation, low edu. Level, literacy, decrease access to med. care, assisted, rehab)? @ -[No] Was there de-escalation of care discussed even if they declined (Discuss DNR or withdrawal of care, Hospice)? DNR status @ -[No] What co-morbidities impacted this encounter? (DM, HTN, Smoking, COPD, CAD, Cance r, CVA, ARF, Chemo, Hep., AIDS, mental health diagnosis, sleep apnea, morbid obesity)? @ -[History of cancer Was patient admitted / discharged? Hospital course, mention meds given and route, prescriptions, significant lab abnormalities, going to OR and other pertinent info. @ -[Patient is a 63-year-old woman who presents with some abdominal discomfort and intractable nausea and vomiting. We did attempt multiple medications, fluids, but patient still having vomiting and abdominal discomfort. In light of this patient be admitted for further management Undiagnosed new problem with uncertain prognosis? @ -[No] Drug Therapy requiring intensive monitoring for toxicity (Heparin, Nitro, Insulin, Cardizem)? @ -[No] Were any procedures done? @ -[No] Diagnosis/symptom? @ -[Intractable nausea and vomiting Thrombocytopenia Hypomagnesemia Acute, or Chronic, or Acute on Chronic? @ -[Acute Uncomplicated (without systemic symptoms) or Complicated (systemic symptoms)? @ -[Uncomplicated Side effects of treatment? @ -[No] Exacerbation, Progression, or Severe Exacerbation? @ -[No] Poses a threat to life or bodily function? How? (Chest pain, [place], [place], pneumonia, PE, COPD, DKA, ARF, appy, cholecystitis, CVA, Diverticulitis, Homicidal, Suicidal, threat to staff... and all critical care pts) @ -[No] - Lab Data Result diagrams: 09/14/23 05:45 09/14/23 05:45 Lab Results 08/30/23 08/30/23 08/30/23 Range/Units 04:46 04:46 04:46 WBC 1.7 L (3.8-10.6) k/uL RBC 2.80 L (3.80-5.40) m/uL Hgb 9.1 L (11.4-16.0) gm/dL Hct 28.9 L (34.0-46.0) % MCV 103.2 H (80.0-100.0) fL MCH 32.6 (25.0-35.0) pg MCHC 31.6 (31.0-37.0) g/dL RDW 13.1 (11.5-15.5) % Plt Count 121 L (150-450) k/uL MPV 9.1 Neutrophils % 41 % Lymphocytes % 52 % Monocytes % 3 % Eosinophils % 1 % Basophils % 1 % Neutrophils # 0.7 L (1.3-7.7) k/uL Lymphocytes # 0.9 L (1.0-4.8) k/uL Monocytes # 0.1 (0-1.0) k/uL Eosinophils # 0.0 (0-0.7) k/uL Basophils # 0.0 (0-0.2) k/uL Macrocytosis Slight Sodium 137 (137-145) mmol/L Potassium 4.2 (3.5-5.1) mmol/L Chloride 109 H (98-107) mmol/L Carbon Dioxide 26 (22-30) mmol/L Anion Gap 2 mmol/L BUN 15 (7-17) mg/dL Creatinine 0.47 L (0.52-1.04) mg/dL Est GFR (CKD-EPI)AfAm >90 (>60 ml/min/1.73 sqM) Est GFR (CKD-EPI)NonAf >90 (>60 ml/min/1.73 sqM) Glucose 84 (74-99) mg/dL Plasma Lactic Acid Daniel 0.7 (0.7-2.0) mmol/L Calcium 8.3 L (8.4-10.2) mg/dL Magnesium 1.4 L (1.6-2.3) mg/dL Total Bilirubin 0.9 (0.2-1.3) mg/dL AST 59 H (14-36) U/L ALT 102 H (4-34) U/L Alkaline Phosphatase 57 (38-126) U/L Total Protein 5.7 L (6.3-8.2) g/dL Albumin 3.2 L (3.5-5.0) g/dL - EKG Data -: EKG Interpreted by Me EKG shows normal: sinus rhythm, axis (Normal), intervals (Normal), QRS complexes (Low QRS voltage), ST-T waves (Normal) Rate: normal (Rate 72 bpm) Disposition Clinical Impression: Nausea & vomiting, Intractable abdominal pain, Hypomagnesemia Disposition: ADMITTED IP TO THIS [facility] Condition: Fair
[2023-08-30] MEDS: SODIUM CHLORIDE 0.9% 1,000 ML IV ONE (04:57)
[2023-08-30] MEDS: ONDANSETRON 4 MG/2 ML VIAL IVP STA ×2 (04:58→08:09)
[2023-08-30] MEDS: HYDROmorphone 1 MG/ML 1 ML SYRINGE IVP STA ×2 (04:59→08:10)
[2023-08-30 05:18] LABS: ALT 102 U/L (4-34); AST 59 U/L (14-36); African American GFR (CKD) >90 (>60 ml/min/1.73 sqM); Albumin 3.2 g/dL (3.5-5.0); Alkaline Phosphatase 57 U/L (38-126); Anion Gap 2 mmol/L; Blood Urea Nitrogen 15 mg/dL (7-17); Calcium 8.3 mg/dL (8.4-10.2); Carbon Dioxide 26 mmol/L (22-30); Chloride 109 mmol/L (98-107); Glucose 84 mg/dL (74-99); Magnesium 1.4 mg/dL (1.6-2.3); Non-African American GFR(CKD) >90 (>60 ml/min/1.73 sqM); Potassium 4.2 mmol/L (3.5-5.1); Sodium 137 mmol/L (137-145); Total Bilirubin 0.9 mg/dL (0.2-1.3); Total Protein 5.7 g/dL (6.3-8.2)
[2023-08-30 05:31] LABS: Basophils % (A) 1 %; Eosinophils % (A) 1 %; HCT 28.9 % (34.0-46.0); HGB 9.1 gm/dL (11.4-16.0); Lymphocytes # (A) 0.9 k/uL (1.0-4.8); Lymphocytes % (A) 52 %; MCH 32.6 pg (25.0-35.0); MCHC 31.6 g/dL (31.0-37.0); MCV 103.2 fL (80.0-100.0); Macrocytosis Slight; Mean Platelet Volume 9.1; Monocytes # (A) 0.1 k/uL (0-1.0); Monocytes % (A) 3 %; Neutrophils # (A) 0.7 k/uL (1.3-7.7); Neutrophils % (A) 41 %; Platelet Count 121 k/uL (150-450); RDW 13.1 % (11.5-15.5); WBC 1.7 k/uL (3.8-10.6)
[2023-08-30] MEDS ORDERED: NALOXONE 0.4 MG/ML 1 ML VIAL IV PRN (07:16)
--- NOTE | 2023-08-30 07:20 | XR ---
EXAMINATION TYPE: XR chest 2V DATE OF EXAM: 08/30/2023 5:33 AM CLINICAL INDICATION:Female, 63 years old with history of weak; [facility] COMPARISON: Chest radiographs from from 08/02/2023 TECHNIQUE: XR chest 2V Frontal and lateral views of the chest. FINDINGS: Lungs/Pleura: There is no evidence of pleural effusion, focal consolidation, or pneumothorax. Pulmonary vascularity: Unremarkable. Heart/mediastinum: Cardiomediastinal silhouette is unremarkable. Musculoskeletal: No acute osseous pathology. Other findings: None Lines/Tubes: Zirdaz-h-Yosp projecting over the right hemithorax with distal tip projecting over the superior vena cava. IMPRESSION: No acute cardiopulmonary disease/process.
[2023-08-30] MEDS ORDERED: DOCUSATE 100 MG CAP PO PRN (07:51)
[2023-08-30] MEDS: SODIUM CHLORIDE 0.9% 1,000 ML IV STA (08:06)
[2023-08-30] MEDS: MAGNESIUM SULFATE-D5W PMX 1 GM in DEXTROSE/WATER 1 100ML.BAG IVPB ONE ×2 (08:10→20:01)
[2023-08-30] MEDS: SODIUM CHLORIDE 0.9% 1,000 ML IV SCH (08:34)
[2023-08-30] MEDS: PANTOPRAZOLE 40 MG TABLET PO SCH (09:35)
[2023-08-30] MEDS: MAGNESIUM OXIDE 400 MG TAB PO SCH (09:35)
[2023-08-30] MEDS: PARoxetine 10 MG TAB PO SCH (09:35)
[2023-08-30] MEDS: HYDROmorphone 1 MG/ML 1 ML SYRINGE IVP PRN ×2 (12:10→20:19)
[2023-08-30] MEDS: SUCRALFATE 1 GM TAB PO SCH (12:10)
[2023-08-30] MEDS ORDERED: PETROLATUM, WHITE OINT 50 GM TUBE TOPICAL PRN (19:04)
[2023-08-30] MEDS ORDERED: HYDROCORTISONE TOPICAL PRN (19:04)
[2023-08-30] MEDS ORDERED: [UNRECOGNIZED DRUG - MIXTURE] PO PRN (19:04)
[2023-08-30] MEDS ORDERED: SENNOSIDES 8.6 MG TAB PO PRN (19:04)
[2023-08-30 19:10] LABS: Appearance,Urine Clear (Clear); Bilirubin,Urine Negative (Negative); Blood,Urine Negative (Negative); Color,Urine Colorless; Glucose,Urine (UA) Negative (Negative); Ketones,Urine Negative (Negative); Leukocyte Esterase,Urine Negative (Negative); Nitrite,Urine Negative (Negative); Protein,Urine Negative (Negative); Specific Gravity,Urine 1.006 (1.001-1.035); Urobilinogen,Urine <2.0 mg/dL (<2.0)
--- NOTE | 2023-08-30 19:36 | P.HPIM ---
History of Present Illness H&P Date: 08/30/23 Chief Complaint: Nausea and vomiting and generalized pain Patient is a 63-year-old female with a past medical history of GERD, obstructive sleep apnea, breast cancer currently on chemotherapy, anxiety/depression and a prior history of jose antonio-en-y presents to ER with complaints of nausea vomiting and diarrhea. Patient states that her last chemotherapy was on Thursday. Patient is also complaining of generalized body pains and back pain and unable to tolerate oral diet. Patient also feeling weak overall. Patient has been having symptoms for the past 2 to 3 days and has been worsening. Patient had similar episode of pain and nausea vomiting and diarrhea after previous chemotherapy. Otherwise denies any complaints of fever or chills. No cough or sputum production. No complaints of chest pain or shortness of breath. Chest x-ray showed no acute cardiopulmonary process. EKG showed sinus rhythm with low QRS voltage in the precordial leads. Laboratory showed WBC 1.7 hemoglobin 9.1 and platelets 121 sodium 137 potassium 4.2 chloride 109 bicarb is 26 BUN 15 and creatinine 0.47 and blood sugar 84 magnesium 1.4 AST 59 ALT 102 and alk phos 57 urinalysis analysis is negative for infection. Review of Systems Constitutional: Patient denies any fever or chills . Patient does have generalized weakness fatigue and loss of appetite. Abdomen: Does have nausea vomiting generalized abdominal pain and diarrhea. Cardiovascular: Patient denies any chest pain or short of breath no palpitations. Respiratory: patient denied any cough or sputum production. No shortness of breath Neurologic: Patient denied any numbness or tingling. no headache. Musculoskeletal: Patient denies any complaints of joint swelling or deformity. Skin: Negative Psychiatric: Negative Endocrine: No heat or cold intolerance. No recent weight gain. Genitourinary: No dysuria or hematuria. All other 14 point ROS negative except the above 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: Cancer, Chest Pain / Angina, GERD/Reflux, Hyperlipidemia, Hypertension, Sleep Apnea/CPAP/BIPAP Additional 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 / Comment(s): Breast Cancer diagnosis 2022 (current chemotherapy-last treatment was August 24, 2023) HX OF ULCER, HX MIGRAINES, IBS History of Any Multi-Drug Resistant Organisms: None Reported Past Surgical History: Bariatric Surgery, Cholecystectomy, Heart Catheterization, Hysterectomy, Uterine Ablation Additional Past Surgical History / Comment(s): Right Infusaport placement Apr 2023. D&C, jose antonio-en-y 05-25-17. Past Anesthesia/Blood Transfusion Reactions: Postoperative Nausea & Vomiting (PONV) Additional Past Anesthesia/Blood Transfusion Reaction / Comment(s): CLAUSTERPHOBIA. Past Psychological History: Anxiety, Depression Additional Psychological History / Comment(s): . Smoking Status: Never smoker Past Alcohol Use History: None Reported Past Drug Use History: None Reported - Past Family History Father Family Medical History: Myocardial Infarction ([place]) Mother Family Medical History: Cancer Additional Family Medical History / Comment(s): MOM IS 72 Medications and Allergies Home Medications Medication Instructions Recorded Confirmed Type Magnesium Oxide [Mag-Ox] 400 mg PO DAILY 10/10/18 08/30/23 History PARoxetine HCL [Paxil] 30 mg PO DAILY 10/10/18 08/30/23 History Sennosides [Senna] 8.6 mg PO HS PRN 10/10/18 08/30/23 History Cyanocobalamin [Vitamin B-12 1,000 mcg IM Q14D 08/02/23 08/30/23 History Injection] Diphenox-Atrop 2.5-0.025 mg 2 tab PO Q6H PRN 08/02/23 08/30/23 History [Lomotil] Docusate [Colace] 100 mg PO BID PRN 08/02/23 08/30/23 History Hydrocortisone Cream 1 applic TOPICAL TID PRN 08/02/23 08/30/23 History [Hydrocortisone 2.5% Cream] Kools 5 ml PO QID PRN 08/02/23 08/30/23 History Solution(Benadryl/Lidocaine/Maalox/Nystatin/Dexamethasone) Lidocaine-Prilocaine Cream [Emla 1 applic TOPICAL DIRECTED PRN 08/02/23 08/30/23 History Cream 2.5%/2.5%] OLANZapine 5 mg PO DIRECTED 08/02/23 08/30/23 History Ondansetron Odt [Zofran ODT] 4 - 8 mg PO Q4H PRN 08/02/23 08/30/23 History Potassium Chloride [Klor-Con M20] 20 meq PO DAILY 08/02/23 08/30/23 History dexAMETHasone [Decadron] 8 mg PO DIRECTED 08/02/23 08/30/23 History Loperamide [Imodium] 2 mg PO QID PRN cap 08/17/23 08/30/23 Rx Loratadine [Claritin] 10 mg PO DAILY tab 08/17/23 08/30/23 Rx Nystatin 100,000 Unit/ml Susp 500,000 unit PO QID 7 Days #140 ml 08/17/23 08/30/23 Rx [Mycostatin Oral Susp] Pantoprazole [Protonix] 40 mg PO DAILY 14 Days #14 tab 08/17/23 08/30/23 Rx Petrolatum, White [Aquaphor] 1 applic TOPICAL QID PRN each 08/17/23 08/30/23 Rx Sucralfate [Carafate] 1 gm PO ACHS 14 Days #56 tab 08/17/23 08/30/23 Rx HYDROcodone/APAP 5-325MG [[place] 1 tab PO Q8HR PRN 3 Days #9 tab 08/19/2308/29 Rx 5-325] ALPRAZolam [Xanax] 0.5 mg PO TID PRN 08/30/23 08/30/23 History Zolpidem [Ambien] 5 mg PO HS PRN 08/30/23 08/30/23 History Allergies Allergy/AdvReac Type Severity Reaction Status Date / Time Penicillins Allergy Severe Rash/Hives Verified 08/30/23 08:52 morphine AdvReac Severe Chest Pain Verified 08/30/23 08:52 Physical Exam Vitals: Vital Signs Temp Pulse Pulse Resp BP BP Pulse Ox 08/30/23 14:55 97.8 F 80 16 134/82 98 08/30/23 09:00 75 16 95/54 95 08/30/23 08:30 122/63 08/30/23 04:55 78 20 123/90 99 08/30/23 02:20 97.8 F 85 26 H 103/72 99 Intake and Output 08/30/23 08/30/23 08/30/23 06:59 14:59 22:59 Other: # Voids 1 # Bowel Movements 0 Weight 54.431 kg 54.431 kg PHYSICAL EXAMINATION: GENERAL: The patient is alert and oriented x4, Well developed, thin built, elderly appearing HEENT: Pupils are round and equally reacting to light. EOMI. no scleral icterus. No conjunctival pallor. Normocephalic, atraumatic. No pharyngeal erythema. No thyromegaly. CARDIOVASCULAR: S1 and S2 muffled PULMONARY: diminished breath sounds bilaterally with no wheezing or rhonchi noted. ABDOMEN: soft. Less tender on exam. non-distended, normoactive bowel sounds. No palpable organomegaly. MUSCULOSKELETAL: No joint swelling or deformity. EXTREMITIES: No cyanosis, clubbing, or pedal edema. NEUROLOGICAL: Gross neurological examination did not reveal any focal deficits. Diffuse weakness SKIN: No rashes. Pale Results CBC & Chem 7: 08/30/23 04:46 08/30/23 04:46 Labs: Abnormal Lab Results - Last 24 Hours (Table) 08/30/23 08/30/23 Range/Units 04:46 04:46 WBC 1.7 L (3.8-10.6) k/uL RBC 2.80 L (3.80-5.40) m/uL Hgb 9.1 L (11.4-16.0) gm/dL Hct 28.9 L (34.0-46.0) % MCV 103.2 H (80.0-100.0) fL Plt Count 121 L (150-450) k/uL Neutrophils # 0.7 L (1.3-7.7) k/uL Lymphocytes # 0.9 L (1.0-4.8) k/uL Chloride 109 H (98-107) mmol/L Creatinine 0.47 L (0.52-1.04) mg/dL Calcium 8.3 L (8.4-10.2) mg/dL Magnesium 1.4 L (1.6-2.3) mg/dL AST 59 H (14-36) U/L ALT 102 H (4-34) U/L Total Protein 5.7 L (6.3-8.2) g/dL Albumin 3.2 L (3.5-5.0) g/dL Thrombosis Risk Factor Assmnt - Choose All That Apply Each Risk Factor Represents 2 Points: Age 61-74 years, Malignancy Thrombosis Risk Factor Assessment Total Risk Factor Score: 4 Thrombosis Risk Factor Assessment Level: Moderate Risk Assessment and Plan Assessment: Intractable nausea, vomiting, diarrhea likely acute gastroenteritis secondary to chemotherapy Generalized weakness and pain Pancytopenia secondary to chemotherapy Recent history of dysphagia. Barium swallow showed no evidence of aspiration. Oral mucositis Hypokalemia and hypomagnesemia Transaminitis History of breast cancer, stage III, currently undergoing chemotherapy GERD Acute severe protein calorie malnutrition with a BMI of 19.4 GI prophylaxis PPI DVT prophylaxis heparin subcu Full code Plan: Patient will be continued on IV hydration. Symptomatic management for nausea and vomiting. Continue to replace electrolytes and follow-up closely. Patient had similar symptoms during recent admission. Had workup including CT of the abdomen pelvis and also barium swallow to evaluate for aspiration which has been negative. Continue to monitor CBC and transfuse PRBC if hemoglobin less than 7 and platelets of less than 10,000 Encourage oral intake as tolerated. Oncology will be consulted. Continue to follow closely. Prognosis is guarded. Time with Patient: Greater than 30
[2023-08-30] MEDS: NYSTATIN 100,000 UNIT/ML SUSP 500,000 UNIT/5 ML CUP PO SCH (20:17)
[2023-08-30] MEDS: OLANZapine 5 MG TAB PO SCH (20:17)
[2023-08-30] MEDS: ALPRAZolam 0.5 MG TAB PO PRN (20:20)
[2023-08-31] MEDS: LOPERAMIDE 2 MG CAP PO PRN (00:11)
[2023-08-31] MEDS: ONDANSETRON ODT 4 MG TAB PO PRN (03:40)
[2023-08-31 08:22] LABS: ALT 74 U/L (4-34); AST 37 U/L (14-36); African American GFR (CKD) >90 (>60 ml/min/1.73 sqM); Albumin 2.9 g/dL (3.5-5.0); Albumin/Globulin Ratio 1.3; Alkaline Phosphatase 73 U/L (38-126); Anion Gap 4 mmol/L; Blood Urea Nitrogen 5 mg/dL (7-17); Calcium 8.3 mg/dL (8.4-10.2); Carbon Dioxide 23 mmol/L (22-30); Chloride 109 mmol/L (98-107); Globulin 2.3 g/dL; Glucose 63 mg/dL (74-99); Magnesium 1.6 mg/dL (1.6-2.3); Non-African American GFR(CKD) >90 (>60 ml/min/1.73 sqM); Potassium 3.7 mmol/L (3.5-5.1); Sodium 136 mmol/L (137-145); Total Bilirubin 0.5 mg/dL (0.2-1.3); Total Protein 5.2 g/dL (6.3-8.2)
[2023-08-31 08:26] LABS: Basophils % (A) 1 %; Eosinophils % (A) 1 %; HCT 29.8 % (34.0-46.0); HGB 9.3 gm/dL (11.4-16.0); Hypochromasia Slight; Lymphocytes # (A) 0.8 k/uL (1.0-4.8); Lymphocytes % (A) 52 %; MCH 32.5 pg (25.0-35.0); MCHC 31.4 g/dL (31.0-37.0); MCV 103.6 fL (80.0-100.0); Macrocytosis Slight; Mean Platelet Volume 8.9; Monocytes # (A) 0.2 k/uL (0-1.0); Monocytes % (A) 11 %; Neutrophils # (A) 0.5 k/uL (1.3-7.7); Neutrophils % (A) 31 %; Platelet Count 109 k/uL (150-450); RBC 2.87 m/uL (3.80-5.40); RDW 13.2 % (11.5-15.5); WBC 1.6 k/uL (3.8-10.6)
[2023-08-31] MEDS: LORATADINE 10 MG TAB PO SCH (08:44)
[2023-08-31] MEDS: HYDROcodone/APAP 5-325MG 1 EACH TAB PO PRN (08:57)
[2023-08-31] MEDS: SALT AND SODA MOUTHWASH 1,000 ML PO SCH (10:26)
[2023-08-31 13:33] VITALS: BMI 19.3
[2023-08-31] MEDS: LACTATED RINGERS 1,000 ML IV SCH (13:40)
[2023-08-31] MEDS: MAG HYDROX/AL HYDROX/SIMETH 30 ML, diphenhydrAMINE ELIXIR 75 MG, LIDOCAINE VISCOUS 2% 3... PO SCH (17:43)
--- NOTE | 2023-08-31 19:14 | P.CONS ---
History of Present Illness - Reason for Consult Consult date: 08/31/23 n/v, breast cancer Requesting physician: Jase Huston - Chief Complaint N/V, pain - History of Present Illness Mrs. Ervin is a 63-year-old female patient of Dr. Carpenter diagnosed with stage I, triple positive left breast cancer late last year/earlier this year. She had an abnormal left breast screening mammogram in January 2023. Previous mammograms were 6 years prior to that. She had additional imaging that showed a 1.9 x 1.4 cm lesion in the upper outer quadrant of the left breast, also calcifications anteriorly and superiorly not associated with the mass. 03/10/2023 core biopsy of the mass was positive for grade 2, IDC, ER/TX positive/HER2 positive 3+. Bilateral breast MRI 03/27/2023 identified a 2.2 cm mass in the upper outer quadrant of the left breast, no suspicious nodes, 0.2 mm focus of enhancement in the sternum, felt nonspecific. Evaluated by Dr. Yates and had additional workup, additional left breast biopsy, which was negative. 04/14/2023 echo showed normal LVEF. 05/22/2023 she started neoadjuvant TCHP regimen. She has had complaints similar to her presenting complaints after each cycle. She has been receiving IV hydration as well as supportive medications in the clinic. Completed cycle 5 TCHP with G-CSF on 08/23. And has received supportive IV hydration in clinic x 4 since her last cycle. She is currently admitted with complaints of intractable nausea, vomiting, subsequent dehydration, and intractable low pain and upper leg pain. Of note, patient had recent prolonged admission for similar complaints. At today's visit patient c/o oral pain/lesions. N/V and pain control improving since admission. Also reports 7 loose BMs over last 24 hours. She denies any fevers, chest pain, palpitations, dysuria, hematuria, hematochezia or melena, and swelling in the legs. Labs reviewed, WBC 1.6, ANC 500. Hemoglobin 9.3, platelets 109,000. Creatinine 0.50, GFR greater than 90. Bilirubin 0.5, with transaminitis noted, but LFTs improving today. Potassium 4.2, magnesium 1.4. UA negative for UTI. Chest x- ray showed no acute cardiopulmonary processes. She is afebrile and hemodynamically stable Review of Systems 10 point ROS is negative except as stated in the HPI 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: Cancer, Chest Pain / Angina, GERD/Reflux, Hyperlipidemia, Hypertension, Sleep Apnea/CPAP/BIPAP Additional 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 / Comment(s): Breast Cancer diagnosis 2022 (current chemotherapy-last treatment was August 24, 2023) HX OF ULCER, HX MIGRAINES, IBS History of Any Multi-Drug Resistant Organisms: None Reported Past Surgical History: Bariatric Surgery, Cholecystectomy, Heart Catheterization, Hysterectomy, Uterine Ablation Additional Past Surgical History / Comment(s): Right Infusaport placement Apr 2023. D&C, jose antonio-en-y 05-25-17. Past Anesthesia/Blood Transfusion Reactions: Postoperative Nausea & Vomiting (PONV) Additional Past Anesthesia/Blood Transfusion Reaction / Comm: CLAUSTERPHOBIA. Past Psychological History: Anxiety, Depression Additional Psychological History / Comment(s): . Smoking Status: Never smoker Past Alcohol Use History: None Reported Past Drug Use History: None Reported - Past Family History Father Family Medical History: Myocardial Infarction ([place]) Mother Family Medical History: Cancer Additional Family Medical History / Comment(s): MOM IS 72 Medications and Allergies Home Medications Medication Instructions Recorded Confirmed Type Magnesium Oxide [Mag-Ox] 400 mg PO DAILY 10/10/18 08/30/23 History PARoxetine HCL [Paxil] 30 mg PO DAILY 10/10/18 08/30/23 History Sennosides [Senna] 8.6 mg PO HS PRN 10/10/18 08/30/23 History Cyanocobalamin [Vitamin B-12 1,000 mcg IM Q14D 08/02/23 08/30/23 History Injection] Diphenox-Atrop 2.5-0.025 mg 2 tab PO Q6H PRN 08/02/23 08/30/23 History [Lomotil] Docusate [Colace] 100 mg PO BID PRN 08/02/23 08/30/23 History Hydrocortisone Cream 1 applic TOPICAL TID PRN 08/02/23 08/30/23 History [Hydrocortisone 2.5% Cream] Kools 5 ml PO QID PRN 08/02/23 08/30/23 History Solution(Benadryl/Lidocaine/Maalox/Nystatin/Dexamethasone) Lidocaine-Prilocaine Cream [Emla 1 applic TOPICAL DIRECTED PRN 08/02/23 08/30/23 History Cream 2.5%/2.5%] OLANZapine 5 mg PO DIRECTED 08/02/23 08/30/23 History Ondansetron Odt [Zofran ODT] 4 - 8 mg PO Q4H PRN 08/02/23 08/30/23 History Potassium Chloride [Klor-Con M20] 20 meq PO DAILY 08/02/23 08/30/23 History dexAMETHasone [Decadron] 8 mg PO DIRECTED 08/02/23 08/30/23 History Loperamide [Imodium] 2 mg PO QID PRN cap 08/17/23 08/30/23 Rx Loratadine [Claritin] 10 mg PO DAILY tab 08/17/23 08/30/23 Rx Nystatin 100,000 Unit/ml Susp 500,000 unit PO QID 7 Days #140 ml 08/17/23 08/30/23 Rx [Mycostatin Oral Susp] Pantoprazole [Protonix] 40 mg PO DAILY 14 Days #14 tab 08/17/23 08/30/23 Rx Petrolatum, White [Aquaphor] 1 applic TOPICAL QID PRN each 08/17/23 08/30/23 Rx Sucralfate [Carafate] 1 gm PO ACHS 14 Days #56 tab 08/17/23 08/30/23 Rx HYDROcodone/APAP 5-325MG [Farley 1 tab PO Q8HR PRN 3 Days #9 tab 08/19/23 08/30/23 Rx 5-325] ALPRAZolam [Xanax] 0.5 mg PO TID PRN 08/30/23 08/30/23 History Zolpidem [Ambien] 5 mg PO HS PRN 08/30/23 08/30/23 History Allergies Allergy/AdvReac Type Severity Reaction Status Date / Time Penicillins Allergy Severe Rash/Hives Verified 08/30/23 08:52 morphine AdvReac Severe Chest Pain Verified 08/30/23 08:52 Physical Exam Vitals: Vital Signs Temp Pulse Resp BP Pulse Ox 08/31/23 08:15 98.3 F 87 16 117/75 97 08/31/23 01:24 98.5 F 82 17 114/71 96 08/30/23 19:04 97.9 F 74 16 135/76 98 08/30/23 14:55 97.8 F 80 16 134/82 98 Intake and Output 08/30/23 08/31/23 08/31/23 22:59 06:59 14:59 Intake Total 120 1780 Balance 120 1780 Intake: Intake, IV Titration 1660 Amount Magnesium Sulfate-D5w Pmx 100 1 gm In Dextrose/Water 1 100ml.bag @ 100 mls/hr IVPB ONCE ONE Rx#: [id number] Sodium Chloride 0.9% 1, 1560 000 ml @ 130 mls/hr IV . Q7H42M [facility] Rx#:[id number] Oral 120 120 Other: # Voids 1 2 # Bowel Movements 0 1 Weight 54.431 kg 54.431 kg - Constitutional General appearance: average body habitus, no acute distress - EENT Eyes: anicteric sclerae, EOMI ENT: hearing grossly normal - Respiratory Respiratory: bilateral: CTA - Cardiovascular Rhythm: regular - Gastrointestinal General gastrointestinal: soft, tenderness Localized gastrointestinal: tender: diffuse (R>L) - Integumentary Integumentary: no cyanotic, no jaundiced - Neurologic Neurologic: CNII-XII intact - Musculoskeletal Musculoskeletal: strength equal bilaterally - Psychiatric Psychiatric: A&O x's 3 Results CBC & Chem 7: 08/31/23 07:40 08/31/23 07:40 Labs: Abnormal Lab Results - Last 24 Hours (Table) 08/31/23 08/31/23 Range/Units 07:40 07:40 WBC 1.6 L (3.8-10.6) k/uL RBC 2.87 L (3.80-5.40) m/uL Hgb 9.3 L (11.4-16.0) gm/dL Hct 29.8 L (34.0-46.0) % MCV 103.6 H (80.0-100.0) fL Plt Count 109 L (150-450) k/uL Neutrophils # 0.5 L (1.3-7.7) k/uL Lymphocytes # 0.8 L (1.0-4.8) k/uL Sodium 136 L (137-145) mmol/L Chloride 109 H (98-107) mmol/L BUN 5 L (7-17) mg/dL Creatinine 0.50 L (0.52-1.04) mg/dL Glucose 63 L (74-99) mg/dL Calcium 8.3 L (8.4-10.2) mg/dL AST 37 H (14-36) U/L ALT 74 H (4-34) U/L Total Protein 5.2 L (6.3-8.2) g/dL Albumin 2.9 L (3.5-5.0) g/dL Chest x-ray: report reviewed Assessment and Plan (1) Breast cancer Current Visit: Yes Status: Acute Priority: High Code(s): C50.919 - MALIGNANT NEOPLASM OF UNSP SITE OF UNSPECIFIED FEMALE BREAST SNOMED Code(s): 513270803 (2) Nausea & vomiting Current Visit: Yes Status: Acute Priority: High Code(s): R11.2 - NAUSEA WITH VOMITING, UNSPECIFIED SNOMED Code(s): 29305605 (3) Mucositis Current Visit: Yes Status: Resolved Priority: High Code(s): K12.30 - ORAL MUCOSITIS (ULCERATIVE), UNSPECIFIED SNOMED Code(s): 31730168 Plan: Chemo induced N/V/D, myalgia/bone pain, mucositis: -N/V improving. Pain better controlled with IV pain medications -Diarrhea persisting. Will obtain C-Diff and stool cultures -Continue clear liquid diet and supportive medications. Will slowly advance diet as symptoms improve -Strict I&Os -Kools solution and salt soda rinse ordered -Myalgia/bone pain likely r/t G-CSF. Will start dexamethasone 8mg BID x 2 days Breast cancer -Breast cancer, triple positive, on neoadjuvant treatment, clinical stage I. -Taxotere, carboplatin, Perjeta and Herceptin, 5/6 cycles completed. Last dose on 08/23, with G-CSF on 08/24 -Side effects above secondary to chemotherapy. -Plan is to continue last treatment at same doses with aggressive hydration, sup portive medications and electrolyte replacement as the patient is curative. Next tx not due for 2 weeks which will hopefully give patient adequate recovery time prior to proceeding with last cycle of treatment Patient understands and agrees with this plan Case briefly discussed with admitting team Doctor attests: I performed a history and physical examination of this patient, developed impression and plan of care. Discussed with dictator. I agree with dictators note, documented as a scribe.
[2023-08-31] MEDS: dexAMETHasone 4 MG TAB PO SCH (20:58)
[2023-09-01] MEDS: HYDROmorphone 1 MG/ML 1 ML SYRINGE IVP PRN (04:05)
--- NOTE | 2023-09-01 05:32 | P.PN ---
Subjective Progress Note Date: 08/31/23 Patient is a 63-year-old female with a past medical history of GERD, obstructive sleep apnea, breast cancer currently on chemotherapy, anxiety/depression and a prior history of jose antonio-en-y presents to ER with complaints of nausea vomiting and diarrhea. Patient states that her last chemotherapy was on Thursday. Patient is also complaining of generalized body pains and back pain and unable to tolerate oral diet. Patient also feeling weak overall. Patient has been having symptoms for the past 2 to 3 days and has been worsening. Patient had similar episode of pain and nausea vomiting and diarrhea after previous chemotherapy. Otherwise denies any complaints of fever or chills. No cough or sputum production. No complaints of chest pain or shortness of breath. Chest x-ray showed no acute cardiopulmonary process. EKG showed sinus rhythm with low QRS voltage in the precordial leads. Laboratory showed WBC 1.7 hemoglobin 9.1 and platelets 121 sodium 137 potassium 4.2 chloride 109 bicarb is 26 BUN 15 and creatinine 0.47 and blood sugar 84 magnesium 1.4 AST 59 ALT 102 and alk phos 57 urinalysis analysis is negative for infection. 08/31/2023 Patient is seen and evaluated in follow-up this morning extremely lethargic although arousable. Patient reports abdominal discomfort including nausea with continued diarrhea. Patient reports the abdominal pain with cramping became too intense she had to come to the hospital. Patient not tolerating much oral intake and is maintained on clear liquids. Discussed with oncology and will continue supportive care including low diet and slowly advance once tolerating. C. difficile testing was negative patient was started on as needed Imodium. Continue supportive care. Encouraged increased activity as tolerated Review of systems: Constitutional: reports of fatigue, no fever, or chills Cardiovascular: No reports of chest pain or palpitations Respiratory: reports of occasional shortness of breath GI: reports of nausea, no documented vomiting, reports diarrhea : No reports of dysuria or retention Neurovascular: reports of generalized weakness All medications have been reviewed PHYSICAL EXAMINATION: GENERAL: The patient is asleep although arousable, alert and oriented x4, Well developed, thin built, elderly appearing, ill-appearing HEENT: Pupils are round and equally reacting to light. EOMI. no scleral icterus. No conjunctival pallor. Normocephalic, atraumatic. No pharyngeal erythema. No thyromegaly. CARDIOVASCULAR: S1 and S2 muffled PULMONARY: diminished breath sounds bilaterally with no wheezing or rhonchi noted. ABDOMEN: soft. Less tender on exam. non-distended, normoactive bowel sounds. No palpable organomegaly. MUSCULOSKELETAL: No joint swelling or deformity. EXTREMITIES: No cyanosis, clubbing, or pedal edema. NEUROLOGICAL: Gross neurological examination did not reveal any focal deficits. Diffuse weakness SKIN: No rashes. Pale Assessment: Intractable nausea, vomiting, diarrhea likely acute gastroenteritis secondary to chemotherapy Generalized weakness and pain Pancytopenia secondary to chemotherapy Recent history of dysphagia. Barium swallow showed no evidence of aspiration. Oral mucositis Hypokalemia and hypomagnesemia secondary to poor oral intake and continued gastric losses Diarrhea, C. difficile ruled out Transaminitis History of breast cancer, stage III, currently undergoing chemotherapy GERD Acute severe protein calorie malnutrition with a BMI of 19.4 GI prophylaxis PPI DVT prophylaxis heparin subcu Full code Plan: Patient will be continued on IV hydration. Symptomatic management for nausea and vomiting. Continue to replace electrolytes and follow-up closely. Patient had similar symptoms during recent admission. Had workup including CT of the abdomen pelvis and also barium swallow to evaluate for aspiration which has been negative. Continue to monitor CBC and transfuse PRBC if hemoglobin less than 7 and platelets of less than 10,000 Oncology following and continuing with supportive care. C. difficile testing was negative and Imodium added. Continue antinausea medications Continue clear liquid diet until abdominal pain is slightly improved and slowly advance as tolerated Encouraged to increase activity as tolerated and sitting up out of the bed more often at least 3 times daily The impression and plan of care has been dictated by Nakia Baker, Nurse Practitioner as directed. Dr. Pradeep MD I have performed a history and examination and MDM of this patient, discussed the same with the dictator, and agree with the dictator's assessment and plan as written ,documented as a scribe. Based on total visit time, I have performed more than 50% of the visit. Objective - Vital Signs Vital signs: Vital Signs Temp 98.3 F 08/31/23 08:15 Pulse 87 08/31/23 08:15 Resp 16 08/31/23 08:15 BP 117/75 08/31/23 08:15 Pulse Ox 97 08/31/23 08:15 FiO2 Intake & Output 08/30/23 08/31/23 08/31/23 18:59 06:59 18:59 Intake Total 1900 Balance 1900 Weight 54.431 kg Intake: Intake, IV Titration 1660 Amount Magnesium Sulfate-D5w Pmx 100 1 gm In Dextrose/Water 1 100ml.bag @ 100 mls/hr IVPB ONCE ONE Rx#: [id number] Sodium Chloride 0.9% 1, 1560 000 ml @ 130 mls/hr IV . Q7H42M [facility] Rx#:[id number] Oral 240 Other: # Voids 1 2 # Bowel Movements 0 1 - Labs CBC & Chem 7: 08/31/23 07:40 08/31/23 07:40 Labs: Abnormal Lab Results - Last 24 Hours (Table) 08/31/23 08/31/23 Range/Units 07:40 07:40 WBC 1.6 L (3.8-10.6) k/uL RBC 2.87 L (3.80-5.40) m/uL Hgb 9.3 L (11.4-16.0) gm/dL Hct 29.8 L (34.0-46.0) % MCV 103.6 H (80.0-100.0) fL Plt Count 109 L (150-450) k/uL Neutrophils # 0.5 L (1.3-7.7) k/uL Lymphocytes # 0.8 L (1.0-4.8) k/uL Sodium 136 L (137-145) mmol/L Chloride 109 H (98-107) mmol/L BUN 5 L (7-17) mg/dL Creatinine 0.50 L (0.52-1.04) mg/dL Glucose 63 L (74-99) mg/dL Calcium 8.3 L (8.4-10.2) mg/dL AST 37 H (14-36) U/L ALT 74 H (4-34) U/L Total Protein 5.2 L (6.3-8.2) g/dL Albumin 2.9 L (3.5-5.0) g/dL
[2023-09-01 10:46] LABS: Basophils # (A) 0.04 X 10*3/uL (0.00-0.10); Basophils % (A) 1.5 %; Eosinophils # (A) 0 X 10*3/uL (0.04-0.35); Eosinophils % (A) 0 %; HGB 9.5 g/dL (12.0-15.0); Lymphocytes # (A) 0.27 X 10*3/uL (0.90-5.00); Lymphocytes % (A) 10.3 %; MCH 32.2 pg (27.0-32.0); MCHC 31.7 g/dL (32.0-37.0); MCV 101.7 FL (80.0-97.0); Mean Platelet Volume 11.8 FL (9.5-12.2); Monocytes # (A) 0.28 X 10*3/uL (0.20-1.00); Monocytes % (A) 10.6 %; NRBC Per 100 WBC 0 X 10*3/uL (0.00-0.01); Neutrophils # (A) 2.01 X 10*3/uL (1.80-7.70); Neutrophils % (A) 76.5 %; Platelet Count 141 X 10*3/uL (140-440); RBC 2.95 X 10*6/uL (4.10-5.20); RDW 12.4 % (11.5-14.5); WBC 2.63 X 10*3/uL (4.50-10.00)
[2023-09-01 10:47] LABS: Macrocytosis (M) 2+
[2023-09-01 12:49] LABS: ALT 67 U/L (8-44); AST 29 U/L (13-35); Albumin 3.5 g/dL (3.8-4.9); Albumin/Globulin Ratio 1.67 Ratio (1.60-3.17); Alkaline Phosphatase 81 U/L (41-126); Blood Urea Nitrogen 5.4 mg/dL (9.0-27.0); Calcium 9.2 mg/dL (8.7-10.3); Carbon Dioxide 22.3 mmol/L (21.6-31.8); Chloride 104 mmol/L (96-109); Globulin 2.1 g/dL (1.6-3.3); Glucose 127 mg/dL (70-110); Magnesium 1.4 mg/dL (1.5-2.4); Potassium 4.8 mmol/L (3.5-5.5); Sodium 139 mmol/L (135-145); Total Bilirubin <0.2 mg/dL (0.3-1.2); Total Protein 5.6 g/dL (6.2-8.2)
[2023-09-01] MEDS: HYDROcodone/APAP 10-325MG 1 EACH TAB PO PRN (21:59)
[2023-09-01] MEDS: ONDANSETRON 4 MG/2 ML VIAL IVP PRN (22:08)
--- NOTE | 2023-09-02 01:25 | P.PN ---
Subjective Progress Note Date: 09/01/23 Patient is a 63-year-old female with a past medical history of GERD, obstructive sleep apnea, breast cancer currently on chemotherapy, anxiety/depression and a prior history of jose antonio-en-y presents to ER with complaints of nausea vomiting and diarrhea. Patient states that her last chemotherapy was on Thursday. Patient is also complaining of generalized body pains and back pain and unable to tolerate oral diet. Patient also feeling weak overall. Patient has been having symptoms for the past 2 to 3 days and has been worsening. Patient had similar episode of pain and nausea vomiting and diarrhea after previous chemotherapy. Otherwise denies any complaints of fever or chills. No cough or sputum production. No complaints of chest pain or shortness of breath. Chest x-ray showed no acute cardiopulmonary process. EKG showed sinus rhythm with low QRS voltage in the precordial leads. Laboratory showed WBC 1.7 hemoglobin 9.1 and platelets 121 sodium 137 potassium 4.2 chloride 109 bicarb is 26 BUN 15 and creatinine 0.47 and blood sugar 84 magnesium 1.4 AST 59 ALT 102 and alk phos 57 urinalysis analysis is negative for infection. 08/31/2023 Patient is seen and evaluated in follow-up this morning extremely lethargic although arousable. Patient reports abdominal discomfort including nausea with continued diarrhea. Patient reports the abdominal pain with cramping became too intense she had to come to the hospital. Patient not tolerating much oral intake and is maintained on clear liquids. Discussed with oncology and will continue supportive care including low diet and slowly advance once tolerating. C. difficile testing was negative patient was started on as needed Imodium. Continue supportive care. Encouraged increased activity as tolerated 09/01/2023 Patient is seen in follow-up today continues to report abdominal pain with nausea and persistent diarrhea. Patient reports she has had 4 episodes of loose stools this morning with some nausea. Patient is tolerating clear liquids and will continue for another day and slowly advance. Continue antinausea medications along with diarrheal agents. Patient continues to report significant 10/10 pain and reports only the Dilaudid is helping. Discussed with oncology regarding pain management and will add 25 tara fentanyl patch and increase Stanton and continue with as needed Dilaudid for now. Discussed with the patient about attempting to avoid IV narcotics. Patient is afebrile with no reports of chest pain. Patient reports shortness of breath with exertion. Encouraged patient to increase activity as tolerated and get up out of the bed more often. Review of systems: Constitutional: reports of fatigue, no fever, or chills Cardiovascular: No reports of chest pain or palpitations Respiratory: reports of occasional shortness of breath GI: reports of nausea, no documented vomiting, reports diarrhea : No reports of dysuria or retention Neurovascular: reports of generalized weakness All medications have been reviewed PHYSICAL EXAMINATION: GENERAL: The patient is awake, alert and oriented x4, Well developed, thin built, elderly appearing, ill-appearing HEENT: Pupils are round and equally reacting to light. EOMI. no scleral icterus. No conjunctival pallor. Normocephalic, atraumatic. No pharyngeal erythema. No thyromegaly. CARDIOVASCULAR: S1 and S2 muffled PULMONARY: diminished breath sounds bilaterally with no wheezing or rhonchi noted. ABDOMEN: soft. tender on exam. non-distended, normoactive bowel sounds. No palpable organomegaly. MUSCULOSKELETAL: No joint swelling or deformity. EXTREMITIES: No cyanosis, clubbing, or pedal edema. NEUROLOGICAL: Gross neurological examination did not reveal any focal deficits. Diffuse weakness SKIN: No rashes. Pale Assessment: Intractable nausea, vomiting, diarrhea likely acute gastroenteritis secondary to chemotherapy Generalized weakness and pain Pancytopenia secondary to chemotherapy Recent history of dysphagia. Barium swallow showed no evidence of aspiration. Oral mucositis Hypokalemia and hypomagnesemia secondary to poor oral intake and continued gastric losses Diarrhea, C. difficile ruled out Transaminitis History of breast cancer, stage III, currently undergoing chemotherapy GERD Acute severe protein calorie malnutrition with a BMI of 19.4 GI prophylaxis PPI DVT prophylaxis heparin subcu Full code Plan: Patient will be continued on IV hydration. Symptomatic management for nausea and vomiting. Continue to replace electrolytes and follow-up closely. Patient had similar symptoms during recent admission. Had workup including CT of the abdomen pelvis and also barium swallow to evaluate for aspiration which has been negative. Continue to monitor CBC and transfuse PRBC if hemoglobin less than 7 and platelets of less than 10,000 Oncology following and continuing with supportive care. C. difficile testing was negative and Imodium added. Continue antinausea medications. Will make Zofran IV Continue clear liquid diet until abdominal pain is slightly improved and slowly advance as tolerated Encouraged to increase activity as tolerated and sitting up out of the bed more often at least 3 times daily Will adjust pain medications and also discussed with the patient about attempting to avoid IV narcotics as patient has been receiving IV Dilaudid [id number]. Will add fentanyl patch and increase Stanton dosing The impression and plan of care has been dictated by Nakia Baker, Nurse Practitioner as directed. Dr. Pradeep MD I have performed a history and examination and MDM of this patient, discussed the same with the dictator, and agree with the dictator's assessment and plan as written ,documented as a scribe. Based on total visit time, I have performed more than 50% of the visit. Objective - Vital Signs Vital signs: Vital Signs Temp 98.8 F 09/01/23 20:00 Pulse 91 09/01/23 20:00 Resp 16 09/01/23 20:00 BP 99/66 09/01/23 20:00 Pulse Ox 95 09/01/23 20:00 FiO2 Intake & Output 09/01/23 09/01/23 09/02/23 06:59 18:59 06:59 Intake Total 1020 900 Balance 1020 900 Intake: Intake, IV Titration 900 900 Amount Lactated Ringers 1,000 ml 900 900 @ 75 mls/hr IV .[id number] Rx#:[id number] Oral 120 Other: # Voids 2 # Bowel Movements 1 2 - Labs CBC & Chem 7: 09/01/23 06:58 09/01/23 06:58 Labs: Abnormal Lab Results - Last 24 Hours (Table) 09/01/23 09/01/23 Range/Units 06:58 06:58 WBC 2.63 L (4.50-10.00) X 10*3/uL RBC 2.95 L (4.10-5.20) X 10*6/uL Hgb 9.5 L (12.0-15.0) g/dL Hct 30.0 L (37.2-46.3) % MCV 101.7 H (80.0-97.0) FL MCH 32.2 H (27.0-32.0) pg MCHC 31.7 L (32.0-37.0) g/dL Lymphocytes # 0.27 L (0.90-5.00) X 10*3/uL Eosinophils # 0 L (0.04-0.35) X 10*3/uL Macrocytosis (manual) 2+ A Anion Gap 12.70 H (4.00-12.00) mmol/L BUN 5.4 L (9.0-27.0) mg/dL BUN/Creatinine Ratio 9.00 L (12.00-20.00) Ratio Glucose 127 H (70-110) mg/dL Magnesium 1.4 L (1.5-2.4) mg/dL Total Bilirubin <0.2 L (0.3-1.2) mg/dL ALT 67 H (8-44) U/L Total Protein 5.6 L (6.2-8.2) g/dL Albumin 3.5 L (3.8-4.9) g/dL
[2023-09-02 07:33] LABS: Glucose,Whole Blood 125 mg/dL (70-110)
[2023-09-02] MEDS: CALCIUM CARBONATE 500 MG CHEWABLE PO PRN (12:53)
--- NOTE | 2023-09-02 13:43 | P.PN ---
Subjective Progress Note Date: 09/02/23 Patient is a 63-year-old female with a past medical history of GERD, obstructive sleep apnea, breast cancer currently on chemotherapy, anxiety/depression and a prior history of jose antonio-en-y presents to ER with complaints of nausea vomiting and diarrhea. Patient states that her last chemotherapy was on Thursday. Patient is also complaining of generalized body pains and back pain and unable to tolerate oral diet. Patient also feeling weak overall. Patient has been having symptoms for the past 2 to 3 days and has been worsening. Patient had similar episode of pain and nausea vomiting and diarrhea after previous chemotherapy. Otherwise denies any complaints of fever or chills. No cough or sputum production. No complaints of chest pain or shortness of breath. Chest x-ray showed no acute cardiopulmonary process. EKG showed sinus rhythm with low QRS voltage in the precordial leads. Laboratory showed WBC 1.7 hemoglobin 9.1 and platelets 121 sodium 137 potassium 4.2 chloride 109 bicarb is 26 BUN 15 and creatinine 0.47 and blood sugar 84 magnesium 1.4 AST 59 ALT 102 and alk phos 57 urinalysis analysis is negative for infection. 08/31/2023 Patient is seen and evaluated in follow-up this morning extremely lethargic although arousable. Patient reports abdominal discomfort including nausea with continued diarrhea. Patient reports the abdominal pain with cramping became too intense she had to come to the hospital. Patient not tolerating much oral intake and is maintained on clear liquids. Discussed with oncology and will continue supportive care including low diet and slowly advance once tolerating. C. difficile testing was negative patient was started on as needed Imodium. Continue supportive care. Encouraged increased activity as tolerated 09/01/2023 Patient is seen in follow-up today continues to report abdominal pain with nausea and persistent diarrhea. Patient reports she has had 4 episodes of loose stools this morning with some nausea. Patient is tolerating clear liquids and will continue for another day and slowly advance. Continue antinausea medications along with diarrheal agents. Patient continues to report significant 10/10 pain and reports only the Dilaudid is helping. Discussed with oncology regarding pain management and will add 25 tara fentanyl patch and increase [place] and continue with as needed Dilaudid for now. Discussed with the patient about attempting to avoid IV narcotics. Patient is afebrile with no reports of chest pain. Patient reports shortness of breath with exertion. Encouraged patient to increase activity as tolerated and get up out of the bed more often. 09/02/2023 Patient is seen in follow-up this morning reports her abdominal pain persists although reports to feeling slightly improved from yesterday. Patient reports s he continues to have loose stools multiple times throughout the day although has become less intense and less frequent. Patient denies any vomiting although continues with occasional nausea. Patient did try to advance diet to full liquids including oatmeal this morning although was unable to tolerate and had to spit it out. Patient is afebrile with no reports of chest pain. Patient does report shortness of breath with exertion while getting up and washing herself up but remains above 95% on room air. Patient has been encouraged to sit up out of the bed more often and get up and walk frequently in the halls at least 2-3 times daily. Will adjust pain medications and continue current edwin men. Continue with antinausea and diarrheal agents as needed. Awaiting a.m. labs and replace electrolytes per protocol. Magnesium is chronically low and will continue daily supplementation. Review of systems: Constitutional: reports of fatigue, no fever, or chills Cardiovascular: No reports of chest pain or palpitations Respiratory: reports of occasional shortness of breath GI: reports of nausea, no documented vomiting, reports diarrhea : No reports of dysuria or retention Neurovascular: reports of generalized weakness All medications have been reviewed PHYSICAL EXAMINATION: GENERAL: The patient is awake, alert and oriented x4, Well developed, thin built, elderly appearing, ill-appearing HEENT: Pupils are round and equally reacting to light. EOMI. no scleral icterus. No conjunctival pallor. Normocephalic, atraumatic. No pharyngeal erythema. No thyromegaly. CARDIOVASCULAR: S1 and S2 muffled PULMONARY: diminished breath sounds bilaterally with no wheezing or rhonchi noted. ABDOMEN: soft. tender on exam. non-distended, normoactive bowel sounds. No palpable organomegaly. MUSCULOSKELETAL: No joint swelling or deformity. EXTREMITIES: No cyanosis, clubbing, or pedal edema. NEUROLOGICAL: Gross neurological examination did not reveal any focal deficits. Diffuse weakness SKIN: No rashes. Pale Assessment: Intractable nausea, vomiting, diarrhea likely acute gastroenteritis secondary to chemotherapy Generalized weakness and pain Pancytopenia secondary to chemotherapy Recent history of dysphagia. Barium swallow showed no evidence of aspiration. Oral mucositis Hypokalemia and hypomagnesemia secondary to poor oral intake and continued gastric losses, improving Diarrhea, C. difficile ruled out Transaminitis History of breast cancer, stage III, currently undergoing chemotherapy GERD Acute severe protein calorie malnutrition with a BMI of 19.4 GI prophylaxis PPI DVT prophylaxis heparin subcu Full code Plan: Patient will be continued on IV hydration. Symptomatic management for nausea and vomiting. Continue to replace electrolytes and follow-up closely. Patient had similar symptoms during recent admission. Had workup including CT of the abdomen pelvis and also barium swallow to evaluate for aspiration which has been negative. Continue to monitor CBC and transfuse PRBC if hemoglobin less than 7 and platelets of less than 10,000 Oncology following and continuing with supportive care. C. difficile testing was negative and Imodium added. Continue antinausea medications. Will make Zofran IV Magnesium 1.4 and will replace per protocol follow-up on repeat labs. Patient continues with frequent loose stools although C. difficile testing was negative Continue clear liquid diet until abdominal pain is slightly improved and slowly advance as tolerated Encouraged to increase activity as tolerated and sitting up out of the bed more often at least 3 times daily Will adjust pain medications and also discussed with the patient about attempting to avoid IV narcotics as patient has been receiving IV Dilaudid [id number]. Will continue fentanyl patch and increase Pullman dosing. Lengthy conversation was had with the patient and close friend at the bedside regarding narcotics and high risk for addiction and other side effects. Diet was advanced to full liquids per oncology although patient reports not tolerating much. Recommend to slowly advance as tolerated The impression and plan of care has been dictated by Nakia Baker, Nurse Practitioner as directed. Dr. Pradeep MD I have performed a history and examination and MDM of this patient, discussed the same with the dictator, and agree with the dictator's assessment and plan as written ,documented as a scribe. Based on total visit time, I have performed more than 50% of the visit. Objective - Vital Signs Vital signs: Vital Signs Temp 98.8 F 09/01/23 20:00 Pulse 91 09/01/23 20:00 Resp 16 09/01/23 20:00 BP 99/66 09/01/23 20:00 Pulse Ox 95 09/01/23 20:00 FiO2 Intake & Output 09/01/23 09/01/23 09/02/23 06:59 18:59 06:59 Intake Total 1020 900 Balance 1020 900 Intake: Intake, IV Titration 900 900 Amount Lactated Ringers 1,000 ml 900 900 @ 75 mls/hr IV .[id number] YAZMIN Rx#:[id number] Oral 120 Other: # Voids 2 # Bowel Movements 1 2 - Labs CBC & Chem 7: 09/01/23 06:58 09/01/23 06:58 Labs: Abnormal Lab Results - Last 24 Hours (Table) 09/01/23 09/01/23 Range/Units 06:58 06:58 WBC 2.63 L (4.50-10.00) X 10*3/uL RBC 2.95 L (4.10-5.20) X 10*6/uL Hgb 9.5 L (12.0-15.0) g/dL Hct 30.0 L (37.2-46.3) % MCV 101.7 H (80.0-97.0) FL MCH 32.2 H (27.0-32.0) pg MCHC 31.7 L (32.0-37.0) g/dL Lymphocytes # 0.27 L (0.90-5.00) X 10*3/uL Eosinophils # 0 L (0.04-0.35) X 10*3/uL Macrocytosis (manual) 2+ A Anion Gap 12.70 H (4.00-12.00) mmol/L BUN 5.4 L (9.0-27.0) mg/dL BUN/Creatinine Ratio 9.00 L (12.00-20.00) Ratio Glucose 127 H (70-110) mg/dL Magnesium 1.4 L (1.5-2.4) mg/dL Total Bilirubin <0.2 L (0.3-1.2) mg/dL ALT 67 H (8-44) U/L Total Protein 5.6 L (6.2-8.2) g/dL Albumin 3.5 L (3.8-4.9) g/dL
[2023-09-02] MEDS: MAGNESIUM SULFATE-D5W PMX 1 GM in DEXTROSE/WATER 1 100ML.BAG IVPB SCH (14:13)
--- NOTE | 2023-09-02 16:55 | P.PN ---
Subjective Progress Note Date: 09/01/23 At today's visit patient is resting comfortably in bed. Reporting persisting back and leg pain. Reports diarrhea has improved since admission, has had 4 episodes of loose stools since last night. She is tolerating clear liquid diet. C. difficile testing is negative. Continues on Imodium for symptomatic management.. CBC reviewed, WBC 2.6, hemoglobin 9.5, platelets 141,000 Objective - Vital Signs Vital signs: Vital Signs Temp 97.4 F L 09/01/23 07:22 Pulse 75 09/01/23 07:22 Resp 16 09/01/23 07:22 BP 116/78 09/01/23 07:22 Pulse Ox 99 09/01/23 07:22 FiO2 Intake & Output 08/31/23 09/01/23 09/01/23 18:59 06:59 18:59 Intake Total 1020 Balance 1020 Weight 54.431 kg Intake: Intake, IV Titration 900 Amount Lactated Ringers 1,000 ml 900 @ 75 mls/hr IV .[id number] YAZMIN Rx#:[id number] Oral 120 Other: # Voids 2 # Bowel Movements 1 1 - Constitutional General appearance: Present: average body habitus, no acute distress - EENT Eyes: Present: anicteric sclerae, EOMI ENT: Present: hearing grossly normal - Respiratory Details: breathing is even and unlabored - Cardiovascular Details: well perfused - Gastrointestinal General gastrointestinal: Present: soft, tenderness. Absent: distended Localized gastrointestinal: tender: diffuse - Integumentary Integumentary: Absent: cyanotic, jaundiced - Neurologic Neurologic: Present: CNII-XII intact - Musculoskeletal Musculoskeletal: Present: strength equal bilaterally - Psychiatric Psychiatric: Present: A&O x's 3 - Labs CBC & Chem 7: 09/01/23 06:58 09/01/23 06:58 Labs: Abnormal Lab Results - Last 24 Hours (Table) 09/01/23 Range/Units 06:58 WBC 2.63 L (4.50-10.00) X 10*3/uL RBC 2.95 L (4.10-5.20) X 10*6/uL Hgb 9.5 L (12.0-15.0) g/dL Hct 30.0 L (37.2-46.3) % MCV 101.7 H (80.0-97.0) FL MCH 32.2 H (27.0-32.0) pg MCHC 31.7 L (32.0-37.0) g/dL Lymphocytes # 0.27 L (0.90-5.00) X 10*3/uL Eosinophils # 0 L (0.04-0.35) X 10*3/uL Macrocytosis (manual) 2+ A Assessment and Plan (1) Breast cancer Current Visit: Yes Status: Acute Priority: High Code(s): C50.919 - MALIGNANT NEOPLASM OF UNSP SITE OF UNSPECIFIED FEMALE BREAST SNOMED Code(s): 310713881 (2) Nausea & vomiting Current Visit: Yes Status: Acute Priority: High Code(s): R11.2 - NAUSEA WITH VOMITING, UNSPECIFIED SNOMED Code(s): 06965346 (3) Mucositis Current Visit: Yes Status: Resolved Priority: High Code(s): K12.30 - ORAL MUCOSITIS (ULCERATIVE), UNSPECIFIED SNOMED Code(s): 00414129 Plan: Chemo induced N/V/D, myalgia/bone pain, mucositis: -N/V improving. Pain better controlled with IV pain medications, but pain medication only lasting about 2 hours -Diarrhea improving. C-Diff negative, stool cultures pending -Tolerating clear liquid diet, will advance to full liquid diet. Continue supportive medications. Will slowly advance diet as symptoms improve -Strict I&Os -Kools solution and salt soda rinse ordered -Myalgia/bone pain likely r/t G-CSF. Dexamethasone 8mg BID x 2 days. No improvement noted this morning, however just took 2nd dose of dex prior to visit, hope over the next 24 hours we will see improvement in reported pain Discussed case/plan with admitting team Breast cancer -Breast cancer, triple positive, on neoadjuvant treatment, clinical stage I. -Taxotere, carboplatin, Perjeta and Herceptin, 5/6 cycles completed. Last dose on 08/23, with G-CSF on 08/24 -Side effects above secondary to chemotherapy. -Plan is to continue last treatment at same doses with aggressive hydration, supportive medications and electrolyte replacement as the patient is curative. Next tx not due for 2 weeks which will hopefully give patient adequate recovery time prior to proceeding with last cycle of treatment Patient understands and agrees with this plan
--- NOTE | 2023-09-02 17:09 | P.PN ---
Subjective Progress Note Date: 09/02/23 At today's visit patient is resting comfortably in bed. Reporting improvement in pain, rating 7/10, previously "12/10". Continues on dexamethasone, and IM has started pt on fentanyl patch. Diarrhea improving, only 2 episodes over last 12 hours. Does report 1 episode of vomiting after breakfast today, but ate chicken broth after and tolerated well. C. difficile testing is negative. Continues on Imodium for symptomatic management. Objective - Vital Signs Vital signs: Vital Signs Temp 98.2 F 09/02/23 12:06 Pulse 79 09/02/23 12:06 Resp 16 09/02/23 12:06 BP 131/78 09/02/23 12:06 Pulse Ox 96 09/02/23 12:06 FiO2 Intake & Output 09/01/23 09/02/23 09/02/23 18:59 06:59 18:59 Intake Total 900 590 Balance 900 590 Intake: Intake, IV Titration 900 Amount Lactated Ringers 1,000 ml 900 @ 75 mls/hr IV .[id number] YAZMIN Rx#:[id number] Oral 590 Other: # Bowel Movements 2 - Constitutional General appearance: Present: average body habitus, no acute distress - EENT Eyes: Present: anicteric sclerae, EOMI ENT: Present: hearing grossly normal - Respiratory Details: breathing is even and unlabored - Cardiovascular Details: skin warm and dry - Gastrointestinal General gastrointestinal: Present: soft, tenderness Localized gastrointestinal: tender: diffuse - Integumentary Integumentary: Absent: cyanotic - Neurologic Neurologic: Present: CNII-XII intact - Musculoskeletal Musculoskeletal: Present: strength equal bilaterally - Psychiatric Psychiatric: Present: A&O x's 3 - Labs CBC & Chem 7: 09/01/23 06:58 09/01/23 06:58 Labs: Abnormal Lab Results - Last 24 Hours (Table) 09/02/23 Range/Units 07:32 POC Glucose (mg/dL) 125 H (70-110) mg/dL Microbiology - Last 24 Hours (Table) 08/31/23 20:30 Stool Culture - Preliminary Stool Assessment and Plan (1) Breast cancer Current Visit: Yes Status: Acute Priority: High Code(s): C50.919 - MALIGNANT NEOPLASM OF UNSP SITE OF UNSPECIFIED FEMALE BREAST SNOMED Code(s): 308065304 (2) Nausea & vomiting Current Visit: Yes Status: Acute Priority: High Code(s): R11.2 - NAUSEA WITH VOMITING, UNSPECIFIED SNOMED Code(s): 79586447 (3) Mucositis Current Visit: Yes Status: Resolved Priority: High Code(s): K12.30 - ORAL MUCOSITIS (ULCERATIVE), UNSPECIFIED SNOMED Code(s): 84934342 Plan: Chemo induced N/V/D, myalgia/bone pain, mucositis: -N/V improving. Pain better controlled with IV pain medications, but pain medication only lasting about 2 hours -Diarrhea improving. C-Diff negative, stool cultures pending -Tolerating clear liquids, but did vomit once this morning after eating oatmeal. Continue supportive medications. Will slowly advance diet as symptoms improve -Strict I&Os -Kools solution and salt soda rinse -Myalgia/bone pain likely r/t G-CSF. Dexamethasone 8mg BID x 2 days. Admitting team has added fentanyl patch. Reporting improvement on current regimen. Will continue to monitor pain control Discussed case/plan with admitting team Breast cancer -Breast cancer, triple positive, on neoadjuvant treatment, clinical stage I. -Taxotere, carboplatin, Perjeta and Herceptin, 5/6 cycles completed. Last dose on 08/23, with G-CSF on 08/24 -Side effects above secondary to chemotherapy. -Plan is to continue last treatment at same doses with aggressive hydration, supportive medications and electrolyte replacement as the patient is curative. Next tx not due for 2 weeks which will hopefully give patient adequate recovery time prior to proceeding with last cycle of treatment Patient understands and agrees with this plan Doctor attests: I performed a history and physical examination of this patient, developed impression and plan of care. Discussed with dictator. I agree with dictators note, documented as a scribe.
[2023-09-03 04:56] LABS: Glucose,Whole Blood 114 mg/dL (70-110)
[2023-09-03 11:47] LABS: Basophils % (A) 0 %; Eosinophils % (A) 0 %; Lymphocytes # (A) 1.6 k/uL (1.0-4.8); Lymphocytes % (A) 14 %; MCH 33.2 pg (25.0-35.0); MCHC 32.1 g/dL (31.0-37.0); MCV 103.6 fL (80.0-100.0); Macrocytosis Slight; Monocytes # (A) 0.6 k/uL (0-1.0); Monocytes % (A) 5 %; Neutrophils # (A) 9.4 k/uL (1.3-7.7); Neutrophils % (A) 79 %; Platelet Count 130 k/uL (150-450); RDW 13.4 % (11.5-15.5); WBC 11.9 k/uL (3.8-10.6)
[2023-09-03 11:52] LABS: African American GFR (CKD) >90 (>60 ml/min/1.73 sqM); Anion Gap 0 mmol/L; Blood Urea Nitrogen 7 mg/dL (7-17); Calcium 8.5 mg/dL (8.4-10.2); Carbon Dioxide 31 mmol/L (22-30); Chloride 107 mmol/L (98-107); Glucose 85 mg/dL (74-99); Magnesium 1.7 mg/dL (1.6-2.3); Non-African American GFR(CKD) >90 (>60 ml/min/1.73 sqM); Potassium 3.7 mmol/L (3.5-5.1); Sodium 138 mmol/L (137-145)
[2023-09-03] MEDS: DOCUSATE 100 MG CAP PO SCH (12:53)
[2023-09-03] MEDS: PANTOPRAZOLE 40 MG TABLET PO SCH (15:57)
--- NOTE | 2023-09-03 17:12 | P.PN ---
Subjective Progress Note Date: 09/03/23 At today's visit patient is resting comfortably in bed. Reporting improvement in pain, stating a "60% improvement", since admission. Diarrhea resolved, but reporting constipation. Also reports 1 episode of vomiting after eating oatmeal this morning, but has been able to tolerate pudding, ice cream and broth. Objective - Vital Signs Vital signs: Vital Signs Temp 98.1 F 09/03/23 07:26 Pulse 75 09/03/23 07:26 Resp 16 09/03/23 07:26 BP 130/82 09/03/23 07:26 Pulse Ox 97 09/03/23 07:26 FiO2 Intake & Output 09/02/23 09/03/23 09/03/23 18:59 06:59 18:59 Intake Total 120 Balance 120 Intake: Oral 120 Other: Voiding Method Toilet # Voids 1 - Constitutional General appearance: Present: average body habitus, no acute distress - EENT Eyes: Present: anicteric sclerae, EOMI ENT: Present: hearing grossly normal - Respiratory Details: breathing is even and unlabored - Cardiovascular Details: well perfused - Gastrointestinal General gastrointestinal: Present: soft, tenderness Localized gastrointestinal: tender: diffuse - Integumentary Integumentary: Absent: cyanotic - Neurologic Neurologic: Present: CNII-XII intact - Musculoskeletal Musculoskeletal: Present: strength equal bilaterally - Psychiatric Psychiatric: Present: A&O x's 3 - Labs CBC & Chem 7: 09/03/23 11:20 09/03/23 11:20 Labs: Abnormal Lab Results - Last 24 Hours (Table) 09/03/23 Range/Units 04:44 POC Glucose (mg/dL) 114 H (70-110) mg/dL Microbiology - Last 24 Hours (Table) 08/31/23 20:30 Stool Culture - Preliminary Stool Assessment and Plan (1) Breast cancer Current Visit: Yes Status: Acute Priority: High Code(s): C50.919 - MALIGNANT NEOPLASM OF UNSP SITE OF UNSPECIFIED FEMALE BREAST SNOMED Code(s): 351847566 (2) Nausea & vomiting Current Visit: Yes Status: Acute Priority: High Code(s): R11.2 - NAUSEA WITH VOMITING, UNSPECIFIED SNOMED Code(s): 59357554 (3) Mucositis Current Visit: Yes Status: Resolved Priority: High Code(s): K12.30 - ORAL MUCOSITIS (ULCERATIVE), UNSPECIFIED SNOMED Code(s): 10563092 Plan: Chemo induced N/V/D, myalgia/bone pain, mucositis: -Myalgia/bone pain likely r/t G-CSF. Completed dexamethasone 8mg BID x 2 days. Pain control improved with fentanyl patch, IV pain meds and dex -Diarrhea now resolved. C-Diff and stool culture negative. Now reporting constipation, colace added -Tolerating clear liquids, but did vomit once this morning after eating oatmeal. Anti-emetic regimen adjusted. Increased PPI to 40mg BID. Continue supportive medications. Will slowly advance diet as symptoms improve. If symptoms persist, will consider addition of Ativan for anticipatory nausea -Strict I&Os -Kools solution and salt soda rinse Discussed case/plan with admitting team Breast cancer -Breast cancer, triple positive, on neoadjuvant treatment, clinical stage I. -Taxotere, carboplatin, Perjeta and Herceptin, 5/6 cycles completed. Last dose on 08/23, with G-CSF on 08/24 -Side effects above secondary to chemotherapy. -Plan is to continue last treatment at same doses with aggressive hydration, supportive medications and electrolyte replacement as the patient is curative. Next tx not due for 2 weeks which will hopefully give patient adequate recovery time prior to proceeding with last cycle of treatment Patient understands and agrees with this plan. All her questions were answered Doctor attests: I performed a history and physical examination of this patient, developed impression and plan of care. Discussed with dictator. I agree with dictators note, documented as a scribe.
[2023-09-03] MEDS: ENOXAPARIN 40 MG/0.4 ML SYRINGE SQ SCH (21:20)
[2023-09-03] MEDS: ONDANSETRON 4 MG/2 ML VIAL IVP PRN (21:21)
--- NOTE | 2023-09-04 06:59 | P.PN ---
Subjective Progress Note Date: 09/03/23 Patient is a 63-year-old female with a past medical history of GERD, obstructive sleep apnea, breast cancer currently on chemotherapy, anxiety/depression and a prior history of jose antonio-en-y presents to ER with complaints of nausea vomiting and diarrhea. Patient states that her last chemotherapy was on Thursday. Patient is also complaining of generalized body pains and back pain and unable to tolerate oral diet. Patient also feeling weak overall. Patient has been having symptoms for the past 2 to 3 days and has been worsening. Patient had similar episode of pain and nausea vomiting and diarrhea after previous chemotherapy. Otherwise denies any complaints of fever or chills. No cough or sputum production. No complaints of chest pain or shortness of breath. Chest x-ray showed no acute cardiopulmonary process. EKG showed sinus rhythm with low QRS voltage in the precordial leads. Laboratory showed WBC 1.7 hemoglobin 9.1 and platelets 121 sodium 137 potassium 4.2 chloride 109 bicarb is 26 BUN 15 and creatinine 0.47 and blood sugar 84 magnesium 1.4 AST 59 ALT 102 and alk phos 57 urinalysis analysis is negative for infection. 08/31/2023 Patient is seen and evaluated in follow-up this morning extremely lethargic although arousable. Patient reports abdominal discomfort including nausea with continued diarrhea. Patient reports the abdominal pain with cramping became too intense she had to come to the hospital. Patient not tolerating much oral intake and is maintained on clear liquids. Discussed with oncology and will continue supportive care including low diet and slowly advance once tolerating. C. difficile testing was negative patient was started on as needed Imodium. Continue supportive care. Encouraged increased activity as tolerated 09/01/2023 Patient is seen in follow-up today continues to report abdominal pain with nausea and persistent diarrhea. Patient reports she has had 4 episodes of loose stools this morning with some nausea. Patient is tolerating clear liquids and will continue for another day and slowly advance. Continue antinausea medications along with diarrheal agents. Patient continues to report significant 10/10 pain and reports only the Dilaudid is helping. Discussed with oncology regarding pain management and will add 25 tara fentanyl patch and increase [place] and continue with as needed Dilaudid for now. Discussed with the patient about attempting to avoid IV narcotics. Patient is afebrile with no reports of chest pain. Patient reports shortness of breath with exertion. Encouraged patient to increase activity as tolerated and get up out of the bed more often. 09/02/2023 Patient is seen in follow-up this morning reports her abdominal pain persists although reports to feeling slightly improved from yesterday. Patient reports s he continues to have loose stools multiple times throughout the day although has become less intense and less frequent. Patient denies any vomiting although continues with occasional nausea. Patient did try to advance diet to full liquids including oatmeal this morning although was unable to tolerate and had to spit it out. Patient is afebrile with no reports of chest pain. Patient does report shortness of breath with exertion while getting up and washing herself up but remains above 95% on room air. Patient has been encouraged to sit up out of the bed more often and get up and walk frequently in the halls at least 2-3 times daily. Will adjust pain medications and continue current edwin men. Continue with antinausea and diarrheal agents as needed. Awaiting a.m. labs and replace electrolytes per protocol. Magnesium is chronically low and will continue daily supplementation. 09/03/2023 Patient is seen in follow-up today continues to report abdominal pain with some cramping and nauseated. Patient attempting to tolerate more oral intake and continues on full liquids with not much of an appetite. Patient continues to report significant pain and current regimen is helping although it does not last very long. Have encouraged the patient to increase activity as tolerated get up more often out of the bed and sit in the chair more frequently. Encourage small frequent meals and supplements throughout the day. Replace electrolytes per protocol and we will follow-up on repeat labs. Oncology is following and patient will follow in the outpatient setting regarding next treatment session. Review of systems: Constitutional: reports of fatigue, no fever, or chills Cardiovascular: No reports of chest pain or palpitations Respiratory: reports of occasional shortness of breath GI: reports of nausea, no documented vomiting, reports diarrhea : No reports of dysuria or retention Neurovascular: reports of generalized weakness All medications have been reviewed PHYSICAL EXAMINATION: GENERAL: The patient is awake, alert and oriented x4, Well developed, thin built, elderly appearing, ill-appearing HEENT: Pupils are round and equally reacting to light. EOMI. no scleral icterus. No conjunctival pallor. Normocephalic, atraumatic. No pharyngeal erythema. No thyromegaly. CARDIOVASCULAR: S1 and S2 muffled PULMONARY: diminished breath sounds bilaterally with no wheezing or rhonchi noted. ABDOMEN: soft. tender on exam. non-distended, normoactive bowel sounds. No palpable organomegaly. MUSCULOSKELETAL: No joint swelling or deformity. EXTREMITIES: No cyanosis, clubbing, or pedal edema. NEUROLOGICAL: Gross neurological examination did not reveal any focal deficits. Diffuse weakness SKIN: No rashes. Pale Assessment: Intractable nausea, vomiting, diarrhea likely acute gastroenteritis secondary to chemotherapy Generalized weakness and pain Pancytopenia secondary to chemotherapy Recent history of dysphagia. Barium swallow showed no evidence of aspiration. Oral mucositis Hypokalemia and hypomagnesemia secondary to poor oral intake and continued gastric losses, improving Diarrhea, C. difficile ruled out Transaminitis History of breast cancer, stage III, currently undergoing chemotherapy GERD Acute severe protein calorie malnutrition with a BMI of 19.4 GI prophylaxis PPI DVT prophylaxis heparin subcu Full code Plan: Patient will be continued on IV hydration. Symptomatic management for nausea and vomiting. Continue to replace electrolytes and follow-up closely. Patient had similar symptoms during recent admission. Had workup including CT of the abdomen pelvis and also barium swallow to evaluate for aspiration which has been negative. Continue to monitor CBC and transfuse PRBC if hemoglobin less than 7 and platelets of less than 10,000 Oncology following and continuing with supportive care. C. difficile testing was negative and Imodium added. Continue antinausea medications. Will make Zofran IV Magnesium 1.4 and will replace per protocol follow-up on repeat labs. Patient continues with frequent loose stools although C. difficile testing was negative Continue full liquid diet and slowly advance as tolerated, continue with supplements in between meals Encouraged to increase activity as tolerated and sitting up out of the bed more often at least 3 times daily Will adjust pain medications and also discussed with the patient about attempting to avoid IV narcotics as patient has been receiving IV Dilaudid [id number]. Will continue fentanyl patch and increase [place] dosing. Lengthy conversation was had with the patient and close friend at the bedside regarding narcotics and high risk for addiction and other side effects. Will discuss further with oncology and monitor for improvements in symptoms with possible discharge planning in the next 24 to 48 hours The impression and plan of care has been dictated by Nakia Baker, Nurse Practitioner as directed. Dr. Svetlana MD I have performed a history and examination and MDM of this patient, discussed the same with the dictator, and agree with the dictator's assessment and plan as written ,documented as a scribe. Based on total visit time, I have performed more than 50% of the visit. Objective - Vital Signs Vital signs: Vital Signs Temp 98.1 F 09/03/23 07:26 Pulse 75 09/03/23 07:26 Resp 16 09/03/23 07:26 BP 130/82 09/03/23 07:26 Pulse Ox 97 09/03/23 07:26 FiO2 Intake & Output 09/02/23 09/03/23 09/03/23 18:59 06:59 18:59 Intake Total 120 Balance 120 Intake: Oral 120 Other: Voiding Method Toilet # Voids 1 - Labs CBC & Chem 7: 09/03/23 11:20 09/03/23 11:20 Labs: Abnormal Lab Results - Last 24 Hours (Table) 09/03/23 Range/Units 04:44 POC Glucose (mg/dL) 114 H (70-110) mg/dL Microbiology - Last 24 Hours (Table) 08/31/23 20:30 Stool Culture - Preliminary Stool
[2023-09-04 10:44] LABS: Basophils # (A) 0.01 X 10*3/uL (0.00-0.10); Basophils % (A) 0.1 %; Eosinophils # (A) 0 X 10*3/uL (0.04-0.35); Eosinophils % (A) 0 %; HCT 29.7 % (37.2-46.3); HGB 9.1 g/dL (12.0-15.0); Lymphocytes # (A) 2.64 X 10*3/uL (0.90-5.00); Lymphocytes % (A) 30.6 %; MCH 31.5 pg (27.0-32.0); MCHC 30.6 g/dL (32.0-37.0); MCV 102.8 FL (80.0-97.0); Mean Platelet Volume 10.9 FL (9.5-12.2); Monocytes # (A) 0.53 X 10*3/uL (0.20-1.00); Monocytes % (A) 6.1 %; NRBC Per 100 WBC 0 X 10*3/uL (0.00-0.01); Neutrophils # (A) 5.38 X 10*3/uL (1.80-7.70); Neutrophils % (A) 62.3 %; Platelet Count 137 X 10*3/uL (140-440); RBC 2.89 X 10*6/uL (4.10-5.20); RDW 12.8 % (11.5-14.5); WBC 8.64 X 10*3/uL (4.50-10.00)
--- NOTE | 2023-09-04 16:23 | P.PN ---
Subjective Progress Note Date: 09/04/23 Patient is a 63-year-old female with a past medical history of GERD, obstructive sleep apnea, breast cancer currently on chemotherapy, anxiety/depression and a prior history of jose antonio-en-y presents to ER with complaints of nausea vomiting and diarrhea. Patient states that her last chemotherapy was on Thursday. Patient is also complaining of generalized body pains and back pain and unable to tolerate oral diet. Patient also feeling weak overall. Patient has been having symptoms for the past 2 to 3 days and has been worsening. Patient had similar episode of pain and nausea vomiting and diarrhea after previous chemotherapy. Otherwise denies any complaints of fever or chills. No cough or sputum production. No complaints of chest pain or shortness of breath. Chest x-ray showed no acute cardiopulmonary process. EKG showed sinus rhythm with low QRS voltage in the precordial leads. Laboratory showed WBC 1.7 hemoglobin 9.1 and platelets 121 sodium 137 potassium 4.2 chloride 109 bicarb is 26 BUN 15 and creatinine 0.47 and blood sugar 84 magnesium 1.4 AST 59 ALT 102 and alk phos 57 urinalysis analysis is negative for infection. 08/31/2023 Patient is seen and evaluated in follow-up this morning extremely lethargic although arousable. Patient reports abdominal discomfort including nausea with continued diarrhea. Patient reports the abdominal pain with cramping became too intense she had to come to the hospital. Patient not tolerating much oral intake and is maintained on clear liquids. Discussed with oncology and will continue supportive care including low diet and slowly advance once tolerating. C. difficile testing was negative patient was started on as needed Imodium. Continue supportive care. Encouraged increased activity as tolerated 09/01/2023 Patient is seen in follow-up today continues to report abdominal pain with nausea and persistent diarrhea. Patient reports she has had 4 episodes of loose stools this morning with some nausea. Patient is tolerating clear liquids and will continue for another day and slowly advance. Continue antinausea medications along with diarrheal agents. Patient continues to report significant 10/10 pain and reports only the Dilaudid is helping. Discussed with oncology regarding pain management and will add 25 tara fentanyl patch and increase [place] and continue with as needed Dilaudid for now. Discussed with the patient about attempting to avoid IV narcotics. Patient is afebrile with no reports of chest pain. Patient reports shortness of breath with exertion. Encouraged patient to increase activity as tolerated and get up out of the bed more often. 09/02/2023 Patient is seen in follow-up this morning reports her abdominal pain persists although reports to feeling slightly improved from yesterday. Patient reports s he continues to have loose stools multiple times throughout the day although has become less intense and less frequent. Patient denies any vomiting although continues with occasional nausea. Patient did try to advance diet to full liquids including oatmeal this morning although was unable to tolerate and had to spit it out. Patient is afebrile with no reports of chest pain. Patient does report shortness of breath with exertion while getting up and washing herself up but remains above 95% on room air. Patient has been encouraged to sit up out of the bed more often and get up and walk frequently in the halls at least 2-3 times daily. Will adjust pain medications and continue current edwin men. Continue with antinausea and diarrheal agents as needed. Awaiting a.m. labs and replace electrolytes per protocol. Magnesium is chronically low and will continue daily supplementation. 09/03/2023 Patient is seen in follow-up today continues to report abdominal pain with some cramping and nauseated. Patient attempting to tolerate more oral intake and continues on full liquids with not much of an appetite. Patient continues to report significant pain and current regimen is helping although it does not last very long. Have encouraged the patient to increase activity as tolerated get up more often out of the bed and sit in the chair more frequently. Encourage small frequent meals and supplements throughout the day. Replace electrolytes per protocol and we will follow-up on repeat labs. Oncology is following and patient will follow in the outpatient setting regarding next treatment session. 09/04/2023 Patient is seen in follow-up today and reports some cramping and abdominal pain although feels she would like to advance her diet. Patient did try oatmeal a couple of days ago and did not tolerate. Patient is requesting mashed potatoes as an option. Discussed with the patient along with family at the bedside that she is able to advance as tolerated. Patient diarrhea has improved and will continue on stool softeners and as needed bowel regimen. Patient to continue with antinausea medications. Patient to continue on pain management and limit the use of IV Dilaudid. Patient reports she has been feeling slightly improved although her pain does get pretty intense once the medication wears off. Patient has been encouraged to increase activity as tolerated and get up and walk around more often. Patient reports she is up and to the bathroom frequently. Patient is afebrile with no reported chest pain or shortness of breath. Magnesium mildly low and will give 1 g. Continue with oral supplementation. Review of systems: Constitutional: reports of fatigue, no fever, or chills Cardiovascular: No reports of chest pain or palpitations Respiratory: reports of occasional shortness of breath GI: reports of nausea, no documented vomiting, reports diarrhea has improved : No reports of dysuria or retention Neurovascular: reports of generalized weakness All medications have been reviewed PHYSICAL EXAMINATION: GENERAL: The patient is awake, alert and oriented x4, Well developed, thin built, elderly appearing, ill-appearing HEENT: Pupils are round and equally reacting to light. EOMI. no scleral icterus. No conjunctival pallor. Normocephalic, atraumatic. No pharyngeal erythema. No thyromegaly. CARDIOVASCULAR: S1 and S2 muffled PULMONARY: diminished breath sounds bilaterally with no wheezing or rhonchi noted. ABDOMEN: soft. Less tender on exam. non-distended, normoactive bowel sounds. No palpable organomegaly. MUSCULOSKELETAL: No joint swelling or deformity. EXTREMITIES: No cyanosis, clubbing, or pedal edema. NEUROLOGICAL: Gross neurological examination did not reveal any focal deficits. Diffuse weakness SKIN: No rashes. Pale Assessment: Intractable nausea, vomiting, diarrhea likely acute gastroenteritis secondary to chemotherapy Generalized weakness and pain Pancytopenia secondary to chemotherapy Recent history of dysphagia. Barium swallow showed no evidence of aspiration. Oral mucositis Hypokalemia and hypomagnesemia secondary to poor oral intake and continued gastric losses, improving Diarrhea, C. difficile ruled out Transaminitis History of breast cancer, stage III, currently undergoing chemotherapy GERD Acute severe protein calorie malnutrition with a BMI of 19.4 GI prophylaxis PPI DVT prophylaxis heparin subcu Full code Plan: Patient will be continued on IV hydration. Symptomatic management for nausea and vomiting. Continue to replace electrolytes and follow-up closely. Patient had similar symptoms during recent admission. Had workup including CT of the abdomen pelvis and also barium swallow to evaluate for aspiration which has been negative. Continue to monitor CBC and transfuse PRBC if hemoglobin less than 7 and platelets of less than 10,000 Oncology following and continuing with supportive care. C. difficile testing was negative and Imodium added. Continue antinausea medications. Continue Zofran IV as needed Magnesium was replaced. Continue oral supplementation once daily. Patient reports her bowel movements have improved and less frequent. Continue with as needed diarrheal agents as well as constipation prophylaxis as well Continue full liquid diet and slowly advance as tolerated, continue with supplements in between meals. Patient would like to try mashed potatoes. Okay to advance as she tolerates. Encouraged to increase activity as tolerated and sitting up out of the bed more often at least 3 times daily Will adjust pain medications and also discussed with the patient about attempting to avoid IV narcotics as patient has been receiving IV Dilaudid [id number]. Will continue fentanyl patch and increase [place] dosing. Lengthy conversation was had with the patient and close friend at the bedside regarding narcotics and high risk for addiction and other side effects. possible discharge planning in the next 24 to 48 hours. Patient able to discharge once tolerating more of oral intake The impression and plan of care has been dictated by Nakia Baker, Nurse Practitioner as directed. Dr. Svetlana MD I have performed a history and examination and MDM of this patient, discussed the same with the dictator, and agree with the dictator's assessment and plan as written ,documented as a scribe. Based on total visit time, I have performed more than 50% of the visit. Objective - Vital Signs Vital signs: Vital Signs Temp 97.7 F 09/04/23 07:56 Pulse 78 09/04/23 07:56 Resp 16 09/04/23 07:56 BP 124/74 09/04/23 07:56 Pulse Ox 97 09/04/23 07:56 FiO2 Intake & Output 09/03/23 09/04/23 09/04/23 18:59 06:59 18:59 Intake Total 540 Balance 540 Weight 54.431 kg Intake: Oral 540 Other: Voiding Method Toilet Toilet # Voids 1 # Bowel Movements 1 - Labs CBC & Chem 7: 09/04/23 06:13 09/03/23 11:20 Labs: Abnormal Lab Results - Last 24 Hours (Table) 09/03/23 09/03/23 09/04/23 Range/Units 11:20 11:20 06:13 WBC 11.9 H (3.8-10.6) k/uL RBC 2.70 L 2.89 L (3.80-5.40) m/uL Hgb 9.0 L 9.1 L (11.4-16.0) gm/dL Hct 28.0 L 29.7 L (34.0-46.0) % MCV 103.6 H 102.8 H (80.0-100.0) fL MCHC 30.6 L (32.0-37.0) g/dL Plt Count 130 L 137 L (150-450) k/uL Immature Gran # 0.08 H (0.00-0.04) X 10*3/uL Neutrophils # 9.4 H (1.3-7.7) k/uL Eosinophils # 0 L (0.04-0.35) X 10*3/uL Carbon Dioxide 31 H (22-30) mmol/L Microbiology - Last 24 Hours (Table) 08/31/23 20:30 Stool Culture - Final Stool
--- NOTE | 2023-09-06 14:32 | P.PN ---
Subjective Progress Note Date: 09/06/23 Principal diagnosis: HER2 positive breast cancer -Afebrile, no acute events overnight -Noted to have diarrhea yesterday, which has since improved today -She has been having increased bone pain over the past 24 hours using Dilaudid 1 mg IV a total of 6 times. Additional fentanyl patch 12.5 mcg was added -Oral intake has improved and was able to eat corn without complications, but did have some trouble with mashed potatoes. She does note some component of anticipatory nausea Objective - Vital Signs Vital signs: Vital Signs Temp 98.1 F 09/06/23 13:50 Pulse 81 09/06/23 13:50 Resp 16 09/06/23 13:50 BP 127/81 09/06/23 13:50 Pulse Ox 97 09/06/23 13:50 FiO2 Intake & Output 09/05/23 09/06/23 09/06/23 18:59 06:59 18:59 Other: Voiding Method Toilet Toilet Toilet - Constitutional Constitutional Comment(s): Fatigued appearing General appearance: Present: cooperative, no acute distress - Respiratory Respiratory: bilateral: CTA - Cardiovascular Rhythm: regular - Gastrointestinal General gastrointestinal: Present: soft, tenderness. Absent: distended Localized gastrointestinal: tender: RLQ - Integumentary Integumentary: Absent: rash - Neurologic Neurologic: Present: CNII-XII intact. Absent: focal deficits - Labs CBC & Chem 7: 09/04/23 06:13 09/03/23 11:20 Assessment and Plan (1) Breast cancer Current Visit: Yes Status: Acute Priority: High Code(s): C50.919 - MALIGNANT NEOPLASM OF UNSP SITE OF UNSPECIFIED FEMALE BREAST SNOMED Code(s): 616901308 (2) Nausea & vomiting Current Visit: Yes Status: Acute Priority: High Code(s): R11.2 - NAUSEA WITH VOMITING, UNSPECIFIED SNOMED Code(s): 85056044 (3) Mucositis Current Visit: Yes Status: Resolved Priority: High Code(s): K12.30 - ORAL MUCOSITIS (ULCERATIVE), UNSPECIFIED SNOMED Code(s): 12519813 Plan: Chemo induced N/V/D, myalgia/bone pain, mucositis: -Myalgia/bone pain likely r/t G-CSF. Completed dexamethasone 8mg BID x 2 days. Pain control improved with fentanyl patch, IV pain meds and dex -Diarrhea now resolved. C-Diff and stool culture negative -Has been having diarrhea over the past 24 hours and took Imodium with resolution -She has persistent intermittent nausea with some anticipatory nausea along with persistent bone pain -It would be unusual for bone pain from G-CSF to persist for this long -Agree with adding 12.5 mcg fentanyl patch to 25 mcg for a total of 37.5 mcg -We will add Ativan 0.5 mg tablet every 6 hours as needed for nausea (change from Xanax) -Continue cool solution as needed -Continue to advance diet as tolerated Breast cancer -Breast cancer, triple positive, on neoadjuvant treatment, clinical stage I. -Taxotere, carboplatin, Perjeta and Herceptin, 5/6 cycles completed. Last dose on 08/23, with G-CSF on 08/24 -Side effects above secondary to chemotherapy -Cycle 6 scheduled for 09/14/2023. She notes wanting to proceed with treatment without any changes to her regimen Yuliana Dotson MD
[2023-09-06] MEDS: LORazepam 0.5 MG TAB PO PRN (17:15)
--- NOTE | 2023-09-06 23:56 | P.PN ---
Subjective Progress Note Date: 09/05/23 Patient is a 63-year-old female with a past medical history of GERD, obstructive sleep apnea, breast cancer currently on chemotherapy, anxiety/depression and a prior history of jose antonio-en-y presents to ER with complaints of nausea vomiting and diarrhea. Patient states that her last chemotherapy was on Thursday. Patient is also complaining of generalized body pains and back pain and unable to tolerate oral diet. Patient also feeling weak overall. Patient has been having symptoms for the past 2 to 3 days and has been worsening. Patient had similar episode of pain and nausea vomiting and diarrhea after previous chemotherapy. Otherwise denies any complaints of fever or chills. No cough or sputum production. No complaints of chest pain or shortness of breath. Chest x-ray showed no acute cardiopulmonary process. EKG showed sinus rhythm with low QRS voltage in the precordial leads. Laboratory showed WBC 1.7 hemoglobin 9.1 and platelets 121 sodium 137 potassium 4.2 chloride 109 bicarb is 26 BUN 15 and creatinine 0.47 and blood sugar 84 magnesium 1.4 AST 59 ALT 102 and alk phos 57 urinalysis analysis is negative for infection. 08/31/2023 Patient is seen and evaluated in follow-up this morning extremely lethargic although arousable. Patient reports abdominal discomfort including nausea with continued diarrhea. Patient reports the abdominal pain with cramping became too intense she had to come to the hospital. Patient not tolerating much oral intake and is maintained on clear liquids. Discussed with oncology and will continue supportive care including low diet and slowly advance once tolerating. C. difficile testing was negative patient was started on as needed Imodium. Continue supportive care. Encouraged increased activity as tolerated 09/01/2023 Patient is seen in follow-up today continues to report abdominal pain with nausea and persistent diarrhea. Patient reports she has had 4 episodes of loose stools this morning with some nausea. Patient is tolerating clear liquids and will continue for another day and slowly advance. Continue antinausea medications along with diarrheal agents. Patient continues to report significant 10/10 pain and reports only the Dilaudid is helping. Discussed with oncology regarding pain management and will add 25 tara fentanyl patch and increase [place] and continue with as needed Dilaudid for now. Discussed with the patient about attempting to avoid IV narcotics. Patient is afebrile with no reports of chest pain. Patient reports shortness of breath with exertion. Encouraged patient to increase activity as tolerated and get up out of the bed more often. 09/02/2023 Patient is seen in follow-up this morning reports her abdominal pain persists although reports to feeling slightly improved from yesterday. Patient reports she continues to have loose stools multiple times throughout the day although has become less intense and less frequent. Patient denies any vomiting although continues with occasional nausea. Patient did try to advance diet to full liquids including oatmeal this morning although was unable to tolerate and had to spit it out. Patient is afebrile with no reports of chest pain. Patient does report shortness of breath with exertion while getting up and washing herself up but remains above 95% on room air. Patient has been encouraged to sit up out of the bed more often and get up and walk frequently in the halls at least 2-3 times daily. Will adjust pain medications and continue current regimen. Continue with antinausea and diarrheal agents as needed. Awaiting a.m. labs and replace electrolytes per protocol. Magnesium is chronically low and will continue daily supplementation. 09/03/2023 Patient is seen in follow-up today continues to report abdominal pain with some cramping and nauseated. Patient attempting to tolerate more oral intake and continues on full liquids with not much of an appetite. Patient continues to report significant pain and current regimen is helping although it does not last very long. Have encouraged the patient to increase activity as tolerated get up more often out of the bed and sit in the chair more frequently. Encourage small frequent meals and supplements throughout the day. Replace electrolytes per protocol and we will follow-up on repeat labs. Oncology is following and patient will follow in the outpatient setting regarding next treatment session. 09/04/2023 Patient is seen in follow-up today and reports some cramping and abdominal pain although feels she would like to advance her diet. Patient did try oatmeal a couple of days ago and did not tolerate. Patient is requesting mashed potatoes as an option. Discussed with the patient along with family at the bedside that she is able to advance as tolerated. Patient diarrhea has improved and will continue on stool softeners and as needed bowel regimen. Patient to continue with antinausea medications. Patient to continue on pain management and limit the use of IV Dilaudid. Patient reports she has been feeling slightly improved although her pain does get pretty intense once the medication wears off. Patient has been encouraged to increase activity as tolerated and get up and walk around more often. Patient reports she is up and to the bathroom frequently. Patient is afebrile with no reported chest pain or shortness of breath. Magnesium mildly low and will give 1 g. Continue with oral supplementation. 09/05/2023 Patient is currently sitting on side of bed. Awake alert and oriented x 3. No complaints of chest pain or shortness of breath. No nausea or vomiting. Patient is able to tolerate oral intake. Patient is fairly controlled. Patient states that she feels better today. No fever or chills. No headache or dizziness or lightheadedness. Patient is being treated pain management with fentanyl patch and is also on [place] 10 and Dilaudid. Also on IV hydration with Ringer's lactate at 75 cc/h. No new laboratory data today. Current medications reviewed. Review of systems: Constitutional: reports of fatigue, no fever, or chills Cardiovascular: No reports of chest pain or palpitations Respiratory: reports of occasional shortness of breath GI: reports of nausea, no documented vomiting, reports diarrhea has improved : No reports of dysuria or retention Neurovascular: reports of generalized weakness All medications have been reviewed PHYSICAL EXAMINATION: GENERAL: The patient is awake, alert and oriented x4, Well developed, thin tavares lt, elderly appearing, ill-appearing HEENT: Pupils are round and equally reacting to light. EOMI. no scleral icterus. No conjunctival pallor. Normocephalic, atraumatic. No pharyngeal erythema. No thyromegaly. CARDIOVASCULAR: S1 and S2 muffled PULMONARY: diminished breath sounds bilaterally with no wheezing or rhonchi noted. ABDOMEN: soft. Less tender on exam. non-distended, normoactive bowel sounds. No palpable organomegaly. MUSCULOSKELETAL: No joint swelling or deformity. EXTREMITIES: No cyanosis, clubbing, or pedal edema. NEUROLOGICAL: Gross neurological examination did not reveal any focal deficits. Diffuse weakness SKIN: No rashes. Pale Assessment: Intractable nausea, vomiting, diarrhea likely acute gastroenteritis secondary to chemotherapy Generalized weakness and pain Pancytopenia secondary to chemotherapy Recent history of dysphagia. Barium swallow showed no evidence of aspiration. Oral mucositis Hypokalemia and hypomagnesemia secondary to poor oral intake and continued gastric losses, improving Diarrhea, C. difficile ruled out Transaminitis History of breast cancer, stage III, currently undergoing chemotherapy GERD Acute severe protein calorie malnutrition with a BMI of 19.4 GI prophylaxis PPI DVT prophylaxis heparin subcu Full code Plan: Patient will be continued on IV hydration. Symptomatic management for nausea and vomiting. Continue to replace electrolytes and follow-up closely. Patient had similar symptoms during recent admission. Had workup including CT of the abdomen pelvis and also barium swallow to evaluate for aspiration which has been negative. Continue to monitor CBC and transfuse PRBC if hemoglobin less than 7 and platelets of less than 10,000 Oncology following and continuing with supportive care. C. difficile testing was negative and Imodium added. Continue antinausea medications. Continue Zofran IV as needed Magnesium was replaced. Continue oral supplementation once daily. Patient reports her bowel movements have improved and less frequent. Continue with as needed diarrheal agents as well as constipation prophylaxis as well Continue full liquid diet and slowly advance as tolerated, continue with supplements in between meals. Patient would like to try mashed potatoes. Okay to advance as she tolerates. Encouraged to increase activity as tolerated and sitting up out of the bed more often at least 3 times daily Will adjust pain medications and also discussed with the patient about attempting to avoid IV narcotics as patient has been receiving IV Dilaudid [id number]. Will continue fentanyl patch and increase [place] dosing. Lengthy conversation was had with the patient and close friend at the bedside regarding narcotics and high risk for addiction and other side effects. possible discharge planning in the next 24 to 48 hours. Patient able to discharge once tolerating more of oral intake Objective - Vital Signs Vital signs: Vital Signs Temp 97.9 F 09/05/23 07:24 Pulse 84 09/05/23 08:45 Resp 16 09/05/23 08:45 BP 135/82 09/05/23 07:24 Pulse Ox 97 09/05/23 07:24 FiO2 Intake & Output 09/04/23 09/05/23 09/05/23 18:59 06:59 18:59 Intake Total 240 Balance 240 Intake: Oral 240 Other: Voiding Method Toilet Toilet Toilet # Voids 2 - Labs CBC & Chem 7: 09/04/23 06:13 09/03/23 11:20
--- NOTE | 2023-09-06 23:56 | P.PN ---
Subjective Progress Note Date: 09/06/23 Patient is a 63-year-old female with a past medical history of GERD, obstructive sleep apnea, breast cancer currently on chemotherapy, anxiety/depression and a prior history of jose antonio-en-y presents to ER with complaints of nausea vomiting and diarrhea. Patient states that her last chemotherapy was on Thursday. Patient is also complaining of generalized body pains and back pain and unable to tolerate oral diet. Patient also feeling weak overall. Patient has been having symptoms for the past 2 to 3 days and has been worsening. Patient had similar episode of pain and nausea vomiting and diarrhea after previous chemotherapy. Otherwise denies any complaints of fever or chills. No cough or sputum production. No complaints of chest pain or shortness of breath. Chest x-ray showed no acute cardiopulmonary process. EKG showed sinus rhythm with low QRS voltage in the precordial leads. Laboratory showed WBC 1.7 hemoglobin 9.1 and platelets 121 sodium 137 potassium 4.2 chloride 109 bicarb is 26 BUN 15 and creatinine 0.47 and blood sugar 84 magnesium 1.4 AST 59 ALT 102 and alk phos 57 urinalysis analysis is negative for infection. 08/31/2023 Patient is seen and evaluated in follow-up this morning extremely lethargic although arousable. Patient reports abdominal discomfort including nausea with continued diarrhea. Patient reports the abdominal pain with cramping became too intense she had to come to the hospital. Patient not tolerating much oral intake and is maintained on clear liquids. Discussed with oncology and will continue supportive care including low diet and slowly advance once tolerating. C. difficile testing was negative patient was started on as needed Imodium. Continue supportive care. Encouraged increased activity as tolerated 09/01/2023 Patient is seen in follow-up today continues to report abdominal pain with nausea and persistent diarrhea. Patient reports she has had 4 episodes of loose stools this morning with some nausea. Patient is tolerating clear liquids and will continue for another day and slowly advance. Continue antinausea medications along with diarrheal agents. Patient continues to report significant 10/10 pain and reports only the Dilaudid is helping. Discussed with oncology regarding pain management and will add 25 tara fentanyl patch and increase [place] and continue with as needed Dilaudid for now. Discussed with the patient about attempting to avoid IV narcotics. Patient is afebrile with no reports of chest pain. Patient reports shortness of breath with exertion. Encouraged patient to increase activity as tolerated and get up out of the bed more often. 09/02/2023 Patient is seen in follow-up this morning reports her abdominal pain persists although reports to feeling slightly improved from yesterday. Patient reports she continues to have loose stools multiple times throughout the day although has become less intense and less frequent. Patient denies any vomiting although continues with occasional nausea. Patient did try to advance diet to full liquids including oatmeal this morning although was unable to tolerate and had to spit it out. Patient is afebrile with no reports of chest pain. Patient does report shortness of breath with exertion while getting up and washing herself up but remains above 95% on room air. Patient has been encouraged to sit up out of the bed more often and get up and walk frequently in the halls at least 2-3 times daily. Will adjust pain medications and continue current regimen. Continue with antinausea and diarrheal agents as needed. Awaiting a.m. labs and replace electrolytes per protocol. Magnesium is chronically low and will continue daily supplementation. 09/03/2023 Patient is seen in follow-up today continues to report abdominal pain with some cramping and nauseated. Patient attempting to tolerate more oral intake and continues on full liquids with not much of an appetite. Patient continues to report significant pain and current regimen is helping although it does not last very long. Have encouraged the patient to increase activity as tolerated get up more often out of the bed and sit in the chair more frequently. Encourage small frequent meals and supplements throughout the day. Replace electrolytes per protocol and we will follow-up on repeat labs. Oncology is following and patient will follow in the outpatient setting regarding next treatment session. 09/04/2023 Patient is seen in follow-up today and reports some cramping and abdominal pain although feels she would like to advance her diet. Patient did try oatmeal a couple of days ago and did not tolerate. Patient is requesting mashed potatoes as an option. Discussed with the patient along with family at the bedside that she is able to advance as tolerated. Patient diarrhea has improved and will continue on stool softeners and as needed bowel regimen. Patient to continue with antinausea medications. Patient to continue on pain management and limit the use of IV Dilaudid. Patient reports she has been feeling slightly improved although her pain does get pretty intense once the medication wears off. Patient has been encouraged to increase activity as tolerated and get up and walk around more often. Patient reports she is up and to the bathroom frequently. Patient is afebrile with no reported chest pain or shortness of breath. Magnesium mildly low and will give 1 g. Continue with oral supplementation. 09/05/2023 Patient is currently sitting on side of bed. Awake alert and oriented x 3. No complaints of chest pain or shortness of breath. No nausea or vomiting. Patient is able to tolerate oral intake. Patient is fairly controlled. Patient states that she feels better today. No fever or chills. No headache or dizziness or lightheadedness. Patient is being treated pain management with fentanyl patch and is also on [place] 10 and Dilaudid. Also on IV hydration with Ringer's lactate at 75 cc/h. No new laboratory data today. Current medications reviewed. 09/06/2023 Patient is currently laying in the bed. Awake alert and oriented. Complains of nausea and also complaining of pain. Patient is on fentanyl patch and also on Dilaudid IV and [place] 10. Oncology is on board. Blood pressure stable. Patient has been afebrile overnight. Currently on room air. Follow-up repeat CBC and BMP tomorrow. Oncology is on board. Review of systems: Constitutional: reports of fatigue, no fever, or chills Cardiovascular: No reports of chest pain or palpitations Respiratory: reports of occasional shortness of breath GI: reports of nausea, no documented vomiting, reports diarrhea has improved : No reports of dysuria or retention Neurovascular: reports of generalized weakness All medications have been reviewed PHYSICAL EXAMINATION: GENERAL: The patient is awake, alert and oriented x4, Well developed, thin built, elderly appearing, ill-appearing HEENT: Pupils are round and equally reacting to light. EOMI. no scleral icterus. No conjunctival pallor. Normocephalic, atraumatic. No pharyngeal erythema. No thyromegaly. CARDIOVASCULAR: S1 and S2 muffled PULMONARY: diminished breath sounds bilaterally with no wheezing or rhonchi noted. ABDOMEN: soft. Less tender on exam. non-distended, normoactive bowel sounds. No palpable organomegaly. MUSCULOSKELETAL: No joint swelling or deformity. EXTREMITIES: No cyanosis, clubbing, or pedal edema. NEUROLOGICAL: Gross neurological examination did not reveal any focal deficits. Diffuse weakness SKIN: No rashes. Pale Assessment: Intractable nausea, vomiting, diarrhea likely acute gastroenteritis secondary to chemotherapy Generalized weakness and pain Pancytopenia secondary to chemotherapy Recent history of dysphagia. Barium swallow showed no evidence of aspiration. Oral mucositis Hypokalemia and hypomagnesemia secondary to poor oral intake and continued gastric losses, improving Diarrhea, C. difficile ruled out Transaminitis History of breast cancer, stage III, currently undergoing chemotherapy GERD Acute severe protein calorie malnutrition with a BMI of 19.4 GI prophylaxis PPI DVT prophylaxis heparin subcu Full code Plan: Patient will be continued on IV hydration with Ringer's lactate at 75 cc/h.. Symptomatic management for nausea and vomiting. Continue to replace electrolytes and follow-up closely. Patient had similar symptoms during recent admission. Had workup including CT of the abdomen pelvis and also barium swallow to evaluate for aspiration which has been negative. Continue to monitor CBC and transfuse PRBC if hemoglobin less than 7 and platelets of less than 10,000 Oncology following and continuing with supportive care. C. difficile testing was negative and Imodium added. Continue antinausea medications. Continue Zofran IV as needed Magnesium was replaced. Continue oral supplementation once daily. Patient reports her bowel movements have improved and less frequent. Continue with as needed diarrheal agents as well as constipation prophylaxis as well Continue full liquid diet and slowly advance as tolerated, continue with supplements in between meals. Patient would like to try mashed potatoes. Okay to advance as she tolerates. Encouraged to increase activity as tolerated and sitting up out of the bed more often at least 3 times daily Will adjust pain medications and also discussed with the patient about attempting to avoid IV narcotics as patient has been receiving IV Dilaudid [id number]. Will continue fentanyl patch and increase [place] dosing. Lengthy conversation was had with the patient and close friend at the bedside regarding narcotics and high risk for addiction and other side effects. possible discharge planning in the next 24 to 48 hours. Patient able to discharge once tolerating more of oral intake Objective - Vital Signs Vital signs: Vital Signs Temp 98.2 F 09/06/23 19:08 Pulse 86 09/06/23 19:08 Resp 16 09/06/23 20:00 BP 117/80 09/06/23 19:08 Pulse Ox 94 L 09/06/23 19:08 FiO2 Intake & Output 09/06/23 09/06/23 09/07/23 06:59 18:59 06:59 Intake Total 100 Balance 100 Intake: Oral 100 Other: Voiding Method Toilet Toilet Toilet - Labs CBC & Chem 7: 09/04/23 06:13 09/03/23 11:20
[2023-09-07] MEDS: METOCLOPRAMIDE 5 MG/ML 2 ML VIAL IVP PRN (07:55)
[2023-09-07 10:44] LABS: Basophils # (A) 0.02 X 10*3/uL (0.00-0.10); Basophils % (A) 0.2 %; Eosinophils # (A) 0 X 10*3/uL (0.04-0.35); Eosinophils % (A) 0 %; HCT 30.9 % (37.2-46.3); HGB 9.3 g/dL (12.0-15.0); Lymphocytes % (A) 16.6 %; MCH 31.7 pg (27.0-32.0); MCHC 30.1 g/dL (32.0-37.0); MCV 105.5 FL (80.0-97.0); Monocytes # (A) 0.35 X 10*3/uL (0.20-1.00); Monocytes % (A) 3.6 %; NRBC Per 100 WBC 0 X 10*3/uL (0.00-0.01); Neutrophils # (A) 7.62 X 10*3/uL (1.80-7.70); Neutrophils % (A) 79.1 %; Platelet Count 148 X 10*3/uL (140-440); RBC 2.93 X 10*6/uL (4.10-5.20); RDW 13.2 % (11.5-14.5); WBC 9.64 X 10*3/uL (4.50-10.00)
[2023-09-07 10:54] LABS: BUN/Creat Ratio 9.14 Ratio (12.00-20.00); Blood Urea Nitrogen 6.4 mg/dL (9.0-27.0); Calcium 8.3 mg/dL (8.7-10.3); Carbon Dioxide 27.8 mmol/L (21.6-31.8); Chloride 104 mmol/L (96-109); Glucose 77 mg/dL (70-110); Potassium 3.7 mmol/L (3.5-5.5); Sodium 141 mmol/L (135-145)
[2023-09-07] MEDS: CHOLESTYRAMINE (WITH SUGAR) 4 GM PACKET PO SCH (13:09)
--- NOTE | 2023-09-07 13:32 | P.PN ---
Subjective Progress Note Date: 09/07/23 At today's visit patient is resting comfortably in bed. Reporting improvement in pain, with increase in fentanyl. Diarrhea resolved. Reporting persisting nausea, 1 episode of vomiting after eating breakfast, but did tolerate ice cream. Also reporting generalized weakness and SOB. Counts stable Objective - Vital Signs Vital signs: Vital Signs Temp 98.6 F 09/07/23 07:37 Pulse 86 09/07/23 07:37 Resp 15 09/07/23 07:37 BP 104/73 09/07/23 07:37 Pulse Ox 99 09/07/23 07:37 FiO2 Intake & Output 09/06/23 09/07/23 09/07/23 18:59 06:59 18:59 Intake Total 100 Balance 100 Intake: Oral 100 Other: Voiding Method Toilet Toilet Toilet - Constitutional General appearance: Present: average body habitus, no acute distress - EENT Eyes: Present: anicteric sclerae, EOMI ENT: Present: hearing grossly normal - Respiratory Details: breathing is even and unlabored - Cardiovascular Details: skin warm and dry - Gastrointestinal General gastrointestinal: Present: soft, tenderness - Integumentary Integumentary: Absent: cyanotic - Neurologic Neurologic: Present: CNII-XII intact - Musculoskeletal Musculoskeletal: Present: strength equal bilaterally - Psychiatric Psychiatric: Present: A&O x's 3 - Labs CBC & Chem 7: 09/07/23 08:00 09/07/23 08:00 Labs: Abnormal Lab Results - Last 24 Hours (Table) 09/07/23 09/07/23 Range/Units 08:00 08:00 RBC 2.93 L (4.10-5.20) X 10*6/uL Hgb 9.3 L (12.0-15.0) g/dL Hct 30.9 L (37.2-46.3) % MCV 105.5 H (80.0-97.0) FL MCHC 30.1 L (32.0-37.0) g/dL Immature Gran # 0.05 H (0.00-0.04) X 10*3/uL Eosinophils # 0 L (0.04-0.35) X 10*3/uL BUN 6.4 L (9.0-27.0) mg/dL BUN/Creatinine Ratio 9.14 L (12.00-20.00) Ratio Calcium 8.3 L (8.7-10.3) mg/dL Assessment and Plan (1) Breast cancer Current Visit: Yes Status: Acute Priority: High Code(s): C50.919 - MALIGNANT NEOPLASM OF UNSP SITE OF UNSPECIFIED FEMALE BREAST SNOMED Code(s): 581834062 (2) Nausea & vomiting Current Visit: Yes Status: Acute Priority: High Code(s): R11.2 - NAUSEA WITH VOMITING, UNSPECIFIED SNOMED Code(s): 21180704 (3) Mucositis Current Visit: Yes Status: Resolved Priority: High Code(s): K12.30 - ORAL MUCOSITIS (ULCERATIVE), UNSPECIFIED SNOMED Code(s): 82948736 Plan: Chemo induced N/V/D, myalgia/bone pain, mucositis: -Myalgia/bone pain likely r/t G-CSF. Completed dexamethasone 8mg BID x 2 days. Pain control improved with fentanyl patch, IV pain meds and dex -Diarrhea now resolved. C-Diff and stool culture negative -Had increase in diarrhea and took Imodium with resolution -She has persistent intermittent nausea with some anticipatory nausea along with persistent bone pain -It would be unusual for bone pain from G-CSF to persist for this long -Agree with adding 12.5 mcg fentanyl patch to 25 mcg for a total of 37.5 mcg, pain improved today -We will add Ativan 0.5 mg tablet every 6 hours as needed for nausea (change from Xanax). Nausea persisting, continue with Aitvan and anti-emetic regimen -Strict I&Os -Continue cool solution as needed -Continue to advance diet as tolerated Breast cancer -Breast cancer, triple positive, on neoadjuvant treatment, clinical stage I. -Taxotere, carboplatin, Perjeta and Herceptin, 5/6 cycles completed. Last dose on 08/23, with G-CSF on 08/24 -Side effects above secondary to chemotherapy -Cycle 6 scheduled for 09/14/2023. She notes wanting to proceed with treatment without any changes to her regimen
--- NOTE | 2023-09-07 15:49 | P.PN ---
Subjective Progress Note Date: 09/07/23 Patient is a 63-year-old female with a past medical history of GERD, obstructive sleep apnea, breast cancer currently on chemotherapy, anxiety/depression and a prior history of jose [id number] presents to ER with complaints of nausea vomiting and diarrhea. Patient states that her last chemotherapy was on Thursday. Patient is also complaining of generalized body pains and back pain and unable to tolerate oral diet. Patient also feeling weak overall. Patient has been having symptoms for the past 2 to 3 days and has been worsening. Patient had similar episode of pain and nausea vomiting and diarrhea after previous chemotherapy. Otherwise denies any complaints of fever or chills. No cough or sputum production. No complaints of chest pain or shortness of breath. Chest x-ray showed no acute cardiopulmonary process. EKG showed sinus rhythm with low QRS voltage in the precordial leads. Laboratory showed WBC 1.7 hemoglobin 9.1 and platelets 121 sodium 137 potassium 4.2 chloride 109 bicarb is 26 BUN 15 and creatinine 0.47 and blood sugar 84 magnesium 1.4 AST 59 ALT 102 and alk phos 57 urinalysis analysis is negative for infection. 08/31/2023 Patient is seen and evaluated in follow-up this morning extremely lethargic although arousable. Patient reports abdominal discomfort including nausea with continued diarrhea. Patient reports the abdominal pain with cramping became too intense she had to come to the hospital. Patient not tolerating much oral intake and is maintained on clear liquids. Discussed with oncology and will continue supportive care including low diet and slowly advance once tolerating. C. difficile testing was negative patient was started on as needed Imodium. Continue supportive care. Encouraged increased activity as tolerated 09/01/2023 Patient is seen in follow-up today continues to report abdominal pain with nausea and persistent diarrhea. Patient reports she has had 4 episodes of loose stools this morning with some nausea. Patient is tolerating clear liquids and will continue for another day and slowly advance. Continue antinausea medications along with diarrheal agents. Patient continues to report significant 10/10 pain and reports only the Dilaudid is helping. Discussed with oncology regarding pain management and will add 25 tara fentanyl patch and increase Hunt and continue with as needed Dilaudid for now. Discussed with the patient about attempting to avoid IV narcotics. Patient is afebrile with no reports of chest pain. Patient reports shortness of breath with exertion. Encouraged patient to increase activity as tolerated and get up out of the bed more often. 09/02/2023 Patient is seen in follow-up this morning reports her abdominal pain persists although reports to feeling slightly improved from yesterday. Patient reports s he continues to have loose stools multiple times throughout the day although has become less intense and less frequent. Patient denies any vomiting although continues with occasional nausea. Patient did try to advance diet to full liquids including oatmeal this morning although was unable to tolerate and had to spit it out. Patient is afebrile with no reports of chest pain. Patient does report shortness of breath with exertion while getting up and washing herself up but remains above 95% on room air. Patient has been encouraged to sit up out of the bed more often and get up and walk frequently in the halls at least 2-3 times daily. Will adjust pain medications and continue current edwin men. Continue with antinausea and diarrheal agents as needed. Awaiting a.m. labs and replace electrolytes per protocol. Magnesium is chronically low and will continue daily supplementation. 09/03/2023 Patient is seen in follow-up today continues to report abdominal pain with some cramping and nauseated. Patient attempting to tolerate more oral intake and continues on full liquids with not much of an appetite. Patient continues to report significant pain and current regimen is helping although it does not last very long. Have encouraged the patient to increase activity as tolerated get up more often out of the bed and sit in the chair more frequently. Encourage small frequent meals and supplements throughout the day. Replace electrolytes per protocol and we will follow-up on repeat labs. Oncology is following and patient will follow in the outpatient setting regarding next treatment session. 09/04/2023 Patient is seen in follow-up today and reports some cramping and abdominal pain although feels she would like to advance her diet. Patient did try oatmeal a couple of days ago and did not tolerate. Patient is requesting mashed potatoes as an option. Discussed with the patient along with family at the bedside that she is able to advance as tolerated. Patient diarrhea has improved and will continue on stool softeners and as needed bowel regimen. Patient to continue with antinausea medications. Patient to continue on pain management and limit the use of IV Dilaudid. Patient reports she has been feeling slightly improved although her pain does get pretty intense once the medication wears off. Patient has been encouraged to increase activity as tolerated and get up and walk around more often. Patient reports she is up and to the bathroom frequently. Patient is afebrile with no reported chest pain or shortness of breath. Magnesium mildly low and will give 1 g. Continue with oral supplementation. 09/05/2023 Patient is currently sitting on side of bed. Awake alert and oriented x 3. No complaints of chest pain or shortness of breath. No nausea or vomiting. Patient is able to tolerate oral intake. Patient is fairly controlled. Patient states that she feels better today. No fever or chills. No headache or dizziness or lightheadedness. Patient is being treated pain management with fentanyl patch and is also on Hunt 10 and Dilaudid. Also on IV hydration with Ringer's lactate at 75 cc/h. No new laboratory data today. Current medications reviewed. 09/06/2023 Patient is currently laying in the bed. Awake alert and oriented. Complains of nausea and also complaining of pain. Patient is on fentanyl patch and also on Dilaudid IV and Hunt 10. Oncology is on board. Blood pressure stable. Patient has been afebrile overnight. Currently on room air. Follow-up repeat CBC and BMP tomorrow. Oncology is on board. 6 09/07/2023 Patient is seen in follow-up today reporting persistent nausea patient does have Zofran which does help although continues to have not much of an appetite. Patient reports is tolerating mashed potatoes although not much more. Patient has been encouraged supplements along with antinausea and diarrheal agents. Encouraged increase activity as tolerated as patient also reports she has been feeling dizzy when getting up. Will obtain orthostatic vitals. Continue with current pain regimen and discussed limiting IV Dilaudid. Will follow-up with repeat labs and continue to monitor closely. Replace electrolytes per protocol. Review of systems: Constitutional: reports of fatigue, no fever, or chills Cardiovascular: No reports of chest pain or palpitations Respiratory: reports of occasional shortness of breath GI: reports of nausea, no documented vomiting, reports diarrhea has improved : No reports of dysuria or retention Neurovascular: reports of generalized weakness and feeling dizzy when getting up All medications have been reviewed PHYSICAL EXAMINATION: GENERAL: The patient is awake, alert and oriented x4, Well developed, thin built, elderly appearing, ill-appearing HEENT: Pupils are round and equally reacting to light. EOMI. no scleral icterus. No conjunctival pallor. Normocephalic, atraumatic. No pharyngeal erythema. No thyromegaly. CARDIOVASCULAR: S1 and S2 muffled PULMONARY: diminished breath sounds bilaterally with no wheezing or rhonchi noted. ABDOMEN: soft. Less tender on exam. non-distended, normoactive bowel sounds. No palpable organomegaly. MUSCULOSKELETAL: No joint swelling or deformity. EXTREMITIES: No cyanosis, clubbing, or pedal edema. NEUROLOGICAL: Gross neurological examination did not reveal any focal deficits. Diffuse weakness SKIN: No rashes. Pale Assessment: Intractable nausea, vomiting, diarrhea likely acute gastroenteritis secondary to chemotherapy Generalized weakness and pain Pancytopenia secondary to chemotherapy Recent history of dysphagia. Barium swallow showed no evidence of aspiration. Oral mucositis Hypokalemia and hypomagnesemia secondary to poor oral intake and continued gastric losses, improving Diarrhea, C. difficile ruled out Transaminitis History of breast cancer, stage III, currently undergoing chemotherapy GERD Acute severe protein calorie malnutrition with a BMI of 19.4 GI prophylaxis PPI DVT prophylaxis heparin subcu Full code Plan: Patient will be continued on IV hydration with Ringer's lactate at 75 cc/h.. Symptomatic management for nausea and vomiting. Continue to replace electrolytes and follow-up closely. Patient had similar symptoms during recent admission. Had workup including CT of the abdomen pelvis and also barium swallow to evaluate for aspiration which has been negative. Continue to monitor CBC and transfuse PRBC if hemoglobin less than 7 and platelets of less than 10,000, counts are stable and will follow-up with repeat labs. Oncology following and continuing with supportive care. C. difficile testing was negative and Imodium added. Continue antinausea medications. Continue Zofran IV as needed Magnesium was replaced. Continue oral supplementation once daily. Patient reports her bowel movements have improved and less frequent. Continue with as needed diarrheal agents as well as constipation prophylaxis as well Continue full liquid diet and slowly advance as tolerated, continue with supplements in between meals. Patient tolerating mashed potatoes but not much more. Okay to advance as she tolerates. Encouraged to increase activity as tolerated and sitting up out of the bed more often at least 3 times daily Patient reports to feeling mildly dizzy when getting up. Continue with IV hydration and follow-up on orthostatics. Will continue current pain medications and also discussed with the patient about attempting to avoid IV narcotics as patient has been receiving IV Dilaudid [id number]. Will continue fentanyl patch and increase Hunt dosing. Sia beth conversation was had with the patient and close friend at the bedside regarding narcotics and high risk for addiction and other side effects. possible discharge planning in the next 24 to 48 hours. Plan is for next chemotherapy session on 09/14/2023 The impression and plan of care has been dictated by Nakia Baker, Nurse Practitioner as directed. Dr. Celso MD I have performed a history and examination and MDM of this patient, discussed the same with the dictator, and agree with the dictator's assessment and plan as written ,documented as a scribe. Based on total visit time, I have performed more than 50% of the visit. Objective - Vital Signs Vital signs: Vital Signs Temp 98.6 F 09/07/23 07:37 Pulse 86 09/07/23 07:37 Resp 15 09/07/23 07:37 BP 104/73 09/07/23 07:37 Pulse Ox 99 09/07/23 07:37 FiO2 Intake & Output 09/06/23 09/07/23 09/07/23 18:59 06:59 18:59 Intake Total 100 Balance 100 Intake: Oral 100 Other: Voiding Method Toilet Toilet Toilet - Labs CBC & Chem 7: 09/07/23 08:00 09/07/23 08:00 Labs: Abnormal Lab Results - Last 24 Hours (Table) 09/07/23 09/07/23 Range/Units 08:00 08:00 RBC 2.93 L (4.10-5.20) X 10*6/uL Hgb 9.3 L (12.0-15.0) g/dL Hct 30.9 L (37.2-46.3) % MCV 105.5 H (80.0-97.0) FL MCHC 30.1 L (32.0-37.0) g/dL Immature Gran # 0.05 H (0.00-0.04) X 10*3/uL Eosinophils # 0 L (0.04-0.35) X 10*3/uL BUN 6.4 L (9.0-27.0) mg/dL BUN/Creatinine Ratio 9.14 L (12.00-20.00) Ratio Calcium 8.3 L (8.7-10.3) mg/dL
[2023-09-08] MEDS: IOPAMIDOL CONTRAST (ORAL USE) VIAL PO PRN (12:53)
--- NOTE | 2023-09-08 14:48 | CT ---
EXAMINATION TYPE: CT abdomen pelvis wo con DATE OF EXAM: 09/08/2023 COMPARISON: 08/13/2023 HISTORY: abdominal pain CT DLP: 354.90 mGycm Examination of the solid and hollow viscera is limited given the lack of contrast. FINDINGS: LUNG BASES: No evidence for nodule. No evidence for infiltrate. LIVER/GB: The gallbladder is surgically absent. No space-occupying hepatic lesion. PANCREAS: No pancreatic mass identified. No inflammatory process seen. SPLEEN: No evidence for splenomegaly. No intrasplenic lesions seen. ADRENALS: No adrenal nodules identified. No evidence for thickening. KIDNEYS: No evidence for renal mass. No nephrolithiasis. No hydronephrosis. BOWEL: Postoperative pain changes about the stomach redemonstrated. Large volume of pelvic pain colon ic stool noted. Slight improvement from prior study. Proximal small bowel is mildly distended. The re mainder of the small bowel is of normal caliber. No evidence of free air or abscess. Nonvisualization of the appendix. No inflammatory process seen. Lymph nodes: No evidence for adenopathy greater than 1 cm. Abdominal aorta: Atheromatous changes seen. No evidence for aneurysm. Genital organs: No significant abnormality. Other: No significant abnormality. IMPRESSION: 1.Large volume of pelvic pain colonic stool noted. Slight improvement from prior study. 2. Mild distention proximal small bowel. No obstructive changes present.
--- NOTE | 2023-09-08 14:56 | P.PN ---
Subjective Progress Note Date: 09/08/23 Patient is a 63-year-old female with a past medical history of GERD, obstructive sleep apnea, breast cancer currently on chemotherapy, anxiety/depression and a prior history of jose antonio-en-y presents to ER with complaints of nausea vomiting and diarrhea. Patient states that her last chemotherapy was on Thursday. Patient is also complaining of generalized body pains and back pain and unable to tolerate oral diet. Patient also feeling weak overall. Patient has been having symptoms for the past 2 to 3 days and has been worsening. Patient had similar episode of pain and nausea vomiting and diarrhea after previous chemotherapy. Otherwise denies any complaints of fever or chills. No cough or sputum production. No complaints of chest pain or shortness of breath. Chest x-ray showed no acute cardiopulmonary process. EKG showed sinus rhythm with low QRS voltage in the precordial leads. Laboratory showed WBC 1.7 hemoglobin 9.1 and platelets 121 sodium 137 potassium 4.2 chloride 109 bicarb is 26 BUN 15 and creatinine 0.47 and blood sugar 84 magnesium 1.4 AST 59 ALT 102 and alk phos 57 urinalysis analysis is negative for infection. 08/31/2023 Patient is seen and evaluated in follow-up this morning extremely lethargic although arousable. Patient reports abdominal discomfort including nausea with continued diarrhea. Patient reports the abdominal pain with cramping became too intense she had to come to the hospital. Patient not tolerating much oral intake and is maintained on clear liquids. Discussed with oncology and will continue supportive care including low diet and slowly advance once tolerating. C. difficile testing was negative patient was started on as needed Imodium. Continue supportive care. Encouraged increased activity as tolerated 09/01/2023 Patient is seen in follow-up today continues to report abdominal pain with nausea and persistent diarrhea. Patient reports she has had 4 episodes of loose stools this morning with some nausea. Patient is tolerating clear liquids and will continue for another day and slowly advance. Continue antinausea medications along with diarrheal agents. Patient continues to report significant 10/10 pain and reports only the Dilaudid is helping. Discussed with oncology regarding pain management and will add 25 tara fentanyl patch and increase [place] and continue with as needed Dilaudid for now. Discussed with the patient about attempting to avoid IV narcotics. Patient is afebrile with no reports of chest pain. Patient reports shortness of breath with exertion. Encouraged patient to increase activity as tolerated and get up out of the bed more often. 09/02/2023 Patient is seen in follow-up this morning reports her abdominal pain persists although reports to feeling slightly improved from yesterday. Patient reports s he continues to have loose stools multiple times throughout the day although has become less intense and less frequent. Patient denies any vomiting although continues with occasional nausea. Patient did try to advance diet to full liquids including oatmeal this morning although was unable to tolerate and had to spit it out. Patient is afebrile with no reports of chest pain. Patient does report shortness of breath with exertion while getting up and washing herself up but remains above 95% on room air. Patient has been encouraged to sit up out of the bed more often and get up and walk frequently in the halls at least 2-3 times daily. Will adjust pain medications and continue current edwin men. Continue with antinausea and diarrheal agents as needed. Awaiting a.m. labs and replace electrolytes per protocol. Magnesium is chronically low and will continue daily supplementation. 09/03/2023 Patient is seen in follow-up today continues to report abdominal pain with some cramping and nauseated. Patient attempting to tolerate more oral intake and continues on full liquids with not much of an appetite. Patient continues to report significant pain and current regimen is helping although it does not last very long. Have encouraged the patient to increase activity as tolerated get up more often out of the bed and sit in the chair more frequently. Encourage small frequent meals and supplements throughout the day. Replace electrolytes per protocol and we will follow-up on repeat labs. Oncology is following and patient will follow in the outpatient setting regarding next treatment session. 09/04/2023 Patient is seen in follow-up today and reports some cramping and abdominal pain although feels she would like to advance her diet. Patient did try oatmeal a couple of days ago and did not tolerate. Patient is requesting mashed potatoes as an option. Discussed with the patient along with family at the bedside that she is able to advance as tolerated. Patient diarrhea has improved and will continue on stool softeners and as needed bowel regimen. Patient to continue with antinausea medications. Patient to continue on pain management and limit the use of IV Dilaudid. Patient reports she has been feeling slightly improved although her pain does get pretty intense once the medication wears off. Patient has been encouraged to increase activity as tolerated and get up and walk around more often. Patient reports she is up and to the bathroom frequently. Patient is afebrile with no reported chest pain or shortness of breath. Magnesium mildly low and will give 1 g. Continue with oral supplementation. 09/05/2023 Patient is currently sitting on side of bed. Awake alert and oriented x 3. No complaints of chest pain or shortness of breath. No nausea or vomiting. Patient is able to tolerate oral intake. Patient is fairly controlled. Patient states that she feels better today. No fever or chills. No headache or dizziness or lightheadedness. Patient is being treated pain management with fentanyl patch and is also on [place] 10 and Dilaudid. Also on IV hydration with Ringer's lactate at 75 cc/h. No new laboratory data today. Current medications reviewed. 09/06/2023 Patient is currently laying in the bed. Awake alert and oriented. Complains of nausea and also complaining of pain. Patient is on fentanyl patch and also on Dilaudid IV and [place] 10. Oncology is on board. Blood pressure stable. Patient has been afebrile overnight. Currently on room air. Follow-up repeat CBC and BMP tomorrow. Oncology is on board. 09/07/2023 Patient is seen in follow-up today reporting persistent nausea patient does have Zofran which does help although continues to have not much of an appetite. Patient reports is tolerating mashed potatoes although not much more. Patient has been encouraged supplements along with antinausea and diarrheal agents. Encouraged increase activity as tolerated as patient also reports she has been feeling dizzy when getting up. Will obtain orthostatic vitals. Continue with current pain regimen and discussed limiting IV Dilaudid. Will follow-up with repeat labs and continue to monitor closely. Replace electrolytes per protocol. 09/08/2023 Patient is seen and evaluated today continues to report abdominal pain and tenderness. Patient not tolerate much oral intake other than mashed potatoes. Patient has been encouraged to continue current diet along with supplements including yogurt although patient reports yogurt makes her vomit. Patient reporting she had 4 bowel movements and continues with cramping. Will obtain CT abdomen. Continue with current pain regimen and limit IV narcotic use continue with fentanyl patch and oral medications. Continue with antinausea medications along with bowel regimen. Will add lactulose twice daily as well until having bowel movements. Recommend strict intake and output measuring. Patient is afebrile with no reports of chest pain or shortness of breath. Patient with generalized weakness recommending increasing activity as tolerated and sitting up in the chair more often. Review of systems: Constitutional: reports of fatigue, no fever, or chills Cardiovascular: No reports of chest pain or palpitations Respiratory: reports of occasional shortness of breath GI: reports of nausea, no documented vomiting, reports diarrhea persists and continues with abdominal cramping : No reports of dysuria or retention Neurovascular: reports of generalized weakness and feeling dizzy when getting up All medications have been reviewed PHYSICAL EXAMINATION: GENERAL: The patient is awake, alert and oriented x4, Well developed, thin built, elderly appearing, ill-appearing HEENT: Pupils are round and equally reacting to light. EOMI. no scleral icterus. No conjunctival pallor. Normocephalic, atraumatic. No pharyngeal erythema. No thyromegaly. CARDIOVASCULAR: S1 and S2 muffled PULMONARY: diminished breath sounds bilaterally with no wheezing or rhonchi noted. ABDOMEN: soft. tender on exam. non-distended, normoactive bowel sounds. No palpable organomegaly. MUSCULOSKELETAL: No joint swelling or deformity. EXTREMITIES: No cyanosis, clubbing, or pedal edema. NEUROLOGICAL: Gross neurological examination did not reveal any focal deficits. Diffuse weakness SKIN: No rashes. Pale Assessment: Intractable nausea, vomiting, diarrhea likely acute gastroenteritis secondary to chemotherapy Generalized weakness and pain Pancytopenia secondary to chemotherapy Recent history of dysphagia. Barium swallow showed no evidence of aspiration. Oral mucositis Hypokalemia and hypomagnesemia secondary to poor oral intake and continued gastric losses, improving Abdominal pain with cramping, possibly secondary to large stool burden as noted on CT imaging this admission Diarrhea, C. difficile ruled out Transaminitis History of breast cancer, stage III, currently undergoing chemotherapy GERD Acute severe protein calorie malnutrition with a BMI of 19.4 GI prophylaxis PPI DVT prophylaxis heparin subcu Full code Plan: Patient will be continued on IV hydration with Ringer's lactate and will decrease the rate. Continue symptomatic management for nausea and vomiting. Continue to replace electrolytes and follow-up closely. Patient had similar symptoms during recent admission. Had workup including CT of the abdomen pelvis and also barium swallow to evaluate for aspiration which has been negative. Repeat CT ordered today shows large stool burden with no other acute findings noted Oncology following and continuing with supportive care. C. difficile testing was negative and Imodium added. Continue antinausea medications. Continue Zofran IV as needed. Plan is for outpatient follow-up with oncology and next treatment therapy session is September 13Thursday. Magnesium was replaced. Continue oral supplementation once daily. Continue full liquid diet and slowly advance as tolerated, continue with supplements in between meals. Patient tolerating mashed potatoes but not much more. Okay to advance as she tolerates. Encouraged to increase activity as tolerated and sitting up out of the bed more often at least 3 times daily Will continue current pain medications and also discussed with the patient about attempting to avoid IV narcotics as patient has been receiving IV Dilaudid [id number]. Will continue fentanyl patch and increase [place] dosing. Lengthy conversation was had with the patient and close friend at the bedside regarding narcotics and high risk for addiction and other side effects. possible discharge planning in the next 24 to 48 hours. Plan is for next chemotherapy session on 09/14/2023 Due to multiple complex medical issues, overall prognosis is guarded The impression and plan of care has been dictated by Nakia Baker, Nurse Practitioner as directed. Dr. Celso MD I have performed a history and examination and MDM of this patient, discussed the same with the dictator, and agree with the dictator's assessment and plan as written ,documented as a scribe. Based on total visit time, I have performed more than 50% of the visit. Objective - Vital Signs Vital signs: Vital Signs Temp 98.1 F 09/08/23 07:19 Pulse 75 09/08/23 07:19 Resp 20 09/08/23 07:19 BP 115/78 09/08/23 07:19 Pulse Ox 97 09/08/23 07:19 FiO2 Intake & Output 09/07/23 09/08/23 09/08/23 18:59 06:59 18:59 Output Total 105 Balance -105 Weight 54.431 kg Output: Urine 100 Stool 5 Other: Voiding Method Toilet Toilet # Voids 2 1 # Bowel Movements 2 1 - Labs CBC & Chem 7: 09/07/23 08:00 09/07/23 08:00 Labs: Abnormal Lab Results - Last 24 Hours (Table) 09/07/23 09/07/23 Range/Units 08:00 08:00 RBC 2.93 L (4.10-5.20) X 10*6/uL Hgb 9.3 L (12.0-15.0) g/dL Hct 30.9 L (37.2-46.3) % MCV 105.5 H (80.0-97.0) FL MCHC 30.1 L (32.0-37.0) g/dL Immature Gran # 0.05 H (0.00-0.04) X 10*3/uL Eosinophils # 0 L (0.04-0.35) X 10*3/uL BUN 6.4 L (9.0-27.0) mg/dL BUN/Creatinine Ratio 9.14 L (12.00-20.00) Ratio Calcium 8.3 L (8.7-10.3) mg/dL
[2023-09-08] MEDS ORDERED: Magnesium Replacement Protocol 1 EACH MISC MISCELLANE PRN (15:04)
[2023-09-08] MEDS: MAGNESIUM SULFATE-D5W PMX 1 GM in DEXTROSE/WATER 1 100ML.BAG IVPB SCH (16:03)
[2023-09-08] MEDS: LACTULOSE 20 GM/30 ML CUP PO SCH (16:03)
--- NOTE | 2023-09-09 19:10 | P.PN ---
Subjective Progress Note Date: 09/09/23 Patient is a 63-year-old female with a past medical history of GERD, obstructive sleep apnea, breast cancer currently on chemotherapy, anxiety/depression and a prior history of jose antonio-en-y presents to ER with complaints of nausea vomiting and diarrhea. Patient states that her last chemotherapy was on Thursday. Patient is also complaining of generalized body pains and back pain and unable to tolerate oral diet. Patient also feeling weak overall. Patient has been having symptoms for the past 2 to 3 days and has been worsening. Patient had similar episode of pain and nausea vomiting and diarrhea after previous chemotherapy. Otherwise denies any complaints of fever or chills. No cough or sputum production. No complaints of chest pain or shortness of breath. Chest x-ray showed no acute cardiopulmonary process. EKG showed sinus rhythm with low QRS voltage in the precordial leads. Laboratory showed WBC 1.7 hemoglobin 9.1 and platelets 121 sodium 137 potassium 4.2 chloride 109 bicarb is 26 BUN 15 and creatinine 0.47 and blood sugar 84 magnesium 1.4 AST 59 ALT 102 and alk phos 57 urinalysis analysis is negative for infection. 08/31/2023 Patient is seen and evaluated in follow-up this morning extremely lethargic although arousable. Patient reports abdominal discomfort including nausea with continued diarrhea. Patient reports the abdominal pain with cramping became too intense she had to come to the hospital. Patient not tolerating much oral intake and is maintained on clear liquids. Discussed with oncology and will continue supportive care including low diet and slowly advance once tolerating. C. difficile testing was negative patient was started on as needed Imodium. Continue supportive care. Encouraged increased activity as tolerated 09/01/2023 Patient is seen in follow-up today continues to report abdominal pain with nausea and persistent diarrhea. Patient reports she has had 4 episodes of loose stools this morning with some nausea. Patient is tolerating clear liquids and will continue for another day and slowly advance. Continue antinausea medications along with diarrheal agents. Patient continues to report significant 10/10 pain and reports only the Dilaudid is helping. Discussed with oncology regarding pain management and will add 25 tara fentanyl patch and increase Gonzales and continue with as needed Dilaudid for now. Discussed with the patient about attempting to avoid IV narcotics. Patient is afebrile with no reports of chest pain. Patient reports shortness of breath with exertion. Encouraged patient to increase activity as tolerated and get up out of the bed more often. 09/02/2023 Patient is seen in follow-up this morning reports her abdominal pain persists although reports to feeling slightly improved from yesterday. Patient reports s he continues to have loose stools multiple times throughout the day although has become less intense and less frequent. Patient denies any vomiting although continues with occasional nausea. Patient did try to advance diet to full liquids including oatmeal this morning although was unable to tolerate and had to spit it out. Patient is afebrile with no reports of chest pain. Patient does report shortness of breath with exertion while getting up and washing herself up but remains above 95% on room air. Patient has been encouraged to sit up out of the bed more often and get up and walk frequently in the halls at least 2-3 times daily. Will adjust pain medications and continue current edwin men. Continue with antinausea and diarrheal agents as needed. Awaiting a.m. labs and replace electrolytes per protocol. Magnesium is chronically low and will continue daily supplementation. 09/03/2023 Patient is seen in follow-up today continues to report abdominal pain with some cramping and nauseated. Patient attempting to tolerate more oral intake and continues on full liquids with not much of an appetite. Patient continues to report significant pain and current regimen is helping although it does not last very long. Have encouraged the patient to increase activity as tolerated get up more often out of the bed and sit in the chair more frequently. Encourage small frequent meals and supplements throughout the day. Replace electrolytes per protocol and we will follow-up on repeat labs. Oncology is following and patient will follow in the outpatient setting regarding next treatment session. 09/04/2023 Patient is seen in follow-up today and reports some cramping and abdominal pain although feels she would like to advance her diet. Patient did try oatmeal a couple of days ago and did not tolerate. Patient is requesting mashed potatoes as an option. Discussed with the patient along with family at the bedside that she is able to advance as tolerated. Patient diarrhea has improved and will continue on stool softeners and as needed bowel regimen. Patient to continue with antinausea medications. Patient to continue on pain management and limit the use of IV Dilaudid. Patient reports she has been feeling slightly improved although her pain does get pretty intense once the medication wears off. Patient has been encouraged to increase activity as tolerated and get up and walk around more often. Patient reports she is up and to the bathroom frequently. Patient is afebrile with no reported chest pain or shortness of breath. Magnesium mildly low and will give 1 g. Continue with oral supplementation. 09/05/2023 Patient is currently sitting on side of bed. Awake alert and oriented x 3. No complaints of chest pain or shortness of breath. No nausea or vomiting. Patient is able to tolerate oral intake. Patient is fairly controlled. Patient states that she feels better today. No fever or chills. No headache or dizziness or lightheadedness. Patient is being treated pain management with fentanyl patch and is also on Gonzales 10 and Dilaudid. Also on IV hydration with Ringer's lactate at 75 cc/h. No new laboratory data today. Current medications reviewed. 09/06/2023 Patient is currently laying in the bed. Awake alert and oriented. Complains of nausea and also complaining of pain. Patient is on fentanyl patch and also on Dilaudid IV and Gonzales 10. Oncology is on board. Blood pressure stable. Patient has been afebrile overnight. Currently on room air. Follow-up repeat CBC and BMP tomorrow. Oncology is on board. 09/07/2023 Patient is seen in follow-up today reporting persistent nausea patient does have Zofran which does help although continues to have not much of an appetite. Patient reports is tolerating mashed potatoes although not much more. Patient has been encouraged supplements along with antinausea and diarrheal agents. Encouraged increase activity as tolerated as patient also reports she has been feeling dizzy when getting up. Will obtain orthostatic vitals. Continue with current pain regimen and discussed limiting IV Dilaudid. Will follow-up with repeat labs and continue to monitor closely. Replace electrolytes per protocol. 09/08/2023 Patient is seen and evaluated today continues to report abdominal pain and tenderness. Patient not tolerate much oral intake other than mashed potatoes. Patient has been encouraged to continue current diet along with supplements including yogurt although patient reports yogurt makes her vomit. Patient reporting she had 4 bowel movements and continues with cramping. Will obtain CT abdomen. Continue with current pain regimen and limit IV narcotic use continue with fentanyl patch and oral medications. Continue with antinausea medications along with bowel regimen. Will add lactulose twice daily as well until having bowel movements. Recommend strict intake and output measuring. Patient is afebrile with no reports of chest pain or shortness of breath. Patient with generalized weakness recommending increasing activity as tolerated and sitting up in the chair more often. 09/09/2023 Patient is seen and evaluated in follow-up this morning reports feeling somewhat improved working on tolerating more intake and was noted to have bowel movements. Patient did have a CT yesterday showing overall stool burden with significant amount of stool with no acute process noted. Patient slowly advancing diet and has been up and walking encouraged the patient to walk more frequently and sit up in the chair more often. Magnesium were replaced and improved at 1.8 we will continue daily supplementation. Review of systems: Constitutional: reports of fatigue. but improving, no fever, or chills Cardiovascular: No reports of chest pain or palpitations Respiratory: reports of occasional shortness of breath GI: reports of nausea, no documented vomiting, reports diarrhea persists and continues with abdominal cramping but is improving : No reports of dysuria or retention Neurovascular: reports of generalized weakness but has been up and walking more All medications have been reviewed PHYSICAL EXAMINATION: GENERAL: The patient is awake, alert and oriented x4, Well developed, thin built, elderly appearing, ill-appearing HEENT: Pupils are round and equally reacting to light. EOMI. no scleral icterus. No conjunctival pallor. Normocephalic, atraumatic. No pharyngeal erythema. No thyromegaly. CARDIOVASCULAR: S1 and S2 muffled PULMONARY: diminished breath sounds bilaterally with no wheezing or rhonchi noted. ABDOMEN: soft. slightly less tender on exam. non-distended, normoactive bowel sounds. No palpable organomegaly. MUSCULOSKELETAL: No joint swelling or deformity. EXTREMITIES: No cyanosis, clubbing, or pedal edema. NEUROLOGICAL: Gross neurological examination did not reveal any focal deficits. Diffuse weakness SKIN: No rashes. Pale Assessment: Intractable nausea, vomiting, diarrhea likely acute gastroenteritis secondary to chemotherapy Generalized weakness and pain Pancytopenia secondary to chemotherapy Recent history of dysphagia. Barium swallow showed no evidence of aspiration. Oral mucositis Hypokalemia and hypomagnesemia secondary to poor oral intake and continued gastric losses, improving Abdominal pain with cramping, possibly secondary to large stool burden as noted on CT imaging this admission Diarrhea, C. difficile ruled out Transaminitis History of breast cancer, stage III, currently undergoing chemotherapy GERD Acute severe protein calorie malnutrition with a BMI of 19.4 GI prophylaxis PPI DVT prophylaxis heparin subcu Full code Plan: Patient will be continued on full liquid diet and tolerating thus far, continue to advance slowly as tolerated Encouraged to increase walking and getting up out of the bed more often Continue bowel regimen for continued bowel movements. Patient was having some small episodes of loose stools although felt somewhat more formed and consistent today Magnesium replaced and improved and currently 1.8. Continue daily supplementation Repeat CT of the abdomen shows large stool burden with no other acute findings noted Oncology following and continuing with supportive care. C. difficile testing was negative and Imodium added. Continue antinausea medications. Continue Zofran IV as needed. Plan is for outpatient follow-up with oncology and next treatment therapy session is September 13Thursday. Patient will follow with Dr. Carpenter outpatient on September 14, 2023 Will continue current pain medications and also discussed with the patient about attempting to avoid IV narcotics as patient has been receiving IV Dilaudid [id number]. Will continue fentanyl patch and increase Gonzales dosing. Lengthy conversation was had with the patient and close friend at the bedside regarding narcotics and high risk for addiction and other side effects. Probable discharge planning in the next 24 hours. Plan is for next chemotherapy session on 09/14/2023 Due to multiple complex medical issues, overall prognosis is guarded The impression and plan of care has been dictated by Nakia Baker, Nurse Practitioner as directed. Dr. Celso MD I have performed a history and examination and MDM of this patient, discussed the same with the dictator, and agree with the dictator's assessment and plan as written ,documented as a scribe. Based on total visit time, I have performed more than 50% of the visit. Objective - Vital Signs Vital signs: Vital Signs Temp 98.3 F 09/09/23 14:00 Pulse 80 09/09/23 14:00 Resp 17 09/09/23 14:00 BP 117/76 09/09/23 14:00 Pulse Ox 96 09/09/23 14:00 FiO2 Intake & Output 09/08/23 09/09/23 09/09/23 18:59 06:59 18:59 Intake Total 1620 Output Total 1340 1000 500 Balance 280 -1000 -500 Intake: Oral 1620 Output: Urine 1340 900 500 Stool 100 Other: Voiding Method Toilet # Voids 1 # Bowel Movements 1 1 - Labs CBC & Chem 7: 09/07/23 08:00 09/07/23 08:00 Labs: Abnormal Lab Results - Last 24 Hours (Table) 09/09/23 Range/Units 06:34 C-Reactive Protein 1.9 H (<1.0) mg/dL
--- NOTE | 2023-09-09 19:36 | P.PN ---
Subjective Progress Note Date: 09/09/23 At today's visit patient is resting comfortably in bed. Reporting good pain control on pain med regimen. Reports 3 BMs overnight, loose and watery. CT AP showing significant stool burden, with no obstruction. Continues on bowel regimen. Persisting intermittent nausea, 1 episode of vomiting after eating pancakes this morning, but overall diet is slowly improving Objective - Vital Signs Vital signs: Vital Signs Temp 98.2 F 09/09/23 07:35 Pulse 83 09/09/23 07:35 Resp 17 09/09/23 07:35 BP 128/81 09/09/23 07:35 Pulse Ox 93 L 09/09/23 07:35 FiO2 Intake & Output 09/08/23 09/09/23 09/09/23 18:59 06:59 18:59 Intake Total 1620 Output Total 1340 1000 500 Balance 280 -1000 -500 Intake: Oral 1620 Output: Urine 1340 900 500 Stool 100 Other: Voiding Method Toilet # Voids 1 # Bowel Movements 1 1 - Constitutional General appearance: Present: average body habitus, no acute distress - EENT Eyes: Present: anicteric sclerae, EOMI ENT: Present: hearing grossly normal - Respiratory Details: breathing is even and unlabored - Cardiovascular Details: well perfused - Gastrointestinal General gastrointestinal: Present: tenderness - Integumentary Integumentary: Absent: cyanotic - Neurologic Neurologic: Present: CNII-XII intact - Musculoskeletal Musculoskeletal: Present: strength equal bilaterally - Psychiatric Psychiatric: Present: A&O x's 3 - Labs CBC & Chem 7: 09/07/23 08:00 09/07/23 08:00 - Imaging and Cardiology CT scan - abdomen: report reviewed CT scan - pelvis: report reviewed Assessment and Plan (1) Breast cancer Current Visit: Yes Status: Acute Priority: High Code(s): C50.919 - MALIGNANT NEOPLASM OF UNSP SITE OF UNSPECIFIED FEMALE BREAST SNOMED Code(s): 738712019 (2) Nausea & vomiting Current Visit: Yes Status: Acute Priority: High Code(s): R11.2 - NAUSEA WITH VOMITING, UNSPECIFIED SNOMED Code(s): 91137595 (3) Mucositis Current Visit: Yes Status: Resolved Priority: High Code(s): K12.30 - ORAL MUCOSITIS (ULCERATIVE), UNSPECIFIED SNOMED Code(s): 80948425 Plan: Chemo induced N/V/D, myalgia/bone pain, mucositis: -Myalgia/bone pain likely r/t G-CSF. Completed dexamethasone 8mg BID x 2 days. Pain control improved with fentanyl patch, IV pain meds and dex -C-Diff and stool culture negative -Having ongoing issues with diarrhea and constipation. Continues on bowel regimen -She has persistent intermittent nausea with some anticipatory nausea along with persistent bone pain -It would be unusual for bone pain from G-CSF to persist for this long -Fentanyl increased to 37.5 mcg, reporting better pain control -We will add Ativan 0.5 mg tablet every 6 hours as needed for nausea (change from Xanax). Intermittent nausea persisting but improved, continue with Aitvan and anti-emetic regimen -Strict I&Os -CT AP showing large volume of pelvic pancolonic stool, slight improvement from prior study. Mild distention of proximal small bowel with no obstructive changes noted. -Continue supportive medications and advance diet as tolerated Case discussed with admitting team, will hopefully be able to discharge in the next 24 hours. Will reassess in the morning Breast cancer -Breast cancer, triple positive, on neoadjuvant treatment, clinical stage I. -Taxotere, carboplatin, Perjeta and Herceptin, 5/6 cycles completed. Last dose on 08/23, with G-CSF on 08/24 -Side effects above secondary to chemotherapy -Cycle 6 was scheduled for 09/14/2023. Course of hospitalization has been discussed with her primary oncologist, Dr Carpenter. Chemo has been tentatively rescheduled for 09/14, with f/u with Dr. Carpenter on 09/13. At this time, due to repeat hospital admissions and intractable pain and n/v/d despite aggressive measures, will further discuss possibly discontinuing last cycle of treatment Pt updated on POC and is agreeable
[2023-09-09] MEDS: ARTIFICIAL TEARS-HYPROMELLOSE DROPS 15 ML BTL BOTH EYES PRN (21:29)
[2023-09-10] MEDS: MAGNESIUM HYDROXIDE 2,400 MG/30 ML CUP PO STA (12:27)
[2023-09-10] MEDS ORDERED: MAGNESIUM HYDROXIDE 2,400 MG/30 ML CUP PO PRN (23:43)
--- NOTE | 2023-09-11 00:06 | P.PN ---
Subjective Progress Note Date: 09/10/23 At today's visit patient is resting comfortably in bed. Reporting good pain control on pain med regimen. Had 1 episode of mild diarrhea this morning. She is feeling lower abdominal discomfort and distention, still has not had a large BM despite scheduled colace and lactulose. Milk of magnesia added, Persisting intermittent nausea, no vomiting today. Tolerated some of her breakfast Objective - Vital Signs Vital signs: Vital Signs Temp 98.2 F 09/10/23 07:55 Pulse 72 09/10/23 07:55 Resp 16 09/10/23 01:38 BP 113/74 09/10/23 07:55 Pulse Ox 95 09/10/23 07:55 FiO2 Intake & Output 09/09/23 09/10/23 09/10/23 18:59 06:59 18:59 Output Total 500 Balance -500 Output: Urine 500 Other: Voiding Method Toilet Toilet - Constitutional General appearance: Present: no acute distress - EENT Eyes: Present: anicteric sclerae, EOMI ENT: Present: hearing grossly normal - Respiratory Details: breathing is even and unlabored - Cardiovascular Details: skin warm and dry - Gastrointestinal General gastrointestinal: Present: soft, tenderness - Integumentary Integumentary: Absent: cyanotic, jaundiced - Neurologic Neurologic: Present: CNII-XII intact - Musculoskeletal Musculoskeletal: Present: strength equal bilaterally - Psychiatric Psychiatric: Present: A&O x's 3 - Labs CBC & Chem 7: 09/07/23 08:00 09/07/23 08:00 Labs: Abnormal Lab Results - Last 24 Hours (Table) 09/09/23 Range/Units 06:34 C-Reactive Protein 1.9 H (<1.0) mg/dL Assessment and Plan (1) Breast cancer Current Visit: Yes Status: Acute Priority: High Code(s): C50.919 - MALIGNANT NEOPLASM OF UNSP SITE OF UNSPECIFIED FEMALE BREAST SNOMED Code(s): 164602714 (2) Nausea & vomiting Current Visit: Yes Status: Acute Priority: High Code(s): R11.2 - NAUSEA WITH VOMITING, UNSPECIFIED SNOMED Code(s): 96208819 (3) Mucositis Current Visit: Yes Status: Resolved Priority: High Code(s): K12.30 - ORAL MUCOSITIS (ULCERATIVE), UNSPECIFIED SNOMED Code(s): 70725754 Plan: Chemo induced N/V/D, myalgia/bone pain, mucositis: -Myalgia/bone pain likely r/t G-CSF. Completed dexamethasone 8mg BID x 2 days. Pain control improved with fentanyl patch, IV pain meds and dex -C-Diff and stool culture negative -Having ongoing issues with diarrhea and constipation. Continues on bowel regimen -She has persistent intermittent nausea with some anticipatory nausea along with persistent bone pain -It would be unusual for bone pain from G-CSF to persist for this long -Fentanyl increased to 37.5 mcg, reporting better pain control -We will add Ativan 0.5 mg tablet every 6 hours as needed for nausea (change from Xanax). Intermittent nausea persisting but improved, continue with Aitvan and anti-emetic regimen -Strict I&Os -CT AP showing large volume of pelvic pancolonic stool, slight improvement from prior study. Mild distention of proximal small bowel with no obstructive changes noted. -Continue supportive medications and advance diet as tolerated -Soap avani enemas, milk of magnesia added to regimen without significant BM. Only had small amount of diarrhea/stools. Bowel regimen adjusted, added Senokot-S BID and milk of magnesia daily prn. Requested nursing to give ducolax suppository. Will continue to monitor Case discussed with admitting team, will hopefully be able to discharge in the next 24 hours. Will reassess in the morning Breast cancer -Breast cancer, triple positive, on neoadjuvant treatment, clinical stage I. -Taxotere, carboplatin, Perjeta and Herceptin, 5/6 cycles completed. Last dose on 08/23, with G-CSF on 08/24 -Side effects above secondary to chemotherapy -Cycle 6 was scheduled for 09/14/2023. Course of hospitalization has been discussed with her primary oncologist, Dr Carpenter. Chemo has been tentatively rescheduled for 09/14, with f/u with Dr. Carpenter on 09/13. At this time, due to repeat hospital admissions and intractable pain and n/v/d despite aggressive measures, will further discuss possibly discontinuing last cycle of treatment Pt updated on POC and is agreeable
[2023-09-11] MEDS: bisacodyL 10 MG SUPP RECTAL PRN (00:28)
--- NOTE | 2023-09-11 03:07 | CONS ---
CONSULTATION CHIEF COMPLAINT: Nausea, vomiting, and diarrhea. HISTORY OF PRESENT ILLNESS: This is a 63-year-old female with history of breast cancer, undergoing chemotherapy. She presented with nausea, vomiting, and diarrhea with weakness and dehydration, thought to be due to chemotherapy. The patient had been dealing with constipation. She was complaining of lower abdominal pain and lower back pain. CT scan of abdomen and pelvis was ordered with results showing large volume pelvic pancolonic stool noted. Slightly improved from prior study. Mild distention of the proximal small bowel. No obstruction. The patient did have a soapsuds enema with small amount of liquidy stool and some small pieces of formed stool. She reports her last chemotherapy was on August 23. Her last EGD and colonoscopy were recent on August 17, 2023 which had shown gastritis but it was a poor bowel prep. She does have a history of Joe-en-Y gastric bypass as well as a cholecystectomy. REVIEW OF SYSTEMS: Please refer to HPI, otherwise unremarkable. PAST MEDICAL HISTORY: Breast cancer, GERD, ulcer, hypertension, hyperlipidemia. PAST SURGICAL HISTORY: Joe-en-Y cholecystectomy, heart catheterization, hysterectomy, and uterine ablation. PHYSICAL EXAMINATION: VITALS: Stable. GENERAL: In no acute distress. ABDOMEN: Soft, nondistended. Mild tenderness with palpation of the lower abdomen. LABORATORY RESULTS: WBC 11.9, down to 9.64, HGB 9.3, platelets 148. IMAGING: CT scan as stated above. ASSESSMENT: 1. Constipation with large volume of stool noted in the pelvic region on CAT scan. 2. History of breast cancer with recent chemotherapy on August 23 with nausea, vomiting, and diarrhea. PLAN: Continue soapsuds enemas until clear. Continue the bowel regimen. Continue to monitor. Okay to continue regular diet for now. Thank you for this consultation. MMODL / IJN: [id number] /
--- NOTE | 2023-09-11 06:55 | P.PN ---
Subjective Progress Note Date: 09/10/23 Patient is a 63-year-old female with a past medical history of GERD, obstructive sleep apnea, breast cancer currently on chemotherapy, anxiety/depression and a prior history of jose antonio-en-y presents to ER with complaints of nausea vomiting and diarrhea. Patient states that her last chemotherapy was on Thursday. Patient is also complaining of generalized body pains and back pain and unable to tolerate oral diet. Patient also feeling weak overall. Patient has been having symptoms for the past 2 to 3 days and has been worsening. Patient had similar episode of pain and nausea vomiting and diarrhea after previous chemotherapy. Otherwise denies any complaints of fever or chills. No cough or sputum production. No complaints of chest pain or shortness of breath. Chest x-ray showed no acute cardiopulmonary process. EKG showed sinus rhythm with low QRS voltage in the precordial leads. Laboratory showed WBC 1.7 hemoglobin 9.1 and platelets 121 sodium 137 potassium 4.2 chloride 109 bicarb is 26 BUN 15 and creatinine 0.47 and blood sugar 84 magnesium 1.4 AST 59 ALT 102 and alk phos 57 urinalysis analysis is negative for infection. 08/31/2023 Patient is seen and evaluated in follow-up this morning extremely lethargic although arousable. Patient reports abdominal discomfort including nausea with continued diarrhea. Patient reports the abdominal pain with cramping became too intense she had to come to the hospital. Patient not tolerating much oral intake and is maintained on clear liquids. Discussed with oncology and will continue supportive care including low diet and slowly advance once tolerating. C. difficile testing was negative patient was started on as needed Imodium. Continue supportive care. Encouraged increased activity as tolerated 09/01/2023 Patient is seen in follow-up today continues to report abdominal pain with nausea and persistent diarrhea. Patient reports she has had 4 episodes of loose stools this morning with some nausea. Patient is tolerating clear liquids and will continue for another day and slowly advance. Continue antinausea medications along with diarrheal agents. Patient continues to report significant 10/10 pain and reports only the Dilaudid is helping. Discussed with oncology regarding pain management and will add 25 tara fentanyl patch and increase Lincoln and continue with as needed Dilaudid for now. Discussed with the patient about attempting to avoid IV narcotics. Patient is afebrile with no reports of chest pain. Patient reports shortness of breath with exertion. Encouraged patient to increase activity as tolerated and get up out of the bed more often. 09/02/2023 Patient is seen in follow-up this morning reports her abdominal pain persists although reports to feeling slightly improved from yesterday. Patient reports s he continues to have loose stools multiple times throughout the day although has become less intense and less frequent. Patient denies any vomiting although continues with occasional nausea. Patient did try to advance diet to full liquids including oatmeal this morning although was unable to tolerate and had to spit it out. Patient is afebrile with no reports of chest pain. Patient does report shortness of breath with exertion while getting up and washing herself up but remains above 95% on room air. Patient has been encouraged to sit up out of the bed more often and get up and walk frequently in the halls at least 2-3 times daily. Will adjust pain medications and continue current edwin men. Continue with antinausea and diarrheal agents as needed. Awaiting a.m. labs and replace electrolytes per protocol. Magnesium is chronically low and will continue daily supplementation. 09/03/2023 Patient is seen in follow-up today continues to report abdominal pain with some cramping and nauseated. Patient attempting to tolerate more oral intake and continues on full liquids with not much of an appetite. Patient continues to report significant pain and current regimen is helping although it does not last very long. Have encouraged the patient to increase activity as tolerated get up more often out of the bed and sit in the chair more frequently. Encourage small frequent meals and supplements throughout the day. Replace electrolytes per protocol and we will follow-up on repeat labs. Oncology is following and patient will follow in the outpatient setting regarding next treatment session. 09/04/2023 Patient is seen in follow-up today and reports some cramping and abdominal pain although feels she would like to advance her diet. Patient did try oatmeal a couple of days ago and did not tolerate. Patient is requesting mashed potatoes as an option. Discussed with the patient along with family at the bedside that she is able to advance as tolerated. Patient diarrhea has improved and will continue on stool softeners and as needed bowel regimen. Patient to continue with antinausea medications. Patient to continue on pain management and limit the use of IV Dilaudid. Patient reports she has been feeling slightly improved although her pain does get pretty intense once the medication wears off. Patient has been encouraged to increase activity as tolerated and get up and walk around more often. Patient reports she is up and to the bathroom frequently. Patient is afebrile with no reported chest pain or shortness of breath. Magnesium mildly low and will give 1 g. Continue with oral supplementation. 09/05/2023 Patient is currently sitting on side of bed. Awake alert and oriented x 3. No complaints of chest pain or shortness of breath. No nausea or vomiting. Patient is able to tolerate oral intake. Patient is fairly controlled. Patient states that she feels better today. No fever or chills. No headache or dizziness or lightheadedness. Patient is being treated pain management with fentanyl patch and is also on Lincoln 10 and Dilaudid. Also on IV hydration with Ringer's lactate at 75 cc/h. No new laboratory data today. Current medications reviewed. 09/06/2023 Patient is currently laying in the bed. Awake alert and oriented. Complains of nausea and also complaining of pain. Patient is on fentanyl patch and also on Dilaudid IV and Lincoln 10. Oncology is on board. Blood pressure stable. Patient has been afebrile overnight. Currently on room air. Follow-up repeat CBC and BMP tomorrow. Oncology is on board. 09/07/2023 Patient is seen in follow-up today reporting persistent nausea patient does have Zofran which does help although continues to have not much of an appetite. Patient reports is tolerating mashed potatoes although not much more. Patient has been encouraged supplements along with antinausea and diarrheal agents. Encouraged increase activity as tolerated as patient also reports she has been feeling dizzy when getting up. Will obtain orthostatic vitals. Continue with current pain regimen and discussed limiting IV Dilaudid. Will follow-up with repeat labs and continue to monitor closely. Replace electrolytes per protocol. 09/08/2023 Patient is seen and evaluated today continues to report abdominal pain and tenderness. Patient not tolerate much oral intake other than mashed potatoes. Patient has been encouraged to continue current diet along with supplements including yogurt although patient reports yogurt makes her vomit. Patient reporting she had 4 bowel movements and continues with cramping. Will obtain CT abdomen. Continue with current pain regimen and limit IV narcotic use continue with fentanyl patch and oral medications. Continue with antinausea medications along with bowel regimen. Will add lactulose twice daily as well until having bowel movements. Recommend strict intake and output measuring. Patient is afebrile with no reports of chest pain or shortness of breath. Patient with generalized weakness recommending increasing activity as tolerated and sitting up in the chair more often. 09/09/2023 Patient is seen and evaluated in follow-up this morning reports feeling somewhat improved working on tolerating more intake and was noted to have bowel movements. Patient did have a CT yesterday showing overall stool burden with significant amount of stool with no acute process noted. Patient slowly advancing diet and has been up and walking encouraged the patient to walk more frequently and sit up in the chair more often. Magnesium were replaced and improved at 1.8 we will continue daily supplementation. 09/10/2023 Patient is seen and evaluated today reporting she is having bowel movements although they are mostly liquid and has not had a formed solid bowel movement since July. Patient underwent CT abdomen yesterday showing significant amount of stool and patient continues with tenderness will consult general surgery for possible disimpaction. Patient will continue on lactulose and also recommend soapsuds enema. Patient is afebrile with no reported chest pain or shortness of breath. Patient feels generalized weakness but has been working on getting up and walking around more frequently. Plan is to return home on discharge. Oncology following and patient does have a follow-up appointment on September [address] Carpenter her oncologist. Review of systems: Constitutional: reports of fatigue. but improving, no fever, or chills Cardiovascular: No reports of chest pain or palpitations Respiratory: reports of occasional shortness of breath GI: reports of nausea, no documented vomiting, reports diarrhea persists and continues with abdominal cramping but is improving : No reports of dysuria or retention Neurovascular: reports of generalized weakness but has been up and walking more All medications have been reviewed PHYSICAL EXAMINATION: GENERAL: The patient is awake, alert and oriented x4, Well developed, thin built, elderly appearing, ill-appearing HEENT: Pupils are round and equally reacting to light. EOMI. no scleral icterus. No conjunctival pallor. Normocephalic, atraumatic. No pharyngeal erythema. No thyromegaly. CARDIOVASCULAR: S1 and S2 muffled PULMONARY: diminished breath sounds bilaterally with no wheezing or rhonchi noted. ABDOMEN: soft. slightly less tender on exam. non-distended, normoactive bowel sounds. No palpable organomegaly. MUSCULOSKELETAL: No joint swelling or deformity. EXTREMITIES: No cyanosis, clubbing, or pedal edema. NEUROLOGICAL: Gross neurological examination did not reveal any focal deficits. Diffuse weakness SKIN: No rashes. Pale Assessment: Intractable nausea, vomiting, diarrhea likely acute gastroenteritis secondary to chemotherapy Generalized weakness and pain Pancytopenia secondary to chemotherapy Recent history of dysphagia. Barium swallow showed no evidence of aspiration. Oral mucositis Chronic constipation, likely secondary to narcotic use Hypokalemia and hypomagnesemia secondary to poor oral intake and continued gastric losses, improving Abdominal pain with cramping, possibly secondary to large stool burden as noted on CT imaging this admission Diarrhea, C. difficile ruled out Transaminitis History of breast cancer, stage III, currently undergoing chemotherapy GERD Acute severe protein calorie malnutrition with a BMI of 19.4 GI prophylaxis PPI DVT prophylaxis heparin subcu Full code Plan: Patient will be continued on full liquid diet and tolerating thus far, continue to advance slowly as tolerated Encouraged to increase walking and getting up out of the bed more often Continue bowel regimen for continued bowel movements. Patient was having some small episodes of loose stools and reports she has not had a solid bowel movement since July. Patient is status post CT of the abdomen showing large amount of stool and will consult general surgery for possible disimpaction. Soapsuds enema ordered and patient is to continue with lactulose scheduled Magnesium replaced and improved and currently 1.8. Continue daily s upplementation Oncology following and continuing with supportive care. Plan is for outpatient follow-up with oncology and next treatment therapy session is September 13Thursday. Patient will follow with Dr. Carpenter outpatient on September 14, 2023 Will continue current pain medications and also discussed with the patient about attempting to avoid IV narcotics as patient has been receiving IV Dilaudid [id number]. Will continue fentanyl patch and Lincoln. Lengthy conversation was had with the patient and close friend at the bedside regarding narcotics and high risk for addiction and other side effects. Probable discharge planning in the next 24 hours. Plan is for next chemotherapy session on 09/14/2023, currently on hold and patient will follow-up with Dr. Carpenter on September 13 to discuss treatment plan. Due to multiple complex medical issues, overall prognosis is guarded The impression and plan of care has been dictated by Nakia Baker, Nurse Practitioner as directed. Dr. Celso MD I have performed a history and examination and MDM of this patient, discussed the same with the dictator, and agree with the dictator's assessment and plan as written ,documented as a scribe. Based on total visit time, I have performed more than 50% of the visit. Objective - Vital Signs Vital signs: Vital Signs Temp 98.2 F 09/10/23 12:25 Pulse 84 09/10/23 12:25 Resp 15 09/10/23 12:25 BP 128/84 09/10/23 12:25 Pulse Ox 96 09/10/23 12:25 FiO2 Intake & Output 09/09/23 09/10/23 09/10/23 18:59 06:59 18:59 Output Total 500 Balance -500 Output: Urine 500 Other: Voiding Method Toilet Toilet - Labs CBC & Chem 7: 09/07/23 08:00 09/07/23 08:00
[2023-09-11] MEDS: SENNOSIDES-DOCUSATE SODIUM 1 EACH TAB PO SCH (08:34)
[2023-09-11] MEDS: HYDROCORTISONE SUPPOSITORY 25 MG SUPP RECTAL SCH (13:03)
--- NOTE | 2023-09-11 14:52 | P.PN ---
Progress Note - Text Progress Note Date: 09/11/23 the patient's fecal impaction is improved. She had significant results with soapsuds enemas. She'll K receive supportive care.
[2023-09-11] MEDS: PEG 3350 (236 GM/BTL) + LYTES 4,000 ML BOTTLE PO ONE (15:42)
--- NOTE | 2023-09-11 15:46 | P.PN ---
Subjective Progress Note Date: 09/11/23 At today's visit patient is resting comfortably in bed. Reporting good pain control on pain med regimen. Had 1 episode of mild diarrhea this morning. She is feeling lower abdominal discomfort and distention, still has not had a large BM despite scheduled colace and lactulose, milk of magnesia and Senokot S added. General surgery consulted, added soap suds enemas, received 3 last night and suppository without BM. Persisting intermittent nausea, but no vomiting today. Tolerated some of her breakfast Objective - Vital Signs Vital signs: Vital Signs Temp 97.9 F 09/11/23 12:20 Pulse 80 09/11/23 12:20 Resp 16 09/11/23 12:20 BP 126/81 09/11/23 12:20 Pulse Ox 97 09/11/23 12:20 FiO2 Intake & Output 09/10/23 09/11/23 09/11/23 18:59 06:59 18:59 Intake Total 580 120 Output Total 100 Balance 580 20 Weight 54.431 kg Intake: Oral 580 120 Output: Stool 100 Other: Voiding Method Toilet Toilet Toilet # Voids 3 1 # Bowel Movements 1 - Constitutional General appearance: Present: no acute distress - EENT Eyes: Present: anicteric sclerae, EOMI ENT: Present: hearing grossly normal - Respiratory Details: breathing is even and unlabored - Cardiovascular Details: skin warm and dry - Gastrointestinal General gastrointestinal: Present: tenderness Localized gastrointestinal: tender: diffuse - Integumentary Integumentary: Absent: cyanotic, jaundiced - Neurologic Neurologic: Present: CNII-XII intact - Musculoskeletal Musculoskeletal: Present: strength equal bilaterally - Psychiatric Psychiatric: Present: A&O x's 3 - Labs CBC & Chem 7: 09/07/23 08:00 09/07/23 08:00 Assessment and Plan (1) Breast cancer Current Visit: Yes Status: Acute Priority: High Code(s): C50.919 - MALIGNANT NEOPLASM OF UNSP SITE OF UNSPECIFIED FEMALE BREAST SNOMED Code(s): 003212640 (2) Nausea & vomiting Current Visit: Yes Status: Acute Priority: High Code(s): R11.2 - NAUSEA WITH VOMITING, UNSPECIFIED SNOMED Code(s): 37002687 (3) Mucositis Current Visit: Yes Status: Resolved Priority: High Code(s): K12.30 - ORAL MUCOSITIS (ULCERATIVE), UNSPECIFIED SNOMED Code(s): 10568932 Plan: Chemo induced N/V/D, myalgia/bone pain, mucositis: -Myalgia/bone pain likely r/t G-CSF. Completed dexamethasone 8mg BID x 2 days. Pain control improved with fentanyl patch, IV pain meds and dex -C-Diff and stool culture negative -Having ongoing issues with diarrhea and constipation. Continues on bowel regimen -She has persistent intermittent nausea with some anticipatory nausea along with persistent bone pain -It would be unusual for bone pain from G-CSF to persist for this long -Fentanyl increased to 37.5 mcg, reporting better pain control -Ativan 0.5 mg tablet every 6 hours as needed for nausea. Intermittent nausea persisting but improved, continue with Aitvan and anti-emetic regimen -Strict I&Os -CT AP showing large volume of pelvic pancolonic stool, slight improvement from prior study. Mild distention of proximal small bowel with no obstructive changes noted. -Continue supportive medications and advance diet as tolerated -Soap avani enemas, milk of magnesia, and ducolax suppository added to regimen wi thout significant BM. Only had small amount of diarrhea/stools. Senokot-S BID and milk of magnesia daily prn added to regimen. -General surgery following and recommend continuing daily enemas until BM achieved. Spoke with admitting team regarding adding golytely. They will speak with surgery for their recommendation Breast cancer: -Breast cancer, triple positive, on neoadjuvant treatment, clinical stage I. -Taxotere, carboplatin, Perjeta and Herceptin, 5/6 cycles completed. Last dose on 08/23, with G-CSF on 08/24 -Side effects above secondary to chemotherapy -Cycle 6 was scheduled for 09/14/2023. Course of hospitalization has been discussed with her primary oncologist, Dr Carpenter. Chemo has been tentatively rescheduled for 09/14, with f/u with Dr. Carpenter on 09/13. At this time, due to repeat hospital admissions and intractable pain and n/v/d despite aggressive measures, will further discuss possibly discontinuing last cycle of treatment Pt updated on POC and is agreeable
--- NOTE | 2023-09-12 03:13 | P.PN ---
Subjective Progress Note Date: 09/11/23 Patient is a 63-year-old female with a past medical history of GERD, obstructive sleep apnea, breast cancer currently on chemotherapy, anxiety/depression and a prior history of jose antonio-en-y presents to ER with complaints of nausea vomiting and diarrhea. Patient states that her last chemotherapy was on Thursday. Patient is also complaining of generalized body pains and back pain and unable to tolerate oral diet. Patient also feeling weak overall. Patient has been having symptoms for the past 2 to 3 days and has been worsening. Patient had similar episode of pain and nausea vomiting and diarrhea after previous chemotherapy. Otherwise denies any complaints of fever or chills. No cough or sputum production. No complaints of chest pain or shortness of breath. Chest x-ray showed no acute cardiopulmonary process. EKG showed sinus rhythm with low QRS voltage in the precordial leads. Laboratory showed WBC 1.7 hemoglobin 9.1 and platelets 121 sodium 137 potassium 4.2 chloride 109 bicarb is 26 BUN 15 and creatinine 0.47 and blood sugar 84 magnesium 1.4 AST 59 ALT 102 and alk phos 57 urinalysis analysis is negative for infection. 08/31/2023 Patient is seen and evaluated in follow-up this morning extremely lethargic although arousable. Patient reports abdominal discomfort including nausea with continued diarrhea. Patient reports the abdominal pain with cramping became too intense she had to come to the hospital. Patient not tolerating much oral intake and is maintained on clear liquids. Discussed with oncology and will continue supportive care including low diet and slowly advance once tolerating. C. difficile testing was negative patient was started on as needed Imodium. Continue supportive care. Encouraged increased activity as tolerated 09/01/2023 Patient is seen in follow-up today continues to report abdominal pain with nausea and persistent diarrhea. Patient reports she has had 4 episodes of loose stools this morning with some nausea. Patient is tolerating clear liquids and will continue for another day and slowly advance. Continue antinausea medications along with diarrheal agents. Patient continues to report significant 10/10 pain and reports only the Dilaudid is helping. Discussed with oncology regarding pain management and will add 25 tara fentanyl patch and increase [place] and continue with as needed Dilaudid for now. Discussed with the patient about attempting to avoid IV narcotics. Patient is afebrile with no reports of chest pain. Patient reports shortness of breath with exertion. Encouraged patient to increase activity as tolerated and get up out of the bed more often. 09/02/2023 Patient is seen in follow-up this morning reports her abdominal pain persists although reports to feeling slightly improved from yesterday. Patient reports s he continues to have loose stools multiple times throughout the day although has become less intense and less frequent. Patient denies any vomiting although continues with occasional nausea. Patient did try to advance diet to full liquids including oatmeal this morning although was unable to tolerate and had to spit it out. Patient is afebrile with no reports of chest pain. Patient does report shortness of breath with exertion while getting up and washing herself up but remains above 95% on room air. Patient has been encouraged to sit up out of the bed more often and get up and walk frequently in the halls at least 2-3 times daily. Will adjust pain medications and continue current edwin men. Continue with antinausea and diarrheal agents as needed. Awaiting a.m. labs and replace electrolytes per protocol. Magnesium is chronically low and will continue daily supplementation. 09/03/2023 Patient is seen in follow-up today continues to report abdominal pain with some cramping and nauseated. Patient attempting to tolerate more oral intake and continues on full liquids with not much of an appetite. Patient continues to report significant pain and current regimen is helping although it does not last very long. Have encouraged the patient to increase activity as tolerated get up more often out of the bed and sit in the chair more frequently. Encourage small frequent meals and supplements throughout the day. Replace electrolytes per protocol and we will follow-up on repeat labs. Oncology is following and patient will follow in the outpatient setting regarding next treatment session. 09/04/2023 Patient is seen in follow-up today and reports some cramping and abdominal pain although feels she would like to advance her diet. Patient did try oatmeal a couple of days ago and did not tolerate. Patient is requesting mashed potatoes as an option. Discussed with the patient along with family at the bedside that she is able to advance as tolerated. Patient diarrhea has improved and will continue on stool softeners and as needed bowel regimen. Patient to continue with antinausea medications. Patient to continue on pain management and limit the use of IV Dilaudid. Patient reports she has been feeling slightly improved although her pain does get pretty intense once the medication wears off. Patient has been encouraged to increase activity as tolerated and get up and walk around more often. Patient reports she is up and to the bathroom frequently. Patient is afebrile with no reported chest pain or shortness of breath. Magnesium mildly low and will give 1 g. Continue with oral supplementation. 09/05/2023 Patient is currently sitting on side of bed. Awake alert and oriented x 3. No complaints of chest pain or shortness of breath. No nausea or vomiting. Patient is able to tolerate oral intake. Patient is fairly controlled. Patient states that she feels better today. No fever or chills. No headache or dizziness or lightheadedness. Patient is being treated pain management with fentanyl patch and is also on [place] 10 and Dilaudid. Also on IV hydration with Ringer's lactate at 75 cc/h. No new laboratory data today. Current medications reviewed. 09/06/2023 Patient is currently laying in the bed. Awake alert and oriented. Complains of nausea and also complaining of pain. Patient is on fentanyl patch and also on Dilaudid IV and [place] 10. Oncology is on board. Blood pressure stable. Patient has been afebrile overnight. Currently on room air. Follow-up repeat CBC and BMP tomorrow. Oncology is on board. 09/07/2023 Patient is seen in follow-up today reporting persistent nausea patient does have Zofran which does help although continues to have not much of an appetite. Patient reports is tolerating mashed potatoes although not much more. Patient has been encouraged supplements along with antinausea and diarrheal agents. Encouraged increase activity as tolerated as patient also reports she has been feeling dizzy when getting up. Will obtain orthostatic vitals. Continue with current pain regimen and discussed limiting IV Dilaudid. Will follow-up with repeat labs and continue to monitor closely. Replace electrolytes per protocol. 09/08/2023 Patient is seen and evaluated today continues to report abdominal pain and tenderness. Patient not tolerate much oral intake other than mashed potatoes. Patient has been encouraged to continue current diet along with supplements including yogurt although patient reports yogurt makes her vomit. Patient reporting she had 4 bowel movements and continues with cramping. Will obtain CT abdomen. Continue with current pain regimen and limit IV narcotic use continue with fentanyl patch and oral medications. Continue with antinausea medications along with bowel regimen. Will add lactulose twice daily as well until having bowel movements. Recommend strict intake and output measuring. Patient is afebrile with no reports of chest pain or shortness of breath. Patient with generalized weakness recommending increasing activity as tolerated and sitting up in the chair more often. 09/09/2023 Patient is seen and evaluated in follow-up this morning reports feeling somewhat improved working on tolerating more intake and was noted to have bowel movements. Patient did have a CT yesterday showing overall stool burden with significant amount of stool with no acute process noted. Patient slowly advancing diet and has been up and walking encouraged the patient to walk more frequently and sit up in the chair more often. Magnesium were replaced and improved at 1.8 we will continue daily supplementation. 09/10/2023 Patient is seen and evaluated today reporting she is having bowel movements although they are mostly liquid and has not had a formed solid bowel movement since July. Patient underwent CT abdomen yesterday showing significant amount of stool and patient continues with tenderness will consult general surgery for possible disimpaction. Patient will continue on lactulose and also recommend soapsuds enema. Patient is afebrile with no reported chest pain or shortness of breath. Patient feels generalized weakness but has been working on getting up and walking around more frequently. Plan is to return home on discharge. Oncology following and patient does have a follow-up appointment on Thursday, September [address] Carpenter her oncologist. 09/11/2023 Patient is seen in follow-up today has been evaluated by general surgery for constipation recommending continue with soapsuds enema. Patient has received enemas along with suppository with minimal results and continues to have loose stool. Patient also reporting significant discomfort as patient has history of hemorrhoids and will add Anusol cream. Recommend GoLytely bowel prep until having more formed bowel movements. Continue with antinausea medications and advancing diet as tolerated. Encouraged to increase activity as tolerated as well with frequent walking. Will follow-up on repeat labs and replace electrolytes per protocol. Review of systems: Constitutional: reports of fatigue. but improving, no fever, or chills Cardiovascular: No reports of chest pain or palpitations Respiratory: reports of occasional shortness of breath with exertion GI: reports of nausea, no documented vomiting, reports diarrhea persists and continues with abdominal cramping but is improving, reporting significant hemorrhoid pain : No reports of dysuria or retention Neurovascular: reports of generalized weakness but has been up and walking more All medications have been reviewed PHYSICAL EXAMINATION: GENERAL: The patient is awake, alert and oriented x4, Well developed, thin built, elderly appearing, ill-appearing HEENT: Pupils are round and equally reacting to light. EOMI. no scleral icterus. No conjunctival pallor. Normocephalic, atraumatic. No pharyngeal erythema. No thyromegaly. CARDIOVASCULAR: S1 and S2 muffled PULMONARY: diminished breath sounds bilaterally with no wheezing or rhonchi noted. ABDOMEN: soft. slightly less tender on exam. non-distended, normoactive bowel sounds. No palpable organomegaly. MUSCULOSKELETAL: No joint swelling or deformity. EXTREMITIES: No cyanosis, clubbing, or pedal edema. NEUROLOGICAL: Gross neurological examination did not reveal any focal deficits. Diffuse weakness SKIN: No rashes. Pale Assessment: Intractable nausea, vomiting, diarrhea likely acute gastroenteritis secondary to chemotherapy Generalized weakness and pain Pancytopenia secondary to chemotherapy Recent history of dysphagia. Barium swallow showed no evidence of aspiration. Oral mucositis Chronic constipation, likely secondary to narcotic use Hemorrhoid pain, history of chronic hemorrhoids, exacerbated by enemas Hypokalemia and hypomagnesemia secondary to poor oral intake and continued gastric losses, improving Abdominal pain with cramping, likely secondary to large stool burden as noted on CT imaging this admission Diarrhea, C. difficile ruled out Transaminitis History of breast cancer, stage III, currently undergoing chemotherapy GERD Acute severe protein calorie malnutrition with a BMI of 19.4 GI prophylaxis PPI DVT prophylaxis heparin subcu Full code Plan: Patient will be continued on regular diet, continue to advance slowly as tolerated Encouraged to increase walking and getting up out of the bed more often Continue bowel regimen for continued bowel movements. Patient was having some small episodes of loose stools and reports she has not had a solid bowel movement since July. Patient is status post CT of the abdomen showing large amount of stool and will consult general surgery for possible disimpaction. Soapsuds enema ordered and patient is to continue with lactulose scheduled, will add GoLytely Patient having increased hemorrhoid pain with history of hemorrhoids will add Anusol cream Magnesium replaced and improved and currently 1.8. Continue daily supplementation Oncology following and continuing with supportive care. Plan is for outpatient follow-up with oncology Dr. Carpenter outpatient on September 14, 2023. Next treatment session tentatively scheduled for September 14 although to discuss further with primary oncologist regarding treatment plan moving forward Will continue current pain medications and also discussed with the patient about attempting to avoid IV narcotics as patient has been receiving IV Dilaudid [id number]. Will continue fentanyl patch and [place]. Lengthy conversation was had with the patient and close friend at the bedside regarding narcotics and high risk for addiction and other side effects. Probable discharge planning in the next 24-48 hours. Plan is for next chemotherapy session on 09/14/2023, currently on hold and patient will follow-up with Dr. Carpenter on September 13 to discuss treatment plan. Due to multiple complex medical issues, overall prognosis is guarded The impression and plan of care has been dictated by Nakia Baker, Nurse Practitioner as directed. Dr. Celso MD I have performed a history and examination and MDM of this patient, discussed the same with the dictator, and agree with the dictator's assessment and plan as written ,documented as a scribe. Based on total visit time, I have performed more than 50% of the visit. Objective - Vital Signs Vital signs: Vital Signs Temp 98.4 F 09/12/23 01:36 Pulse 83 09/12/23 01:36 Resp 16 09/12/23 01:36 BP 123/80 09/12/23 01:36 Pulse Ox 97 09/12/23 01:36 FiO2 Intake & Output 09/11/23 09/11/23 09/12/23 06:59 18:59 06:59 Intake Total 120 Output Total 100 Balance 20 Intake: Oral 120 Output: Stool 100 Other: Voiding Method Toilet Toilet Toilet # Voids 1 - Labs CBC & Chem 7: 09/07/23 08:00 09/07/23 08:00
[2023-09-12 09:22] LABS: Basophils # (A) 0.02 X 10*3/uL (0.00-0.10); Basophils % (A) 0.4 %; Eosinophils # (A) 0 X 10*3/uL (0.04-0.35); Eosinophils % (A) 0 %; HCT 32.2 % (37.2-46.3); Lymphocytes # (A) 1.61 X 10*3/uL (0.90-5.00); Lymphocytes % (A) 29.7 %; MCH 31.5 pg (27.0-32.0); MCHC 31.1 g/dL (32.0-37.0); MCV 101.6 FL (80.0-97.0); Mean Platelet Volume 10.6 FL (9.5-12.2); Monocytes # (A) 0.49 X 10*3/uL (0.20-1.00); NRBC Per 100 WBC 0 X 10*3/uL (0.00-0.01); Neutrophils % (A) 60.7 %; Platelet Count 244 X 10*3/uL (140-440); RBC 3.17 X 10*6/uL (4.10-5.20); RDW 13.1 % (11.5-14.5); WBC 5.43 X 10*3/uL (4.50-10.00)
[2023-09-12 12:19] LABS: BUN/Creat Ratio 7.71 Ratio (12.00-20.00); Blood Urea Nitrogen 5.4 mg/dL (9.0-27.0); Calcium 9.1 mg/dL (8.7-10.3); Carbon Dioxide 27.4 mmol/L (21.6-31.8); Chloride 102 mmol/L (96-109); Glucose 88 mg/dL (70-110); Magnesium 1.6 mg/dL (1.5-2.4); Potassium 4.2 mmol/L (3.5-5.5); Sodium 140 mmol/L (135-145)
[2023-09-12 13:06] VITALS: RESP 16
[2023-09-12] MEDS: MINERAL OIL 133 ML ENEMA RECTAL PRN (16:05)
[2023-09-12] MEDS: bisacodyL 10 MG SUPP RECTAL PRN (16:08)
--- NOTE | 2023-09-12 22:30 | P.PN ---
Subjective Patient seen and evaluated at bedside. Patient still complaining of constipation, small bowel movement, admits to abdominal pain, denies nausea, vomiting, fevers, chills, gen: nad cv:rrr pul: non labored breathing abd: soft, tender to palpation, no guarding or rebound tenderness Objective - Vital Signs Vital signs: Vital Signs Temp 98.3 F 09/12/23 20:00 Pulse 99 09/12/23 20:00 Resp 16 09/12/23 20:00 BP 104/72 09/12/23 20:00 Pulse Ox 98 09/12/23 20:00 FiO2 Intake & Output 09/12/23 09/12/23 09/13/23 06:59 18:59 06:59 Intake Total 840 1200 Output Total 0 400 Balance 840 800 Intake: Intake, IV Titration 360 Amount Lactated Ringers 1,000 ml 360 @ 40 mls/hr IV .Q24H YAZMIN Rx#:[id number] Oral 480 1200 Output: Stool 100 Urine/Stool Mix 300 Emesis 0 Other: Voiding Method Toilet Toilet Toilet # Voids 2 1 # Bowel Movements 2 1 - Labs CBC & Chem 7: 09/12/23 05:20 09/12/23 05:20 Labs: Abnormal Lab Results - Last 24 Hours (Table) 09/12/23 09/12/23 Range/Units 05:20 05:20 RBC 3.17 L (4.10-5.20) X 10*6/uL Hgb 10.0 L (12.0-15.0) g/dL Hct 32.2 L (37.2-46.3) % MCV 101.6 H (80.0-97.0) FL MCHC 31.1 L (32.0-37.0) g/dL Eosinophils # 0 L (0.04-0.35) X 10*3/uL BUN 5.4 L (9.0-27.0) mg/dL BUN/Creatinine Ratio 7.71 L (12.00-20.00) Ratio Assessment and Plan Assessment: 63 yo female w/ constipation -attempt mineral oil enema -continue golytely -no stool at rectal vault
--- NOTE | 2023-09-13 01:43 | PN ---
PROGRESS NOTE DATE OF SERVICE: 09/12/2023 SUBJECTIVE: This 63-year-old woman admitted with multiple complex medical issues. Has severe obstipation and constipation. Surgery is following the patient closely with different bowel regimens. EXAM: VITAL SIGNS: Pulse is 96, blood pressure 105/70, respirations 16. CHEST: Clear to auscultation. CARDIOVASCULAR: S1, S2. ABDOMEN: Soft. No guarding, rigidity. LABORATORY DATA: WBC 10. ASSESSMENT: 1. Intractable nausea, vomiting, diarrhea. This is acute gastroenteritis secondary to chemotherapy. 2. History of constipation and obstipation. 3. Pancytopenia. 4. Multiple medical issues. RECOMMENDATIONS: Recommended to continue current management, continue symptomatic treatment. Otherwise, continue with a bowel regimen. I would recommend repeat labs. Closely follow with Surgery. Prognosis is guarded because of multiple complex medical issues. Further recommendations to follow. MMNICKL / DARYA: [id number] /
[2023-09-13] MEDS: CYANOCOBALAMIN 1,000 MCG/ML 1 ML VIAL IM SCH (08:47)
[2023-09-13 09:27] LABS: Basophils # (A) 0.01 X 10*3/uL (0.00-0.10); Basophils % (A) 0.2 %; Eosinophils # (A) 0 X 10*3/uL (0.04-0.35); Eosinophils % (A) 0 %; HCT 28.9 % (37.2-46.3); HGB 8.7 g/dL (12.0-15.0); Lymphocytes # (A) 1.08 X 10*3/uL (0.90-5.00); Lymphocytes % (A) 24.9 %; MCH 31.3 pg (27.0-32.0); MCHC 30.1 g/dL (32.0-37.0); Mean Platelet Volume 10.8 FL (9.5-12.2); Monocytes # (A) 0.43 X 10*3/uL (0.20-1.00); Monocytes % (A) 9.9 %; NRBC Per 100 WBC 0 X 10*3/uL (0.00-0.01); Neutrophils # (A) 2.81 X 10*3/uL (1.80-7.70); Neutrophils % (A) 64.8 %; Platelet Count 206 X 10*3/uL (140-440); RBC 2.78 X 10*6/uL (4.10-5.20); RDW 13.1 % (11.5-14.5); WBC 4.34 X 10*3/uL (4.50-10.00)
[2023-09-13 10:19] LABS: BUN/Creat Ratio 10.57 Ratio (12.00-20.00); Blood Urea Nitrogen 7.4 mg/dL (9.0-27.0); Calcium 8.5 mg/dL (8.7-10.3); Carbon Dioxide 27.3 mmol/L (21.6-31.8); Chloride 103 mmol/L (96-109); Glucose 82 mg/dL (70-110); Potassium 3.7 mmol/L (3.5-5.5); Sodium 140 mmol/L (135-145)
--- NOTE | 2023-09-13 12:18 | XR ---
EXAMINATION TYPE: XR abdomen 1V DATE OF EXAM: 09/13/2023 11:24 AM CLINICAL INDICATION:Female, 63 years old with history of check for stool; [facility] COMPARISON: None. TECHNIQUE: Supine radiographic view/s of the abdomen/pelvis obtained. FINDINGS: There is a moderate colonic stool burden and moderate amount of gas throughout the colon, which appea rs redundant. Scattered gas in small bowel loops without significant distention seen. No pneumoperito neum identified in the limits of supine radiography. No suspicious calcifications. Clustered clips th e right upper quadrant likely from cholecystectomy. Mild degenerative changes of the spine. No acute bony pathology. IMPRESSION: 1. Moderate stool and gas throughout the colon. 2. Nonspecific, likely nonobstructive bowel gas pattern.
--- NOTE | 2023-09-13 12:19 | P.PN ---
Subjective Progress Note Date: 09/13/23 Principal diagnosis: Constipation Patient comfortable today. No significant pain at this time. No good bowel function with enemas and 1/2 gallon GoLytely. Objective - Vital Signs Vital signs: Vital Signs Temp 98.0 F 09/13/23 07:18 Pulse 87 09/13/23 08:40 Resp 16 09/13/23 08:40 BP 103/66 09/13/23 07:18 Pulse Ox 96 09/13/23 07:18 FiO2 Intake & Output 09/12/23 09/13/23 09/13/23 18:59 06:59 18:59 Intake Total 1200 600 777 Output Total 400 100 Balance 800 600 677 Intake: Intake, IV Titration 480 Amount Lactated Ringers 1,000 ml 480 @ 40 mls/hr IV .Q24H YAZMIN Rx#:[id number] Oral 1200 120 777 Output: Stool 100 100 Urine/Stool Mix 300 Other: Voiding Method Toilet Toilet Toilet # Voids 1 2 2 # Bowel Movements 1 1 2 - Exam Abdomen: Soft, nontender, nondistended Rectal exam no stool - Labs CBC & Chem 7: 09/13/23 05:30 09/13/23 05:30 Labs: Abnormal Lab Results - Last 24 Hours (Table) 09/12/23 09/13/23 09/13/23 Range/Units 05:20 05:30 05:30 WBC 4.34 L (4.50-10.00) X 10*3/uL RBC 2.78 L (4.10-5.20) X 10*6/uL Hgb 8.7 L (12.0-15.0) g/dL Hct 28.9 L (37.2-46.3) % MCV 104.0 H (80.0-97.0) FL MCHC 30.1 L (32.0-37.0) g/dL Eosinophils # 0 L (0.04-0.35) X 10*3/uL BUN 5.4 L 7.4 L (9.0-27.0) mg/dL BUN/Creatinine Ratio 7.71 L 10.57 L (12.00-20.00) Ratio Calcium 8.5 L (8.7-10.3) mg/dL Assessment and Plan (1) Constipation Narrative/Plan: Patient doing fairly well clinically however not having good bowel function. Continue GoLytely today. Continue diet as ordered. Current Visit: Yes Status: Acute Code(s): K59.00 - CONSTIPATION, UNSPECIFIED SNOMED Code(s): 59333052
--- NOTE | 2023-09-13 13:28 | PN ---
PROGRESS NOTE DATE OF SERVICE: 09/13/2023 SUBJECTIVE: This 63-year-old woman was admitted with multiple complex medical issues, significant constipation. No fever, no cough. OBJECTIVE: VITAL SIGNS: Pulse is 82, blood pressure 103/66, respirations 16. CHEST: Scattered rhonchi. CARDIOVASCULAR: S1, S2. ABDOMEN: Soft, mild diffuse distention. LABORATORY DATA: Hemoglobin 8.7. ASSESSMENT: 1. Intractable nausea, vomiting, and diarrhea possible acute gastroenteritis secondary to chemo. 2. History of constipation, obstipation. 3. Pancytopenia. 4. Multiple medical issues. RECOMMENDATIONS AND DISCUSSION: I recommended to continue current medications, continue symptomatic treatment. Abdominal x-ray shows diffuse ileus pattern. Surgery is following the patient closely. Further recommendations to follow. MMODL / MARISOLN: [id number] /
[2023-09-13] MEDS: ZOLPIDEM 5 MG TAB PO PRN (21:10)
[2023-09-14 07:49] VITALS: BP 125/81; PULSE 65; TEMP 98
[2023-09-14 08:59] LABS: BUN/Creat Ratio 8.62 Ratio (12.00-20.00); Blood Urea Nitrogen 6.9 mg/dL (9.0-27.0); Calcium 8.3 mg/dL (8.7-10.3); Carbon Dioxide 30.7 mmol/L (21.6-31.8); Chloride 103 mmol/L (96-109); Glucose 81 mg/dL (70-110); Potassium 3.6 mmol/L (3.5-5.5); Sodium 140 mmol/L (135-145)
[2023-09-14 09:39] LABS: HCT 28.8 % (37.2-46.3); MCH 32.1 pg (27.0-32.0); MCHC 31.3 g/dL (32.0-37.0); MCV 102.9 FL (80.0-97.0); Mean Platelet Volume 10.4 FL (9.5-12.2); NRBC Per 100 WBC 0 X 10*3/uL (0.00-0.01); Platelet Count 219 X 10*3/uL (140-440); RDW 13.1 % (11.5-14.5); WBC 3.87 X 10*3/uL (4.50-10.00)
[2023-09-14 11:44] LABS: Basophils # (A) 0.01 X 10*3/uL (0.00-0.10); Basophils % (A) 0.3 %; Eosinophils # (A) 0 X 10*3/uL (0.04-0.35); Eosinophils % (A) 0 %; Lymphocytes # (A) 1.22 X 10*3/uL (0.90-5.00); Lymphocytes % (A) 31.5 %; Monocytes # (A) 0.46 X 10*3/uL (0.20-1.00); Monocytes % (A) 11.9 %; Neutrophils # (A) 2.17 X 10*3/uL (1.80-7.70); RBC Morphology Normal (Normal)
--- NOTE | 2023-09-14 14:45 | P.PN ---
Subjective Progress Note Date: 09/14/23 CHIEF COMPLAINT: Constipation HISTORY OF PRESENT ILLNESS: Patient is having small loose bowel movements. She does still report some mild abdominal discomfort. Denies any nausea or vomiting. Oral intake is diminished. Afebrile. Patient has appointment outpatient with oncology service today PHYSICAL EXAM: VITAL SIGNS: Reviewed. GENERAL: no acute distress. ABDOMEN: Soft. Nondistended. Mild diffuse tenderness with palpation ASSESSMENT: 1. Constipation 2. Breast cancer PLAN: -Patient can be discharged from surgical standpoint -Continue with good bowel regimen at home -Continue to follow with oncology service Physician Sledger note has been reviewed by physician. Signing provider agrees with the documented findings, assessment, and plan of care. Objective - Vital Signs Vital signs: Vital Signs Temp 98 F 09/14/23 07:32 Pulse 65 09/14/23 07:32 Resp 16 09/14/23 07:32 BP 125/81 09/14/23 07:32 Pulse Ox 98 09/14/23 07:32 FiO2 Intake & Output 09/13/23 09/14/23 09/14/23 18:59 06:59 18:59 Intake Total 1017 240 Output Total 101 Balance 916 240 Intake: Oral 1017 240 Output: Stool 101 Other: Voiding Method Toilet Toilet Bedside Commode # Voids 2 1 # Bowel Movements 2 - Labs CBC & Chem 7: 09/14/23 05:45 09/14/23 05:45 Labs: Abnormal Lab Results - Last 24 Hours (Table) 09/14/23 09/14/23 Range/Units 05:45 05:45 WBC 3.87 L (4.50-10.00) X 10*3/uL RBC 2.80 L (4.10-5.20) X 10*6/uL Hgb 9.0 L (12.0-15.0) g/dL Hct 28.8 L (37.2-46.3) % MCV 102.9 H (80.0-97.0) FL MCH 32.1 H (27.0-32.0) pg MCHC 31.3 L (32.0-37.0) g/dL Eosinophils # 0 L (0.04-0.35) X 10*3/uL BUN 6.9 L (9.0-27.0) mg/dL BUN/Creatinine Ratio 8.62 L (12.00-20.00) Ratio Calcium 8.3 L (8.7-10.3) mg/dL
--- NOTE | 2023-09-16 10:25 | P.DS ---
Providers Date of admission: 08/30/23 07:17 Expected date of discharge: 09/11/23 Attending physician: Martin Mota Consults: 08/30/23 07:16 Consult Physician Routine Consulting Provider: Ethan Carpenter Consult Reason/Comments: IntrActable nausea and vomiting. breast cancer patient Do you want consulting provider notified?: Yes 09/10/23 11:08 Consult Physician Urgent Consulting Provider: Cleveland Bobo Consult Reason/Comments: fecal impaction?? constipation Do you want consulting provider notified?: Yes Primary care physician: Palmer [facility] Course: Final diagnosis Intractable nausea, vomiting, diarrhea likely acute gastroenteritis secondary to chemotherapy Generalized weakness and pain Pancytopenia secondary to chemotherapy Recent history of dysphagia. Barium swallow showed no evidence of aspiration. Oral mucositis Chronic constipation, likely secondary to narcotic use Hemorrhoid pain, history of chronic hemorrhoids, exacerbated by enemas Hypokalemia and hypomagnesemia secondary to poor oral intake and continued gastric losses, improving Abdominal pain with cramping, likely secondary to large stool burden as noted on CT imaging this admission Diarrhea, C. difficile ruled out Transaminitis History of breast cancer, stage III, currently undergoing chemotherapy GERD Acute severe protein calorie malnutrition with a BMI of 19.4 GI prophylaxis PPI DVT prophylaxis heparin subcu Full code Discharge disposition Patient is being discharged in a stable condition with guarded prognosis to home. Patient will follow-up with Dr. Jamison in the outpatient setting upon discharge. Patient is to continue with outpatient follow-up with her oncologist Dr. Carpenter as scheduled this afternoon. Total time taken is greater than 35 minutes. Hospital course This is a 63-year-old female who was recently admitted after recent chemo with intractable nausea vomiting and diarrhea with abdominal pain likely secondary to chemotherapy being closely monitored with supportive care. Multiple consultations following including oncology and continued on bowel regimen along with antinausea medications and pain management. Patient last chemo cycle was s cheduled for 09/14/[address] Carpenter although has been postponed and patient will follow-up with Dr. Carpenter this afternoon to discuss treatment options and plans moving forward. Patient to continue on scheduled bowel regimen along with antinausea and supportive care and discuss further with Dr. Carpenter regarding pain management. Patient was started on fentanyl patch along with increased Rock[place] and attempts to limit the Dilaudid use although patient required IV pain medications throughout hospitalization. Patient would benefit from following up with pain management in the outpatient setting as well. Patient is medically stable and has been cleared by consultations. Please refer to other consultation notes for further HPI. Currently no reports of chest pain, shortness of breath, or palpitations. Patient is afebrile. No reports of worsening nausea or vomiting and patient is tolerating diet. Slowly advance diet as tolerated per patient. Patient does not have much of an appetite. Mayra ent will be discharged home today. Guarded prognosis and high risk for readmissions Physical exam: Gen: This is a 63-year-old female who is awake, alert and oriented x 3, well- developed, elderly appearing, ill-appearing, thin HEENT: Head is atraumatic, normocephalic. Pupils equal, round. Sclerae is anicteric. NECK: Supple. No JVD. No lymphadenopathy. No thyromegaly. LUNGS: Diminished breath sounds bilaterally otherwise clear to auscultation. No wheezes or rhonchi. No intercostal retractions. HEART: Regular rate and rhythm. No murmur. ABDOMEN: Soft. Thin, mildly tender in the lower left and right quadrant, bowel sounds are present. No masses. EXTREMITIES: No pedal edema. No calf tenderness. NEUROLOGICAL: Patient is awake, alert and oriented x3. Cranial nerves 2 through 12 are grossly intact. Please refer to medication reconciliation sheet for a list of medications. The impression and plan of care has been dictated by Nakia Baker, Nurse Practitioner as directed. Dr. Celso MD I have performed a history and examination and MDM of this patient, discussed the same with the dictator, and agree with the dictator's assessment and plan as written ,documented as a scribe. Based on total visit time, I have performed more than 50% of the visit. Patient Condition at Discharge: Fair Plan - Discharge Summary New Discharge Prescriptions: New Lactulose [Cephulac] 20 gm PO BID #360 ml HYDROcodone/APAP 10-325MG [Rock[place] 10-325] 1 each PO Q6HR PRN #6 tab PRN Reason: Pain Calcium Carbonate [Tums] 500 mg PO QID PRN tab PRN Reason: Heartburn Hydrocortisone Suppository [Anusol-Hc] 25 mg RECTAL TID PRN #20 suppositor PRN Reason: Hemorrhoids fentaNYL 12MCG/HR PATCH [Duragesic 12MCG/HR] 1 patch TRANSDERM Q72H #0 patch fentaNYL 25MCG/HR PATCH [Duragesic 25MCG/HR] 1 patch TRANSDERM Q72H patch Continue Sennosides [Senna] 8.6 mg PO HS PRN PRN Reason: Constipation PARoxetine HCL [Paxil] 30 mg PO DAILY Magnesium Oxide [Mag-Ox] 400 mg PO DAILY Lidocaine-Prilocaine Cream [Emla Cream 2.5%/2.5%] 1 applic TOPICAL DIRECTED PRN PRN Reason: port access Diphenox-Atrop 2.5-0.025 mg [Lomotil] 2 tab PO Q6H PRN PRN Reason: Diarrhea Cyanocobalamin [Vitamin B-12 Injection] 1,000 mcg IM Q14D Petrolatum, White [Aquaphor] 1 applic TOPICAL QID PRN each PRN Reason: Dry Skin Sucralfate [Carafate] 1 gm PO ACHS 14 Days #56 tab Loratadine [Claritin] 10 mg PO DAILY tab Nystatin 100,000 Unit/ml Susp [Mycostatin Oral Susp] 500,000 unit PO QID 7 Days #140 ml Pantoprazole [Protonix] 40 mg PO DAILY 14 Days #14 tab HYDROcodone/APAP 5-325MG [[place] 5-325] 1 tab PO Q8HR PRN 3 Days #9 tab PRN Reason: Severe Pain (Scale 7 To 10) ALPRAZolam [Xanax] 0.5 mg PO TID PRN PRN Reason: Anxiety Zolpidem [Ambien] 5 mg PO HS PRN PRN Reason: Insomnia Ondansetron Odt [Zofran ODT] 4 - 8 mg PO Q4H PRN PRN Reason: Nausea OLANZapine 5 mg PO DIRECTED Potassium Chloride [Klor-Con M20] 20 meq PO DAILY Hydrocortisone Cream [Hydrocortisone 2.5% Cream] 1 applic TOPICAL TID PRN PRN Reason: Rash Kools Solution(Benadryl/Lidocaine/Maalox/Nystatin/Dexamethasone) 5 ml PO QID PRN PRN Reason: mouth/throat pain Docusate [Colace] 100 mg PO BID PRN PRN Reason: Constipation Loperamide [Imodium] 2 mg PO QID PRN cap PRN Reason: Diarrhea Discontinued dexAMETHasone [Decadron] 8 mg PO DIRECTED Discharge Medication List Magnesium Oxide [Mag-Ox] 400 mg PO DAILY 10/10/18 [History] PARoxetine HCL [Paxil] 30 mg PO DAILY 10/10/18 [History] Sennosides [Senna] 8.6 mg PO HS PRN 10/10/18 [History] Cyanocobalamin [Vitamin B-12 Injection] 1,000 mcg IM Q14D 08/02/23 [History] Diphenox-Atrop 2.5-0.025 mg [Lomotil] 2 tab PO Q6H PRN 08/02/23 [History] Docusate [Colace] 100 mg PO BID PRN 08/02/23 [History] Hydrocortisone Cream [Hydrocortisone 2.5% Cream] 1 applic TOPICAL TID PRN 08/02/23 [History] Kools Solution(Benadryl/Lidocaine/Maalox/Nystatin/Dexamethasone) 5 ml PO QID PRN 08/02/23 [History] Lidocaine-Prilocaine Cream [Emla Cream 2.5%/2.5%] 1 applic TOPICAL DIRECTED PRN 08/02/23 [History] OLANZapine 5 mg PO DIRECTED 08/02/23 [History] Ondansetron Odt [Zofran ODT] 4 - 8 mg PO Q4H PRN 08/02/23 [History] Potassium Chloride [Klor-Con M20] 20 meq PO DAILY 08/02/23 [History] Loperamide [Imodium] 2 mg PO QID PRN cap 08/17/23 [Rx] Loratadine [Claritin] 10 mg PO DAILY tab 08/17/23 [Rx] Nystatin 100,000 Unit/ml Susp [Mycostatin Oral Susp] 500,000 unit PO QID 7 Days #140 ml 08/17/23 [Rx] Pantoprazole [Protonix] 40 mg PO DAILY 14 Days #14 tab 08/17/23 [Rx] Petrolatum, White [Aquaphor] 1 applic TOPICAL QID PRN each 08/17/23 [Rx] Sucralfate [Carafate] 1 gm PO ACHS 14 Days #56 tab 08/17/23 [Rx] HYDROcodone/APAP 5-325MG [[place] 5-325] 1 tab PO Q8HR PRN 3 Days #9 tab 08/19/23 [Rx] ALPRAZolam [Xanax] 0.5 mg PO TID PRN 08/30/23 [History] Zolpidem [Ambien] 5 mg PO HS PRN 08/30/23 [History] Calcium Carbonate [Tums] 500 mg PO QID PRN tab 09/14/23 [Rx] HYDROcodone/APAP 10-325MG [[place] 10-325] 1 each PO Q6HR PRN #6 tab 09/14/23 [Rx] Hydrocortisone Suppository [Anusol-Hc] 25 mg RECTAL TID PRN #20 suppositor 09/14/23 [Rx] Lactulose [Cephulac] 20 gm PO BID #360 ml 09/14/23 [Rx] fentaNYL 12MCG/HR PATCH [Duragesic 12MCG/HR] 1 patch TRANSDERM Q72H #0 patch 09/14/23 [Rx] fentaNYL 25MCG/HR PATCH [Duragesic 25MCG/HR] 1 patch TRANSDERM Q72H patch 09/14/23 [Rx] Follow up Appointment(s)/Referral(s): Palmer Jamison DO [Primary Care Provider] - 1-2 days (The office will call you with an appointment time and date.) Ethan Carpenter MD [STAFF PHYSICIAN] - 1-2 Days (Keep today's appointment 09/14/2023) Patient Instructions/Handouts: Hydrocodone/Acetaminophen (By mouth), Lactulose (By mouth), Hydrocortisone (Into the rectum), Acute Nausea and Vomiting (DC) Activity/Diet/Wound Care/Special Instructions: Activity limited until follow-up Follow-up with Dr. Carpenter today as scheduled Follow-up primary care provider on discharge Continue with medications as prescribed Discussed with Dr. Carpenter regarding pain management moving forward Continue bowel regimen Discharge Disposition: HOME SELF-CARE
--- NOTE | 2023-09-21 21:27 | CDI ---
Documentation Clarification Form Date: 09/21/2023 09:15:52 PM From: Za Butcher Phone: Admit Date: 08/30/2023 07:17:00 AM Patient Name: Wanda Ervin Visit Number: [id number] Discharge Date: 09/14/2023 11:32:00 AM ATTENTION: The Clinical Documentation Specialists (CDI) and [facility] Coding Staff appreciate your assistance in clarifying documentation. Please respond to the clarification below the line at the bottom and electronically sign. The CDI & [facility] Coding staff will review the response and follow-up if needed. Please note: Queries are made part of the Legal Health Record. If you have any questions, please contact the author of this message via ITS. Dr. Martin Mota Your patient has an abnormal lab value: Hgb 9.1 and Hct 28.9 L per ED Note. Please clarify if there is an additional diagnosis and/or clinical significance related to this value. History/Risk Factors: 63yo F,acutegastroenteritisd/t chemo, generalized weakness, pancytopenia d/t chemo, oral mucositis, chronicconstipation d/t narcotic use, hemorrhoidpain, hypokalemia, hypomagnesemiapoor oral intake, severe PCM, transaminitis, LT breast cancer, stage III, GERD Clinical indicators: Hgb: 08/30 9.3 08/31 9.5 09/03 9.0-9.1 09/11 10.0 09/12 8.7 Hct: 08/30 29.8 08/31 30.0 09/03 28.0-29.7 09/11 32.2 09/12 28.9 Treatment: Continue to monitor CBC andtransfuse PRBCif hemoglobin less than 7 and platelets of less than 10,000. Oncology following and continuing with supportive care. Is there an additional diagnosis and/or clinical significance related to the above lab result/information? [ ] Drug induced anemia [ x ] Anemia due to malignancy [ ] Nutritional anemia [ ] No additional diagnosis/Not clinically significant [ ] Unable to determine [ ] Other, please specify (Template Last Revised: April 2022) MTDD
== END 2023-09-14 11:32 | disposition home or self-care (01) | DRG 393 ==
LOC: EC 02:17 → 5NMEDONC 07:16 → OBSVTOIN 07:17 → 5NMEDONC 10:50
PROVIDERS: ADMIT Internal Medicine; ATTEND Internal Medicine
DX: K52.1 Toxic gastroenteritis and colitis (principal); D61.810 Antineoplastic chemotherapy induced pancytopenia; E43 Unspecified severe protein-calorie malnutrition; Z68.1 Body mass index [BMI] 19.9 or less, adult; C50.412 Malignant neoplasm of upper-outer quadrant of left female breast; F32.A Depression, unspecified; E86.0 Dehydration; E83.42 Hypomagnesemia; D63.0 Anemia in neoplastic disease; E87.6 Hypokalemia; T45.1X5A Adverse effect of antineoplastic and immunosuppressive drugs, initial encounter; G47.33 Obstructive sleep apnea (adult) (pediatric); F41.9 Anxiety disorder, unspecified; K21.9 Gastro-esophageal reflux disease without esophagitis; K59.03 Drug induced constipation; T40.605A Adverse effect of unspecified narcotics, initial encounter; K64.9 Unspecified hemorrhoids; M89.8X8 Other specified disorders of bone, other site; R74.01 Elevation of levels of liver transaminase levels; M79.18 Myalgia, other site; K12.31 Oral mucositis (ulcerative) due to antineoplastic therapy; Z98.84 Bariatric surgery status; Z17.0 Estrogen receptor positive status [ER+]; Z79.899 Other long term (current) drug therapy; Z15.01 Genetic susceptibility to malignant neoplasm of breast; Z80.9 Family history of malignant neoplasm, unspecified; Z88.0 Allergy status to penicillin; Z88.5 Allergy status to narcotic agent
CPT/HCPCS: 36415; 71046; 74018; 74176; 80048; 80053; 81003; 83605; 83735; 85025; 85379; 85652; 86140; 87045; 87046; 87324; 93005; 96361; 96365; 96375; 96376; 99285

== ENCOUNTER → 2023-09-22 | Outpatient (CLI) | payer BC ==
--- NOTE | 2023-09-22 15:26 | CT ---
EXAMINATION TYPE: CT lumbar spine w con DATE OF EXAM: 09/22/2023 COMPARISON: None Contrast: 100 mL Isovue-300. HISTORY: back pain post chemo CT DLP: 422.1 mGycm CONTRAST: CT scan of the lumbar is performed with IV Contrast, patient injected with 100 mL of Isovue 300. TECHNIQUE: CT of the lumbar spine is performed on a spiral scan at 3 mm thick sections. Reconstructed images are performed in the coronal and sagittal planes. FINDINGS: T12-L1: No focal disc herniation or significant disc bulge is evident. No spinal canal stenosis or neural foraminal stenosis is present. L1-L2: No focal disc herniation or significant disc bulge is evident. No spinal canal stenosis or n eural foraminal stenosis is present L2-L3: Mild disc bulge indenting thecal sac contact. No AP spinal canal stenosis is present. Neural f oramen are patent. Facet degenerative changes present L3-L4: There is a grade 1 minimal anterolisthesis of L3 anteriorly on L4. Disc uncovering is present with moderate anterior thecal sac compression. Facet hypertrophy has mild posterior lateral thecal sa c compression. No spinal canal stenosis is present by measurement criteria. Some canal narrowing french antonio may be present. Mild bilateral foraminal narrowing may be present. L4-L5: Broad-based disc bulge with mild to moderate anterior thecal sac compression. Facet hypertroph y is present. No spinal canal stenosis or neural foraminal stenosis is present L5-S1: Central disc hardening with calcification is present at the L5-S1 level slightly into the righ t paracentral region. This is adjacent to the exiting right S1 nerve root is present. No nerve root o r spinal canal stenosis evident. Some contact with the exiting left S1 nerve root is present. There is narrowing of disc height. No suspicious acute changes are identified. Vertebral alignment otherwise appears normal. No suspicious enhancement is evident. IMPRESSION: 1. Minimal grade 1 anterolisthesis of L3 on L4. 2. Mild disc bulging L2-3 through L5-S1 discussed above. No spinal canal stenosis is evident. 3. Mild foraminal narrowing L3-4.
== END | disposition home or self-care (01) ==
LOC: RADCTMAIN 12:47
PROVIDERS: ATTEND Internal Medicine
DX: C50.412 Malignant neoplasm of upper-outer quadrant of left female breast (principal); M43.16 Spondylolisthesis, lumbar region; M51.37 Other intervertebral disc degeneration, lumbosacral region; M48.061 Spinal stenosis, lumbar region without neurogenic claudication
CPT/HCPCS: 72132; Q9967

== ENCOUNTER → 2023-09-24 | Outpatient (CLI) | payer BC ==
--- NOTE | 2023-09-25 15:17 | CA ---
Transthoracic Echo Report Name: Wanda Ervin Age: 63 Gender: F : 1960 Exam Date: 09/24/2023 17:07 Exam Location: [facility] Ht (in): 66 Wt (lb): 120 Ordering Physician: Ethan Carpenter MD Attending/Referring Phys: Gift Officer Jenny Ortega RDCS Procedure CPT: Indications: Z01.818 Pre-chemo Cardiac Hx: Technical Quality: Good Contrast 1: Total Dose (mL): Contrast 2: Total Dose (mL): MEASUREMENTS (Male / Female) Normal Values 2D ECHO LV Diastolic Diameter PLAX 4.5 cm 4.2 - 5.9 / 3.9 - 5.3 cm LV Systolic Diameter PLAX 2.8 cm IVS Diastolic Thickness 0.6 cm 0.6 - 1.0 / 0.6 - 0.9 cm LVPW Diastolic Thickness 0.6 cm 0.6 - 1.0 / 0.6 - 0.9 cm LV Relative Wall Thickness 0.3 LV Diastolic Volume MOD BP 71.2 cm??? 67 - 155 / 56 - 104 cm??? LV Systolic Volume MOD BP 26.4 cm??? 22 - 58 / 19 - 49 cm??? LV Ejection Fraction MOD BP 62.9 % >= 55 % LV Cardiac Index MOD BP 1864.5 cm???/min???m??? LV Diastolic Volume MOD 4C 71.6 cm??? LV Systolic Volume MOD 4C 28.7 cm??? LV Ejection Fraction MOD 4C 59.9 % LV Cardiac Index MOD 4C 1786.2 cm???/min???m??? LV Diastolic Length 4C 7.6 cm LV Systolic Length 4C 6.4 cm LV Diastolic Volume MOD 2C 69.8 cm??? LV Systolic Volume MOD 2C 22.4 cm??? LV Ejection Fraction MOD 2C 67.9 % LV Cardiac Index MOD 2C 1971.9 cm???/min???m??? LV Diastolic Length 2C 7.8 cm LV Systolic Length 2C 5.9 cm DOPPLER TR Peak Velocity 211.4 cm/s TR Peak Gradient 17.9 mmHg FINDINGS Left Ventricle Left ventricular ejection fraction is estimated at 55-60 %. Left ventricular cavity size normal. Left ventricular wall thickness normal. No obvious regional wall motion abnormalities. Right Ventricle Normal right ventricular size and function. Right Atrium Normal right atrial size. Left Atrium Normal left atrial size. Mitral Valve Structurally normal mitral valve. No mitral stenosis, regurgitation or prolapse. Aortic Valve Trileaflet aortic valve. No aortic stenosis. Trace aortic regurgitation. Tricuspid Valve Structurally normal tricuspid valve. No tricuspid stenosis. Mild tricuspid regurgitation. Pulmonic Valve Structurally normal pulmonic valve. No pulmonic stenosis. No pulmonic regurgitation. Pericardium No pericardial effusion. Aorta CONCLUSIONS Left ventricular ejection fraction 55-60% No mitral regurgitation Mild tricuspid regurgitation No pericardial effusion Previewed by: Dr. Yuan Vidal DO (Electronically Signed) Final Date: 25 September 2023 15:16
== END | disposition home or self-care (01) ==
LOC: RADECHMAIN 17:04
PROVIDERS: ATTEND Internal Medicine Hematology & Oncology
DX: Z01.818 Encounter for other preprocedural examination (principal); I36.1 Nonrheumatic tricuspid (valve) insufficiency
CPT/HCPCS: 93306

== ENCOUNTER → 2024-01-05 | Outpatient (CLI) | payer BC ==
--- NOTE | 2024-01-06 09:59 | CA ---
Transthoracic Echo Report Name: Wanda Ervin Age: 63 Gender: F : 1960 Exam Date: 01/05/2024 15:18 Exam Location: [place] [facility] Ht (in): 67 Wt (lb): 120 Ordering Physician: Ethan Carpenter MD Attending/Referring Phys: Wrapper Counter Domi Raymond RDCS Procedure CPT: Indications: Z01.818 CHEMO M81.0 MENNOAPUSAL Cardiac Hx: Breast Cancer Technical Quality: Fair Contrast 1: Total Dose (mL): Contrast 2: Total Dose (mL): MEASUREMENTS (Male / Female) Normal Values 2D ECHO LV Diastolic Diameter PLAX 3.8 cm 4.2 - 5.9 / 3.9 - 5.3 cm LV Systolic Diameter PLAX 2.5 cm IVS Diastolic Thickness 0.8 cm 0.6 - 1.0 / 0.6 - 0.9 cm LVPW Diastolic Thickness 0.8 cm 0.6 - 1.0 / 0.6 - 0.9 cm LV Relative Wall Thickness 0.4 RV Internal Dim ED PLAX 1.2 cm LA Systolic Diameter LX 3.2 cm 3.0 - 4.0 / 2.7 - 3.8 cm LV Diastolic Volume MOD BP 32.7 cm??? 67 - 155 / 56 - 104 cm??? LV Systolic Volume MOD BP 13.1 cm??? 22 - 58 / 19 - 49 cm??? LV Ejection Fraction MOD BP 59.8 % >= 55 % LV Cardiac Index MOD BP 991.3 cm???/min???m??? LV Diastolic Volume MOD 4C 35.9 cm??? LV Systolic Volume MOD 4C 12.5 cm??? LV Ejection Fraction MOD 4C 65.3 % LV Cardiac Index MOD 4C 1189.3 cm???/min???m??? LV Diastolic Length 4C 6.5 cm LV Systolic Length 4C 5.2 cm LV Diastolic Volume MOD 2C 28.6 cm??? LV Systolic Volume MOD 2C 13.2 cm??? LV Ejection Fraction MOD 2C 54.0 % LV Cardiac Index MOD 2C 784.4 cm???/min???m??? LV Diastolic Length 2C 6.2 cm LV Systolic Length 2C 5.5 cm LA Volume 25.0 cm??? 18 - 58 / 22 - 52 cm??? LA Volume Index 15.7 cm???/m??? 16 - 28 cm???/m??? M-MODE Aortic Root Diameter MM 2.6 cm LA Systolic Diameter MM 3.3 cm LA Ao Ratio MM 1.3 AV Cusp Separation MM 1.3 cm DOPPLER MV Area PHT 2.7 cm??? Mitral E Point Velocity 74.5 cm/s Mitral A Point Velocity 63.7 cm/s Mitral E to A Ratio 1.2 MV Deceleration Time 278.6 ms TR Peak Velocity 229.8 cm/s TR Peak Gradient 21.1 mmHg Right Ventricular Systolic Press 25.7 mmHg FINDINGS Left Ventricle Left ventricular ejection fraction is estimated at 55-60 %. Normal Left ventricular size, wall thickness, systolic function with no obvious regional wall motion abnormalities. Normal Left ventricular diastolic filling pattern. Right Ventricle Mild right ventricular dilatation. Right ventricular systolic pressure within normal limits. Right Atrium Normal right atrial size. Left Atrium Normal left atrial size. Mitral Valve Structurally normal mitral valve. Trace mitral regurgitation. No mitral stenosis. Aortic Valve Trileaflet aortic valve. No aortic valve stenosis or regurgitation. Tricuspid Valve Structurally normal tricuspid valve. Mild tricuspid regurgitation. No tricuspid stenosis. Pulmonic Valve Structurally normal pulmonic valve. Trace pulmonic regurgitation. No pulmonic stenosis. Pericardium No pericardial or pleural effusion. Aorta Normal size aortic root and proximal ascending aorta. CONCLUSIONS Normal LV size and systolic function. Mild mitral and tricuspid insufficiency without pulmonary hypertension. No pericardial effusion Previewed by: Dr. Nicolas Lares MD (Electronically Signed) Final Date: 06 January 2024 09:57
== END | disposition home or self-care (01) ==
LOC: RADECHMAIN 14:59
PROVIDERS: ATTEND Internal Medicine Hematology & Oncology
CPT/HCPCS: 93306

== ENCOUNTER → 2024-03-28 | Outpatient (CLI) | payer BC ==
--- NOTE | 2024-03-28 15:57 | BD ---
EXAMINATION TYPE: Axial Bone Density DATE OF EXAM: 03/28/2024 CLINICAL HISTORY: 63 years old Female. ICD-10 CODE: Z01.818 CHEMO M81.0 MENOPAUSAL , Additional Hist ory: Height: 65 Weight: 124 FRAX RISK QUESTIONS: Family History (Parent hip fracture): no History of Fracture in Adulthood: no Secondary Osteoporosis: no RISK FACTORS HISTORY OF: Surgery to Spine/Hip(right/left)/Wrist (right/left): no MEDICATIONS: Thyroid Medications: no Osteoporosis Medications: no EXAM MEASUREMENTS: Bone mineral densitometry was performed using the [employer] System. Bone mineral density as measured about the Lumbar spine is: ----- L1-L4(G/cm2): 1.131 T Score Values are as follows: ----- L1: -0.1 ----- L2: -0.5 ----- L3: -0.4 ----- L4: -0.7 ----- L1-L4: -0.4 Z Score Values are as follows: ----- L1: 1.5 ----- L2: 1.1 ----- L3: 1.2 ----- L4: 0.9 ----- L1-L4: 1.2 Bone mineral density has: Decreased -25.7% since study of: 11/30/2013 Bone mineral density about the R hip (g/cm2): 0.815 Bone mineral density about the L hip (g/cm2): 0.835 T Score values are as follows: -----R Neck: -1.4 -----L Neck: -1.7 -----R Total: -1.5 -----L Total: -1.4 Z Score values are as follows: -----R Neck: 0.1 -----L Neck: -0.2 -----R Total: -0.3 -----L Total: -0.2 Bone mineral density has: Decreased 30.3% since study of: 11/30/2013 FRAX%s: The graph provided illustrates a 8.1% chance for a major osteoporotic fx and a 0.9% chance fo r the hips probability for fx in 10 years time. IMPRESSION: Osteopenia (T Score between -2.5 and -1) is now present. There is slightly increased risk of fracture and the patient may be considered for treatment. Re-Screen 2-5 years. NOTE: T-SCORE=SD OF THE YOUNG ADULT MEAN. [facility], , 03/28/2024 3:54 PM
== END | disposition home or self-care (01) ==
LOC: RADBDWWP 15:09
PROVIDERS: ATTEND Internal Medicine Hematology & Oncology
DX: M81.0 Age-related osteoporosis without current pathological fracture (principal); M85.89 Other specified disorders of bone density and structure, multiple sites
CPT/HCPCS: 77080

== ENCOUNTER → 2024-07-18 | Outpatient (CLI) | payer BC ==
--- NOTE | 2024-07-18 10:18 | CA ---
Transthoracic Echo Report Name: Wanda Ervin Age: 64 Gender: F : 1960 Exam Date: 07/18/2024 08:57 Exam Location: [place] [facility] Ht (in): 66 Wt (lb): 115 Ordering Physician: Ethan Carpenter MD Attending/Referring Phys: Rocket Engine Mechanic Nicci Morley RDCS Procedure CPT: Indications: Z01.818 Cardiac Hx: Technical Quality: Good Contrast 1: Total Dose (mL): Contrast 2: Total Dose (mL): MEASUREMENTS (Male / Female) Normal Values 2D ECHO LV Diastolic Diameter PLAX 3.8 cm 4.2 - 5.9 / 3.9 - 5.3 cm LV Systolic Diameter PLAX 2.5 cm IVS Diastolic Thickness 1.1 cm 0.6 - 1.0 / 0.6 - 0.9 cm LVPW Diastolic Thickness 0.8 cm 0.6 - 1.0 / 0.6 - 0.9 cm LV Relative Wall Thickness 0.5 RV Internal Dim ED PLAX 3.0 cm LA Systolic Diameter LX 3.0 cm 3.0 - 4.0 / 2.7 - 3.8 cm LV Diastolic Volume MOD 4C 65.2 cm??? LV Systolic Volume MOD 4C 29.8 cm??? LV Ejection Fraction MOD 4C 54.2 % LV Cardiac Index MOD 4C 1573.4 cm???/min???m??? LV Diastolic Length 4C 6.6 cm LV Systolic Length 4C 5.2 cm LV Diastolic Volume MOD 2C 77.5 cm??? LV Systolic Volume MOD 2C 28.0 cm??? LV Ejection Fraction MOD 2C 63.8 % LV Cardiac Index MOD 2C 2202.8 cm???/min???m??? LV Diastolic Length 2C 7.1 cm LV Systolic Length 2C 5.0 cm LA Volume 41.3 cm??? 18 - 58 / 22 - 52 cm??? LA Volume Index 26.7 cm???/m??? 16 - 28 cm???/m??? M-MODE Aortic Root Diameter MM 2.7 cm AV Cusp Separation MM 1.9 cm DOPPLER AV Peak Velocity 134.4 cm/s AV Peak Gradient 7.2 mmHg MV Area PHT 3.2 cm??? Mitral E Point Velocity 70.7 cm/s Mitral A Point Velocity 75.6 cm/s Mitral E to A Ratio 0.9 MV Deceleration Time 237.4 ms TR Peak Velocity 192.4 cm/s TR Peak Gradient 14.8 mmHg Right Ventricular Systolic Press 19.5 mmHg FINDINGS Left Ventricle Left ventricular ejection fraction is estimated at 55-60 %. Small left ventricular cavity. Mildly increased septal wall thickness. Normal left ventricular wall motion. Noemal longitudinal strain Right Ventricle Normal right ventricular size. Right ventricular systolic pressure within normal limits. Right Atrium Normal right atrial size. No right atrial thrombus or mass seen. Left Atrium Normal left atrial size. No left atrial thrombus or mass present. Mitral Valve Structurally normal mitral valve. Trace mitral regurgitation. Aortic Valve Trileaflet aortic valve. No aortic valve stenosis or regurgitation. Tricuspid Valve Structurally normal tricuspid valve. Trace to mild tricuspid regurgitation. Pulmonic Valve Structurally normal pulmonic valve. No pulmonic regurgitation. Pericardium No pericardial effusion. Aorta Normal size aortic root and proximal ascending aorta. CONCLUSIONS Normal LV size and systolic function. Minimal mitral and tricuspid regurgitation. No pericardial effusion. No pulmonary hypertension. Previewed by: Dr. Nicolas Lares MD (Electronically Signed) Final Date: 18 Jul 2024 10:17
== END | disposition home or self-care (01) ==
LOC: RADECHMAIN 07:54
PROVIDERS: ATTEND Internal Medicine Hematology & Oncology
DX: Z01.818 Encounter for other preprocedural examination (principal); I08.1 Rheumatic disorders of both mitral and tricuspid valves
CPT/HCPCS: 93306